=== PATIENT | male | born 1970 | race Caucasian/White ===

== ENCOUNTER 2024-11-09 06:03 | Outpatient (OUT) | payer BC, SELFPAY | END 2024-11-09 06:04 | disposition home or self-care (01) | LOC: RAD 06:03 | PROVIDERS: PCP Nurse Practitioner Family; Visit Provider Nurse Practitioner Family | DX: M54.32 Sciatica, left side (principal); M51.369 Other intervertebral disc degeneration, lumbar region without mention of lumbar back pain or lower extremity pain | CPT/HCPCS: 72100 ==

== ENCOUNTER 2025-04-21 11:29 | Outpatient (OUT) | payer OTHER, SELFPAY ==
--- OUTSIDE RECORDS SUMMARY | 2025-04-17 09:30 | XMS_ITS ---
Author Organization [facility] in [place] Address [address] [place] [address] Care Team Providers Care Box Cutter Name Role Phone Kerrie Aguillon Primary Care Provider Allergies Allergen (clinical drug ingredient) Drug/Non Drug Allergy documented on EMR Reaction Allergy Type Onset Date Status codeine Codeine nausea/vomiting Drug Allergy A ctive REASON FOR VISIT Presents to office alone for c/o low back pain. Pain has been much worse over the past 3 weeks, We ordered MRI back in October and he is getting that done on Monday. Medications Medication SIG (Take, Route, Frequency, Duration) Notes Start Date End Date Status Olmesartan Medoxomil-HCTZ 20-12.5 MG TAKE 1 TABLET BY MOUTH EVERY DAY FOR 90 DAYS daily; Duration: 30 days Active Zanaflex 4 MG 1 tablet BID prn Orally Once a day; Duration: 10 days Active predniSONE 20 MG 2 tablet Orally Once a day; Duration: 5 days 04/17/2025 Active Diclofenac Sodium 75 MG TAKE 1 TABLET BY MOUTH TWICE A DAY FOR 14 DAYS NEEDED; Duration: 30 days Active Simvastatin 20 MG 1 tablet in the evening Orally Once a day; Duration: 30 days Active Trulicity 3 MG/0.5ML INJECT 1 PEN UNDER THE SKIN ONCE WEEKLY; Duration: 28 Active Omeprazole 40 MG TAKE 1 CAPSULE BY MOUTH TWICE A DAY; Duration: 90 Active QUEtiapine Fumarate 100 MG TAKE 3 TABLET AT BEDTIME BY MOUTH ONCE A DAY; Duration: 90 Active Ibuprofen 800 MG TAKE 1 TABLET BY MOUTH EVERY 6 TO 8 HOURS NEEDED; Duration: 30 Active buPROPion HCl ER (XL) 150 MG TAKE 1 TABLET BY MOUTH EVERY DAY; Duration: 90 days Active DULoxetine HCl 60 MG TAKE 1 CAPSULE BY MOUTH EVERY DAY FOR 30 DAYS; Duration: 90 days Active glipiZIDE ER 2.5 MG 1 tablet with breakfast Orally Once a day; Duration: 30 days 06/30/2023 Active Gabapentin 300 MG 1 capsule Orally twice a day; Duration: 30 days call for refill 04/17/2025 Active Social History Tobacco Use: Social History Observation Description Date Details (start date - stop date) Current Smoker 07/17/1992 - NA Tobacco Use/Smoking Question Answer Notes Patient is a current smoker When did you start smoking? 07/17/1992 How often do you smoke cigarettes? every day How many cigarettes a day do you smoke? 06-05 AUDIT-C (Standard) Question Answer Notes Did you have a drink contain ing alcohol in the past year? Yes How often did you have a dri nk containing alcohol in the past year? Never (0 point) How many drinks did you have on a typical day when you were drinking in the past year? 1 or 2 drinks (0 point) How often did you have six o r more drinks on one occasion in the past year? Less than monthly (1 point) Points 1 Interpretation Negative Vital Signs Weight 256.2 lbs 04/17/2025 Height 73 in 04/17/2025 Blood pressure systolic 96 mm Hg 04/17/20 25 Blood pressure diastolic 60 mm Hg 025 BMI 33.8 kg/m2 04/17/2025 Encounters Encounter Location Date Provider Diagnosis [address] [address] 04/17/2025 Kerrie Pal Back pain M54.9 and Essential (primary) hypertension I10 Assessments Encounter Date Diagnosis (ICD Code) Assessment Notes Treatment Notes Treatment Clinical Notes Section Notes 04/17/2025 Back pain (ICD-10 - M54.9) toradol 60 kenlog 80 IM has upcoming MRI Monday discussed pain man referral check on FMLA paperwork CSA signed, OAR[place] reviewed 04/17/2025 Essential (primary) hypertension (ICD-10 - I10) BP running low decrease dose bp med continue to monitor Plan Of Treatment Medication Medication Name Sig Start Date Stop Date Notes Olmesartan Medoxomil-HCTZ 20-12.5 MG TAKE 1 TABLET BY MOUTH EVERY DAY FOR 90 DAYS daily; Duration: 30 days Zanaflex 4 MG 1 tablet BID prn Orally Once a day; Duration: 10 days predniSONE 20 MG 2 tablet Orally Once a day; Duration: 5 days 04/17/2025 Diclofenac Sodium 75 MG TAKE 1 TABLET BY MOUTH TWICE A DAY FOR 14 DAYS NEEDED; Duration: 30 days Gabapentin 300 MG 1 capsule Orally twi ce a day; Duration: 30 days 04/17/2025 call for refill Treatment Notes Assessment Notes Back pain toradol 60 kenlog 80 IM has upcoming MRI Monday discussed pain man referral check on FMLA paperwork CSA signed, OARRS reviewed Essential (primary) hypertension BP running low decrease dose bp med continue to monitor Next Appt Details Follow Up: prn, Reason: Progress Notes * Chidi VALENCIA RDOB:1970 (54 yo M)Acc No.[id number]:04/17/2025 Progress Note Patient: Chidi ARGUETA Provider: Tamie Aguillon ([facility]), SCHOOL BUS AIDE :1970 A ge:54 Y S ex:Male Date:04/17/2025 Address:[address] [place], [place] [id number] Check In:12:59 PM ESTCheck O ut:01:49 PM EST Subjective: * Chief Complaints: * 1 . Presents to office alone for c/o low back pain. Pain has been much worse over the past 3 weeks. 2. We ordered MRI back in October and he is getting that done on Monday.. * HPI: G eneral: getting MRI Monday low back pain righ tin middle legs weak yesterday, fell knocked tooth out no loss bowel, bladder, no saddle anesthesia ER twice in last 3 weeks chiro helps for 2 hours feels better laying on back with pressure on area moving around makes worse. * ROS: G eneral/Constitutional: Fever d enies. H eadache d enies. W eight loss?denies. O phthalmologic: Discharge d enies. E ye Pain d enies. I tching and redness d enies. E NT: Nasal discharge d enies. N pat congestion d enies.?Sore throat d enies. C ardiovascular: Chest tightness/ heavy pressure d enies. R apid heart rate d enies. S welling of extremities d enies. C hest pain d enies. ? R espiratory: Productive cough d enies. C hest pain d enies. C ough d enies. S hortness of breath d enies. W heezing d enies. ? G astrointestinal: Abdominal pain d enies. C onstipation d enies. D ecreased appetite d enies. D iarrhea d enies. N ausea d enies. V omiting?denies. G enitourinary: Urinary incontinence d enies. P ainful urination d enies. M usculoskeletal: Back pain c enter of low back, little radiation to buttocks bilaterally. N roger pain d enies. M uscle aches d enies. S kin: Rash d enies. S kin lesion(s) d enies. ? * Active Problem List R55 Syncope Modified On:04/10/2023 Status:confirmed F32.9 Depression Modified On:04/14/2023U Status:confirmed E66.3 Over weight Modified On:04/10/2023 Status:confirmed D64.9 Anemia Modified On:04/10/2023 Status:confirmed R53.83 Fatigue Modified On:04/10/2023 Status:confirmed K63.5 Colonic polyp Modified On:04/10/2023 Status:confirmed E78.1 Hypertriglyceridemia Modified On:04/10/2023U Status:confirmed K76.0 Fatty liver Modified On:04/10/2023U Status:confirmed M19.90 Unspecified osteoart hritis, unspecified site Modified On:04/21/2023 Status:confirmed E11.69 Type 2 diabetes rosaura itus with other specified complication Modified On:07/21/2023U Status:confirmed E66.9 Obesity, unspecified Modified On:04/14/2023U Status:confirmed I10 Essential (primary) hypertension Modified On:04/14/2023U Status:confirmed S83.242A Other tear of medial meniscus, current injury, left knee, initial encounter Modified On:05/29/2023U Status:confirmed M94.20 Chondromalacia, unsp ecified site Modified On:05/29/2023 Status:confirmed M71.22 Synovial cyst of pop liteal space [Carroll], left knee Modified On:05/29/2023 Status:confirmed K59.00 Constipation Modified On:01/25/2024 Status:confirmed G47.33 ANNALISA (obstructive sle ep apnea) Modified On:05/01/2024U Status:confirmed M10.9 Gout attack Modified On:05/01/2024U Status:confirmed M54.32 Sciatica, left Modified On:11/05/2024 Status:confirmed * Medical History: S yncope, Depression, Over weight, Anemia, Fatigue, Colonic polyp, Hypertriglyceridemia, Fatty infiltration of the liver, Anxiety, Essential Hypertension, Erectile dysfunction, Gout, GERD (gastroesophageal reflux disease), IBS (irritable bowel syndrome), Insomnia, Obstructive sleep apnea, Tobacco use. * Surgical History: C HOLECYSTECTOMY , Achilles Tendon Repair , left knee replacement . * Family History: F ather: . M other: , diagnosed with Diabetes. S ister(s): multiple sclerosis. D terranceer(s): alive. 2 sister(s) . 2 daughter(s) - healthy. . * Social History: T obacco Use: T obacco Use/Smoking P atient is a c urrent smoker W hen did you start smoking? 0 07/17/1992 H ow often do you smoke cigarettes? e very day H ow many cigarettes a day do you smoke? 1 1-20 D rug/Alcohol: A JESSICA-C (Standard) D id you have a drink containing alcohol in the past year? Y es H ow often did you have a drink containing alcohol in the past year? N ever (0 point) H ow many drinks did you have on a typical day when you were drinking in the past year? 1 or 2 drinks (0 point) H ow often did you have six or more drinks on one occasion in the past year? L ess than monthly (1 point) P oints 1 I nterpretation N egative * Medications: T aking buPROPion HCl ER (XL) 150 MG Tablet Extended Release 24 Hour TAKE 1 TABLET BY MOUTH EVERY DAY , Taking Diclofenac Sodium 75 MG Tablet Delayed Release TAKE 1 TABLET BY MOUTH TWICE A DAY FOR 14 DAYS NEEDED , Taking DULoxetine HCl 60 MG Capsule Delayed Release Particles TAKE 1 CAPSULE BY MOUTH EVERY DAY FOR 30 DAYS , Taking glipiZIDE ER 2.5 MG Tablet Extended Release 24 Hour 1 tablet with breakfast Orally Once a day , Taking Ibuprofen 800 MG Tablet TAKE 1 TABLET BY MOUTH EVERY 6 TO 8 HOURS NEEDED , Taking Olmesartan Medoxomil-HCTZ 40-12.5 MG Tablet TAKE 1 TABLET BY MOUTH EVERY DAY FOR 90 DAYS , Taking Omeprazole 40 MG Capsule Delayed Release TAKE 1 CAPSULE BY MOUTH TWICE A DAY , Taking QUEtiapine Fumarate 100 MG Tablet TAKE 3 TABLET AT BEDTIME BY MOUTH ONCE A DAY , Taking Simvastatin 20 MG Tablet 1 tablet in the evening Orally Once a day , Taking Trulicity(Dulaglutide) 3 MG/0.5ML Solution Auto-injector INJECT 1 PEN UNDER THE SKIN ONCE WEEKLY , Taking Zanaflex(tiZANidine HCl) 4 MG Tablet 1 tablet at bedtime as needed Orally Once a day , Discontinued predniSONE 20 MG Tablet 2 tablet Orally Once a day , Medication List reviewed and reconciled with the patient * Allergies: C odeine: nausea/vomiting - Allergy. Objective: * Vitals: W t:256.2lbs, Ht: 73 in, BP:96/60mm Hg, BMI:33.8Index, Ht-cm: 185.42 cm, Wt-k.21 kg. * Examination: G eneral Examinations: GENERAL APPEARANCE: a lert and oriented, i n no acute distress. EYES: c onjunctiva normal, sclera non-icteric. NOSE: n ormal external appearance. LYMPH NODES: n ormal, no cervical, axillary, or inguinal adenopathy. LUNGS: c lear to auscultation bilaterally. CARDIO: r egular rate and rhythm, S1, S2 normal, no edema.? BACK: l ow back non tender to palpation. MUSCULOSKELETAL: d ecreased ROM due to low back pain, sits and stands carefully, walks slowly. SKIN: w arm and dry. Assessment: * Assessment: 1. B ack pain - M54.9 (Primary) 2 . E ssential (primary) hypertension - I10? Plan: * Treatment: 2. E ssential (primary) hypertension Refill Olmesartan Medoxomil-HCTZ Tablet, 20-12.5 MG, TAKE 1 TABLET BY MOUTH EVERY DAY FOR 90 DAYS, daily, 30 days, 30, Refills 11; R efill Zanaflex Tablet, 4 MG, 1 tablet BID prn, Orally, Once a day, 10 days, 20 Tablet, Refills 0. Notes: BP running low decrease dose bp med continue to monitor * Preventive Medicine: Screenings/Counseling: T OBACCO ACTION PLAN Patient counselled on the dangers of tobacco use and urged to quit. . B ME ACTION PLAN Above Normal BMI Follow-up D ietary management education, guidance, and counseling See treatment section of progress note for complete details of management plan. * Follow Up: p rn * * Sign off status: Completed Visit Status: C HK (Check Out) true * Provider: Tamie Aguillon ([facility]), SCHOOL BUS AIDE Date: Generated for Quincy landers/Ericka/Aakashsmitting on: 11:33 AM EDT History and Physical Notes * HPI (History of Present Illness) Category Sub-Category Detail Notes Category Not es General getting MRI Monday low back pain righ tin middle legs weak yesterday, fell knocked tooth out no loss bowel, bladder, no saddle anesthesia ER twice in last 3 weeks chiro helps for 2 hours feels better laying on back with pressure on area moving around makes worse Examination Category Sub-Category Detail Notes Category Not es General Examinations GENERAL APPEARANCE: alert a nd oriented, in no acute distress EYES: conjunctiva normal, sclera non-icteric EARS: NOSE: normal external appe arance THROAT: CARDIO: regular rate and rhy thm, S1, S2 normal, no edema LUNGS: clear to auscultatio n bilaterally ABDOMEN: SKIN: warm and dry BACK: low back non tender to palpation MUSCULOSKELETAL: decreased ROM due to low back pain, sits and stands carefully, walks slowly LYMPH NODES: normal, no cervical, axillary, or inguinal adenopathy
--- OUTSIDE RECORDS SUMMARY | 2025-04-21 06:21 | XMS_ITS ---
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 Name Role Phone Kerrie Aguillon Primary Care Provider REASON FOR VISIT shots Encounters Encounter Location Date Provider Diagnosis [address] [place] [place] [address] 04/21/2025 Kerrie Aguillon Plan Of Treatment No Information Progress Notes * Chidi VALENCIA RDOB:1970 (54 yo M)Acc No.[id number]:04/21/2025 Patient: Chidi ARGUETA :1970 A ge:54 Y S ex:Male Address:[address] [place] [phone] Subjective: * Chief Complaints: * S hots * Medical History: * Surgical History: * Hospitalization/Major Diagno stic Procedure: * Medications: Objective: * Vitals: * Physical Examination: Assessment: Plan: * Treatment: * Procedure Codes: * true * Date: Generated for Printi ng/Faxing/eTransmitting on: 11:33 AM EDT
--- OUTSIDE RECORDS SUMMARY | 2025-04-21 11:34 | XMS_ITS | Patient Health Record ---
Author Organization [facility] [place] Address [address] [place] [address] Care Team Providers Care General Matcher Name Role Phone Pal, Kerrie Primary Care Provider Jose Maria Grayson [phone] Allergies Allergen (clinical drug ingredient) Drug/Non Drug Allergy documented on EMR Reaction Allergy Type Onset Date Status codeine Codeine nausea/vomiting Drug Allergy A ctive Results Component Value Reference Range Notes COMPREHENSIVE METABOLIC PANE L Reviewed date:05/01/2024 08:17:34 AM Interpretation: Performing Lab:[facility] [address], [place]. [address] PH:[phone] Notes/Report: SODIUM 137 134-146 mmol/L POTASSIUM 4.1 3.5-5.0 mmol/L CHLORIDE 101 98-109 mmol/L CARBON DIOXIDE 27 22-32 mmol/L ANION GAP 9 5-15 mmol/L BLOOD UREA NITROGEN 17 5-23 mg/dL CREATININE 1.01 0.60-1.30 mg/dL METHOD TRACE ABLE TO IDMS STANDARD GLUCOSE 146 65-99 mg/dL CALCIUM 9.3 8.5-10.5 mg/dL TOTAL PROTEIN 6.8 6.0-8.0 g/dL ALBUMIN 4.2 3.2-5.3 g/dL ALKALINE PHOSPHATASE 49 39-130 U/L AST 14 0-41 U/L ALT 11 0-40 U/L BILIRUBIN,TOTAL 0.4 0.3-1.2 mg/dL eGFR (CKD-EPI) NON-RACE DEPENDENT 88 >59 ml/min/1.73sq.m CKD-EPI 2020 equation that does PERFORMED AT [address] [address] not use a race coefficient. Reported eGFR is based on the FREE T3 Reviewed date:05/01/2024 08:17:34 AM Interpretation: Performing Lab:[facility]), [address] [place] [address]., [address] [place] [address]. [address] PH:[phone] Notes/Report: FREE T3 2.87 2.50-3.90 pg/mL PERFORMED AT [address] [place] [address] URIC ACID Reviewed date:05/01/2024 08:17:34 AM Interpretation: Performing Lab:[facility] [address] [place] [address]., [address] [address] PH:[phone] Notes/Report: URIC ACID 8.0 2.6-7.2 mg/dL PERFORMED AT [address] [place] [address] INSULIN Reviewed date:05/01/2024 08:17:34 AM Interpretation: Performing Lab:[facility]), [address] [place] [address]., [address] [place] [address]. [address] PH:[phone] Notes/Report: INSULIN 12.99 1.00-23.00 uIU/mL Ref. range is for FASTING NON-DIABETIC POPULATION. PERFORMED AT [address] [address] THYROID PROFILE Reviewed date:05/01/2024 08:17:34 AM Interpretation: Performing Lab:[facility]), [address] [place] [address]., [address] [place] [address]. [address] PH:[phone] Notes/Report: TSH 1.08 0.49-4.67 uIU/mL FREE T4 0.59 0.61-1.60 ng/dL PERFORMED AT [address] [place] [address] LIPID PANEL Reviewed date:05/01/2024 08:17:34 AM Interpretation: Performing Lab:[facility] ([address] [address] PH:[phone] Notes/Report: CHOLESTEROL 136 150-200 mg/dL TRIGLYCERIDE 117 27-150 mg/dL HDL CHOLESTEROL 32 >39 mg/dL HDL <40 mg/dL - High Risk HDL >60 mg/dL - Negative Risk HDL > or = 40mg/dL- Desirable VERY LOW LIPOPROTEIN 23 0-30 mg/dL LDL (CALC) 81 <130 mg/dL LDL <100 mg/dL - Desirable LDL >160 mg/dL - High Risk CHOLESTEROL:HDL 4.3 1.0-5.0 PERFORMED [address] [address] PSA. SCREENING Reviewed date:05/01/2024 08:17:34 AM Interpretation: Performing Lab:[facility] [address] [address] PH:[phone] Notes/Report: PSA SCREEN 1.21 0.00-4.00 ng/mL Values obtained by different assay methods PERFORMED AT [address] [address] Maurepas DXI chemiluminescent immunoassay. cannot be used interchangeably. The method used for this test is Latia CBC AND AUTO DIFF * Reviewed date:05/01/2024 08:17:34 AM Interpretation: Performing Lab:[facility] [address] [address] PH:[phone] Notes/Report: WBC COUNT 6.8 4.0-11.0 X10E9/L RBC COUNT 4.45 4.10-5.70 X10E12/L HEMOGLOBIN 13.7 13.0-17.0 g/dL HEMATOCRIT 38.5 39-49 % MCV 86 80-100 fL MCH 30.8 27-34 pg MCHC 35.6 32-36 g/dL RDW 13.6 11.5-15.0 % PLATELET COUNT 252 150-450 X10E9/L MPV 7.5 7-12 fL % NEUTROPHILS 50.4 % LYMPHOCYTES 37.7 % MONOCYTES 7.2 % EOSINOPHILS 3.5 % BASOPHILS 1.2 ABSOLUTE NEUTROPHIL 3.4 1.5-6.6 X10E9/L ABSOLUTE LYMPHOCYTE 2.6 1.0-3.5 X10E9/L ABSOLUTE MONOCYTE 0.5 0-0.9 X10E9/L ABSOLUTE EOSINOPHIL 0.2 0.0-0.4 X10E9/L ABSOLUTE BASOPHIL 0.1 0.0-0.2 X10E9/L PERFORM ED AT [address], [place] [address] HGB A1C (GLYCO-HGB) Reviewed date:05/01/2024 08:17:34 AM Interpretation: Performing Lab:[facility] [address] [place] [address], [address] [address] PH:[phone] Notes/Report: HEMOGLOBIN A1C 7.2 4.4-5.6 % affected. Diabetes : > 6.4 % ADA Guidelines the half-life of red blood cells and in vivo glycation rates are Normal : less than 5.7 % Prediabetes : 5.7 % to 6.4 % Result HgbA1c NOTE Use with caution in patients with abnormal hemoglobin variants as AVERAGE GLUCOSE [address] PERFORMED AT [address] [id number] Reason For Referral Reason left sciatica Diagnosis 1 Sciatica, left (M54. 32) Referral Organization [facility] Referring Provider First Name Kerrie Referring Provider Last Name Pal Referring Provider Speciality Family Med leena Referred Provider [facility], Physical Therap y Referred Provider Specialty Physical The rapist Referral Priority Routine Medications Medication SIG (Take, Route, Frequency, Duration) Notes Start Date End Date Status buPROPion HCl ER (XL) 150 MG TAKE 1 TABLET BY MOUTH EVERY DAY; Duration: 90 days Active Olmesartan Medoxomil-HCTZ 20-12.5 MG TAKE 1 TABLET BY MOUTH EVERY DAY FOR 90 DAYS daily; Duration: 30 days Active Simvastatin 20 MG [...] TO 8 HOURS NEEDED; Duration: 30 Active Zanaflex 4 MG 1 tablet BID prn Orally Once a day; Duration: 10 days Active DULoxetine HCl 60 MG TAKE 1 CAPSULE BY MOUTH EVERY DAY FOR 30 DAYS; Duration: 90 days Active predniSONE 20 MG 2 tablet Orally Once a day; Duration: 5 days 04/17/2025 Active glipiZIDE ER 2.5 MG 1 tablet with breakfast Orally Once a day; Duration: 30 days 06/30/2023 Active Diclofenac Sodium 75 MG TAKE 1 TABLET BY MOUTH TWICE A DAY FOR 14 DAYS NEEDED; Duration: 30 days Active Gabapentin 300 MG 1 capsule Orally [...] many cigarettes a day do you smoke? 11-20 Alcohol Screen (Audit-C) Question Answer Notes Did you have a drink contain ing alcohol in the past year? Yes How many drinks did you have on a typical day when you were drinking in the past year? 1 or 2 drinks (0 point) How often did you have a dri nk containing alcohol in the past year? Daily or almost daily (4 points) Points 4 Interpretation Positive AUDIT-C (Standard) Question Answer Notes Did you [...] monthly (1 point) Points 1 Interpretation Negative Problems Problem Type SNOMED Code ICD Code Onset Dates Problem Status W/U Status Risk Notes Problem Essential hypertension (68441830) Essential (primary) hypertension (I10) Active confirmed Problem Type 2 diabetes mellitus with other specified complication (E11.69) Active confirmed Problem Obesity (650476050) Obesity, uns pecified (E66.9) Active confirmed Problem Osteoarthritis (767638453) Unspecified osteoarthritis, unspecified site (M19.90) Active confirmed Problem Synovial popliteal cyst of left knee (disorder) (9265262522) Synovial cyst of popliteal space [Carroll], left knee (M71.22) Active confirmed Problem Chondromalacia (12657416) Chondromalacia, unspecified site (M94.20) Active confirmed Problem Acute tear of medial meniscus of left knee (disorder) (47029679547313714) Other tear of medial meniscus, current injury, left knee, initial encounter (S83.242A) Active confirmed Problem Fatigue (81225871) Fatigue (R53.83) Active conf irmed Problem Anemia (275487637) Anemia (D64.9) Active confir med Problem Depression (674400914) Depression (F32.9) Active confirmed Problem Obstructive sleep apnea syndrome (67048260) ANNALISA (obstructive sleep apnea) (G47.33) Active confirmed Problem Syncope (483627709) Syncope (R55) Active confir med Problem Hypertriglyceridemia (406701615) Hypertriglyceridemia (E78.1) Active confirmed Problem Constipation (89591958) Constipation (K59.00) Active confirmed Problem Fatty liver (897530254) Fatty liver (K76.0) Active confirmed Problem Colonic polyp (56305371) Colonic polyp (K63.5) Active confirmed Problem Overweight (256494826) Over weight (E66.3) Active confirmed Problem Sciatica (37176630) Sciatica, le ft (M54.32) Active confirmed Problem Gout attack (733390600) Gout attack (M10.9) Active confirmed Vital Signs Blood pressure diastolic 60 mm Hg 04/17/2025 Height 73 in 04/17/2025 Blood pressure systolic 96 mm Hg 04/17/2025 Weight 256.2 lbs 04/17/2025 BMI 33.8 kg/m2 04/17/2025 Encounters Encounter Location Date Provider Diagnosis [facility] [address] [place] [address] 11/05/[address] [facility] [address] [place] [address] 11/11/2024 Kerrie Aguillon Sciatica, left M54.3 2 [facility] [address] [facility] [place] [address] 04/21/2025 Kerrie Aguillon [facility] [address] [facility] [place] [address] 04/23/2024 Kerrie Aguillon Wellness examination Z00.00 [facility] [address] [place] [address] 06/24/[address] [facility] [address] [place] [address] 06/24/2024 Kerrie Aguillon Type 2 diabetes mellitus with other specified complication E11.69 [facility] [address] [place] [address] 07/05/[address] [facility] [address] [place] [address] 07/23/[address] [facility] [address] [place] [address] 05/01/2024 Kerrie Aguillon Gout attack M10.9 an d Type 2 diabetes mellitus with other specified complication E11.69 [facility] [address] [place] [address] 07/05/2024 Kerrie Aguillon Right ankle pain M25.571 and Wellness examination Z00.00 [facility] [address] [place] [address] 11/05/2024 Kerrie Aguillon Sciatica, left M54.[address] [facility] [address] [place] [address] 04/17/2025 Kerriegerardo Aguillon Back pain M54.9 and Essential (primary) hypertension I10 Assessments Encounter Date Diagnosis (ICD Code) Assessment Notes Treatment Notes Treatment Clinical Notes Section Notes 05/01/2024 Gout attack (ICD-10 - M10.9) fu if not improving 07/05/2024 Right ankle pain (ICD-10 - M25.571) refer to ortho, calling with name 07/05/2024 Wellness examination (ICD-10 - Z00.00) reviewed labs ROS done exam done needs ortho referral checking on last colonoscopy date r 11/05/2024 Sciatica, left (ICD-10 - M54.32) 04/17/2025 Back pain (ICD-10 - M54.9) toradol 60 kenlog 80 IM has upcoming MRI Monday discussed pain man referral check on FMLA paperwork CSA signed, OARRS reviewed 04/23/2024 Wellness examination (ICD-10 - Z00.00) 06/24/2024 Type 2 diabetes mellitus with other specified complication (ICD-10 - E11.69) 11/11/2024 Sciatica, left (ICD-10 - M54.32) 04/17/2025 Essential (primary) hypertension (ICD-10 - I10) BP running low decrease dose bp med continue to monitor 05/01/2024 Type 2 diabetes mellitus with other specified complication (ICD-10 - E11.69) well controlled with meds, continue all Plan Of Treatment Pending Test Test Name Order Date CMP (COMPLETE METABOLIC PANEL) 3 CMP (COMPLETE METABOLIC PANEL) 4 HEMOGLOBIN A1C (GLYCO) 04/14/2023 HEMOGLOBIN A1C (GLYCO) 04/23/2024 INSULIN, TOTAL 04/23/2024 INSULIN, TOTAL 04/14/2023 LIPID PANEL (CHOL/TRIG/HDL/LDL) 04/14/20 23 LIPID PANEL (CHOL/TRIG/HDL/LDL) 04/23/20 24 CBC WITH DIFF 04/23/2024 CBC WITH DIFF 04/14/2023 PSA, PROSTATE-SPECIFIC ANTIGEN 3 URIC ACID 04/14/2023 URIC ACID 04/23/2024 XR Abdomen AP (1 view) (KUB) * 4 PSA, TOTAL 04/23/2024 STOOL OCCULT BLOOD 04/14/2023 GLYCOHEMOGLOBIN A1C 07/21/2023 MRI LSPINE WO CON 11/11/2024 THYROID PANEL (T4/TSH/FREE T3) 4 THYROID PANEL (T4/TSH/FREE T3) 3 XR lumbar spine 2-3V 11/05/2024 Insurance Providers Payer Name Payer Address Payer Phone Subscriber Number Group Number Insured Name Patient Relationship to Insured Coverage Start Date Coverage End Date [employer] ACCESS PPO PLUS LOCAL PLAN [address] [place] [address] [id number] Chidi Valencia Self - patient is the insured Medications Administered Medication Instructions Date of Administration Dosage Notes Kenalog-40 04/21/2023 160 mg 80 mg and 1 cc lidocaine - X2 Medical (General) History Medical History History ICD Code syncope depression over weight anemia fatigue colonic polyp hypertriglyceridemia fatty infiltration of the liver Anxiety F41.9 Essential Hypertension I10 Erectile dysfunction N52.9 Gout M10.9 GERD (gastroesophageal reflux disease) K 21.9 IBS (irritable bowel syndrome) K58.9 Insomnia G47.00 Obstructive sleep apnea G47.33 Tobacco use Z72.0 Surgical History Surgery Date(Month/Year) left knee replacement CHOLECYSTECTOMY Achilles Tendon Repair
--- OUTSIDE RECORDS SUMMARY | 2025-04-21 11:34 | XMS_ITS | Clinical Summary ---
Author Organization [facility] Address [address], [address] [place] [address] Care Team Providers Care Freelance Translator Name Role Phone Kerrie Aguillon DYE REEL OPERATOR - LUMBER RACKER Primary Care Provide r Allergies Active Allergy Reactions Criticality Noted Date Comments Codeine Nausea And Vomiting Low 06/05/2023 Medications QUEtiapine (SEROQUEL) 100 MG tablet Take 1 tablet by mouth nightly Active DULoxetine (CYMBALTA) 60 MG extended release capsule Take 1 capsule by mouth nightly Active omeprazole (PRILOSEC) 40 MG delayed release capsule Take 1 capsule by mouth nightly Active NIFEdipine (ADALAT CC) 60 MG extended release tablet Take 1 tablet by mouth nightly Active dulaglutide (TRULICITY) 1.5 MG/0.5ML SC injection Inject 0.5 mLs into the skin once a week Sundays Active ibuprofen (ADVIL;MOTRIN) 800 MG tablet Take 1 tablet by mouth every 6 hours as needed for Pain Active simvastatin (ZOCOR) 20 MG tablet Take 1 tablet by mouth nightly Active olmesartan-hydr oCHLOROthiazide (BENICAR HCT) 40-12.5 MG per tablet Take 0.5 tablets by mouth nightly Active rivaroxaban (XARELTO) 10 MG TABS tablet Take 1 tablet by mouth daily (with breakfast) 12 tablet 06/20/2023 Active Active Problems Problem Noted Date Diagnosed Date Type 2 diabetes mellitus wit h hyperglycemia, without long-term current use of insulin 06/20/2023 HTN (hypertension) 06/20/2023 Status post total knee replacement using cement, left 06/19/2023 Family History Medical History Relation Name Comments Heart Disease Mother Relation Name Status Comments Father Mother Sister Social History Tobacco Use Types Packs/Day Years Used Date Smoking Tobacco: Every Day Cigarettes Smokeless Tobacco: Never Tobacco Cessation:Ready to Q uit: Not Asked; Counseling Given: Not Answered Alcohol Use Standard Drinks/Week Comments Not Currently 0 (1 standard drink = 0.6 oz pur e alcohol) occasionally [facility] Utilities Answer Date Recorded In the past 12 months has th e electric, gas, oil, or water company threatened to shut off services in your home? No 06/19/2023 Hunger Vital Sign Answer Date Recorded Within the past 12 months, y ou worried that your food would run out before you got the money to buy more. Never true 06/19/20 23 Within the past 12 months, t he food you bought just didn't last and you didn't have money to get more. Never true 06/19/2023 PRAPARE - Transportation Answer Date Re corded In the past 12 months, has l ack of transportation kept you from medical appointments or from getting medications? No 10/2022 In the past 12 months, has l ack of transportation kept you from meetings, work, or from getting things needed for daily living? No 06/19/2023 Housing Stability Vital Sign Answer Shayne e Recorded In the last 12 months, was t here a time when you were not able to pay the mortgage or rent on time? No 06/19/2023 In the last 12 months, how many places have you lived? 1 06/19/2023 In the last 12 months, was t here a time when you did not have a steady place to sleep or slept in a senior care (including now)? No 06/19/2023 Interpersonal Safety ([facility] HRSN) Answer Date Recorded How often does anyone, yueagatha janice family and friends, physically hurt you? 1 06/19/2023 How often does anyone, abundio camacho family and friends, scream or curse at you? Not on file 06/19/2023 How often does anyone, abundio camacho family and friends, insult or talk down to you? Not on file 06/19/2023 How often does anyone, abundio camacho family and friends, threaten you with harm? Not on file 06/19/2023 Food Insecurity Answer Date Recorded Within the past 12 months, y ou worried that your food would run out before you got the money to buy more. 1 06/19/2023 Within the past 12 months, t he food you bought just didn't last and you didn't have money to get more. 1 06/19/2023 Interpersonal Safety Domain Source: IP Abuse Scr eening Answer Date Recorded Read-Only, Retired: Physical Abuse Denies 06/19/2023 Read-Only, Retired: Verbal Abuse Denies 06/19/2023 Read-Only, Retired: Emotional abuse Denies 06/19/2023 Read-Only, Retired: Financial Abuse Denies 06/19/2023 Read-Only, Retired: Sexual abuse Denies 06/19/2023 Sex and Gender Information Value Date Recorded Sex Assigned at Not on file Legal Sex Male 11:27 AM EST Gender Identity Not on file Sexual Orientation Not on file Last Filed Vital Signs Vital Sign Reading Time Taken Comments Blood Pressure 125/61 06/20/2023 7:45 AM EST Pulse 83 06/20/2023 7:45 AM EST Temperature 36.5 C (97.7 F) 06/20/2023 7:45 AM EST Respiratory Rate 18 06/20/2023 2:38 PM EST Oxygen Saturation 95% 06/20/2023 7:45 AM EST Inhaled Oxygen Concentration - - Weight 117.9 kg (260 lb) 06/19/2023 10:53 AM EST Height 185.4 cm (6' 1 ) 06/19/2023 10:53 AM EST Body Mass Index 34.3 06/19/2023 10:53 AM EST Plan of Treatment Health Maintenance Due Date Last Done Comments A1C test (Diabetic or Prediabetic) 1979 Diabetic foot exam 1979 Lipids 1979 Depression Screen 1981 HIV screen 1984 Diabetic Alb to Cr ratio (uA CR) test 1987 Diabetic retinal exam 1987 Hepatitis C screen 1987 Hepatitis B vaccine (1 of 3 - 19+ 3-dose series) 1988 Pneumococcal 50+ years Vacci ne (1 of 2 - PCV) 1988 Colonoscopy 2014 Colorectal Cancer Screen 2014 FIT/FOBT: Average risk 2014 Fecal-DNA (Cologuard): [place] ge risk 2014 Sigmoidoscopy/CT colonography 2014 Shingles vaccine (1 of 2) 2019 GFR test (Diabetes, CKD 3-4, OR last GFR 15-59) 06/06/2024 06/06/2023 Flu vaccine (#1) 02/14/2025 COVID-19 Vaccine (1 - 2023-2 5 season) 2025 DTaP/Tdap/Td vaccine (2 - Td or Tdap) 02/02/2031 02/02/2021 Hepatitis A vaccine Aged Out No longe r eligible based on patient's age to complete this topic Hib vaccine Aged Out No longer eligi ble based on patient's age to complete this topic Meningococcal (ACWY) vaccine Aged Out No longer eligible based on patient's age to complete this topic Meningococcal B vaccine Aged Out No l onger eligible based on patient's age to complete this topic Polio vaccine Aged Out No longer elig ible based on patient's age to complete this topic Medical Devices Implanted Type Area Foster Care Social Worker Device Identifier Shelf Expiration Date Model / Serial / Lot Dup Use [id number] Impl Knee Psn Tib Stm 5 Deg Sz G L - [id number] Implanted:Qty : 1 on 06/19/2023 by Ender Lu MD at [facility] Knee Left: Knee [employer]PMM 10/18/2032 [id number] / / [id number] Impl Knee Psn Fem Cr Cmt Ccr Std Sz9 L - [id number] Implanted:Qty : 1 on 06/19/2023 by Ender Lu MD at [facility] Knee Left: Knee [employer]-PMM 03/13/2033 [id number] / / [id number] Cement Bne 40gm Hi Visc Radpq For Rev Surg - [id number] Implanted:Qty : 1 on 06/19/2023 by Ender Lu MD at [facility] Left: Knee [employer]-WD 12/14/2025 [id number] / / [id number] Cement Bne 40gm Hi Visc Radpq For Rev Surg - [id number] Implanted:Qty : 1 on 06/19/2023 by Ender Lu MD at [facility] Left: Knee [employer]- 06/15/2025 [id number] / / [id number] Component Pat [id number] Thk8.5mm Std Knee Vivacit-E [place] - [id number] Implanted:Qty : 1 on 06/19/2023 by Ender Lu MD at [facility] Left: Knee [employer]- 02/15/2028 [id number] / / [id number] Psn Mc Ve Asf L 10mm 8-11 Gh - [id number] Implanted:Qty : 1 on 06/19/2023 by Ender Lu MD at [facility] Left: Knee [employer]- 08/08/2027 [id number] / / [id number] Explanted Type Area Foster Care Social Worker Device Identifier Shelf Expiration Date Model / Serial / Lot Screw Bne L48mm Constrn Cndyl Knee Hex Hd Stem For Leg Nxgn - [id number] Explanted:Qty : 2 on 06/19/2023 by Ender Lu MD at [facility] Left: Knee [employer]- 08/22/2032 [id number] / / [id number] Procedures Procedure Name Priority Date/Time Associated Diagnosis Comments BASIC METABOLIC PANEL Routine 06/06/2023 9:58 AM EST from Last 3 Months or Most Recently Relevant to Health Maintenance Results * (ABNORMAL) Basic Metabolic Panel (06/06/2023 9:58 AM EST) Sodium 130(L) 135 - 144 mmol/L 06/06/2023 9:58 AM EST [facility] Potassium 3.7 3.7 - 5.3 mmol/L 06/06/2023 9:58 AM EST [facility] Chloride 93(L) 98 - 107 mmol/L 06/06/2023 9:58 AM EST [facility] CO2 24 20 - 31 mmol/L 06/06/2023 9:58 AM EST [facility] Anion Gap 13 9 - 17 mmol/L 06/06/2023 9:58 AM [facility] Glucose 214(H) 70 - 99 mg/dL 06/06/2023 9:58 AM [facility] BUN 16 6 - 20 mg/dL 06/06/2023 9:58 AM [facility] Creatinine 1.1 0.7 - 1.2 mg/dL 06/06/2023 9:58 AM [facility] Est, Glom Filt Rate >60 >60 mL/min/1.7 3m2 06/06/2023 9:58 AM [facility] Comment: These results are not intended for use in patients <18 years of age. eGFR results are calculated without a race factor using the 2020 CKD-EPI equation. Careful clinical correlation is recommended, particularly when comparing to results calculated using previous equations. The CKD-EPI equation is less accurate in patients with extremes of muscle mass, extra-renal metabolism of creatine, excessive creatine ingestion, or following therapy that affects renal tubular secretion. BUN/Creatinine Ratio 15 9 - 20 06/06/2023 9:58 AM [facility] Calcium 9.4 8.6 - 10.4 mg/dL 06/06/2023 9:58 AM [facility] Blood BLOOD SPECIMEN / Unknown 06/06/2023 9:58 AM EST 06/06/2023 9:59 AM EST Ender Lu MD CHEMISTRY ORDERABLES Final Re sult [facility] [address] [phone] from Last 3 Months or Most Recently Relevant to Health Maintenance Insurance [place] BCBS Advance Directives * Full Code (Latest Code Status on File) Date Activated Date Inactivated Comments 06/19/2023 4:18 PM 06/20/2023 5:02 PM Healthcare Agents on File Name Relationship Healthcare Agent Relationshi p Communication Aidan Valencia Spouse Primary Decision Maker Care Teams Freelance Translator Relationship Specialty Start Date End Date Kerrie Aguillon, DYE REEL OPERATOR - LUMBER RACKER [address] [place] [id number] PCP - General 06/06/23
--- OUTSIDE RECORDS SUMMARY | 2025-04-21 11:34 | XMS_ITS | Patient Health Record ---
Author Organization [facility] Address [address] [place] [address] Care Team Providers Care Machine Installer Name Role Phone Kerrie Aguillon Primary Care Provider Edvin Bundy Unavailable [phone] Nakul Grayson Unavailable Unavailable Allergies Allergen (clinical drug ingredient) Drug/Non Drug Allergy documented on EMR Reaction Allergy Type Onset Date Status codeine codeine sick Drug Allergy Active Reason For Referral No Information Medications Medication SIG (Take, Route, Frequency, Duration) Notes Start Date End Date Status Ibuprofen Active Cymbalta Active Seroquel Active Social History Tobacco Use: Social History Observation Description Date Details (start date - stop date) Current Smoker NA - NA Smoking History Question Answer Notes Smoking Status Current Smoker Problems Problem Type SNOMED Code ICD Code Onset Dates Problem Status W/U Status Risk Notes Problem 479222407 Aftercare following joint replacement surgery (Z47.1) Active confirmed Problem 4812440239 Pain in right knee (M25.561) Active confirmed Problem 112684196315951 Primary osteoarthritis of left knee (M17.12) Active confirmed Problem 144022375 Bilateral primar y osteoarthritis of knee (M17.0) Active confirmed Problem [id number] Pain in left kne e (M25.562) Active confirmed Problem 719370017718 Presence of left artificial knee joint (Z96.652) Active confirmed Problem [id number] Arthritis of le ft knee (M17.12) Active confirmed Problem 169440212 Preoperative testing (Z01.818) Active confirmed Plan Of Treatment Pending Test Test Name Order Date MRI : Knee W/O Contrast Left - 62302 MRI : Knee W/O Contrast Right - 46143 PE Knee, Left 4v -87498 05/09/2023 PE Knee right, 4v -90297 05/09/2023 [facility] TOTAL - PREOP- CBC WITH DIFF, BMP, TYPE AND SCREEN, MRSA BY PCR BILATERAL NARES, EKG, [facility], PT / OT EVALUATION , 05/26/2023 Insurance Providers Payer Name Payer Address Payer Phone Subscriber Number Group Number Insured Name Patient Relationship to Insured Coverage Start Date Coverage End Date [place] [address] [place] [phone] [id number] MARTITA MYLES Self - patient is the insured Medical (General) History Medical History History ICD Code Diabetes: Yes High Blood Pressure: Yes Anxiety: Yes Drug Allergies: Yes 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
--- OUTSIDE RECORDS SUMMARY | 2025-04-21 11:34 | XMS_ITS | Clinical Summary ---
Author Organization [employer] [facility] Address [id number] [address] [place] [address] Care Team Providers Care Ribbon Blockmaker Name Role Phone Kerrie Aguillon APRN-COMBINER OPERATOR Primary Care Provider Allergies Active Allergy Reactions Criticality Noted Date Comments Codeine GI Disturbance 10/10/2017 Medications DULoxetine (CYMBALTA) 60 mg capsule Take 60 mg by mouth daily. Active olmesartan-hydr oCHLOROthiazide (BENICAR HCT) 40-12.5 mg per tablet Take 1 tablet by mouth daily. Active NIFEdipine XL (PROCARDIA XL) 60 mg 24 hr tablet Take 60 mg by mouth daily. Active QUEtiapine (SEROquel) 100 mg tablet Take 300 mg by mouth nightly. Active lidocaine (LIDODERM) 5 % Place 1 patch on the skin daily. Remove & Discard patch within 12 hours or as directed by MD 30 patch 5 Active cyclobenzaprine (FLEXERIL) 10 mg tablet Take 1 tablet (10 mg total) by mouth 2 (two) times a day as needed for muscle spasms. 10 tablet 5 Active cyclobenzaprine (FLEXERIL) 10 mg tablet Take 1 tablet (10 mg total) by mouth 2 (two) times a day as needed for muscle spasms. 10 tablet 5 04/06/20 25 Discontinue d(Duplicate Listing) predniSONE (DELTASONE) 10 mg tablet Take 4 tablets (40 mg total) by mouth in the morning for 5 days. 20 tablet 5 04/11/20 25 HYDROcodone-monica taminophen (NORCO) 5-325 mg per tabletIndicatio ns:Acute on chronic back pain Take 1 tablet by mouth every 6 (six) hours as needed for pain for up to 3 days. Max Daily Amount: 4 tablets 12 tablet 04/09/20 25 Encounters Date Type Department Care Team Description 04/06/2025 2:21 PM EDT - 04/06/2025 3:13 PM EDT Emergency [facility] - Emergency [address] [place] [address] Acute on chronic back pain (Primary Dx) Discharge Disposition: Home 04/06/2025 Travel 03/20/2025 Refill [facility] [address] [place] [address] Mary Segura, PHARMACY TECH-COMBINER OPERATOR 02/10/2025 12:40 PM EDT - 02/10/2025 1:04 PM EDT Emergency [facility] - Emergency [address] [place] [address] Francisco Castro, Earache (Primary Dx) Discharge Disposition: Home 02/10/2025 Travel from Last 3 Months Social History Tobacco Use Types Packs/Day Years Used Date Smoking Tobacco: Every Day Cigarettes 1 20 Smokeless Tobacco: Never Alcohol Use Standard Drinks/Week Comments Yes 0 (1 standard drink = 0.6 oz pur e alcohol) occasional Childcare Answer Date Recorded Childcare Unknown 12/26/2018 Employment Answer Date Recorded Employment Unknown 12/26/2018 Hunger Screening Answer Date Recorded Within the past 12 months we worried whether our food would run out before we got money to buy more. Never True 02/10/2025 Within the past 12 months th e food we bought just didn't last and we didn't have money to get more. Never True 02/10/2025 Purpose - Life Answer Date Recorded Purpose and direction in life Unknown Sex and Gender Information Value Date Recorded Sex Assigned at Not on file Legal Sex Male 11:22 AM EDT Gender Identity Not on file Sexual Orientation Not on file Last Filed Vital Signs Vital Sign Reading Time Taken Comments Blood Pressure 121/71 04/06/2025 2:24 PM EDT Pulse 69 04/06/2025 3:13 PM EDT Temperature 36.6 C (97.9 F) 04/06/2025 2:24 PM EDT Respiratory Rate 18 04/06/2025 3:13 PM EDT Oxygen Saturation 99% 04/06/2025 3:13 PM EDT Inhaled Oxygen Concentration - - Weight 117.9 kg (260 lb) 04/06/2025 2:24 PM EDT Height 185.4 cm (6' 1 ) 04/06/2025 2:24 PM EDT Body Mass Index 34.3 04/06/2025 2:24 PM EDT Plan of Treatment Health Maintenance Due Date Last Done Comments Tobacco Counseling 1969 Depression Screening 1981 Adult BMI Follow Up Plan 1987 Zoster (Shingles) Vaccine (1 of 2) 2019 Influenza Vaccine 03/17/2025 Tobacco Screening 10/23/2025 10/23/2024 Adult BMI Screening 04/06/2026 04/06/2025 DTaP,Tdap and Td Vaccines (2 - Td or Tdap) 02/02/2031 02/02/2021 Medical Devices Not on file Insurance ANTH Care Teams Ribbon Blockmaker Relationship Specialty Start Date End Date Kerrie Aguillon APRN-COMBINER OPERATOR [address] [facility] [place] [address] PCP - General Family Medicine 03/16/19
--- OUTSIDE RECORDS SUMMARY | 2025-04-21 11:34 | XMS_ITS | Clinical Summary ---
Author Organization [facility] Address [address] [place] [address] Care Team Providers Care Linseed Oil Boiler Name Role Phone No, Physician Primary Care Provider Unavailabl e Allergies Active Allergy Reactions Criticality Noted Date Comments Codeine 09/21/2016 Medications DULoxetine (CYMBALTA) 60 MG capsule Take 60 mg by mouth daily. Active olmesartan-hydro chlorothiazide (BENICAR HCT) 40-12.5 mg per tablet Take 1 tablet by mouth daily. Active NIFEdipine (ADALAT CC) 60 MG 24 hr tablet Take 60 mg by mouth daily. Active QUEtiapine (SEROQUEL) 50 MG tablet Take 50 mg by mouth nightly. Active Social History Tobacco Use Types Packs/Day Years Used Date Smoking Tobacco: Every Day Cigarettes 1 20 Smokeless Tobacco: Never Alcohol Use Standard Drinks/Week Comments Yes 0 (1 standard drink = 0.6 oz pur e alcohol) once a year Sex and Gender Information Value Date Recorded Sex Assigned at Not on file Legal Sex Male 10:26 AM EDT Gender Identity Not on file Sexual Orientation Not on file Last Filed Vital Signs Vital Sign Reading Time Taken Comments Blood Pressure 108/72 09/21/2016 4:40 AM EST Pulse 80 09/21/2016 4:40 AM EST Temperature 36.4 C (97.6 F) 09/21/2016 12:51 AM EST Respiratory Rate 18 09/21/2016 4:40 AM EST Oxygen Saturation 97% 09/21/2016 4:40 AM EST Inhaled Oxygen Concentration - - Weight 127 kg (280 lb) 09/21/2016 12:51 AM EST Height 185.4 cm (6' 1 ) 09/21/2016 12:51 AM EST Body Mass Index 36.94 09/21/2016 12:51 AM EST Plan of Treatment Health Maintenance Due Date Last Done Comments CT Colonography 1969 Colonoscopy 1969 Colorectal Cancer Screening/Monitoring 1969 Fecal DNA 1969 Fecal occult blood test (FOBT,FIT) 1969 PSA Level 1969 Tetanus: Every 10yrs 1969 Wellness Visit 1972 Depression Screening/Follow-Up (PHQ-2/9) 1981 HIV Screening 1984 Hepatitis C Screening 1987 Pneumococcal Vaccine: Age 50+ (1 of 1 - PCV) 0 Zoster Vaccines (1 of 2) 2019 COVID-19 Vaccine ( - season) 2025 Influenza Vaccine (#1) 2025 Insurance Care Teams Linseed Oil Boiler Relationship Specialty Start Date End Date No, Physician [facility] PCP - General 09/21/16
--- OUTSIDE RECORDS SUMMARY | 2025-04-21 11:34 | XMS_ITS | Clinical Summary ---
Author Organization [facility] Address [address] [place] [address] Care Team Providers Care Pulmonologist Intensivist Name Role Phone Unavailable Primary Care Provider Unavailabl e Social History Tobacco Use Types Packs/Day Years Used Date Smoking Tobacco: Never Assessed Sex and Gender Information Value Date Recorded Sex Assigned at Not on file Legal Sex Male 7:04 PM EDT Gender Identity Not on file Sexual Orientation Not on file Last Filed Vital Signs Vital Sign Reading Time Taken Comments Blood Pressure 150/99 02/07/2018 12:00 PM EDT Pulse - - Temperature - - Respiratory Rate - - Oxygen Saturation - - Inhaled Oxygen Concentration - - Weight 127 kg (281 lb) 02/07/2018 12:00 PM EDT Height 185.4 cm (6' 1 ) 02/07/2018 12:00 PM EDT Body Mass Index 37.07 02/07/2018 12:00 PM EDT Plan of Treatment Not on file
--- NOTE | 2025-04-21 11:36 | MR_ITS ---
The [address] [address] Patient Name: MARTITA MYLES MRN: [id number] date: 1970 Sex: M Assigned Patient Location: MRI Current Patient Location: MRI Accession/Order Number: [id number] Exam Date: 04/21/2025 11:45 Report Date: 04/21/2025 16:29 At the request of: FLORENTIN BUCKLEY Procedure: MR lumbar spine wo con MRI lumbar spine performed without contrast INDICATION: Left-sided sciatica COMPARISON: None FINDINGS: Lumbar vertebral heights and alignment are maintained. Mild multilevel intervertebral space narrowing mild L1-L4 and moderate at L4-5. Minimal endplate marrow changes L2-L4. Bone marrow signal is otherwise grossly unremarkable for patient's age. Multilevel Schmorl's node deformities notably L3-4 and T12-L2. Conus medullaris terminates normally at inferior plate of L1. Paraspinal soft tissues are unremarkable. T12-L1: Only evaluated on the sagittal images. Minimal endplate spurring extending both foramina zones. Facet arthropathy. No definite focal protrusion. Canal neural foramina grossly patent. L1-L2: Disc desiccation. No focal protrusion. Facet arthropathy. Canal neural foramina patent. L2-3: Broad-based disc bulge with endplate osteophytosis and spurring extending both foramina zones and facet arthropathy. Mild bilateral neural foraminal narrowing, right greater than left. Mild central canal stenosis. L3-4: Broad-based disc bulge with endplate osteophytosis and bilateral facet arthropathy. There is a left subarticular zone extrusion effacing the left subarticular zone, correlate with left L4 radiculopathy. Otherwise [id number] right-sided moderate left-sided neural foraminal narrowing. There is moderate to severe central canal stenosis. Mild crowding right subarticular zone. L4-5: Broad-based disc bulge with endplate osteophytosis and facet arthropathy. There is uqbw-en-agzwhrqz right moderate left neural from narrowing. Mild central canal stenosis. L5-S1:: Circumferential disc bulge with moderate facet arthropathy. Endplate osteophytosis and spurring extending both foramina regions causing otgf-gk-jaqbljnv right moderate left neural foraminal narrowing. Canal is patent. There is mild crowding right subcuticular zone due to endplate ossific spurring MR/MR lumbar spine wo con IMPRESSION: Left subarticular zone extrusion at L3-4, correlate with possible left L4 radiculopathy. Otherwise [id number]-yz-ecqnjnhg degenerative changes elsewhere. Impression dictated by: Mg Greene M.D. 04/21/2025 4:29 PM Dictation Location: [place] [address] Electronically authenticated by: [id number] Date: 04/21/2025 16:29
--- OUTSIDE RECORDS SUMMARY | 2025-04-21 11:39 | XMS_ITS | CCD ---
Author Organization [facility] Care Team Providers Care Resident Care Aid Name Role Phone KERRIE BUCKLEY Admitting Unavailable MARCIO, KERRIE Attending Unavailable MARCIO, KERRIE Primary Care Unavailable MARCIO, KERRIE Attending Unavailable MARCIO, KERRIE Consulting Unavailable MARCIO, KERRIE Primary Care Unavailable MARCIO, KERRIE Admitting Unavailable MARCIO, KERRIE Admitting Unavailable MARCIO, KERRIE Primary Care Unavailable MARCIO, KERRIE Attending Unavailable MARCIO, KERRIE Consulting Unavailable MARCIO, KERRIE Admitting Unavailable MARCIO, KERRIE Attending Unavailable MARCIO, KERRIE Consulting Unavailable MARCIO, KERRIE Primary Care Unavailable NATHAN, DR CARSON Consulting Unavailable NATHAN, DR CARSON Admitting Unavailable NATHAN, DR CARSON Attending Unavailable MARCIO, KERRIE Primary Care Unavailable MARCIO, KERRIE Admitting Unavailable MARCIO, KERRIE Attending Unavailable MARCIO, KERRIE Consulting Unavailable MARCIO, KERRIE Primary Care Unavailable NATHAN, DR CARSON Attending Unavailable NATAHN, DR CARSON Consulting Unavailable NATHAN, DR CARSON Admitting Unavailable MARCIO, KERRIE Primary Care Unavailable LINDA, LEV E Referring Unavailable MARCIO, KERRIE S Primary Care Unavailable LINDA, LEV E Attending Unavailable MARCIO, KERRIE S Primary Care Unavailable MARCIO, KERRIE S Referring Unavailable LINDA, LEV E Admitting Unavailable LINDA, LEV E Attending Unavailable YAQUELIN VELÁZQUEZ Consulting Unavailable MARCIO, KERRIE S Primary Care Unavailable LINDA, LEV E Admitting Unavailable Neal VILLANUEVA Attending Unavailable Marcio ROBERT, Kerrie S Primary Care Provider MARCIO, KERRIE S Referring Unavailable MARCIO, KERRIE S Primary Care Unavailable MARCIO, KERRIE S Primary Care Unavailable MARCIO, KERRIE S Primary Care Unavailable HETAL BEEBE Attending Unavailable MARCIO, KERRIE S Primary Care Unavailable Allergies Allergy Classification Reported Allergen(s) Allergy Type Date of Onset Reaction(s) Facility (2 sources) Codeine; Translations: [CODEINE] Drug Allergy 10-10-2017 GI Disturbance [facility] Medications Current Medications Medication Drug Class(es) Dates Sig (Normalized) Sig (Original) cyclobenzaprine hydrochloride 10 mg oral tablet (1 source) Muscle Relaxant Start: 5 take 1 tablet by mouth twice daily as needed for muscle spasms cyclobenzaprine (FLEXERIL) 10 mg tablet Take 1 tablet (10 mg total) by mouth 2 (two) times a day as needed for muscle spasms. 10 tablet 10/23/2024 Active DULoxetine 60 mg delayed release oral capsule (1 source) Serotonin and Norepinephrine Reuptake Inhibitor take 1 capsule by mouth once daily DULoxetine (CYMBALTA) 60 mg capsule Take 60 mg by mouth daily. Active hydroCHLOROthiazide 12.5 mg / olmesartan medoxomil 40 mg oral tablet (1 source) Thiazide Diuretic, Angiotensin 2 Receptor Dionte take 1 tablet by mouth once daily olmesartan-hydroCH LOROthiazide (BENICAR HCT) 40-12.5 mg per tablet Take 1 tablet by mouth daily. Active lidocaine 0.05 mg/mg medicated patch (1 source) Antiarrhythmic, Amide Local Anesthetic Start: 5 apply 1 dose transdermal route once daily, then apply 1 dose transdermal route every twelve hours lidocaine (LIDODERM) 5 % Place 1 patch on the skin daily. Remove & Discard patch within 12 hours or as directed by MD 30 patch 10/23/2024 Active NIFEdipine 60 mg osmotic 24 hr extended release oral tablet (1 source) Dihydropyridine Calcium Channel Dionte take 1 tablet by mouth once daily NIFEdipine XL (PROCARDIA XL) 60 mg 24 hr tablet Take 60 mg by mouth daily. Active QUEtiapine 100 mg oral tablet (1 source) Atypical Antipsychotic take 3 tablets by mouth once daily QUEtiapine (SEROquel) 100 mg tablet Take 300 mg by mouth nightly. Active Problems Active Problems Problem Classification Problem Date Documented Da te Episodic/Chronic Congestive heart failure; nonhypertensive (1 source) Heart failure, unspecified; Translations: [HEART FAILURE UNSPECIFIED] Onset: 04-02-2022 Chronic Diabetes mellitus without complication (4 sources) Type 2 diabetes mellitus without complications; Translations: [TYPE 2 DM WITHOUT COMPLICATIONS] Onset: 03-22-2022 Chronic Diabetes mellitus without complication (1 source) Other abnormal glucose; Translations: [OTHER ABNORMAL GLUCOSE] Onset: 03-25-2022 Episodic Hypertension with complications and secondary hypertension (4 sources) Hypertensive heart disease with heart failure; Translations: [HTN HEART DISEASE W/HEART FAIL] Onset: 03-28-2022 Chronic Other connective tissue disease (1 source) Presence of left artificial knee joint; Translations: [Presence of left artificial knee joint] Onset: 06-19-2023 Chronic Other ear and sense organ disorders (1 source) Otalgia, unspecified ear; Translations: [Otalgia, unspecified ear] Onset: 02-10-2025 Episodic Other nervous system disorders (1 source) Other chronic pain; Translations: [Other chronic pain] Onset: 04-06-2025 Chronic Spondylosis; intervertebral disc disorders; other back problems (4 sources) Dorsalgia, unspecified; Translations: [Sciatica, left side] Onset: 10-23-2024 Episodic Syncope (1 source) Syncope and collapse; Translations: [SYNCOPE AND COLLAPSE] Onset: 03-25-2022 Episodic Unclassified (1 source) Earache Onset: 02-10-2025 Past or Other Problems Problem Classification Problem Date Documented Da te Episodic/Chronic Deficiency and other anemia (1 source) Anemia, unspecified; Translations: [ANEMIA UNSPECIFIED] Onset: 08-04-2021 Episodic Malaise and fatigue (4 sources) Other fatigue; Translations: [OTHER FATIGUE] Onset: 12-17-2021 Episodic Results Test Name Value Interpretation Reference Range Facil ity CBC AND AUTO DIFFon 04-29-20 24 ABSOLUTE BASOPHIL 0.1 X10E9/L Normal 0.0-0.2 [facility] Comment on above: Performed By: #### C BCA, HA1C, CMP, 82964-3, 3084-1, 2857-1, THYR, 3051-0 #### [facility] ([id number]) [address] [place] [address] ABSOLUTE NEUTROPHIL 3.4 X10E9/L Normal 1.5-6.6 [facility] Comment on above: Performed By: #### C BCA, HA1C, CMP, 61272-6, 3084-1, 2857-1, THYR, 3051-0 #### [facility] ([id number]) [address], [address] [place] [address] Basophils/100 WBC (Bld) 1.2 % Normal [facility] Comment on above: Performed By: #### C BCA, HA1C, CMP, 19027-8, 3084-1, 2857-1, THYR, 3051-0 #### [facility] ([id number]) [address], [address] [place] [address] Eosinophils (Bld) [#/Vol] 0.2 10*3/uL Normal 0.0-0.4 [facility] Comment on above: Performed By: #### C BCA, HA1C, CMP, 71685-1, 3084-1, 2857-1, THYR, 3051-0 #### [facility] ([id number]) [address], [address] [place] [address] Eosinophils/100 WBC (Bld) 3.5 % Normal [facility] Comment on above: Performed By: #### C BCA, HA1C, CMP, 12237-1, 3084-1, 2857-1, THYR, 3051-0 #### [facility] ([id number]) [address], [address] [place] [address] Erythrocyte distribution width (RBC) [Ratio] 13.6 % Normal 11.5-15.0 [facility] Comment on above: Performed By: #### C BCA, HA1C, CMP, 19964-8, 3084-1, 2857-1, THYR, 3051-0 #### [facility] ([id number]) [address] [place] [address] Hematocrit (Bld) [Volume fraction] 38.5 % Low 39-49 [facility] Comment on above: Performed By: #### C BCA, HA1C, CMP, 78982-1, 3084-1, 2857-1, THYR, 3051-0 #### [facility] ([id number]) [address], [address] [place] [address] Hemoglobin (Bld) [Mass/Vol] 13.7 g/dL Normal 13.0-17.0 [facility] Comment on above: Performed By: #### C BCA, HA1C, CMP, 84517-5, 3084-1, 2857-1, THYR, 3051-0 #### [facility] ([id number]) [address] [address] [address] [address] [place] [address] Lymphocytes (Bld) [#/Vol] 2.6 10*3/uL Normal 1.0-3.5 [facility] Comment on above: Performed By: #### C BCA, HA1C, CMP, 47408-6, 3084-1, 2857-1, THYR, 3051-0 #### [facility] ([id number]) [address], [facility] [address] [place] [address] Lymphocytes/100 WBC (Bld) 37.7 % Normal [facility] Comment on above: Performed By: #### C BCA, HA1C, CMP, 07993-1, 3084-1, 2857-1, THYR, 3051-0 #### [facility] ([id number]) [address], [address] [place] [address] MCH (RBC) [Entitic mass] 30.8 pg Normal 27-34 [facility] Comment on above: Performed By: #### C BCA, HA1C, CMP, 12010-3, 3084-1, 2857-1, THYR, 3051-0 #### [facility] ([id number]) [address], [address] [place] [address] MCHC (RBC) [Mass/Vol] 35.6 g/dL Normal 32-36 [facility] Comment on above: Performed By: #### C BCA, HA1C, CMP, 45171-3, 3084-1, 2857-1, THYR, 3051-0 #### [facility] ([id number]) [address], [address] [place] [address] MCV (RBC) [Entitic vol] 86 fL Normal 80-100 [facility] Comment on above: Performed By: #### C BCA, HA1C, CMP, 57623-4, 3084-1, 2857-1, THYR, 3051-0 #### [facility] ([id number]) [address], [facility] [address] [place] [address] Monocytes (Bld) [#/Vol] 0.5 10*3/uL Normal 0-0.9 [facility] Comment on above: Performed By: #### C BCA, HA1C, CMP, 91449-8, 3084-1, 2857-1, THYR, 3051-0 #### [facility] ([id number]) [address], [address] [place] [address] Monocytes/100 WBC (Bld) 7.2 % Normal [facility] Comment on above: Performed By: #### C BCA, HA1C, CMP, 72671-2, 3084-1, 2857-1, THYR, 3051-0 #### [facility] ([id number]) [address], [facility] [address] [place] [address] Neutrophils/100 WBC (Bld) 50.4 % Normal [facility] Comment on above: Performed By: #### C BCA, HA1C, CMP, 08142-3, 3084-1, 2857-1, THYR, 3051-0 #### [facility] ([id number]) [address], [address] [place] [address] Platelet mean volume (Bld) [Entitic vol] 7.5 fL Normal 7-12 [facility] Comment on above: Performed By: #### C BCA, HA1C, CMP, 23572-8, 3084-1, 2857-1, THYR, 3051-0 #### [facility] ([id number]) [address], [address] [place] [address] Platelets (Bld) [#/Vol] 252 10*3/uL Normal 150-450 [facility] Comment on above: Performed By: #### C BCA, HA1C, CMP, 08205-0, 3084-1, 2857-1, THYR, 3051-0 #### [facility] ([id number]) [address], [address] [place] [address] RBC COUNT 4.45 X10E12/L Normal 4.10-5.70 [facility] Comment on above: Performed By: #### C BCA, HA1C, CMP, 32102-4, 3084-1, 2857-1, THYR, 3051-0 #### [facility] ([id number]) [address], [address] [place] [address] WBC (Bld) [#/Vol] 6.8 10*3/uL Normal 4.0-11.0 [facility] Comment on above: Performed By: #### C BCA, HA1C, CMP, 00023-5, 3084-1, 2857-1, THYR, 3051-0 #### [facility] ([id number]) [address] [place] [address] COMPREHENSIVE METABOLIC PANE Amor 04-29-2024 Albumin [Mass/Vol] 4.2 g/dL Normal 3.2-5.3 [facility] Comment on above: Performed By: #### C BCA, HA1C, CMP, 69301-1, 3084-1, 2857-1, THYR, 3051-0 #### [facility] ([id number]) [address], [address] [place] [address] ALP [Catalytic activity/Vol] 49 U/L Normal 39-130 [facility] Comment on above: Performed By: #### C BCA, HA1C, CMP, 16575-6, 3084-1, 2857-1, THYR, 3051-0 #### [facility] ([id number]) [address], [address] [place] [address] ALT [Catalytic activity/Vol] 11 U/L Normal 0-40 [facility] Comment on above: Performed By: #### C BCA, HA1C, CMP, 47439-3, 3084-1, 2857-1, THYR, 3051-0 #### [facility] ([id number]) [address], [address] [place] [address] Anion gap [Moles/Vol] 9 mmol/L Normal 5-15 [facility] Comment on above: Performed By: #### C BCA, HA1C, CMP, 09422-7, 3084-1, 2857-1, THYR, 3051-0 #### [facility] ([id number]) [address], [address] [place] [address] AST [Catalytic activity/Vol] 14 U/L Normal 0-41 [facility] Comment on above: Performed By: #### C BCA, HA1C, CMP, 82987-3, 3084-1, 2857-1, THYR, 3051-0 #### [facility] ([id number]) [address], [address] [place] [address] Bilirubin [Mass/Vol] 0.4 mg/dL Normal 0.3-1.2 [facility] Comment on above: Performed By: #### C BCA, HA1C, CMP, 49600-3, 3084-1, 2857-1, THYR, 3051-0 #### [facility] ([id number]) [address], [address] [place] [address] Calcium [Mass/Vol] 9.3 mg/dL Normal 8.5-10.5 [facility] Comment on above: Performed By: #### C BCA, HA1C, CMP, 34080-1, 3084-1, 2857-1, THYR, 3051-0 #### [facility] ([id number]) [address], [address] [place] [address] Chloride [Moles/Vol] 101 mmol/L Normal 98-109 [facility] Comment on above: Performed By: #### C BCA, HA1C, CMP, 36395-2, 3084-1, 2857-1, THYR, 3051-0 #### [facility] ([id number]) [address], [address] [place] [address] CO2 [Moles/Vol] 27 mmol/L Normal 22-32 [facility] Comment on above: Performed By: #### C BCA, HA1C, CMP, 48907-3, 3084-1, 2857-1, THYR, 3051-0 #### [facility] ([id number]) [address], [address] [place] [address] Creatinine [Mass/Vol] 1.01 mg/dL Normal 0.60-1.30 [facility] Comment on above: Result Comment: METH OD TRACEABLE TO IDMS STANDARD Performed By: #### C BCA, HA1C, CMP, 72912-8, 3084-1, 2857-1, THYR, 3051-0 #### [facility] ([id number]) [address], [address] [place] [address] GFR/1.73 sq M.predicted among non-blacks MDRD (S/P/Bld) [Vol rate/Area] 88 mL/min/{1.73_m2} Normal >59 [facility] Comment on above: Result Comment: Reported eGFR is based on the CKD-EPI 2020 equation that does not use a race coefficient. Performed By: #### C BCA, HA1C, CMP, 71630-9, 3084-1, 2857-1, THYR, 3051-0 #### [facility] ([id number]) [address], [address] [place] [address] Glucose [Mass/Vol] 146 mg/dL High 65-99 [facility] Comment on above: Performed By: #### C BCA, HA1C, CMP, 80092-6, 3084-1, 2857-1, THYR, 3051-0 #### [facility] ([id number]) [address], [address] [place] [address] Potassium [Moles/Vol] 4.1 mmol/L Normal 3.5-5.0 [facility] Comment on above: Performed By: #### C BCA, HA1C, CMP, 83352-1, 3084-1, 2857-1, THYR, 3051-0 #### [facility] ([id number]) [address], [address] [place] [address] Protein [Mass/Vol] 6.8 g/dL Normal 6.0-8.0 [facility] Comment on above: Performed By: #### C BCA, HA1C, CMP, 15391-3, 3084-1, 2857-1, THYR, 3051-0 #### [facility] ([id number]) [address], [address] [place] [address] Sodium [Moles/Vol] 137 mmol/L Normal 134-146 [facility] Comment on above: Performed By: #### C BCA, HA1C, CMP, 64766-2, 3084-1, 2857-1, THYR, 3051-0 #### [facility] ([id number]) [address] [facility] [address] [address] [place] [address] Urea nitrogen [Mass/Vol] 17 mg/dL Normal 5-23 [facility] Comment on above: Performed By: #### C BCA, HA1C, CMP, 06890-6, 3084-1, 2857-1, THYR, 3051-0 #### [facility] ([id number]) [address] [place] [address] FREE T3on 04-29-2024 Free T3 [Mass/Vol] 2.87 pg/mL Normal 2.50-3.90 [facility] Comment on above: Performed By: #### C BCA, HA1C, CMP, 16833-2, 3084-1, 2857-1, THYR, 3051-0 #### [facility] ([id number]) [address] [place] [address] HGB A1C (GLYCO-HGB)on 2023 Glucose [Mass/Vol] 160 mg/dL Normal [facility] Comment on above: Performed By: #### C BCA, HA1C, CMP, 89039-7, 3084-1, 2857-1, THYR, 3051-0 #### [facility] ([id number]) [address] [place] [address] HbA1c (Bld) [Mass fraction] 7.2 % High 4.4-5.6 [facility] Comment on above: Result Comment: NOTE ADA Guidelines Result HgbA1c Normal : less than 5.7 % Prediabetes : 5.7 % to 6.4 % Diabetes : > 6.4 % Use with caution in patients with abnormal hemoglobin variants as the half-life of red blood cells and in vivo glycation rates are affected. Performed By: #### C BCA, HA1C, CMP, 16680-3, 3084-1, 2857-1, THYR, 3051-0 #### [facility] ([id number]) [address] [place] [address] Insulin Qnon 04-29-2024 INSULIN 12.99 uIU/mL Normal 1.00-23.00 [facility] Comment on above: Result Comment: Ref. range is for FASTING NON-DIABETIC POPULATION. Performed By: #### 2 0448-7 #### [facility] ([id number]) [address], [address] [place] [address] Lipid 1996 panelon 4 Cholesterol [Mass/Vol] 136 mg/dL Low 150-200 [facility] Comment on above: Performed By: #### C BCA, HA1C, CMP, 97953-9, 3084-1, 2857-1, THYR, 3051-0 #### [facility] ([id number]) [address], [address] [place] [address] Cholesterol in HDL [Mass/Vol] 32 mg/dL Low >39 [facility] Comment on above: Result Comment: HDL <40 mg/dL - High Risk HDL > or = 40mg/dL- Desirable HDL >60 mg/dL - Negative Risk Performed By: #### C BCA, HA1C, CMP, 50399-6, 3084-1, 2857-1, THYR, 3051-0 #### [facility] ([id number]) [address], [address] [place] [address] Cholesterol in LDL [Mass/Vol] 81 mg/dL Normal <130 [facility] Comment on above: Result Comment: LDL <100 mg/dL - Desirable LDL >160 mg/dL - High Risk Performed By: #### C BCA, HA1C, CMP, 91381-5, 3084-1, 2857-1, THYR, 3051-0 #### [facility] ([id number]) [address], [address] [place] [address] Cholesterol in VLDL [Mass/Vol] 23 mg/dL Normal 0-30 [facility] Comment on above: Performed By: #### C BCA, HA1C, CMP, 18706-2, 3084-1, 2857-1, THYR, 3051-0 #### [facility] ([id number]) [address], [address] [place] [address] CHOLESTEROL:HDL 4.3 Normal 1.0-5.0 [facility] Comment on above: Performed By: #### C BCA, HA1C, CMP, 88354-5, 3084-1, 2857-1, THYR, 3051-0 #### [facility] ([id number]) [address] [facility] [address] [place] [address] Triglyceride [Mass/Vol] 117 mg/dL Normal 27-150 [facility] Comment on above: Performed By: #### C BCA, HA1C, CMP, 27734-3, 3084-1, 2857-1, THYR, 3051-0 #### [facility] ([id number]) [address] [facility] [address] [place] [address] Prostate specific Ag [Mass/V ol]on 04-29-2024 PSA SCREEN 1.21 ng/mL Normal 0.00-4.00 [facility] Comment on above: Result Comment: The method used for this test is Latia Nidhi DXI chemiluminescent immunoassay. Values obtained by different assay methods cannot be used interchangeably. Performed By: #### C BCA, HA1C, CMP, 48266-7, 3084-1, 2857-1, THYR, 3051-0 #### [facility] ([id number]) [address], [address] [place] [address] THYROID PROFILEon 04-29-2024 Free T4 [Mass/Vol] 0.59 ng/dL Low 0.61-1.60 [facility] Comment on above: Performed By: #### C BCA, HA1C, CMP, 95451-1, 3084-1, 2857-1, THYR, 3051-0 #### [facility] ([id number]) [address] [facility], [address] [place] [address] TSH 1.08 uIU/mL Normal 0.49-4.67 [facility] Comment on above: Performed By: #### C BCA, HA1C, CMP, 09031-7, 3084-1, 2857-1, THYR, 3051-0 #### [facility] ([id number]) [address], [address] [place] [address] URIC ACIDon 04-29-2024 Urate [Mass/Vol] 8.0 mg/dL High 2.6-7.2 [facility] Comment on above: Performed By: #### C BCA, HA1C, CMP, 44915-2, 3084-1, 2857-1, THYR, 3051-0 #### [facility] ([id number]) [address] [facility], [address] [place] [address] Consenton 09-26-2023 Consent [id number] #1.00TIFF Normal [facility] Registrationon 09-26-2023 Registration [id number] #1.00TIFF Normal [facility] Registration [id number] #1.00TIFF Normal [facility] Hgb/Hcton 06-20-2023 Hematocrit (Bld) [Volume fraction] 32.6 % Low 40.7-50.3 [facility] Comment on above: Performed By: #### H H #### [facility] [address] [place] [address] [place] [address] District Superintendent: Abdiel Nova MD Hemoglobin (Bld) [Mass/Vol] 11.5 g/dL Low 13.0-17.0 [facility] Comment on above: Performed By: #### H H #### [facility] [address] [place] [address] [place] [address] District Superintendent: Abdiel Nova MD OPERATIVE REPORTon 3 OPERATIVE REPORT [address] [address] OPERATIVE REPORT PATIENT NAME: MARTITA MYLES : 1970 MED REC NO: [id number] ROOM: [facility] ACCOUNT NO: [id number] ADMIT DATE: 06/19/2023 PROVIDER: Lev Lu DATE OF PROCEDURE: 06/19/2023 PREOPERATIVE DIAGNOSIS: Degenerative arthritis, left knee. POSTOPERATIVE DIAGNOSIS: Degenerative arthritis, left knee. PROCEDURE PERFORMED: Left total knee replacement using a Ashlee Persona knee size 9 cemented femoral component, size G stemmed tibial plateau, an 10 mm MC poly, and a 32 mm vitamin E patellar dome. SURGEON: Lev Lu MD. ANESTHESIA: Spinal. DESCRIPTION OF PROCEDURE: The patient was brought into the operating room and placed in the supine position on the operating table. Spinal anesthetic was administered. The patient received Ancef. Left lower extremity was prepped with ChloraPrep and draped in a sterile fashion. A 10 cm medial parapatellar quad-sparing incision was made. This was taken down through the skin and subcutaneous tissue. Arthrotomy was made along the medial border of the patellar tendon through the medial retinaculum. Medial quad snip was made at the superior pole of the patella. Fat pad was excised. The patient had marked degenerative changes mainly involving the medial compartment. Central drill hole was placed down in the femoral canal and distal femoral cut was set at 5 degrees of valgus. Femoral tower was marked for 3 degrees of external rotation and a size 9 four-in-one cutting block was then used. Surface of the tibia was then osteotomized with the tibial jig. Remnants of the menisci were removed. Posterior capsule was injected with 20 mL of the total joint compound. Undersurface of the patella was then osteotomized. We elected to go with a 32 mm patellar dome. [place] holes were placed. The knee was then cleansed with Simpulse with gentamicin in the irrigation solution. The trial components were removed. The knee was again cleansed with Simpulse and dried. Methylmethacrylate was prepared. The tibial component was then cemented in place. This was followed by cementing the femoral component in place, and finally, the patellar dome was cemented in place. All excess cement was removed. The 10 mm MC poly was inserted. Tourniquet was released. Good hemostasis was noted. Vancomycin powder was sprinkled in the wound. The deep fascial layer was then closed with #1 Vicryl [id number] sutures over two Hemovac drains. Remainder of the gm of vancomycin was sprinkled in the subcutaneous layer. This was followed by 2-0 Vicryl and 3-0 Monocryl subcuticular stitch. The wound was dressed with Steri-Strips, fluffs, ABD, Kerlix roll, and Ismael wrap from toe to groin. Anesthetic was discontinued. The patient was transferred to Recovery in a stable condition. ESTIMATED BLOOD LOSS: 100 mL. LEV LU [id number] Doc#: [id number] CC: Normal [facility] MRSA, DNA, Nasalon 3 MRSA, DNA, Nasal Negative Normal NEG [facility] Comment on above: Result Comment: [facility]: MRSA DNA not detected by nucleic acid amplification. Results should be used as an adjunct to nosocomial control efforts to identify patients needing enhanced precautions. The test is not intended to identify patients with staphylococcal infections. Results should not be used to guide or monitor treatment for MRSA infections. Performed By: #### M RSANO #### [address] [place] [address] District Superintendent: Eddie Valdivia MD [facility] [address] [place] [address] [place] [address] District Superintendent: Abdiel Nova MD Basic Metabolic Profon 06-06 Anion gap [Moles/Vol] 13 mmol/L Normal 04-02 [facility] Comment on above: Performed By: #### B MP, CDP #### [facility] [address] [place] [address] District Superintendent: Abdiel Nova MD BUN/CRE Ratio 15 Normal 9-20 [facility] Comment on above: Performed By: #### B SAYRA, CDP #### [facility] [address] [place], [place] [id number] District Superintendent: Abdiel Nova MD Calcium [Mass/Vol] 9.4 mg/dL Normal 8.6-10.4 [facility] Comment on above: Performed By: #### B SAYRA, CDP #### [facility] [address] [place], [place] [id number] District Superintendent: Abdiel Nova MD Chloride [Moles/Vol] 93 mmol/L Low 98-107 [facility] Comment on above: Performed By: #### B SAYRA, CDP #### [facility] [address] [place], [place] [id number] District Superintendent: Abdiel Nova MD CO2 [Moles/Vol] 24 mmol/L Normal 20-31 [facility] Comment on above: Performed By: #### B SAYRA, CDP #### [facility] [address] [place], [place] [id number] District Superintendent: Abdiel Nova MD Creatinine [Mass/Vol] 1.1 mg/dL Normal 0.7-1.2 [facility] Comment on above: Performed By: #### B SAYRA, CDP #### [facility] [address] [place], [place] 2700583 District Superintendent: Abdiel Nova MD GFR/1.73 sq M.predicted among non-blacks MDRD (S/P/Bld) [Vol rate/Area] mL/min/{1.73_m2} Normal >60 [facility] Comment on above: Result Comment: These results are not intended for [...] following therapy that affects renal tubular secretion. Performed By: #### B SAYRA, CDP #### [facility] [address] [place], [place] 1194883 District Superintendent: Abdiel Nova MD Glucose [Mass/Vol] 214 mg/dL High 70-99 [facility] Comment on above: Performed By: #### B MP, CDP #### [facility] [address] [place], [place] [id number] District Superintendent: Abdiel Nova MD Potassium [Moles/Vol] 3.7 mmol/L Normal 3.7-5.3 [facility] Comment on above: Performed By: #### B SAYRA, CDP #### [facility] [address] [place], [place] 8458483 District Superintendent: Abdiel Nova MD Sodium [Moles/Vol] 130 mmol/L Low 135-144 [facility] Comment on above: Performed By: #### B SAYRA, CDP #### [facility] [address] [place], [place] [id number] District Superintendent: Abdiel Nova MD Urea nitrogen [Mass/Vol] 16 mg/dL Normal 6-20 [facility] Comment on above: Performed By: #### B SAYRA, CDP #### [facility] [address] [place], [place] 7686183 District Superintendent: Abdiel Nova MD CBC with Diffon 06-06-2023 Abs. Basophil 0.06 k/uL Normal 0.00-0.20 [facility] Comment on above: Performed By: #### B SAYRA, CDP #### [facility] [address] [place], [place] 1977883 District Superintendent: Abdiel Nova MD Abs. Eosinophil <0.03 Normal 0.00-0.44 [facility] Comment on above: Performed By: #### B SAYRA, CDP #### [facility] [address] [place], [place] 0723883 District Superintendent: Abdiel Nova MD Abs.Imm.Granulocyte 0.04 k/uL Normal 0.00-0.30 [facility] Comment on above: Performed By: #### B SAYRA, CDP #### [address] [place], [place] 5249783 District Superintendent: Abdiel Nova MD Abs.Neutrophil (Seg) 4.52 k/uL Normal 1.50-8.10 [facility] Comment on above: Performed By: #### B SAYRA, CDP #### [address] [place], [place] 6806383 District Superintendent: Abdiel Nova MD Basophils/100 WBC (Bld) 1 % Normal 0-2 [facility] Comment on above: Performed By: #### B SAYRA, CDP #### [address] [place], [facility] District Superintendent: Abdiel Nova MD Eosinophils/100 WBC (Bld) 0 % Low 1-4 [facility] Comment on above: Performed By: #### B SAYRA, CDP #### [address] [place], [place] 3999183 District Superintendent: Abdiel Nova MD Erythrocyte distribution width (RBC) [Ratio] 12.0 % Normal 11.8-14.4 [facility] Comment on above: Performed By: #### B SAYRA, CDP #### [address] [place], [facility] District Superintendent: Abdiel Nova MD Hematocrit (Bld) [Volume fraction] 39.6 % Low 40.7-50.3 [facility] Comment on above: Performed By: #### B SAYRA, CDP #### [address] [place], [place] [id number] District Superintendent: Abdiel Nova MD Hemoglobin (Bld) [Mass/Vol] 14.1 g/dL Normal 13.0-17.0 [facility] Comment on above: Performed By: #### B SAYRA, CDP #### [facility] [address] [place], [place] 1874483 District Superintendent: Abdiel Nova MD Immature granulocytes/100 WBC (Bld) 1 % High 0 [facility] Comment on above: Performed By: #### B MP, CDP #### [facility] [address] [place] [address] Dr. [place], [place] 4174883 District Superintendent: Abdiel Nova MD Lymphocytes (Bld) [#/Vol] 1.57 10*3/uL Normal 1.10-3.70 [facility] Comment on above: Performed By: #### B SAYRA, CDP #### [address] [place] [address] District Superintendent: Abdiel Nova MD Lymphocytes/100 WBC (Bld) 21 % Low 24-43 [facility] Comment on above: Performed By: #### B SAYRA, CDP #### [address] [place], [place] 1607683 District Superintendent: Abdiel Nova MD MCH (RBC) [Entitic mass] 30.3 pg Normal 25.2-33.5 [facility] Comment on above: Performed By: #### B SAYRA, CDP #### [address] [place], [facility] District Superintendent: Abdiel Nova MD MCHC (RBC) [Mass/Vol] 35.6 g/dL High 28.4-34.8 [facility] Comment on above: Performed By: #### B SAYRA, CDP #### [address] [place], [place] [id number] District Superintendent: Abdiel Nova MD MCV (RBC) [Entitic vol] 85.0 fL Normal 82.6-102.9 [facility] Comment on above: Performed By: #### B SAYRA, CDP #### [facility] [address] [place], [place] 8159583 District Superintendent: Abdiel Nova MD Monocytes (Bld) [#/Vol] 1.18 10*3/uL Normal 0.10-1.20 [facility] Comment on above: Performed By: #### B MP, CDP #### [facility] [address] [place], [place] 1571783 District Superintendent: Abdiel Nova MD Monocytes/100 WBC (Bld) 16 % High 3-12 [facility] Comment on above: Performed By: #### B MP, CDP #### [facility] [address] [place], [facility] District Superintendent: Abdiel Nova MD Neutrophil (Seg) 61 % Normal 36-65 [facility] Comment on above: Performed By: #### B MP, CDP #### [facility] [address] [place], [facility] District Superintendent: Abdiel Nova MD NRBC Automated 0.0 per 100 WBC Normal 0.0 [facility] Comment on above: Performed By: #### B MP, CDP #### [address] [place], [place] 2704283 District Superintendent: Abdiel Nova MD Platelet mean volume (Bld) [Entitic vol] 8.9 fL Normal 8.1-13.5 [facility] Comment on above: Performed By: #### B MP, CDP #### [facility] [address] [place], [place] [id number] District Superintendent: Abdiel Nova MD Platelets (Bld) [#/Vol] 217 10*3/uL Normal 138-453 [facility] Comment on above: Performed By: #### B MP, CDP #### [facility] [address] [place], [place] 9773883 District Superintendent: Abdiel Nova MD RBC (Bld) [#/Vol] 4.66 10*6/uL Normal 4.21-5.77 [facility] Comment on above: Performed By: #### B MP, CDP #### [address] [place] [address] District Superintendent: Abdiel Nova MD WBC (Bld) [#/Vol] 7.4 10*3/uL Normal 3.5-11.3 [facility] Comment on above: Performed By: #### B MP, CDP #### [address] [place] [address] District Superintendent: Abdiel Nova MD MRSA, DNA, Nasalon 3 Specimen Description .NASAL SWAB Normal [facility] Comment on above: Performed By: #### M RSANO #### [facility] [address] [place] [id number] District Superintendent: Eddie Valdivia MD [address] [place] [address] District Superintendent: Abdiel Nova MD Type + Screenon 06-06-2023 Type + Screen Sample Expiration 06/22/2023,2359 Arm Band Number [id number] ABO/Rh(D) A POSITIVE Antibody Screen NEGATIVE Normal [facility] Comment on above: Performed By: #### T YS #### [address] [place] [address] District Superintendent: Abdiel Nova MD BNPon 03-28-2022 Natriuretic peptide B (Bld) [Mass/Vol] 14.0 pg/mL Normal <=900.0 [facility] Comment on above: Performed By: #### I SHANTAL #### [facility] [address] [place] [address] [address] Veronica Acevedo ECHOCARDIO M/2D COMPLETEon 0 03-22-2022 ECHOCARDIO M/2D COMPLETE Patient: MARTITA MYLES Exam Date: 03/22/2022 : 1970 Gender:M Ordering : DR ALLI EVANS . Admission #: [id number] Family : KERRIE BUCKLEY [facility] Order #: [id number] CLICK HERE TO VIEW EXAM ECHOCARDIOGRAM REPORT PROCEDURE: CARDIO PULMONARY ECHOCARDIO M/2D COMP INDICATIONS: Syncope COMPARISON: None. DESCRIPTION: COMPLETE ECHOCARDIOGRAM Real-time transthoracic echocardiography with 2D, M-mode, spectral and color flow Doppler performed. QUALITY: Technical quality was good. LEFT VENTRICLE: Normal chamber size. Borderline left ventricular hypertrophy. Global left ventricular systolic function is normal. LV EF: Estimated left ventricular ejection fraction is 65-70% DIASTOLIC: Normal diastolic function. ATRIAL SEPTUM: LEFT ATRIUM: Normal chamber size. RIGHT ATRIUM: Mild dilatation. RIGHT VENTRICLE: Mild chamber dilatation. Right ventricular systolic function appears reduced. TRICUSPID VALVE: Normal mobility and thickness. No stenosis with mild regurgitation. No evidence of pulmonary hypertension. RVSP 27 is mmHg MITRAL VALVE: Normal mobility and thickness. No mitral valve prolapse. No evidence of mitral valve stenosis. There is no mitral annular calcification. Trivial mitral regurgitation. AORTIC VALVE: Normal trileaflet appearance. No visible sclerosis. Normal leaflet mobility. No evidence of aortic valve stenosis. No aortic regurgitation. AORTIC ROOT: Normal diameter and appearance. PULMONIC VALVE: Normal thickness and mobility. Normal with No regurgitation. PERICARDIUM: No evidence of pericardial effusion. IVC: Not well visualized. PLEURA: CONCLUSION: 1. The left ventricle is normal in size and exhibits normal systolic function. LVEF is 65 to 70%. 2. Right ventricle is mildly dilated and appears to have mildly reduced systolic function. 3. Mildly enlarged right atrium. 4. Mild tricuspid regurgitation. 5. Normal right-sided pressures. 6. Further imaging with transesophageal echocardiogram and/or magnetic resonance imaging is recommended to further characterize the right ventricle. Adult Echocardiography Procedure Report Left Ventricle Left Atrium Mitral Valve Right Ventricle RV Internal Diastolic Dimension: 3.64 cm Aorta Aortic Valve Peak Velocity (Antegrade Flow): 1.52 m/s AoV Area (Peak Allen): 2.33 cm2, 2.33 cm2 AoV Area (VTI): 2.46 cm2, 2.46 cm2 Tricuspid Valve Peak Velocity (Regurgitant Flow): 2.11 m/s, 2.42 m/s Peak Velocity: 0.51 m/s Pulmonic Valve Mean Gradient: 2.92 mm[Hg] Mean Velocity: 0.79 m/s Peak Velocity: 1.14 m/s Peak Gradient: 5.19 mm[Hg] Right Atrium Dictated by: Fernie Dumont M.D. on 03/22/2022 at 17:55 Approved by: Fernie Dumont M.D. on 03/22/2022 at 18:03 Normal [facility] GLYCOHEMOGLOBIN A1Con 2021 ADA RECOMMENDATION SEE BELOW Normal [facility] Comment on above: Result Comment: ADA RECOMMENDED LIMIT 4.0 - 6.0 ADA THERAPEUTIC TARGET < 7.0 ACTION SUGGESTED > 7.0 Performed By: #### A 1C #### [facility] [address] [address] [address] Veronica Acevedo Glucose [Mass/Vol] 206 mg/dL Normal [facility] Comment on above: Performed By: #### A 1C #### [facility] [address] [address] [address] Veronica Acevedo HbA1c (Bld) [Mass fraction] 8.8 % Critically high 4.5-6.2 [facility] Comment on above: Performed By: #### A 1C #### [facility] [address] [place] [address] Dr. Veronica Acevedo TESTOSTERONE, TOTALon 2021 Testosterone [Mass/Vol] 342 ng/dL Normal 264-916 [facility] Comment on above: Result Comment: Adul t male reference interval is based on a population of healthy nonobese males (BMI <30) between 19 and 39 years old. Олег, et.al. JCEM 2017,102;2460-3704. PMID: [id number]. Performed By: #### T ESTTOT #### [facility] [address] [address] [address] Veronica Acevedo CBC AUTO DIFFon 07-31-2021 BASO # 0.1 103/ul Normal 0.0-0.1 [facility] Comment on above: Performed By: #### I SHANTAL #### [facility] [address] [address] [address] Veronica Acevedo Basophils/100 WBC (Bld) 1.2 % Normal 0.2-2.0 [facility] Comment on above: Performed By: #### I SHANTAL #### [facility] [address] [place] [address] Dr. Veronica Acevedo EO # 0.3 103/ul Normal 0.0-0.7 [facility] Comment on above: Performed By: #### I SHANTAL #### [facility] [address] [place] [address] Dr. Veronica Acevedo Eosinophils/100 WBC (Bld) 3.2 % Normal 0.9-7.0 [facility] Comment on above: Performed By: #### I SHANTAL #### [facility] [address] [place] [address] Dr. Veronica Acevedo Erythrocyte distribution width (RBC) [Ratio] 12.1 % Normal 11.0-15.0 [facility] Comment on above: Performed By: #### I SHANTAL #### [facility] [address] [place] [address] Dr. Veronica Acevedo Hematocrit (Bld) [Volume fraction] 45.8 % Normal 42.0-54.0 [facility] Comment on above: Performed By: #### I SHANTAL #### [facility] [address] [place] [address] Dr. Veronica Acevedo Hemoglobin (Bld) [Mass/Vol] 16.1 g/dL Normal 14.0-18.0 [facility] Comment on above: Performed By: #### I SHANTAL #### [facility] [address] [place] [address] Dr. Veronica Acevedo IG # 0.02 10e3/ul Normal 0.00-0.03 [facility] Comment on above: Performed By: #### I SHANTAL #### [facility] [address] [place] [address] Dr. Veronica Acevedo IG % 0.2 % Normal 0.0-0.5 [facility] Comment on above: Performed By: #### I SHANTAL #### [facility] [address] [place] [address] Dr. Veronica Acevedo LYMPH # 3.4 103/ul Normal 1.2-3.8 [facility] Comment on above: Performed By: #### I SHANTAL #### [facility] [address] [place] [address] Dr. Veronica Acevedo Lymphocytes/100 WBC (Bld) 37.6 % Normal 20.5-60.0 [facility] Comment on above: Performed By: #### I SHANTAL #### [facility] [address] [place] [address] Dr. Veronica Acevedo MANUAL DIFF REQ NO Normal [facility] Comment on above: Performed By: #### I SHANTAL #### [facility] [address] [place] [address] Dr. Veronica Acevedo MCH (RBC) [Entitic mass] 30.6 pg Normal 25.9-34.0 [facility] Comment on above: Performed By: #### I SHANTAL #### [facility] [address] [place] [address] Dr. Veronica Acevedo MCHC (RBC) [Mass/Vol] 35.2 g/dL Normal 29.9-35.2 [facility] Comment on above: Performed By: #### I SHANTAL #### [facility] [address] [place] [address] Dr. Veronica Acevedo MCV (RBC) [Entitic vol] 86.9 fL Normal 80.0-94.0 [facility] Comment on above: Performed By: #### I SHANTAL #### [facility] [address] [place] [address] Dr. Veronica Acevedo MONO # 0.7 103/ul Normal 0.3-0.8 [facility] Comment on above: Performed By: #### I SHANTAL #### [facility] [address] [place] [address] Dr. Veronica Acevedo Monocytes/100 WBC (Bld) 7.4 % Normal 1.7-12.0 [facility] Comment on above: Performed By: #### I SHANTAL #### [facility] [address] [place] [address] Dr. Veronica Acevedo NEUT # 4.6 103/ul Normal 1.4-6.5 [facility] Comment on above: Performed By: #### I SHANTAL #### [facility] [address] [address] [address] Veronica Acevedo Neutrophils/100 WBC (Bld) 50.4 % Normal 43.0-75.0 [facility] Comment on above: Performed By: #### I SHANTAL #### [facility] [address] [address] [address] Veronica Acevedo Platelet mean volume (Bld) [Entitic vol] 9.3 fL Critically low 9.5-13.5 [facility] Comment on above: Performed By: #### I SHANTAL #### [facility] [address] [address] [address] Veronica Acevedo PLT 233 103/ul Normal 150-450 [facility] Comment on above: Performed By: #### I SHANTAL #### [facility] [address] [place] [address] Dr. Veronica Acevedo RBC 5.27 106/ul Normal 4.70-6.10 [facility] Comment on above: Performed By: #### I SHANTAL #### [facility] [address] [address] [address] Veronica Acevedo WBC 9.1 103/ul Normal 4.0-11.0 [facility] Comment on above: Performed By: #### I SHANTAL #### [facility] [address] [place] [address] Dr. Veronica Acevedo GLYCOHEMOGLOBIN A1Con 2021 ADA RECOMMENDATION ADA THERAPEUTIC TARGET 6.0 - 7.0 ACTION SUGGESTED > 7.0 Normal [facility] Comment on above: Performed By: #### I SHANTAL #### [facility] [address] [place] [address] Dr. Veronica Acevedo Glucose [Mass/Vol] 197 mg/dL Normal [facility] Comment on above: Performed By: #### I SHANTAL #### [facility] [address] [address] [address] Veronica Acevedo HbA1c (Bld) [Mass fraction] 8.5 % Critically high <=6.0 [facility] Comment on above: Performed By: #### I SHANTAL #### [facility] [address] [place] [address] Dr. Veronica Acevedo IRONon 07-31-2021 Iron [Mass/Vol] 80.0 ug/dL Normal 49.0-181.0 [facility] Comment on above: Performed By: #### I SHANTAL #### [facility] [address] [place] [address] Dr. Veronica Acevedo INSULINon 04-19-2021 Insulin 14.0 uIU/mL Normal 2.6-24.9 [facility] Comment on above: Performed By: #### I SHANTAL #### [facility] [address] [place] [address] Dr. Veronica Acevedo CBC AUTO DIFFon 04-17-2021 BASO # 0.1 103/ul Normal 0.0-0.1 [facility] Comment on above: Performed By: #### C BC #### [facility] [address] [place] [address] Dr. Veronica Acevedo Basophils/100 WBC (Bld) 1.1 % Normal 0.2-2.0 [facility] Comment on above: Performed By: #### C BC #### [facility] [address] [place] [address] Dr. Veronica Acevedo EO # 0.2 103/ul Normal 0.0-0.7 [facility] Comment on above: Performed By: #### C BC #### [facility] [address] [place] [address] Dr. Veronica Acevedo Eosinophils/100 WBC (Bld) 2.4 % Normal 0.9-7.0 [facility] Comment on above: Performed By: #### C BC #### [facility] [address] [place] [address] Dr. Veronica Acevedo Erythrocyte distribution width (RBC) [Ratio] 12.1 % Normal 11.0-15.0 [facility] Comment on above: Performed By: #### C BC #### [facility] [address] [place] [address] Dr. Veronica Acevedo Hematocrit (Bld) [Volume fraction] 35.7 % Critically low 42.0-54.0 [facility] Comment on above: Performed By: #### C BC #### [facility] [address] [place] [address] Dr. Veronica Acevedo Hemoglobin (Bld) [Mass/Vol] 12.6 g/dL Critically low 14.0-18.0 [facility] Comment on above: Performed By: #### C BC #### [facility] [address] [place] [address] Dr. Veronica Acevedo IG # 0.02 10e3/ul Normal 0.00-0.03 [facility] Comment on above: Performed By: #### C BC #### [facility] [address] [place] [address] Dr. Veronica Acevedo IG % 0.3 % Normal 0.0-0.5 [facility] Comment on above: Performed By: #### C BC #### [facility] [address] [place] [address] Dr. Veronica Acevedo LYMPH # 2.8 103/ul Normal 1.2-3.8 [facility] Comment on above: Performed By: #### C BC #### [facility] [address] [place] [address] Dr. Veronica Acevedo Lymphocytes/100 WBC (Bld) 45.9 % Normal 20.5-60.0 [facility] Comment on above: Performed By: #### C BC #### [facility] [address] [place] [address] Dr. Veronica Acevedo MANUAL DIFF REQ NO Normal [facility] Comment on above: Performed By: #### C BC #### [facility] [address] [place] [address] Dr. Veronica Acevedo MCH (RBC) [Entitic mass] 30.2 pg Normal 25.9-34.0 [facility] Comment on above: Performed By: #### C BC #### [facility] Laboratory [address] [place] [address] Dr. Veronica Acevedo MCHC (RBC) [Mass/Vol] 35.3 g/dL Critically high 29.9-35.2 [facility] Comment on above: Performed By: #### C BC #### [facility] [address] [address] [address] Veronica Acevedo MCV (RBC) [Entitic vol] 85.6 fL Normal 80.0-94.0 [facility] Comment on above: Performed By: #### C BC #### [facility] [address] [address] [address] Veronica Acevedo MONO # 0.6 103/ul Normal 0.3-0.8 [facility] Comment on above: Performed By: #### C BC #### [facility] [address] [address] [address] Veronica Acevedo Monocytes/100 WBC (Bld) 9.1 % Normal 1.7-12.0 [facility] Comment on above: Performed By: #### C BC #### [facility] [address] [place] [address] Dr. Veronica Acevedo NEUT # 2.5 103/ul Normal 1.4-6.5 [facility] Comment on above: Performed By: #### C BC #### [facility] [address] [address] [address] Veronica Acevedo Neutrophils/100 WBC (Bld) 41.2 % Critically low 43.0-75.0 [facility] Comment on above: Performed By: #### C BC #### [facility] [address] [place] [address] Dr. Veronica Acevedo Platelet mean volume (Bld) [Entitic vol] 10.0 fL Normal 9.5-13.5 [facility] Comment on above: Performed By: #### C BC #### [facility] [address] [place] [address] Dr. Veronica Acevedo PLT 204 103/ul Normal 150-450 [facility] Comment on above: Performed By: #### C BC #### [facility] [address] [place] [address] Dr. Veronica Acevedo RBC 4.17 106/ul Critically low 4.70-6.10 [facility] Comment on above: Performed By: #### C BC #### [facility] [address] [address] [address] Veronica Acevedo WBC 6.1 103/ul Normal 4.0-11.0 [facility] Comment on above: Performed By: #### C BC #### [facility] [address] [place] [address] Dr. Veronica Acevedo GLYCOHEMOGLOBIN A1Con 2020 ADA RECOMMENDATION ADA THERAPEUTIC TARGET 6.0 - 7.0 ACTION SUGGESTED > 7.0 Normal [facility] Comment on above: Performed By: #### A 1C #### [facility] [address] [place] [address] Dr. Veronica Acevedo Glucose [Mass/Vol] 237 mg/dL Normal [facility] Comment on above: Performed By: #### A 1C #### [facility] [address] [place] [address] Dr. Veronica Acevedo HbA1c (Bld) [Mass fraction] 9.9 % Critically high <=6.0 [facility] Comment on above: Performed By: #### A 1C #### [facility] [address] [place] [address] Dr. Veronica Acevedo LIPID PROFILEon 04-17-2021 CHOL-HDL RATIO NORM SEE BELOW Normal [facility] Comment on above: Result Comment: 3.3 - 4.4 LOW RISK 4.4 - 7.1 AVERAGE RISK 7.1 - 11.0 MODERATE RISK >11.0 HIGH RISK Performed By: #### L IPID, URIC, CMP #### [facility] [address] [place] [address] Dr. Veronica Acevedo Cholesterol [Mass/Vol] 161 mg/dL Normal <=200 [facility] Comment on above: Performed By: #### L IPID, URIC, CMP #### [facility] [address] [place] [address] Dr. Veronica Acevedo Cholesterol in HDL [Mass/Vol] 22 mg/dL Normal [facility] Comment on above: Performed By: #### L IPID, URIC, CMP #### [facility] [address] [place] [address] Dr. Veronica Acevedo Cholesterol in LDL [Mass/Vol] 96.0 mg/dL Normal [facility] Comment on above: Performed By: #### L IPID, URIC, CMP #### [facility] [address] [address] [address] Veronica Acevedo Cholesterol.total/Ch olesterol in HDL [Mass ratio] 7.3 {ratio} Normal [facility] Comment on above: Performed By: #### L IPID, URIC, CMP #### [facility] [address] [address] [address] Veronica Acevedo HDL NORMAL > or = 60 mg/dl - LOW CARDIOVASCULAR RISK <40 mg/dl - HIGH CARDIOVASCULAR RISK Normal [facility] Comment on above: Performed By: #### L IPID, URIC, CMP #### [facility] [address] [address] [address] Veronica Acevedo LDL CALC NORMAL SEE BELOW Normal [facility] Comment on above: Result Comment: <100 mg/dl OPTIMAL 100 - 129 mg/dl NEAR OR ABOVE OPTIMAL 130 - 159 mg/dl BORDERLINE HIGH 160 - 189 mg/dl HIGH >190 mg/dl VERY HIGH Performed By: #### L IPID, URIC, CMP #### [facility] [address] [address] [address] Veronica Acevedo Triglyceride [Mass/Vol] 215 mg/dL Critically high <=150 [facility] Comment on above: Performed By: #### L IPID, URIC, CMP #### [facility] [address] [address] [address] Veronica Acevedo VLDL CALC 43.0 mg/dL Normal [facility] Comment on above: Performed By: #### L IPID, URIC, CMP #### [facility] [address] [address] [address] Veronica Acevedo PROF 14(COMP METB)on 021 Albumin [Mass/Vol] 3.6 g/dL Normal 3.5-5.0 [facility] Comment on above: Performed By: #### L IPID, URIC, CMP #### [facility] [address] [address] [address] Veronica Acevedo Albumin/Globulin [Mass ratio] 1.1 {ratio} Normal [facility] Comment on above: Performed By: #### L IPID, URIC, CMP #### [facility] [address] [place] [address] Dr. Veronica Acevedo ALP [Catalytic activity/Vol] 51 U/L Normal 38-126 [facility] Comment on above: Performed By: #### L IPID, URIC, CMP #### [facility] [address] [place] [address] Dr. Veronica Acevedo ALT [Catalytic activity/Vol] 48 U/L Normal 21-72 [facility] Comment on above: Performed By: #### L IPID, URIC, CMP #### [facility] [address] [place] [address] Dr. Veronica Acevedo Anion gap [Moles/Vol] 9.5 mmol/L Normal [facility] Comment on above: Performed By: #### L IPID, URIC, CMP #### [facility] [address] [place] [address] Dr. Veronica Acevedo AST [Catalytic activity/Vol] 39 U/L Normal 17-59 [facility] Comment on above: Performed By: #### L IPID, URIC, CMP #### [facility] [address] [place] [address] Dr. Veronica Acevedo Bilirubin [Mass/Vol] 0.6 mg/dL Normal 0.2-1.3 [facility] Comment on above: Performed By: #### L IPID, URIC, CMP #### [facility] [address] [place] [address] Dr. Veronica Acevedo Calcium [Mass/Vol] 8.7 mg/dL Normal 8.4-10.2 [facility] Comment on above: Performed By: #### L IPID, URIC, CMP #### [facility] [address] [place] [address] Dr. Veronica Acevedo Chloride [Moles/Vol] 101 mmol/L Normal 98-107 [facility] Comment on above: Performed By: #### L IPID, URIC, CMP #### [facility] [address] [place] [address] Dr. Veronica Acevedo CO2 [Moles/Vol] 29.1 mmol/L Normal 22.0-30.0 [facility] Comment on above: Performed By: #### L IPID, URIC, CMP #### [facility] [address] [address] [address] Veronica Acevedo Creatinine [Mass/Vol] 1.24 mg/dL Normal 0.66-1.25 [facility] Comment on above: Performed By: #### L IPID, URIC, CMP #### [facility] [address] [address] [address] Veronica Acevedo EGFR-AF GUINEAN >60 Normal >=60 [facility] Comment on above: Performed By: #### L IPID, URIC, CMP #### [facility] [address] [address] [address] Veronica Acevedo EGFR-NON AF GUINEAN >60 Normal >=60 [facility] Comment on above: Performed By: #### L IPID, URIC, CMP #### [facility] [address] [address] [address] Veronica Acevedo Globulin (S) [Mass/Vol] 3.2 g/dL Normal [facility] Comment on above: Performed By: #### L IPID, URIC, CMP #### [facility] [address] [address] [address] Veronica Acevedo Glucose [Mass/Vol] 224 mg/dL Critically high 74-106 [facility] Comment on above: Performed By: #### L IPID, URIC, CMP #### [facility] [address] [address] [address] Veronica Acevedo Potassium [Moles/Vol] 3.6 mmol/L Normal 3.4-5.0 [facility] Comment on above: Performed By: #### L IPID, URIC, CMP #### [facility] [address] [address] [address] Veronica Acevedo Protein [Mass/Vol] 6.8 g/dL Normal 6.1-8.2 [facility] Comment on above: Performed By: #### L IPID, URIC, CMP #### [facility] [address] [place], [place] [address] Dr. Veronica Acevedo Sodium [Moles/Vol] 136 mmol/L Critically low 137-145 Th [facility] Comment on above: Performed By: #### L IPID, URIC, CMP #### [facility] [address] [address] [address] Veronica Acevedo Urea nitrogen [Mass/Vol] 17.0 mg/dL Normal 9.0-20.0 [facility] Comment on above: Performed By: #### L IPID, URIC, CMP #### [facility] [address] [address] [address] Veronica Acevedo Urea nitrogen/Creatinine [Mass ratio] 13.7 mg/mg Normal [facility] Comment on above: Performed By: #### L IPID, URIC, CMP #### [facility] [address] [address] [address] Veronica Acevedo URIC ACID SERUMon 04-17-2021 Urate [Mass/Vol] 7.0 mg/dL Normal 3.5-8.5 [facility] Comment on above: Performed By: #### L IPID, URIC, CMP #### [facility] [address] [address] [address] Veronica Acevedo Glucose Poct Glucometerson 0 11-13-2020 Commemt1 Glu2: Cleaned Meter Normal [facility] Comment on above: Result Comment: PERF ORMED BY: [facility] [address] [place] [address] PATHOLOGIST LOBSTERMAN EDMUND ECHEVARRIA M.D. Performed By: #### G LULS #### Point of Care testing , Glucose [Mass/Vol] 155 mg/dL Normal [facility] Comment on above: Result Comment: [facility] Glucose Reference Range is dependent on time and content of last meal. Glucose of more than 200 mg/dL in a nonstressed, ambulatory subject supports the diagnosis of Diabetes Mellitus. Performed By: #### G LULS #### Point of Care testing , Amor 11-13-2020 L Specimen: Received: 11/13/20 Status: MILLER Webb Num: [id number] Spec Type: Surgical Subm Dr: Hudson Sharif MD Tissues: A Colon - Polyp (SIGMOID POLYP) Procedures: ARTI Stain/2, Gross/Micro L4 Patient Age/Sex Location Account Attending Physician Martita Myles/Andra [id number] Hudson Sharif MD SPEC NUM: [id number] RECD: 11/13/20 STATUS: MILLER WEBB NUM: [id number] REJI: 11/13/20 [facility] DR: Hudson Sharif MD ENTERED: 11/13/20-[address] [facility] [address]: SPEC TYPE: Surgical DEPT: S ORDERED: HE Stain/2, Gross/Micro L4 ORDERED: HE Stain/2, Gross/Micro L4 Pathological Diagnosis Sigmoid colon polyp, polypectomy: - Hyperplastic polyp. Clinical Information Screen Gross Description Received in formalin labeled with the patient's name, number and sigmoid polyp is a 0.4 cm pompa-pink tissue fragment admixed with brown vegetable material. Entirely submitted in one cassette labeled A1. (SM/YJ) Microscopic Description Two glass slides with H E stained material have been examined. The microscopic findings support the above pathologic diagnosis. CPT Codes 12043 Specimen: [id number] Received: 11/13/20 Status: MILLER Webb Num: [id number] Spec Type: Surgical Subm Dr: Hudson Sharif MD Tissues: A Colon - Polyp (SIGMOID POLYP) Procedures: HE Stain/2, Gross/Micro L4 Patient: Martita Myles [id number] (Continued) Signed (signature on file) Carmen Pack MD 11/16/20 1400 [facility] liveron 11-12-2020 [facility] [place] [address] Ultrasound Report Signed Patient: Martita Myles MR#: [id number] : 1970 Acct:[id number] Age/Sex: 50 / M ADM Date: 11/11/20 Loc: Room: Type: [facility] Attending Dr: Hudson Sharif MD Ordering Provider: Hudson Sharif MD Date of Service: 11/11/20 US/US liver: SAGASTUME (nonalcoholic steatohepatitis) Copies to: Hudson Sharif MD LIMITED ABDOMINAL ULTRASOUND CLINICAL HISTORY: Abdominal pain. History of cholecystectomy and SAGASTUME COMPARISON: None The gallbladder is surgically absent. No intrahepatic biliary dilatation is evident. The common duct is borderline prominent measuring 5 - 6 mm. This might relate to previous surgery. The liver is echogenic suggesting fatty infiltration. No focal intrahepatic masses were imaged. There is appropriate hepatopetal flow within the main portal vein. The visualized portions of the pancreas show no significant sonographic abnormality. Cursory evaluation of the right kidney reveals no hydronephrosis or fluid within Altman's pouch. US/US liver IMPRESSION: FATTY LIVER. BORDERLINE COMMON DUCT PROMINENCE THAT MAY RELATE TO PREVIOUS CHOLECYSTECTOMY. Impression dictated by: Keira Portillo M.D.11/12/2020 9:28 AM Dictation Location: [place] [address] Tech: Payton Xiong Transcribed By: ABDIAS 11/12/20 0928 Dictated By: Keira Portillo MD 11/12/2026 Signed By: 11/12/2028 [facility] COVID-19 Antigenon 1 COVID-19 Antigen Healthcare Worker?: N Estuardo Reference Estuardo Reference Negative SARS-CoV+SARS-CoV-2 (COVID-19) Ag [Presence] in Respiratory specimen by Rapid immunoassay Negative for SARS Antigen by MENDY COVID19 Blank Space Estuardo Disclaimer Negative results, from patients with symptom Estuardo Disclaimer onset beyond five days, should be treated as Estuardo Disclaimer presumptive and confirmation with a molecular Estuardo Disclaimer assay, if necessary, for patient management, Estuardo Disclaimer may be performed. Negative results do not rule Estuardo Disclaimer out COVID-19 and should not be used as the sole Estuardo Disclaimer basis for treatment or patient management Estuardo Disclaimer decisions, including infection control decisions. Estuardo Disclaimer Negative results should be considered in the Estuardo Disclaimer context of a patient's recent exposures, history Estuardo Disclaimer and the presence of clinical signs and symptoms Estuardo Disclaimer consistent with COVID-19. COVID19 Blank Space Estuardo Disclaimer The Estuardo SARS Antigen MENDY does not differentiate Estuardo Disclaimer between SARS-CoV and SARS-CoV-2. COVID19 Blank Space Estuardo Disclaimer This test was developed and its performance Estuardo Disclaimer characteristic determined by [employer] [facility] and Estuardo Disclaimer validated at [facility]. This Estuardo Disclaimer test has not been FDA cleared or approved. This Estuardo Disclaimer test has been authorized by FDA under an Emergency Use Estuardo Disclaimer Authorization (EUA). This test has been validated Estuardo Disclaimer in accordance with the FDA's Guidance Document (Policy Estuardo Disclaimer for Diagnostics Testing in Laboratories Certified to Estuardo Disclaimer Perform High Complexity Testing under CLIA prior to Estuardo Disclaimer Emergency Use Authorization for Coronavirus Estuardo Disclaimer iseas during the Public Health Emergency) Estuardo Disclaimer issued on October 17, 2019. This test is only authorized Estuardo Disclaimer for the duration of time the declaration that Estuardo Disclaimer circumstances exist justifying the authorization of Estuardo Disclaimer the emergency use of in vitro diagnostic tests for Estuardo Disclaimer detection of SARS-CoV-2 virus and/or diagnosis of Estuardo Disclaimer COVID-19 infection under section 564(b)(1) of the Estuardo Disclaimer Act, 21 U.S.C. 360bbb-3(b)(1), unless the Estuardo Disclaimer authorization is terminated or revoked sooner. PERFORMED BY: [place] [address] PATHOLOGIST LOBSTERMAN EDMUND ECHEVARRIA M.D. Normal [facility] Comment on above: Performed By: #### S OFAILEEN COVID-19 ESTUARDO #### [facility] [address] [place] [address] [facility] Estuardo Ag Negativeon 11-12-19 21 Estuardo Ag Negative Negative Normal Negative [facility] Comment on above: Result Comment: This is a duplicate Estuardo SARS Antigen (MENDY) result to be used for statistical tracking purpose only. PERFORMED BY: [place] [address] PATHOLOGIST LOBSTERMAN EDMUND ECHEVARRIA M.D. Performed By: #### S OFADAMEG, COVID-19 ESTUARDO #### [facility] [address] [place], [place] [id number] [facility] Hep C Ab w Verificationon HCV AB <0.1 Normal 0.0-0.9 [facility] Comment on above: Order Comment: Reaso n for Exam Fatty liver Performed By: #### H BSAB, HBSAG, HBCAB, HEP C #### [facility] , HCV Ab Comment Normal . [facility] Comment on above: Order Comment: Reaso n for Exam Fatty liver Result Comment: Non reactive HCV antibody screen is consistent with no HCV infection, unless recent infection is suspected or other evidence exists to indicate HCV infection. Performed By: #### H BSAB, HBSAG, HBCAB, HEP C #### [facility] , Hepatitis B Core Antibodyon 09-25-2020 Hepatitis B Core Antibody Negative Normal Negative [facility] Comment on above: Order Comment: Reaso n for Exam Fatty liver Result Comment: Perf ormed at: - [facility] [address] [id number] District Superintendent: Familia Monsalve PhD, Phone: [phone] PERFORMED BY: [place] [address] PATHOLOGIST LOBSTERMAN EDMUND ECHEVARRIA M.D. Performed By: #### H BSAB, HBSAG, HBCAB, HEP C #### [facility] , Hepatitis B Surface Antibody on 09-25-2020 Hepatitis B Surface Antibody Reactive Normal . [facility] Comment on above: Order Comment: Reaso n for Exam Fatty liver Result Comment: Non Reactive: Inconsistent with immunity, less than 10 mIU/mL Reactive: Consistent with immunity, greater than 9.9 mIU/mL Performed By: #### H BSAB, HBSAG, HBCAB, HEP C #### [facility] , Hepatitis B Surface Antigeno n 09-25-2020 HBsAg Screen Negative Normal Negative [facility] Comment on above: Order Comment: Reaso n for Exam Fatty liver Performed By: #### H BSAB, HBSAG, HBCAB, HEP C #### [facility] , CBC W/DIFFon 03-15-2019 ABS BASOPHILS 0.1 10*3/uL Normal 0.0-0.2 [facility] Comment on above: Performed By: #### 5 0103 #### [facility] [address] [place] [address], [facility] ABS IMM GRANS 0.0 10*3/uL Normal 0.0-0.2 [facility] Comment on above: Performed By: #### 5 0103 #### [facility] [address] [place] [address], [facility] ABS NEUTROPHILS 3.3 10*3/uL Normal 1.6-7.6 [facility] Comment on above: Performed By: #### 5 0103 #### [facility] [address] [place] [address], [facility] Basophils/100 WBC (Bld) 1.2 % High 0.0-1.0 The [facility] Comment on above: Performed By: #### 5 0103 #### [facility] [address] [facility] [place] [address], [facility] Eosinophils (Bld) [#/Vol] 0.2 10*3/uL Normal 0.0-0.5 The [facility] Comment on above: Performed By: #### 5 0103 #### [facility] [address] [facility] [place] [address], [facility] Eosinophils/100 WBC (Bld) 3.7 % Normal 0.0-6.0 The [facility] Comment on above: Performed By: #### 5 0103 #### [facility] [address] [facility] Erythrocyte distribution width (RBC) [Ratio] 12.3 % Normal 11.5-15.0 The [facility] Comment on above: Performed By: #### 5 0103 #### [facility] [address] [facility] [place] [address], [facility] Hematocrit (Bld) [Volume fraction] 40.8 % Normal 39.0-50.0 The [facility] Comment on above: Performed By: #### 5 0103 #### [facility] [address] [facility] [place] [address], [facility] Hemoglobin (Bld) [Mass/Vol] 13.7 g/dL Normal 13.0-17.0 The [facility] Comment on above: Performed By: #### 5 3 #### [facility] [address] [place] [address], [facility] IMMATURE GRANS 0.3 % Normal 0.0-1.0 [facility] Comment on above: Performed By: #### 102 #### [facility] [address] Lymphocytes (Bld) [#/Vol] 2.4 10*3/uL Normal 1.2-4.0 The [facility] Comment on above: Performed By: #### 102 #### [facility] [address] Lymphocytes/100 WBC (Bld) 36.3 % Normal 20.0-45.0 The [facility] Comment on above: Performed By: #### 102 #### [facility] [address] MCH (RBC) [Entitic mass] 29.9 pg Normal 27.0-33.0 The [facility] Comment on above: Performed By: #### 3 #### [facility] [address] MCHC (RBC) [Mass/Vol] 33.6 g/dL Normal 32.0-35.0 The [facility] Comment on above: Performed By: #### 3 #### [facility] [address] [place] [address], [facility] MCV (RBC) [Entitic vol] 89.1 fL Normal 82.0-98.0 The [facility] Comment on above: Performed By: #### 3 #### [facility] [address] [place] [address], [facility] Monocytes (Bld) [#/Vol] 0.5 10*3/uL Normal 0.1-1.0 The [facility] Comment on above: Performed By: #### 102 #### [facility] [address] [place] [id number], [facility] MONOS 7.8 % Normal 5.0-12.0 The [facility] Comment on above: Performed By: #### 102 #### [facility] [address] [facility] [place] [address], [facility] Neutrophils/100 WBC (Bld) 50.7 % Normal 40.0-72.0 The [facility] Comment on above: Performed By: #### 102 #### [facility] [address] [facility] [place] [address], [facility] Nucleated RBC/100 WBC (Bld) [Ratio] 0 % Normal 0-0 The [facility] Comment on above: Performed By: #### 102 #### [facility] [address] [facility] [place] [address], [facility] PLAT CNT 222 10*3/uL Normal 150-400 The [facility] Comment on above: Performed By: #### 102 #### [facility] [address] [facility] [place] [address], [facility] RBC (Bld) [#/Vol] 4.58 10*6/uL Normal 4.20-5.70 [facility] Comment on above: Performed By: #### 102 #### [facility] [address] [facility] [place] [address], [facility] WBC (Bld) [#/Vol] 6.51 10*3/uL Normal 4.00-10.60 [facility] Comment on above: Performed By: #### 3 #### [facility] [address] [place] [address], [place] HEPATITIS B SURFACE ANTIGEN QUALon 03-15-2019 HEP B SURF AG QUAL NONREACTIVE Normal NONREACTIVE [facility] Comment on above: Performed By: #### 3 1400, [id number] #### [facility] [address] [place] [address], [place] HEPATITIS C ANTIBODYon 03-15 ANTI-HCV NONREACTIVE Normal NONREACTIVE [facility] Comment on above: Performed By: #### 3 1400, [id number] #### [facility] [address] [place] [address], [place] LIVER BATTERYon 03-15-2019 Albumin [Mass/Vol] 4.2 g/dL Normal 3.5-5.7 [facility] Comment on above: Performed By: #### 9 [id number] #### [facility] [address] [place] [address], [facility] ALKALINE PHOSPH 57 IU/L Normal 34-104 [facility] Comment on above: Performed By: #### 9 [id number] #### [facility] [address] [address], [place] ALT [Catalytic activity/Vol] 18 U/L Normal 7-52 [facility] Comment on above: Performed By: #### 9 [id number] #### [facility] [address] [place] [address], [place] AST [Catalytic activity/Vol] 18 U/L Normal 13-39 [facility] Comment on above: Performed By: #### 9 [id number] #### [facility] [address] [place] [address], [place] Bilirubin [Mass/Vol] 0.5 mg/dL Normal 0.3-1.0 [facility] Comment on above: Performed By: #### 9 [id number] #### [facility] [address] [place] [address], [place] Bilirubin.direct [Mass/Vol] 0.2 mg/dL Normal 0.0-0.2 [facility] Comment on above: Performed By: #### 9 [id number] #### [facility] [address] Protein [Mass/Vol] 7.3 g/dL Normal 6.0-8.3 The [facility] Comment on above: Performed By: #### 9 [id number] #### [facility] [address] CBC W/DIFFon 02-08-2019 ABS BASOPHILS 0.1 10*3/uL Normal 0.0-0.2 [facility] Comment on above: Performed By: #### 5 0103 #### [facility] [address] ABS IMM GRANS 0.0 10*3/uL Normal 0.0-0.2 [facility] Comment on above: Performed By: #### 5 0103 #### [facility] [address] ABS NEUTROPHILS 3.5 10*3/uL Normal 1.6-7.6 [facility] Comment on above: Performed By: #### 5 0103 #### [facility] [address] [facility]. [address] Basophils/100 WBC (Bld) 1.4 % High 0.0-1.0 The [facility] Comment on above: Performed By: #### 5 0103 #### [facility] [address] [place] [address], [facility] Eosinophils (Bld) [#/Vol] 0.4 10*3/uL Normal 0.0-0.5 [facility] Comment on above: Performed By: #### 5 0103 #### [facility] [address] [place] [address], [facility] Eosinophils/100 WBC (Bld) 5.8 % Normal 0.0-6.0 [facility] Comment on above: Performed By: #### 5 0103 #### [facility] [address] [facility]. [address] Erythrocyte distribution width (RBC) [Ratio] 12.6 % Normal 11.5-15.0 [facility] Comment on above: Performed By: #### 5 0103 #### [facility] [address] [facility] [place] [address], [facility] Hematocrit (Bld) [Volume fraction] 41.0 % Normal 39.0-50.0 [facility] Comment on above: Performed By: #### 3 #### [facility] [address] Hemoglobin (Bld) [Mass/Vol] 14.0 g/dL Normal 13.0-17.0 [facility] Comment on above: Performed By: #### 3 #### [facility] [address] [place] [address], [facility] IMMATURE GRANS 0.6 % Normal 0.0-1.0 [facility] Comment on above: Performed By: #### 5 0103 #### [facility] [address] [facility] [place] [address], [facility] Lymphocytes (Bld) [#/Vol] 2.4 10*3/uL Normal 1.2-4.0 [facility] Comment on above: Performed By: #### 5 0103 #### [facility] [address] [place] [address], [facility] Lymphocytes/100 WBC (Bld) 33.1 % Normal 20.0-45.0 [facility] Comment on above: Performed By: #### 5 3 #### [facility] [address] [facility]. [place] MCH (RBC) [Entitic mass] 29.5 pg Normal 27.0-33.0 [facility] Comment on above: Performed By: #### 5 0103 #### [facility] [address] [facility]. [address] MCHC (RBC) [Mass/Vol] 34.1 g/dL Normal 32.0-35.0 [facility] Comment on above: Performed By: #### 5 0103 #### [facility] [address] [facility]. [address] MCV (RBC) [Entitic vol] 86.3 fL Normal 82.0-98.0 [facility] Comment on above: Performed By: #### 5 0103 #### [facility] [address] [facility]. [address] Monocytes (Bld) [#/Vol] 0.7 10*3/uL Normal 0.1-1.0 [facility] Comment on above: Performed By: #### 5 0103 #### [facility] [address] [facility]. [address] MONOS 9.2 % Normal 5.0-12.0 [facility] Comment on above: Performed By: #### 5 0103 #### [facility] [address] [facility]. [address] Neutrophils/100 WBC (Bld) 49.9 % Normal 40.0-72.0 [facility] Comment on above: Performed By: #### 5 0103 #### [facility] [address] [facility]. [address] Nucleated RBC/100 WBC (Bld) [Ratio] 0 % Normal 0-0 [facility] Comment on above: Performed By: #### 5 0103 #### [facility] [address] [place] [address], [facility] PLAT CNT 233 10*3/uL Normal 150-400 [facility] Comment on above: Performed By: #### 5 0103 #### [facility] [address] [place] [id number], [facility] RBC (Bld) [#/Vol] 4.75 10*6/uL Normal 4.20-5.70 [facility] Comment on above: Performed By: #### 5 0103 #### [facility] [address] [place] [address], [facility] WBC (Bld) [#/Vol] 7.09 10*3/uL Normal 4.00-10.60 [facility] Comment on above: Performed By: #### 5 0103 #### [facility] [address] [place] [id number], [facility] LIVER BATTERYon 02-08-2019 Albumin [Mass/Vol] 4.2 g/dL Normal 3.5-5.7 [facility] Comment on above: Performed By: #### 9 [id number] #### [facility] [address] [place] [address], [facility] ALKALINE PHOSPH 57 IU/L Normal 34-104 [facility] Comment on above: Performed By: #### 9 9909 #### [facility] [address] [place] [address], [facility] ALT [Catalytic activity/Vol] 16 U/L Normal 7-52 [facility] Comment on above: Performed By: #### 9 [id number] #### [facility] [address] [place] [id number], [facility] AST [Catalytic activity/Vol] 16 U/L Normal 13-39 [facility] Comment on above: Performed By: #### 9 9909 #### [facility] [address] [place] [id number], [facility] Bilirubin [Mass/Vol] 0.4 mg/dL Normal 0.3-1.0 [facility] Comment on above: Performed By: #### 9 9909 #### [facility] [address] [facility] [place] [address], [facility] Bilirubin.direct [Mass/Vol] 0.1 mg/dL Normal 0.0-0.2 [facility] Comment on above: Performed By: #### 9 9909 #### [facility] [address] [place] [address], [facility] Protein [Mass/Vol] 7.4 g/dL Normal 6.0-8.3 [facility] Comment on above: Performed By: #### 9 [id number] #### [facility] [address] [place] [address], [facility] CBC W/DIFFon 01-11-2019 ABS BASOPHILS 0.1 10*3/uL Normal 0.0-0.2 [facility] Comment on above: Performed By: #### 5 0103 #### [facility] [address] [facility]. [address] ABS IMM GRANS 0.1 10*3/uL Normal 0.0-0.2 [facility] Comment on above: Performed By: #### 5 0103 #### [facility] [address] [facility] [place] [address], [facility] ABS NEUTROPHILS 3.8 10*3/uL Normal 1.6-7.6 [facility] Comment on above: Performed By: #### 5 0103 #### [facility] [address] [facility] [place] [address], [facility] Basophils/100 WBC (Bld) 1.6 % High 0.0-1.0 [facility] Comment on above: Performed By: #### 5 0103 #### [facility] [address] [place] [address], [facility] Eosinophils (Bld) [#/Vol] 0.7 10*3/uL High 0.0-0.5 [facility] Comment on above: Performed By: #### 5 0103 #### [facility] [address] [place] [address], [facility] Eosinophils/100 WBC (Bld) 8.8 % High 0.0-6.0 [facility] Comment on above: Performed By: #### 5 0103 #### [facility] [address] [place] [address], [facility] Erythrocyte distribution width (RBC) [Ratio] 12.4 % Normal 11.5-15.0 [facility] Comment on above: Performed By: #### 5 0103 #### [facility] [address] [facility] [place] [address], [facility] Hematocrit (Bld) [Volume fraction] 39.2 % Normal 39.0-50.0 [facility] Comment on above: Performed By: #### 5 0103 #### [facility] [address] [facility] [place] [address], [facility] Hemoglobin (Bld) [Mass/Vol] 13.8 g/dL Normal 13.0-17.0 [facility] Comment on above: Performed By: #### 5 0103 #### [facility] [address] [place] [address], [facility] IMMATURE GRANS 0.6 % Normal 0.0-1.0 [facility] Comment on above: Performed By: #### 5 0103 #### [facility] [address] [place] [address], [facility] Lymphocytes (Bld) [#/Vol] 2.4 10*3/uL Normal 1.2-4.0 [facility] Comment on above: Performed By: #### 5 3 #### [facility] [address] [place] [id number], [facility] Lymphocytes/100 WBC (Bld) 31.4 % Normal 20.0-45.0 [facility] Comment on above: Performed By: #### 5 0103 #### [facility] [address] [facility] [place] [address], [facility] MCH (RBC) [Entitic mass] 29.7 pg Normal 27.0-33.0 [facility] Comment on above: Performed By: #### 5 3 #### [facility] [address] [facility] [place] [address], [facility] MCHC (RBC) [Mass/Vol] 35.2 g/dL High 32.0-35.0 [facility] Comment on above: Performed By: #### 5 3 #### [facility] [address] MCV (RBC) [Entitic vol] 84.3 fL Normal 82.0-98.0 [facility] Comment on above: Performed By: #### 5 3 #### [facility] [address] [place] [address], [facility] Monocytes (Bld) [#/Vol] 0.7 10*3/uL Normal 0.1-1.0 [facility] Comment on above: Performed By: #### 5 3 #### [facility] [address] MONOS 9.0 % Normal 5.0-12.0 [facility] Comment on above: Performed By: #### 5 3 #### [facility] [address] Neutrophils/100 WBC (Bld) 48.6 % Normal 40.0-72.0 [facility] Comment on above: Performed By: #### 5 3 #### [facility] [address] [place] [address], [facility] Nucleated RBC/100 WBC (Bld) [Ratio] 0 % Normal 0-0 [facility] Comment on above: Performed By: #### 5 3 #### [facility] [address] [place] [address], [facility] PLAT CNT 215 10*3/uL Normal 150-400 [facility] Comment on above: Performed By: #### 5 3 #### [facility] [address] [place] [address], [facility] RBC (Bld) [#/Vol] 4.65 10*6/uL Normal 4.20-5.70 [facility] Comment on above: Performed By: #### 5 3 #### [facility] [address] [place] [id number], [facility] WBC (Bld) [#/Vol] 7.74 10*3/uL Normal 4.00-10.60 [facility] Comment on above: Performed By: #### 5 3 #### [facility] [address] [place] [address], [facility] LIVER BATTERYon 01-11-2019 Albumin [Mass/Vol] 4.2 g/dL Normal 3.5-5.7 [facility] Comment on above: Performed By: #### 9 [id number] #### [facility] [address] [place] [id number], [facility] ALKALINE PHOSPH 57 IU/L Normal 34-104 [facility] Comment on above: Performed By: #### 9 [id number] #### [facility] [address] [place] [address], [facility] ALT [Catalytic activity/Vol] 16 U/L Normal 7-52 [facility] Comment on above: Performed By: #### 9 [id number] #### [facility] [address] [place] [id number], [facility] AST [Catalytic activity/Vol] 17 U/L Normal 13-39 [facility] Comment on above: Performed By: #### 9 [id number] #### [facility] [address] [place] [address], [facility] Bilirubin [Mass/Vol] 0.5 mg/dL Normal 0.3-1.0 [facility] Comment on above: Performed By: #### 9 [id number] #### [facility] [address] [place] [address], [place] Bilirubin.direct [Mass/Vol] 0.1 mg/dL Normal 0.0-0.2 [facility] Comment on above: Performed By: #### 9 [id number] #### [facility] [address] [place] [address], [place] Protein [Mass/Vol] 6.9 g/dL Normal 6.0-8.3 [facility] Comment on above: Performed By: #### 9 [id number] #### [facility] [address] [place] [address], [facility] Encounters Encounter Date Encounter Type Care Provider Facility Start: 04-06-2025 End: 04-06-2025 Emergency department patient visit [facility] Start: 03-20-2025 End: 03-20-2025 Jarret Segura SIDE BOSS-CONDUIT BENDER [facility] Start: 02-10-2025 End: 02-10-2025 Emergency department patient visit [facility] Start: 10-23-2024 End: 10-23-2024 Emergency department patient visit [facility] Start: 04-29-2024 End: 04-29-2024 ambulatory [facility] Start: 04-29-2024 Encounter for genera l adult medical examination without abnormal findings [facility] Start: 09-26-2023 End: 09-27-2023 ambulatory [facility] Facility:[facility] Start: 06-19-2023 End: 06-20-2023 ambulatory FREDERIC Nikole LU [facility] Start: 06-16-2023 End: 06-17-2023 ambulatory LEV [facility] Start: 06-16-2023 End: 06-17-2023 Encounter for other preprocedural examination LEVHUY LU [facility] Start: 06-06-2023 End: 06-11-2023 ambulatory LEV LU [facility] Start: 03-28-2022 End: 03-29-[address] ALLI EVANS Facility:[facility] Start: 03-22-2022 End: 03-23-2022 ambulatory KERRIE BUCKLEY Facility:[facility] Start: 12-17-2021 End: 12-18-2021 ambulatory KRERIE BUCKLEY Facility:[facility] Start: 07-31-2021 End: 08-01-2021 ambulatory KERRIE BUCKLEY Facility:[facility] Start: 04-23-2021 Encounter for genera l adult medical examination without abnormal findings KERRIE BUCKLEY [facility] Start: 04-23-2021 ambulatory KERRIE BUCKLEY Facility: [facility] Start: 04-17-2021 End: 04-18-2021 ambulatory KERRIE BUCKLEY Facility:[facility] Start: 04-17-2021 End: 04-18-2021 Encounter for general adult medical examination without abnormal findings KERRIE BUCKLEY Facility:[facility] Procedures Date Procedure Procedure Detail Performing Clinician Start: 04-17-2021 PSA screening KERRIE URIBE Comment on above: Performed By: #### [facility] #### [facility] [address] [place] [address] Dr. Veronica Acevedo Plan of Treatment Date Care Activity Detail Author Start: 02-02-2031 DTaP,Tdap and Td Vaccines (2 - Td or Tdap) DTaP,Tdap and Td Vaccines (2 - Td or Tdap) [facility] Start: 02-10-2026 Adult BMI Screening Adult BMI Screening [facility] Start: 10-23-2025 Tobacco Screening Tobacco Screening [facility] Start: 03-17-2025 Influenza vaccination Influenza Vaccine [facility] Start: 2019 Administration of varicella zoster vaccine Zoster (Shingles) Vaccine (1 of 2) [facility] Start: 1987 Adult BMI Follow Up Plan Adult BMI Follow Up Plan [employer] [facility] Start: 1981 [facility] Start: 1969 Tobacco Counseling Tobacco Counseling [facility] [email or web address] [facility] Payers Date Payer Category Payer [employer] - PPO ANTHEM [id number] 2024 Unknown [id number] 2022 Unknown [id number] 1969 Unknown [id number] 2.16.840.1.631196.3.579. 2.593 1969 Unknown [id number] 2.16.840.1.887659.3.579. 2.593 1969 Unknown [id number] 2.16.840.1.795672.3.579. 2.593 1969 Unknown [id number] 2.16.840.1.010637.3.579. 2.593 1969 Unknown [id number] 2.16.840.1.172302.3.579. 2.593 1969 Unknown [id number] 2.16.840.1.223831.3.579. 2.593 1969 Unknown [id number] 2.16.840.1.054350.3.579. 2.593 1969 Unknown [id number] 2.16.840.1.960477.3.579. 2.173 1969 Unknown [id number] 2.16.840.1.313657.3.579. 2.173 1969 Unknown [id number] 2.16.840.1.944333.3.579. 2.173 1969 Unknown [id number] 2.16.840.1.963340.3.579. 2.1286 1969 Unknown [id number] 2.16.840.1.402397.3.579. 2.1286 1969 Unknown [id number] 2.16.840.1.180872.3.579. 2.1286 1969 Unknown [id number] 2.16.840.1.518580.3.579. 2.1286 1959 Self-pay 1959 Unknown [id number] Social History Date Type Detail Facility Start: 11-24-2020 [facility] Work Phone: History of tobacco use Cigarette Smoker P [facility] Start: 08-27-2020 End: 11-24-2020 Cigarettes smoked current (pack per day) - Reported 1 [facility] Start: 11-24-2020 Tobacco use and exposure Smokeless tobacco non-user [facility] Start: 10-23-2024 Alcoholic beverage intake Current drinker of alcohol (finding) [facility] Start: 08-27-2020 End: 10-23-2024 Tobacco use panel [facility] Childcare Unknown [facility] Start: 02-13-2018 Alcohol Comment occasional [facility] Start: 1970 Sex assigned at Not on file P [facility] Start: 02-19-2015 Sex Male (finding) [facility] Instructions Note Date & Type Note Facility Instructions Not on filedocumented in this en counter [facility] Summary Purpose Family History No Family History Records FoundNo Family History Records FoundNo Family History Records FoundNo Family History Records FoundNo Family History Records FoundNo Family History Records Found Advance Directives No Advanced Directives Records FoundNo Advanced Directives Records FoundNo Advanced Directives Records FoundNo Advanced Directives Records FoundNo Advanced Directives Records FoundNo Advanced Directives Records Found Additional Source Comments (unrecognized sect ion and content) No Status Records FoundNo Status Records FoundNo Status Records FoundNo Status Records FoundNo Status Records FoundNo Status Records Found INFORMATION SOURCE (unrecogn ized section and content) DATE CREATED AUTHOR 03/22/2019 [facility] DATE CREATED AUTHOR AUTHOR'S ORGANIZ ATION 07/05/2021 [facility] DATE CREATED AUTHOR AUTHOR'S ORGANIZ ATION 04/16/2022 [facility] DATE CREATED AUTHOR AUTHOR'S ORGANIZ ATION 06/23/2023 [facility] DATE CREATED AUTHOR AUTHOR'S ORGANIZ ATION 09/27/2023 [facility] DATE CREATED AUTHOR AUTHOR'S ORGANIZ ATION 04/06/2025 [facility] Reason for Visit (unrecogniz ed section and content) Reason Comments Med Refill Care Teams (unrecognized sec tion and content) Resident Care Aid Relationship Specialty Start Date End Date Kerrie Buckley, SADIA-CONDUIT BENDER [address] [facility] [place] [address] PCP - General Family Medicine 03/16/19 FOR RECORDS PERTAINING TO PATIENTS WHO ARE OR HAVE BEEN ENROLLED IN A CHEMICAL DEPENDENCY/SUBSTANCEABUSE PROGRAM, SOME INFORMATION MAY BE OMITTED. This clinical summary was aggregated from multiple sources. Caution should be exercised in using it in the provision of clinical care. This summary normalizes information from multiple sources, and as a consequence, information in this document may materially change the coding, format and clinical context of patient data. In addition, data may be omitted in some cases. CLINICAL DECISIONS SHOULD BE BASED ON THE PRIMARY CLINICAL RECORDS. [employer] [facility]. provides no warranty or guarantee of the accuracy or completeness of information in this document.
== END 2025-04-21 11:30 | disposition home or self-care (01) ==
PROVIDERS: PCP Nurse Practitioner Family; Visit Provider Nurse Practitioner Family
DX: M54.32 Sciatica, left side (principal); M51.369 Other intervertebral disc degeneration, lumbar region without mention of lumbar back pain or lower extremity pain
CPT/HCPCS: 72148

== ENCOUNTER 2025-05-09 10:35 | Outpatient (OUT) | payer BC, SELFPAY ==
--- OUTSIDE RECORDS SUMMARY | 2025-04-21 07:30 | XMS_ITS ---
Author Organization [facility] in [place] Address [address] [place] [address] Care Team Providers Care Transition Advisor Name Role Phone Kerrie Aguillon Primary Care Provider Jose Maria Grayson [phone] REASON FOR VISIT injections Encounters Encounter Location Date Provider Diagnosis [address] [address] 04/21/2025 Jose Maria Grayson Plan Of Treatment No Information Progress Notes * Chidi VALENCIA RDOB:1970 (54 yo M)Acc No.[id number]:04/21/2025 UNLOCKED PROGRESS NOTE Progress Note Patient: Chidi ARGUETA :?Nakul Grayson (TTC), MDDOB:1970???Age: 54 Y???Sex:MaleDate:04/21/2025Phone:[phone]:[address] [place] [phone]:Kerrie Maldonado In:11:12 AM EST Subjective: * Chief Complaints: * 1 . Injections. * Medical History: Objective: * Vitals: Assessment: Plan: * Treatment: * * Electronic signature of Jose Maria Grayson MD, [id number] on 05/09/2025 at 10:39 AM EDT Sign off status: PendingVisit Status:?CANC (Cancelled) * Provider: Thierry McfarlaneTTCMD Batsheva Date: 1 Generated for Printing/Faxing/eTransmitting on:?05/09/2025 10:39 AM EDT
--- OUTSIDE RECORDS SUMMARY | 2025-05-05 04:59 | XMS_ITS ---
Author Organization The [facility] in [place] Address [address] [place] [address] Care Team Providers Care Computer Programming Manager Name Role Phone Kerrie Aguillon Primary Care Provider REASON FOR VISIT refill meds Medications Medication SIG (Take, Route, Frequency, Duration) Notes Start Date End Date Status Diclofenac Sodium 75 MG TAKE 1 TABLET BY MOUTH TWICE A DAY FOR 14 DAYS NEEDED; Duration: 30 days ActiveOlmesartan Medoxomil-HCTZ 20-12.5 MGTAKE 1 TABLET BY MOUTH EVERY DAY FOR 90 DAYS daily; Duration: 30 daysActive Encounters Encounter Location Date Provider Diagnosis [address] [address] 05/05/2025 Kerrie Aguillon Essential (primary) hypertension I10 [...] * Chidi MYLES RDOB:1970 (54 yo M)Acc No.[id number]:05/05/2025 Patient:?Chidi MYLES :1970???Age:54 Y???Sex:MalePhone:[phone] Address:[address] [place] [address] * Refills Refill Olmesartan Medoxomil-HCTZ Tablet, 20-12.5 [...] Codes: * true * Date:?Generated for Printing/Faxing/eTransmitting on:?05/09/2025 10:38 AM EDT
--- OUTSIDE RECORDS SUMMARY | 2025-05-08 11:24 | XMS_ITS ---
Author Organization The [facility] in [place] Address [address] [place] [address] Care Team Providers Care Matchbook Assembler Name Role Phone PalKerrie faye Primary Care Provider Medications Medication SIG (Take, Route, Frequency, Duration) Notes Start Date End Date Status QUEtiapine Fumarate 100 MG 1 tablet Orally daily ; Duration: 90 days ActiveSimvastatin 20 MG1 tablet in the evening Orally Once a day; Duration: 90 daysActiveTrulicity 3 MG/0.5MLINJECT 1 PEN UNDER THE SKIN ONCE WEEKLY; Duration: 28 daysActiveOmeprazole 40 MG1 capsule 1/2 to 1 hour before morning meal Once a day; Duration: 90 daysActive Encounters Encounter Location Date Provider Diagnosis [address] [address] 05/08/2025 Kerrie Aguillon Depression F32.9 ; Hypertriglyceridemia E78.1 and Type 2 diabetes mellitus with other specified complication E11.69 Assessments Encounter Date Diagnosis (ICD Code) Assessment Notes Treatment Notes Treatment Clinical Notes Section Notes 05/08/2025 Depression (ICD-10 - F32.9) 05/08/2025Hypertriglyceridemia (ICD-10 - E78.1)05/08/2025Type 2 diabetes mellitus with other specified complication (ICD-10 - E11.69) Plan Of Treatment Medication Medication Name Sig Start Date Stop Date Notes QUEtiapine Fumarate 100 MG 1 tablet Orally daily ; Duration: 90 days Simvastatin 20 MG1 tablet in the evening Orally Once a day; Duration: 90 days Trulicity 3 MG/0.5MLINJECT 1 PEN UNDER THE SKIN ONCE WEEKLY; Duration: 28 days Omeprazole 40 MG1 capsule 1/2 to 1 hour before morning meal Once a day; Duration: 90 days Progress Notes * Chidi MYLES RDOB:1970 (54 yo M)Acc No.[id number]:05/08/2025 Patient:?Chidi MYLES :1970???Age:54 Y???Sex:MalePhone:[phone] Address:[address] [place] [address] * Refills Refill Omeprazole Capsule Delayed Release, 40 MG, 90, 1 capsule 1/2 to 1 hour before morning meal, Once a day, 90 days, Refills=3 Refill QUEtiapine Fumarate Tablet, 100 MG, Orally, 90 Tablet, 1 tablet, daily, 90 days, Refills=3 Refill Simvastatin Tablet, 20 MG, Orally, 90 Tablet, 1 tablet in the evening, Once a day, 90 days, Refills=3 Refill Trulicity Solution Auto-injector, 3 MG/0.5ML, 4, INJECT 1 PEN UNDER THE SKIN ONCE WEEKLY, 28days, Refills=5 Subjective: * Chief Complaints: * * Medical History: * Surgical History: * Hospitalization/Major Diagno stic Procedure: * Medications: Objective: * Vitals: * Physical Examination: ??? Assessment: * Assessment: 1.?Depression - F32.9???2.?Hypertriglyceridemia - E78.1???3.?Type 2 diabetes mellitus with other specified complication - E11.69??? Plan: * Treatment: Refill QUEtiapine Fumarate Tablet, 100 MG, 1 tablet, Orally, daily, 90 days, 90 Tablet, Refills 3. ?2.?Hypertriglyceridemia? Refill Simvastatin Tablet, 20 MG, 1 tablet in the evening, Orally, Once a day, 90 days, 90 Tablet, Refills 3.??3.?Type 2 diabetes mellitus with other specified complication? Refill Trulicity Solution Auto-injector, 3 MG/0.5ML, INJECT 1 PEN UNDER THE SKIN ONCE WEEKLY, 28 days, 4, Refills 5.??4.?Others? Refill Omeprazole Capsule Delayed Release, 40 MG, 1 capsule 1/2 to 1 hour before morning meal, Oncea day, 90 days, 90, Refills 3.?? * Procedure Codes: * true * Date:?Generated for Printing/Faxing/eTransmitting on:?05/09/2025 10:40 AM EDT
--- OUTSIDE RECORDS SUMMARY | 2025-05-08 11:30 | XMS_ITS ---
Author Organization The [facility] [place] Address [address] [place] [address] Care Team Providers Care Reproduction Technician Name Role Phone Kerrie Aguillon Primary Care Provider Allergies Allergen (clinical drug ingredient) Drug/Non Drug Allergy documented on EMR Reaction Allergy Type Onset Date Status Information temporarily unavailable Codeine nausea/vomi ting Drug Allergy Active REASON FOR VISIT yeast [...] twice a day; Duration: 30 dayscall for guakmd3904/17/2025Not-Taking Omeprazole 40 MGTAKE 1 CAPSULE BY MOUTH [...] Orally Once a day; Duration: 30 days06/30/2023Not-TakingNystatin 826314 UNIT/ML4 mL Mouth/Throat Four times a day; [...] How many cigarettes a day do you smoke?[id number] (Standard) Question Answer Notes Did you have [...] 05/08/2025 Encounters Encounter Location Date Provider Diagnosis [facility] [address] [place] [address] 05/08/2025 Kerrie Aguillon Type 2 diabetes mellitus [...] below 65 consecutively. Reviewed with patient the fci effects of Diabetes Mellitus on the body [...] Sig Start Date Stop Date Notes Nystatin 985415 UNIT/ML 4 mL Mouth/Throa t Four times a day; Duration: 14 day(s) 05/08/2025 Treatment Notes Assessment Notes Type 2 diabetes mellitus wit h other specified complication Patient educated on Diabetic diet... Reviewed Hypoglycemia / Hyperglycemia action plan: Instructed to call office if blood sugar above 350 or below 65 consecutively. Reviewed with patient the fci effects of Diabetes Mellitus on the body [...] Next Appt Details Follow Up: prn,3 Months, [place] son: Progress Notes * Chidi VALENCIA RDOB:1970 (54 yo M)Acc No.[id number]:05/08/2025 UNLOCKED PROGRESS NOTE Progress Note Patient: Chidi ARGUETA :?Kerrie Tico Pal ([facility]), CNPDOB:1970 ???Age:54 Y???Sex:MaleDate:05/08/2025Phone:[phone]:[address] [place], [place] [id number] In:03:03 PM ESTCheck Out:03:24 PM EST Subjective: * Chief Complaints: * 1 . Yeast infection in mouth, tongue sore and white started about 2 weeks ago. * HPI: ???General:? 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 * Medical History: S yncope, Depression, Over [...] M other: , diagnosed with Diabetes. S isnadira(s): multiple sclerosis. D mayra(s): alive. 2 sister(s) . 2 daughter(s) - [...] below 65 consecutively. 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 ??2.?Thrush? Start Nystatin Suspension, 957655 UNIT/ML, 4 mL, Mouth/Throat, Four times a [...] Follow Up: p rn,3 Months * * Electronic signature of Kerrie Aguillon NP, PUNCH FINISHER.RIGGER SUPERVISOR.[id number] on 05/09/2025 at 10:39 AM EDTSign off status: PendingVisit Status:?CHK (Check Out) * Provider: Tamie Aguillon ([facility]), RIGGER SUPERVISOR Date: 1 Generated for Printing/FaGroupTalentg/eTransmitting on:?05/09/2025 10:39 AM EDT History and Physical Notes * HPI (History of Present Illness) CategorySub-CategoryDetailNotesCategory NotesGeneral sore mouth, tongue 2 weeks white coating couldnt eat pizza other night due to pain back ok but hasnt been on Soxiable, 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
--- OUTSIDE RECORDS SUMMARY | 2025-05-09 10:39 | XMS_ITS | CCD ---
Author Organization [facility] CliniSynv Care Team Providers Care Hypo Dipper Name Role Phone KERRIE BUCKLEY Admitting Unavailable [...] Care Unavailable NATHAN, DR CARSON Attending Unavailable NATHAN, DR CARSON Consulting Unavailable NATHAN, DR CARSON Admitting Unavailable MARCIO, KERRIE Primary Care Unavailable LINDA, ENDER E Referring Unavailable MARCIO, KERRIE S Primary Care Unavailable LINDA, ENDER E Attending Unavailable MARCIO, KERRIE S Primary Care Unavailable MARCIO, KERRIE S Referring Unavailable LINDA, ENDER E Admitting Unavailable LINDA, ENDER E Attending Unavailable YAQUELIN VELÁZQUEZ Consulting Unavailable MARCIO, KERRIE S Primary Care Unavailable LINDA, ENDER E Admitting Unavailable Neal VILLANUEVA Attending Unavailable Marcio ROBERT, Kerrie S Primary Care Provider MARCIO, KERRIE S Referring Unavailable MARCIO, KERRIE S Primary Care Unavailable MARCIO, KERRIE S Primary Care Unavailable MARCIO, KERRIE S Primary Care Unavailable HETAL BEEBE Attending Unavailable MARCIO, KERRIE S Primary Care Unavailable Allergies Allergy ClassificationReported Allergen(s)Allergy TypeDate of OnsetReaction(s) Facility (2 sources)Codeine; Translations: [CODEINE]Drug Pdjjbru75-41-5012OLUnity[facility] Medications Current Medications MedicationDrug Class(es)DatesSig (Normalized)Sig (Original)cyclobenzaprine hydrochloride 10 mg oral tablet (1 source)Muscle RelaxantStart: 38-87-7665jiwk 1 tablet by mouth twice daily as needed for muscle spasmscyclobenzaprine (FLEXERIL) 10 mg tablet Take 1 tablet (10 mg total) by mouth 2 (two) times a day asneeded for muscle spasms. 10 tablet 10/23/2024 ActiveDULoxetine 60 mg delayed release oral capsule (1 source)Serotonin and Norepinephrine Reuptake Inhibitortake 1 capsule by mouth once dailyDULoxetine (CYMBALTA) 60 mg capsule Take 60 mg by mouth daily. Active hydroCHLOROthiazide 12.5 mg / olmesartan medoxomil 40 mg oral tablet (1 source)Thiazide Diuretic, Angiotensin 2 Receptor Blockertake 1 tablet by mouth once dailyolmesartan-hydroCHLOROthiazide (BENICAR HCT) 40-12.5 mg per tablet Take 1 tablet by mouth daily. Activelidocaine 0.05 mg/mg medicated patch (1 source)Antiarrhythmic, Amide Local AnestheticStart: 62-42-9969prikk 1 dose transdermal route once daily, then apply 1 dose transdermal route every twelve hourslidocaine (LIDODERM) 5 % Place 1 patch on the skin daily. Remove & Discard patch within 12 hours or as directed by 30 patch 10/23/2024 ActiveNIFEdipine 60 mg osmotic 24 hr extended release oral tablet (1 source)Dihydropyridine Calcium Channel Blockertake 1 tablet by mouth once dailyNIFEdipine XL (PROCARDIA XL) 60 mg 24 hr tablet Take 60 mg by mouth daily. ActiveQUEtiapine 100 mg oral tablet (1 source)Atypical Antipsychotictake 3 tablets by mouth once dailyQUEtiapine (SEROquel) 100 mg tablet Take 300 mg by mouth nightly. Active Problems Active Problems Problem ClassificationProblemDateDocumented DateEpisodic/ChronicCongestive heart failure; nonhypertensive (1 source)Heart failure, unspecified; Translations: [HEART FAILURE UNSPECIFIED] Onset: 81-25-1365NsmtcyuJdzkpyin mellitus without complication (4 sources)Type 2 diabetes mellitus without complications; Translations: [TYPE 2 DM WITHOUT COMPLICATIONS]Onset: 77-72-1040ZrbaywgCggonnwo mellitus without complication (1 source)Other abnormal glucose; Translations: [OTHER ABNORMAL GLUCOSE]Onset: 18-35-8057SkftbdduXhfjwlyoztbn with complications and secondary hypertension (4 sources)Hypertensive heart disease with heart failure; Translations: [HTN HEART DISEASE W/HEART FAIL]Onset: 03-53-4888HifwimcMmgci connective tissue disease (1 source)Presence of left artificial knee joint; Translations: [Presence of left artificial knee joint]Onset: 01-73-4953GdydqhqVtnoa ear and sense organ disorders (1 source)Otalgia, unspecified ear; Translations: [Otalgia, unspecified ear] Onset: 30-82-1801CnqayisvNzawr nervous system disorders (1 source)Other chronic pain; Translations: [Other chronic pain]Onset: 44-74-8982JwmxulvYonjcrdgwcu; intervertebral disc disorders; other back problems (4 sources)Dorsalgia, unspecified; Translations: [Sciatica, left side]Onset: 94-12-5059WbciquwbMxmblhm (1 source)Syncope and collapse; Translations: [SYNCOPE AND COLLAPSE]Onset: 05-34-7925RiydpmjzJlnmgmvilxpg (1 source)EaracheOnset: 02-10-2025 Past or Other Problems Problem ClassificationProblemDateDocumented DateEpisodic/ChronicDeficiency and other anemia (1 source)Anemia, unspecified; Translations: [ANEMIA UNSPECIFIED]Onset: 51-80-0330UkchkwliEjrvqdy and fatigue (4 sources)Other fatigue; Translations: [OTHER FATIGUE]Onset: 21-86-0061Gyazncol Results Test NameValueInterpretationReference RangeFacilityCBC AND AUTO DIFFon 81-22-9258PMQXEKON BASOPHIL0.1 X10E9/LNormal0.0-0.2PSycamore Medical Center Comment on above:Performed By: #### CBCA, HA1C, CMP, 18918-1, 3084-1, 2857-1, THYR, 3051-0 #### [facility] ([id number]) [address], [address] [place], [place] [address]CWOSRUVY NEUTROPHIL3.4 X10E9/LNormal1.5-6.6ProUt [facility] University HospitalComment on above:Performed By: #### CBCA, HA1C, CMP, 20380-6, 3084-1, 2857-1, THYR, 3051-0 #### [facility] ([id number]) [address], [address] [place], [place] [address]Mzcqcogdt/100 WBC (Bld)1.2 %NormalProUt [facility] Comment on above:Performed By: #### CBCA, HA1C, CMP, 37342-3, 3084-1, 2857-1, THYR, 3051-0 #### [facility] ([id number]) [address] [address] [place], [place] [address]Fvotmmtzfka (Bld) [#/Vol]0.2 10*3/uLNormal0.0-0.4Holzer HospitalComment on above:Performed By: #### CBCA, HA1C, CMP, 01286-7, 3084-1, 2857-1, THYR, 3051-0 #### [facility] ([id number]) [address] [address] [place], [place] [address]Qhymdmycnbw/100 WBC (Bld)3.5 %NormalHolzer Hospital Comment on above:Performed By: #### CBCA, HA1C, CMP, 18724-1, 3084-1, 2857-1, THYR, 3051-0 #### [facility] ([id number]) [address], [address] [place], [place] [address]Ykxnubvksst distribution width (RBC) [Ratio]13.6 %Normal 11.5-15.0Pro[facility] HospitalComment on above:Performed By: #### CBCA, HA1C, CMP, 63884-8, 3084-1, 2857-1, THYR, 3051-0 #### [facility] ([id number]) [address], [address] [place], [place] [address]Xumgnwqbms (Bld) [Volume fraction]38.5 %Meb84-29FezOowlveHolzer HospitalComment on above:Performed By: #### CBCA, HA1C, CMP, 45570-3, 3084-1, 2857-1, THYR, 3051-0 #### [facility] ([id number]) [address], [address] [place], [place] [address]Csurczimwv (Bld) [Mass/Vol]13.7 g/rEIhhthe14.0-17.0Holzer HospitalComment on above:Performed By: #### CBCA, HA1C, CMP, 01527-8, 3084-1, 2857-1, THYR, 3051-0 #### [facility] ([id number]) [address] [address] [place], [place] [address]Ompkfpciqkx (Bld) [#/Vol]2.6 10*3/uLNormal1.0-3.5PSycamore Medical CenterComment on above:Performed By: #### CBCA, HA1C, CMP, 12128-5, 3084-1, 2857-1, THYR, 3051-0 #### [facility] ([id number]) [address], [address] [place], [place] [address]Xjkpboxqunq/100 WBC (Bld)37.7 %NormalProUt [facility] Comment on above:Performed By: #### CBCA, HA1C, CMP, 86859-5, 3084-1, 2857-1, THYR, 3051-0 #### [facility] ([id number]) [address], [address] [place], [place] [address]WLQ (RBC) [Entitic mass]30.8 juUdeaht56-58UhxIhlykkHolzer HospitalComment on above:Performed By: #### CBCA, HA1C, CMP, 01199-8, 3084-1, 2857-1, THYR, 3051-0 #### [facility] ([id number]) [address], [address] [place], [place] [address]ZBBU (RBC) [Mass/Vol]35.6 g/hBZaaggz17-27FlxDcudqdUt [facility] University HospitalComment on above:Performed By: #### CBCA, HA1C, CMP, 27551-7, 3084-1, 2857-1, THYR, 3051-0 #### [facility] ([id number]) [address], [address] [place], [place] [address]UZT (RBC) [Entitic vol]86 oJWnssqn09-666AfyAeprrgHolzer HospitalComment on above:Performed By: #### CBCA, HA1C, CMP, 05724-1, 3084-1, 2857-1, THYR, 3051-0 #### [facility] ([id number]) [address], [address] [place], [place] [address]Ilfzheuau (Bld) [#/Vol]0.5 10*3/uLNormal0-0.9Holzer HospitalComment on above:Performed By: #### CBCA, HA1C, CMP, 39294-9, 3084-1, 2857-1, THYR, 3051-0 #### [facility] ([id number]) [address], [address] [place], [place] [address]Qivgxfubw/100 WBC (Bld)7.2 %NormalProUt [facility] Comment on above:Performed By: #### CBCA, HA1C, CMP, 58512-2, 3084-1, 2857-1, THYR, 3051-0 #### [facility] ([id number]) [address], [address] [place], [place] [address]Unphkcijcpt/100 WBC (Bld)50.4 %NormalHolzer Hospital Comment on above:Performed By: #### CBCA, HA1C, CMP, 42182-2, 3084-1, 2857-1, THYR, 3051-0 #### [facility] ([id number]) [address], [address] [place], [place] [address]Dfdctqvy mean volume (Bld) [Entitic vol]7.5 fLNormal7-12 ProMMemorial Medical CenterComment on above:Performed By: #### CBCA, HA1C, CMP, 32433-6, 3084-1, 2857-1, THYR, 3051-0 #### [facility] ([id number]) [address], [address] [place], [place] [address]Kxomqlvqp (Bld) [#/Vol]252 10*3/qMUokrme255-022PwmDqwvkw [facility]remont HospitalComment on above:Performed By: #### CBCA, HA1C, CMP, 01901-1, 3084-1, 2857-1, THYR, 3051-0 #### [facility] ([id number]) [address], [address] [place], [place] [address]ZXZ COUNT4.45 X10E12/LNormal4.10-5.70[facility] Comment on above:Performed By: #### CBCA, HA1C, CMP, 89687-3, 3084-1, 2857-1, THYR, 3051-0 #### [facility] ([id number]) [address], [address] [place], [place] [address]LAA (Bld) [#/Vol]6.8 10*3/uLNormal4.0-11.0Holzer HospitalComment on above:Performed By: #### CBCA, HA1C, CMP, 04124-1, 3084-1, 2857-1, THYR, 3051-0 #### [facility] ([id number]) [address], [address] [place] [address]UPVKXMOBIJLDP METABOLIC PANELon 16-12-0644Jvvtdzq [Mass/Vol]4.2 g/dLNormal3.2-5.3PSycamore Medical CenterComment on above:Performed By: #### CBCA, HA1C, CMP, 16247-6, 3084-1, 2857-1, THYR, 3051-0 #### [facility] ([id number]) [address], [address] [place] [address]QAI [Catalytic activity/Vol]49 U/YHionoq02-738YxkJsgkxkHolzer HospitalComment on above:Performed By: #### CBCA, HA1C, CMP, 12104-4, 3084-1, 2857-1, THYR, 3051-0 #### [facility] ([id number]) [address], [address] [place] [address]TUC [Catalytic activity/Vol]11 U/LNormal0-40Holzer HospitalComment on above:Performed By: #### CBCA, HA1C, CMP, 97528-0, 3084-1, 2857-1, THYR, 3051-0 #### [facility] ([id number]) [address], [address] [place] [address]Ngnba gap [Moles/Vol]9 mmol/LNormal5-15Holzer HospitalComment on above:Performed By: #### CBCA, HA1C, CMP, 11622-7, 3084-1, 2857-1, THYR, 3051-0 #### [facility] ([id number]) [address], [address] [place] [address]VGW [Catalytic activity/Vol]14 U/LNormal0-41Pro[facility] HospitalComment on above:Performed By: #### CBCA, HA1C, CMP, 06760-6, 3084-1, 2857-1, THYR, 3051-0 #### [facility] ([id number]) [address], [address] [place] [address]Oghjazlua [Mass/Vol]0.4 mg/dLNormal0.3-1.2PSycamore Medical CenterComment on above:Performed By: #### CBCA, HA1C, CMP, 83740-2, 3084-1, 2857-1, THYR, 3051-0 #### [facility] ([id number]) [address], [address] [place] [address]Wuhssnl [Mass/Vol]9.3 mg/dLNormal8.5-10.5PSycamore Medical CenterComment on above:Performed By: #### CBCA, HA1C, CMP, 65280-0, 3084-1, 2857-1, THYR, 3051-0 #### [facility] ([id number]) [address], [address] [place] [address]Iuilajox [Moles/Vol]101 mmol/AFioove44-644JfbRkpyahUt Southwestern [facility] University HospitalComment on above:Performed By: #### CBCA, HA1C, CMP, 02142-3, 3084-1, 2857-1, THYR, 3051-0 #### [facility] ([id number]) [address], [address] [place] [address]JO3 [Moles/Vol]27 mmol/TEgnmkm68-29DhlTsboqySycamore Medical Center Comment on above:Performed By: #### CBCA, HA1C, CMP, 74605-0, 3084-1, 2857-1, THYR, 3051-0 #### [facility] ([id number]) [address], [address] [place] [address]Muocdvnrfm [Mass/Vol]1.01 mg/dLNormal0.60-1.30ProUt [facility] HospitalComment on above:Result Comment: METHOD TRACEABLE TO IDMS STANDARD Performed By: #### CBCA, HA1C, CMP, 51784-6, 3084-1, 2857-1, THYR, 3051-0 #### [facility] ([id number]) [address] [address] [place], [place] [address]SEB/1.73 sq M.predicted among non-blacks MDRD (S/P/Bld) [Vol rate/Area]88 mL/min/{1.73_m2}Normal>59ProUt [facility] University HospitalComment on above:Result Comment: Reported eGFR is based on the CKD-EPI 2020 equation that does not use a race coefficient.Performed By: #### CBCRosa, HA1C, CMP, 09671-9, 3084-1, 2857-1, THYR, 3051-0 #### [facility] ([id number]) [address] [address]Nkmcpdb [Mass/Vol]146 mg/cXVxlo19-35SivWkmprhHolzer Hospital Comment on above:Performed By: #### CBCRosa, HA1C, CMP, 15125-9, 3084-1, 2857-1, THYR, 3051-0 #### [facility] ([id number]) [address] [address]Nbugxbdhw [Moles/Vol]4.1 mmol/LNormal3.5-5.0Pro[facility] HospitalComment on above:Performed By: #### CBCA, HA1C, CMP, 27269-1, 3084-1, 2857-1, THYR, 3051-0 #### [facility] ([id number]) [address] [address] [place], [place] [address]Xoqchqq [Mass/Vol]6.8 g/dLNormal6.0-8.0Pro[facility] HospitalComment on above:Performed By: #### CBCA, HA1C, CMP, 98866-0, 3084-1, 2857-1, THYR, 3051-0 #### [facility] ([id number]) [address] [address] [place], [place] [address]Eoevnq [Moles/Vol]137 mmol/ASihlkw345-760WvqDlgccvHolzer HospitalComment on above:Performed By: #### CBCA, HA1C, CMP, 54107-7, 3084-1, 2857-1, THYR, 3051-0 #### [facility] ([id number]) [address], [address] [place], [place] [address]Ndkf nitrogen [Mass/Vol]17 mg/dLNormal5-23Pro[facility] HospitalComment on above:Performed By: #### CBCA, HA1C, CMP, 57400-1, 3084-1, 2857-1, THYR, 3051-0 #### [facility] ([id number]) [address], [facility] [address] [place], [place] [address]OOUC T3on 26-10-6335Odjv T3 [Mass/Vol]2.87 pg/mLNormal2.50-3.90 Holzer HospitalComment on above:Performed By: #### CBCA, HA1C, CMP, 67470-3, 3084-1, 2857-1, THYR, 3051-0 #### [facility] ([id number]) [address], [facility] [address] [place] [address]QQP A1C (GLYCO-HGB)on 35-21-6509Omyjhvh [Mass/Vol]160 mg/dL NormalProUt Southwestern [facility]. University HospitalComment on above:Performed By: #### CBCA, HA1C, CMP, 57835-1, 3084-1, 2857-1, THYR, 3051-0 #### [facility] ([id number]) [address], [facility] [address] [place], [place] [address]KtT7g (Bld) [Mass fraction]7.2 %High4.4-5.6Holzer HospitalComment on above:Result Comment: NOTE ADA Guidelines Result HgbA1c Normal : less than 5.7 % Prediabetes : 5.7 % to 6.4 % Diabetes : > 6.4 % Use with caution in patients with abnormal hemoglobin variants as the half-life of red blood cells and in vivo glycation rates are affected.Performed By: #### CBCA, HA1C, CMP, 41473-0, 3084-1, 2857-1, THYR, 3051-0 #### [facility] ([id number]) [address], [facility] [address] [place], [place] [address]Pzswtrh Qnon 74-86-3000UXPWJSQ06.99 uIU/mLNormal1.00-23.00 Holzer HospitalComment on above:Result Comment: Ref. range is for FASTING NON-DIABETIC POPULATION.Performed By: #### 94448-4 #### [facility] ([id number]) [address], [facility] [address] [place], [place] [address]Jbqhw 1996 panelon 15-29-8238Qijaivjqjuq [Mass/Vol]136 mg/dLLow 150-200Pro[facility] HospitalComment on above:Performed By: #### CBCA, HA1C, CMP, 77344-8, 3084-1, 2857-1, THYR, 3051-0 #### [facility] ([id number]) [address] [address]Ykugghsbnkj in HDL [Mass/Vol]32 mg/dLLow>39Pro[facility] HospitalComment on above:Result Comment: HDL <40 mg/dL - High Risk HDL > or = 40mg/dL- Desirable HDL >60 mg/dL - Negative Risk Performed By: #### CBCA, HA1C, CMP, 77882-5, 3084-1, 2857-1, THYR, 3051-0 #### [facility] ([id number]) [address], [address] [place] [address]Xicwgcnoeax in LDL [Mass/Vol]81 mg/dLNormal<130Pro[facility] HospitalComment on above:Result Comment: LDL <100 mg/dL - Desirable LDL >160 mg/dL - High Risk Performed By: #### CBCA, HA1C, CMP, 54218-3, 3084-1, 2857-1, THYR, 3051-0 #### [facility] ([id number]) [address], [address] [place] [address]Snyoyanabco in VLDL [Mass/Vol]23 mg/dLNormal0-30Pro[facility] HospitalComment on above:Performed By: #### CBCA, HA1C, CMP, 16841-6, 3084-1, 2857-1, THYR, 3051-0 #### [facility] ([id number]) [address], [address] [place] [address]ILDTJPESVMP:HDL4.6Tmztsl3.0-5.0Pro[facility] HospitalComment on above:Performed By: #### CBCA, HA1C, CMP, 14876-7, 3084-1, 2857-1, THYR, 3051-0 #### [facility] ([id number]) [address], [address] [place] [address]Xymzpbthsxgj [Mass/Vol]117 mg/kCCjdmpc02-534TrjUfjkok [facility] HospitalComment on above:Performed By: #### CBCA, HA1C, CMP, 51356-2, 3084-1, 2857-1, THYR, 3051-0 #### [facility] ([id number]) [address], [address] [place] [address]Xjxcskpk specific Ag [Mass/Vol]on 58-42-1219PGV SCREEN1.21 ng/mL Normal0.00-4.00Pro[facility] HospitalComment on above:Result Comment: The method used for this test is Latia Guttenberg DXI chemiluminescent immunoassay. Values obtained by different assay methods cannot be used interchangeably.Performed By: #### CBCA, HA1C, CMP, 48991-0, 3084-1, 2857-1, THYR, 3051-0 #### [facility] ([id number]) [address] [place] [address], [address] [place], [place] [address]FAHLPZY PROFILEon 87-53-6882Haix T4 [Mass/Vol]0.59 ng/dLLow 0.61-1.60Holzer HospitalComment on above:Performed By: #### CBCA, HA1C, CMP, 96071-4, 3084-1, 2857-1, THYR, 3051-0 #### [facility] ([id number]) [address] [place] [address] [address] [place], [place] [address]WSE2.08 uIU/mLNormal0.49-4.67Pro[facility] HospitalComment on above:Performed By: #### CBCA, HA1C, CMP, 00559-6, 3084-1, 2857-1, THYR, 3051-0 #### [facility] ([id number]) [address] [place] [address] [address] [place], [place] [address]IGOS ACIDon 68-44-9800Wqlcy [Mass/Vol]8.0 mg/dLHigh2.6-7.2 [facility] HospitalComment on above:Performed By: #### CBCA, HA1C, CMP, 82877-1, 3084-1, 2857-1, THYR, 3051-0 #### [facility] ([id number]) [address] [place] [address] [address] [place], [place] [address]Nijbzwfge 65-90-5083Yuhqinm [id number]#1.00TIFFNoCorey HospitalRegistrationon 12-81-0631Rfdhwnmimjng [id number]#1.00TIFBrown Memorial [id number]#1.00TIFBrown Memorial HospitalHgb/Hcton 83-12-9645Dokddoauwr (Bld) [Volume fraction]32.6 % Low40.7-50.3Mer[facility]tanooga HospitalComment on above:Performed By: #### HH #### [address] [place] [address] Tool Lapper Hand: Abdiel Nova MDHemoglobin (Bld) [Mass/Vol]11.5 g/dLLow13.0-17.[address] Charles HospitalComment on above:Performed By: #### HH #### [address] [place] [address] Tool Lapper Hand: Abdiel Nova MDOPERATIVE REPORTon 74-67-1460DJKZYDGVQ REPORT[address] [address] OPERATIVE REPORT PATIENT NAME: CHIDI MYLES : 1970 MED REC NO: [id number] ROOM: [facility] ACCOUNT NO: [id number] ADMIT DATE: 06/19/2023 PROVIDER: Ender Lu DATE OF PROCEDURE: 06/19/2023 PREOPERATIVE DIAGNOSIS: Degenerative arthritis, left knee. POSTOPERATIVE DIAGNOSIS: Degenerative arthritis, left knee. PROCEDURE PERFORMED: Left total knee replacement using a Ashlee Persona knee size 9 cemented femoral component, size G stemmed tibial plateau, an 10 mm MC poly, and a 32 mm vitamin E patellar dome. SURGEON: Ender Lu MD. ANESTHESIA: Spinal. DESCRIPTION OF PROCEDURE: [...] go with a 32 mm patellar dome. [place] holes were placed. The knee was then [...] layer was then closed with #1 Vicryl lzyhkw-hg-wqjkt sutures over two Hemovac drains. Remainder of the gm of vancomycin was sprinkled in the subcutaneous layer. This was followed by 2-0 Vicryl and 3-0 Monocryl subcuticular stitch. The wound was dressed with Steri-Strips, fluffs, ABD, Kerlix roll, and Ismael wrap from toe to groin. Anesthetic was discontinued. The patient was transferred to Recovery in a stable condition. ESTIMATED BLOOD LOSS: 100 mL. ENDER LU PH/[id number] Doc#: [id number] CC:NormalMercy Health St. Charles HospitalMRSA, DNA, Nasalon [id number], DNA, Nasal NegativeNormalNEGMercy Health St. Charles HospitalComment on above:Result Comment: NEGATIVE: MRSA DNA not detected by nucleic acid amplification. Results should be used as an adjunct to nosocomial control efforts to identify patients needing enhanced precautions. The test is not intended to identify patients with staphylococcal infections. Results should not be used to guide or monitor treatment for MRSA infections. Performed By: #### MRSANO #### [address] [place], [place] [id number] Tool Lapper Hand: Eddie Valdivia MD [address] [place] [address] Tool Lapper Hand: Abel Mckeon Metabolic Profon [id number] gap [Moles/Vol]13 mmol/LNormal9-17Mer[facility] Health St. Charles HospitalComment on above:Performed By: #### BMP, CDP #### [address] [place] [id number] Tool Lapper Hand: Abdiel Nova MDBUN/CRE [id number] [facility] Comment on above:Performed By: #### BMP, CDP #### [address] [place] [address] Tool Lapper Hand: Abdiel Nova MDCalcium [Mass/Vol]9.4 mg/dLNormal8.6-10.4[facility] Charles HospitalComment on above:Performed By: #### BMP, CDP #### [address] [place], [place] [id number] Tool Lapper Hand: Abdiel Nova, MDChloride [Moles/Vol]93 mmol/ZDqt83-611NdkxfMercy Health St. Charles HospitalComment on above:Performed By: #### BMP, CDP #### [address] [place], [place] [id number] Tool Lapper Hand: Abdiel Nova MDCO2 [Moles/Vol]24 mmol/DWyzhrn92-85CzrwuMercy Health St. Charles HospitalComment on above:Performed By: #### BMP, CDP #### [address] [place] [address] Tool Lapper Hand: SEBASTIÁN Mckeonreatinine [Mass/Vol]1.1 mg/dLNormal0.7-1.2[facility] HospitalComment on above:Performed By: #### BMP, CDP #### [address] [place] [address] Tool Lapper Hand: Abdiel Nova MDGFR/1.73 sq M.predicted among non-blacks MDRD (S/P/Bld) [Vol rate/Area]mL/min/{1.73_m2}Normal>60MerNatchaug HospitalComment on above:Result Comment: These results are not intended for [...] or following therapy that affects renal tubular secretion.Performed By: #### BMP, CDP #### [address] [place] [address] Tool Lapper Hand: Abdiel Nova MDGlucose [Mass/Vol]214 mg/tPHgqi91-60Lozhz [facility] HospitalComment on above:Performed By: #### BMP, CDP #### [address] [place] [address] Tool Lapper Hand: LEE Mckeonotassium [Moles/Vol]3.7 mmol/LNormal3.7-5.3[facility] HospitalComment on above:Performed By: #### BMP, CDP #### [address] [place] [address] Tool Lapper Hand: Abdiel Nova MDSodium [Moles/Vol]130 mmol/EUik299-370Rgnjy [facility]iffin HospitalComment on above:Performed By: #### BMP, CDP #### [address] [place] [address] [employer] Lapper Hand: Abdiel Nova MDUrea nitrogen [Mass/Vol]16 mg/dLNormal6-20[facility] HospitalComment on above:Performed By: #### BMP, CDP #### [address] [place] [address] [employer] Lapper Hand: SEBASTIÁN Mckeon with Diffon [id number]. Basophil0.06 k/uL Normal0.00-0.20MerKindred Hospital Dayton HospitalComment on above:Performed By: #### ELYSE, CDP #### [address] [place], [place] [address] [employer] Lapper Hand: Sánchez Mckeon. Eosinophil<0.06Husqqp7.00-0.44MerKindred Hospital Dayton HospitalComment on above:Performed By: #### ELYSE, CDP #### [address] [place] [address] [employer] Lapper Hand: Sánchez Mckeon.Imm.Granulocyte0.04 k/uLNormal0.00-0.30MerKindred Hospital Dayton HospitalComment on above:Performed By: #### BMP, CDP #### [address] [place] [address] [employer] Lapper Hand: Sánchez Mckeon.Neutrophil (Seg)4.52 k/uLNormal1.50-8.10[facility] HospitalComment on above:Performed By: #### BMP, CDP #### [address] [place] [address] [employer] Lapper Hand: Abdiel Nova MDBasophils/100 WBC (Bld)1 %Normal0-2MercPark[facility] Hospital HospitalComment on above:Performed By: #### BMP, CDP #### [address] [place], [place] [id number] [employer] L[employer] Hand: Abdiel Nova MDEosinophils/100 WBC (Bld)0 %Low1-4MerKind[facility] HospitalComment on above:Performed By: #### BMP, CDP #### [address] [place] [address] Tool Lapper Hand: Abdiel Nova MDErythrocyte distribution width (RBC) [Ratio]12.0 % Yjpniu93.8-14.4MerKindred Hospital Dayton HospitalComment on above:Performed By: #### BMP, CDP #### [address] [place] [address] [employer] Lapper Hand: Abdiel Nova MDHematocrit (Bld) [Volume fraction]39.6 %Low 40.7-50.3[facility] HospitalComment on above:Performed By: #### ELYSE, CDP #### [address] [place], [place] [address] [employer] Lapper Hand: Abdiel Nova MDHemoglobin (Bld) [Mass/Vol]14.1 g/dLNormal 13.0-17.0[facility] HospitalComment on above:Performed By: #### ELYSE, CDP #### [address] [place], [place] [address] [employer] Lapper Hand: Abdiel Nova MDImmature granulocytes/100 WBC (Bld)1 %Kqtu1IudciJoint Township District Memorial Hospital HospitalComment on above:Performed By: #### BMP, CDP #### [address] [place], [facility] [employer] Lapper Hand: Neda Mckeonmphocytes (Bld) [#/Vol]1.57 10*3/uLNormal 1.10-3.70MerKind[facility] HospitalComment on above:Performed By: #### ELYSE, CDP #### [address] [place], [facility] [employer] Lapper Hand: Abdiel Sturtz, MDLymphocytes/100 WBC (Bld)21 %Zgj06-94TzbifMercy Health St. Charles HospitalComment on above:Performed By: #### BMP, CDP #### [address] [place] [address] Tool Lapper Hand: YESSI MckeonCH (RBC) [Entitic mass]30.3 vzOoevfn22.2-33.5 [facility] HospitalComment on above:Performed By: #### BMP, CDP #### [address] [place] [address] Tool Lapper Hand: YESSI MckeonCHC (RBC) [Mass/Vol]35.6 g/wESphl03.4-34.8[facility] HospitalComment on above:Performed By: #### BMP, CDP #### [address] [place] [address] Tool Lapper Hand: YESSI MckeonCV (RBC) [Entitic vol]85.0 aTFzrecb88.6-102.9 [facility] HospitalComment on above:Performed By: #### ELYSE, CDP #### [address] [place] [address] Tool Lapper Hand: YESSI Mckeononocytes (Bld) [#/Vol]1.18 10*3/uLNormal0.10-1.[address] [facility] HospitalComment on above:Performed By: #### BMP, CDP #### [address] [place] [address] Tool Lapper Hand: YESSI Mckeononocytes/100 WBC (Bld)16 %High3-12[facility] Charles HospitalComment on above:Performed By: #### BMP, CDP #### [address] [place] [address] Tool Lapper Hand: Abdiel Nova MDNeutrophil (Seg)61 %Jtctdt18-76GkqjoMercy Health St. Charles HospitalComment on above:Performed By: #### BMP, CDP #### [facility] [address] [place] [address] [place] [address] Tool Lapper Hand: MICHAEL Mckeon Automated0.0 per [address] Charles HospitalComment on above:Performed By: #### BMP, CDP #### [address] [place] [address] Tool Lapper Hand: Herve Mckeon mean volume (Bld) [Entitic vol]8.9 fL Normal8.1-13.5[facility] Charles HospitalComment on above:Performed By: #### BMP, CDP #### [address] [place] [address] Tool Lapper Hand: Neida Mckeon (Bld) [#/Vol]217 10*3/bLSwipub377-[address] [facility] HospitalComment on above:Performed By: #### BMP, CDP #### [address] [place] [address] Tool Lapper Hand: SARA Mckeon (Bld) [#/Vol]4.66 10*6/uLNormal4.21-5.77[facility] Orthopedic Centerment on above:Performed By: #### BMP, CDP #### [address] [place] [address] Tool Lapper Hand: ISAIAH Mckoen (Bld) [#/Vol]7.4 10*3/uLNormal3.5-11.3MUniversity Hospitals Samaritan Medical CenterCommarlette regional hospital on above:Performed By: #### BMP, CDP #### [address] [place] [address] Tool Lapper Hand: JOSE ANTONIO Mckeon, DNA, Nasalon [id number] Description .NASAL SWABNormalMercy Health St. Charles HospitalComment on above:Performed By: #### MRSANO #### [facility] [address] [place] [address] Tool Lapper Hand: Eddie Valdivia MD [facility] [address] [place] [address] Tool Lapper Hand: Abdiel Nova MDType + Screenon [id number] + ScreenSample Expiration 06/22/2023,2359 Arm Band Number [id number] ABO/Rh(D) A POSITIVE Antibody Screen NEGATIVENoOhioHealth Grady Memorial HospitalComment on above:Performed By: #### TYS #### [facility] [address] [place] [address] Tool Lapper Hand: Abdiel Nova MDBNPon [id number] peptide B (Bld) [Mass/Vol]14.0 pg/mLNormal<=900.0The [facility] HospitalComment on above:Performed By: #### IRON #### [facility] [address] [place], [place] [address] Dr. Veronica Delacruz M/2D COMPLETEon [id number] M/2D COMPLETE Patient: CHIDI MYLES Exam Date: 03/22/2022 : 1970 Gender:M Ordering : DR ALLI EVANS . Admission #: [id number] Family : [facility]RIE [facility] Order #: [id number] CLICK HERE TO VIEW EXAM ECHOCARDIOGRAM REPORT [...] by: Fernie Dumont M.D. on 03/22/2022 at 18:03[facility] Memorial HospitalGLYCOHEMOGLOBIN A1Con [id number] RECOMMENDATIONSEE BELOWFort Hamilton Hospital on above:Result Comment: ADA RECOMMENDED LIMIT 4.0 - 6.0 ADA THERAPEUTIC TARGET < 7.0 ACTION SUGGESTED > 7.0Performed By: #### A1C #### [facility] [address] [place] [address] Dr. Veronica AcevedoGlucose [Mass/Vol]206 mg/dLNormalThe New Era HospitalComment on above:Performed By: #### A1C #### [facility] [address] [place] [address] Dr. Veronica AcevedoHbA1c (Bld) [Mass fraction]8.8 %Critically high4.5-6.2The [facility] HospitalComment on above:Performed By: #### A1C #### [facility] [address] [place] [address] Dr. Veronica AcevedoTESTOSTERONE, TOTALon [id number] [Mass/Vol]342 ng/dL Hylkfp460-242Bwc [facility] HospitalComment on above:Result Comment: Adult male reference interval is based on a population of healthy nonobese males (BMI <30) between 19 and 39 years old. neo Denney.al. JCEM 2017,102;6392-5369. PMID: [id number].Performed By: #### TESTTOT #### [facility] [address] [place] [address] Dr. Veronica TrevinoC AUTO DIFFon [id number] #0.1 103/ulNormal0.0-0.1[facility] HospitalComment on above:Performed By: #### IRON #### [facility] [address] [place] [address] Dr. Veronica AcevedoBasophils/100 WBC (Bld)1.2 %Normal0.2-2.0[facility] Comment on above:Performed By: #### IRON #### [facility] [address] [place] [address] Dr. Veronica Avelar #0.3 103/ulNormal0.0-0.7The [facility] HospitalComment on above: Performed By: #### IRON #### [facility] [address] [place] [address] Dr. Veronica Germainosinophils/100 WBC (Bld)3.2 %Normal0.9-7.0[facility] Comment on above:Performed By: #### IRON #### [facility] [address] [place] [address] Dr. Veronica Germainrythrocyte distribution width (RBC) [Ratio]12.1 %Mqnsfe19.0-15.0 The [facility] HospitalComment on above:Performed By: #### IRON #### [facility] [address] [place] [address] Dr. Veronica AcevedoHematocrit (Bld) [Volume fraction]45.8 %Dgdgbj10.0-54.0The [facility] HospitalComment on above:Performed By: #### IRON #### [facility] [address] [place] [address] Dr. Veronica AcevedoHemoglobin (Bld) [Mass/Vol]16.1 g/zIVlgfar88.0-18.0The [facility] HospitalComment on above:Performed By: #### IRON #### [facility] [address] [place] [address] Dr. Veronica Prescott #0.02 10e3/ulNormal0.00-0.03The [facility] HospitalComment on above:Performed By: #### IRON #### [facility] [address] [place] [address] Dr. Veronica Prescott %0.2 %Normal0.0-0.5The [facility] HospitalComment on above: Performed By: #### IRON #### [facility] [address] [place] [address] Dr. Veronica Grewal #3.4 103/ulNormal1.2-3.8The [facility] HospitalComment on above:Performed By: #### IRON #### [facility] [address] [place] [address] Dr. Veronica Florezhocytes/100 WBC (Bld)37.6 %Jtzrzu29.5-60.0The [facility] HospitalComment on above:Performed By: #### IRON #### [facility] [address] [place] [address] Dr. Veronica AmadoUAL DIFF REQNONormalThe [facility] HospitalComment on above: Performed By: #### IRON #### [facility] [address] [place] [address] Dr. Veronica Rodriguez (RBC) [Entitic mass]30.6 dfWtgtps99.9-34.0The [facility] HospitalComment on above:Performed By: #### IRON #### [facility] [address] [place] [address] Dr. Veronica Ibarra (RBC) [Mass/Vol]35.2 g/xNXutbet09.9-35.2The [facility] HospitalComment on above:Performed By: #### IRON #### [facility] [address] [place] [address] Dr. Veronica Ibarra (RBC) [Entitic vol]86.9 gBTawnhk68.0-94.0The [facility] HospitalComment on above:Performed By: #### IRON #### [facility] [address] [place] [address] Dr. Veronica Chapin #0.7 103/ulNormal0.3-0.8The [facility] HospitalComment on above:Performed By: #### IRON #### [facility] [address] [place] [address] Dr. Veronica Rocheocytes/100 WBC (Bld)7.4 %Normal1.7-12.0[facility] Comment on above:Performed By: #### IRON #### [facility] [address] [place] [address] Dr. Veronica Rush #4.6 103/ulNormal1.4-6.5The [facility] HospitalComment on above:Performed By: #### IRON #### [facility] [address] [place] [address] Dr. Veronica Garzautrophils/100 WBC (Bld)50.4 %Ygqzte83.0-75.0The [facility] HospitalComment on above:Performed By: #### IRON #### [facility] [address] [place] [address] Dr. Veronica Shabazz mean volume (Bld) [Entitic vol]9.3 fLCritically low 9.5-13.5The [facility] HospitalComment on above:Performed By: #### IRON #### [facility] [address] [place] [address] [address] Veronica AcevedoPLT233 103/bvWgxcuw331-698Qln [facility] HospitalComment on above: Performed By: #### IRON #### [facility] [address] [place] [address] [address] Veronica AcevedoRBC5.27 106/ulNormal4.70-6.10The [facility] HospitalComment on above:Performed By: #### IRON #### [facility] [address] [place] [address] [address] Veronica AcevedoWBC9.1 103/ulNormal4.0-11.0The [facility] HospitalComment on above: Performed By: #### IRON #### [facility] [address] [place] [address] Dr. Veronica AcevedoGLYCOHEMOGLOBIN A1Con 06-99-2212FVU RECOMMENDATIONADA THERAPEUTIC TARGET 6.0 - 7.0 ACTION SUGGESTED > 7.0NoOhio State Harding HospitalComment on above:Performed By: #### IRON #### [facility] [address] [place] [address] [address] Veronica AcevedoGlucose [Mass/Vol]197 mg/dLNoOhio State Harding HospitalCommarlette regional hospital on above:Performed By: #### IRON #### [facility] [address] [place] [address] Dr. Veronica AcevedoHbA1c (Bld) [Mass fraction]8.5 %Critically high<=6.0The [facility] HospitalComment on above:Performed By: #### IRON #### [facility] [address] [place] [address] Dr. Veronica De Leon 46-35-7826Nzdt [Mass/Vol]80.0 ug/qKHdwpml32.0-181.0The [facility] HospitalCommarlette regional hospital on above:Performed By: #### IRON #### [facility] [address] [place] [address] Dr. Veronica AcevedoINSULINon 35-78-1945Ytdfihc36.0 uIU/mLNormal2.6-24.9The [facility] HospitalComment on above:Performed By: #### IRON #### [facility] [address] [place] [address] Dr. Veronica Mcbride AUTO DIFFon [id number] #0.1 103/ulNormal0.0-0.1The [facility] HospitalComment on above:Performed By: #### CBC #### [facility] [address] [place] [address] Dr. Veronica AcevedoBasophils/100 WBC (Bld)1.1 %Normal0.2-2.0[facility] Comment on above:Performed By: #### CBC #### [facility] [address] [place] [address] Dr. Veronica Avelar #0.2 103/ulNormal0.0-0.7The [facility] HospitalComment on above: Performed By: #### CBC #### [facility] [address] [place] [address] Dr. Veronica Germainosinophils/100 WBC (Bld)2.4 %Normal0.9-7.0[facility] Comment on above:Performed By: #### CBC #### [facility] [address] [place] [address] Dr. Veronica Germainrythrocyte distribution width (RBC) [Ratio]12.1 %Rydeir40.0-15.0 [facility] HospitalComment on above:Performed By: #### CBC #### [facility] [address] [place] [address] Dr. Veronica AcevedoHematocrit (Bld) [Volume fraction]35.7 %Critically low42.0-54.0 [facility] HospitalComment on above:Performed By: #### CBC #### [facility] [address] [place] [address] Dr. Veronica AcevedoHemoglobin (Bld) [Mass/Vol]12.6 g/dLCritically low14.0-18.0The [facility] HospitalComment on above:Performed By: #### CBC #### [facility] [address] [place] [address] Dr. Veronica Prescott #0.02 10e3/ulNormal0.00-0.03The [facility] HospitalComment on above:Performed By: #### CBC #### [facility] [address] [place] [address] Dr. Veronica Prescott %0.3 %Normal0.0-0.5The [facility] HospitalComment on above: Performed By: #### CBC #### [facility] [address] [place] [address] Dr. Veronica Grewal #2.8 103/ulNormal1.2-3.8The [facility] HospitalComment on above:Performed By: #### CBC #### [facility] [address] [place] [address] Dr. Veronica Florezhocytes/100 WBC (Bld)45.9 %Mgrxzb20.5-60.0The [facility] HospitalComment on above:Performed By: #### CBC #### [facility] [address] [place] [address] Dr. Veronica AmadoUAL DIFF REQNONormalThe [facility] HospitalComment on above: Performed By: #### CBC #### [facility] [address] [place] [address] Dr. Veronica Ibarra (RBC) [Entitic mass]30.2 alVbnhsb98.9-34.0The [facility] HospitalComment on above:Performed By: #### CBC #### [facility] [address] [place] [address] Dr. Veronica Ibarra (RBC) [Mass/Vol]35.3 g/dLCritically high29.9-35.2The [facility] HospitalComment on above:Performed By: #### CBC #### [facility] [address] [place] [address] Dr. Veronica Ibarra (RBC) [Entitic vol]85.6 lADnddjo55.0-94.0The [facility] HospitalComment on above:Performed By: #### CBC #### [facility] [address] [place] [address] Dr. Veronica Chapin #0.6 103/ulNormal0.3-0.8The [facility] HospitalComment on above:Performed By: #### CBC #### [facility] [address] [place] [address] Dr. Veronica Rocheocytes/100 WBC (Bld)9.1 %Normal1.7-12.0[facility] Comment on above:Performed By: #### CBC #### [facility] [address] [place] [address] Dr. Veronica Rush #2.5 103/ulNormal1.4-6.5The [facility] HospitalComment on above:Performed By: #### CBC #### [facility] [address] [place] [address] Dr. Veronica Garzautrophils/100 WBC (Bld)41.2 %Critically low43.0-75.0The [facility] HospitalComment on above:Performed By: #### CBC #### [facility] [address] [place] [address] Dr. Veronica Bestlet mean volume (Bld) [Entitic vol]10.0 fLNormal9.5-13.5The [facility] HospitalComment on above:Performed By: #### CBC #### [facility] [address] [place] [address] Dr. Veronica AcevedoPLT204 103/cxUtkddo641-732Cqy [facility] HospitalComment on above: Performed By: #### CBC #### [facility] [address] [place] [address] Dr. Veronica AcevedoRBC4.17 106/ulCritically low4.70-6.10The [facility] HospitalComment on above:Performed By: #### CBC #### [facility] [address] [place] [address] Dr. Veronica AcevedoWBC6.1 103/ulNormal4.0-11.0The [facility] HospitalComment on above: Performed By: #### CBC #### [facility] [address] [place] [address] Dr. Veronica McdanielsCOHEMOGLOBIN A1Con 99-96-2347IFB RECOMMENDATIONADA THERAPEUTIC TARGET 6.0 - 7.0 ACTION SUGGESTED > 7.0[facility] HospitalComment on above:Performed By: #### A1C #### [facility] [address] [place] [address] [address] Veronica AcevedoGlucose [Mass/Vol]237 mg/dLOhioHealth Hardin Memorial HospitalComment on above:Performed By: #### A1C #### [facility] [address] [place] [address] [address] Veronica AcevedoHbA1c (Bld) [Mass fraction]9.9 %Critically high<=6.0The [facility] HospitalComment on above:Performed By: #### A1C #### [facility] [address] [place] [address] Dr. Veronica AcevedoLIPID PROFILEon [id number]-HDL RATIO NORMSEE Kettering Health HamiltonComment on above:Result Comment: 3.3 - 4.4 LOW RISK 4.4 - 7.1 AVERAGE RISK 7.1 - 11.0 MODERATE RISK >11.0 HIGH RISKPerformed By: #### LIPID, URIC, CMP #### [facility] [address] [place] [address] Dr. Veronica Leggettesterol [Mass/Vol]161 mg/dLWashington County Memorial Hospitalal<=200[facility] Comment on above:Performed By: #### LIPID, URIC, CMP #### [facility] [address] [place] [address] [address] Veronica AcevedoCholesterol in HDL [Mass/Vol]22 mg/dLOhioHealth Hardin Memorial Hospital Comment on above:Performed By: #### LIPID, URIC, CMP #### [facility] [address] [place] [address] [address] Veronica Leggettesterol in LDL [Mass/Vol]96.0 mg/dLOhioHealth Hardin Memorial HospitalComment on above:Performed By: #### LIPID, URIC, CMP #### [facility] [address] [place] [address] Dr. Yilan ChangCholesterol.total/Cholesterol in HDL [Mass ratio]7.3 {ratio} NormalThe [facility] HospitalComment on above:Performed By: #### LIPID, URIC, CMP #### [facility] [address] [place] [address] Dr. Veronica Witt NORMAL> or = 60 mg/dl - LOW CARDIOVASCULAR RISK <40 mg/dl - HIGH CARDIOVASCULAR RISKOhioHealth Hardin Memorial HospitalCommarlette regional hospital on above:Performed By: #### LIPID, URIC, CMP #### [facility] [address] [place] [address] Dr. Veronica AcevedoLDL CALC NORMALSEE BELOWOhioHealth Hardin Memorial HospitalComment on above:Result Comment: <100 mg/dl OPTIMAL 100 - 129 mg/dl NEAR OR ABOVE OPTIMAL 130 - 159 mg/dl BORDERLINE HIGH 160 - 189 mg/dl HIGH >190 mg/dl VERY HIGH Performed By: #### LIPID, URIC, CMP #### [facility] [address] [place] [address] Dr. Veronica AcevedoTriglyceride [Mass/Vol]215 mg/dLCritically high<=150[facility] HospitalCommarlette regional hospital on above:Performed By: #### LIPID, URIC, CMP #### [facility] [address] [place] [address] Dr. Veronica CollierLDL CALC43.0 mg/dLNoOhio State Harding HospitalCommarlette regional hospital on above: Performed By: #### LIPID, URIC, CMP #### [facility] [address] [place] [address] Dr. Veronica Acevedo 14(COMP METB)on 89-38-0099Dqinvaw [Mass/Vol]3.6 g/dLNormal 3.5-5.0[facility] HospitalComment on above:Performed By: #### LIPID, URIC, CMP #### [facility] [address] [place] [address] Dr. Veronica AcevedoAlbumin/Globulin [Mass ratio]1.1 {ratio}NormalThe [facility] HospitalComment on above:Performed By: #### LIPID, URIC, CMP #### [facility] [address] [place] [address] Dr. Veronica Arguelles [Catalytic activity/Vol]51 U/TLekwbl16-510Qfn [facility] HospitalComment on above:Performed By: #### LIPID, URIC, CMP #### [facility] [address] [place] [address] [address] Veronica VuongT [Catalytic activity/Vol]48 U/VBxsbhw52-04Rjp [facility] HospitalComment on above:Performed By: #### LIPID, URIC, CMP #### [facility] [address] [place] [address] [address] Veronica Saldanaon gap [Moles/Vol]9.5 mmol/LNormalThe [facility] HospitalComment on above:Performed By: #### LIPID, URIC, CMP #### [facility] [address] [place] [address] Dr. Veronica Miller [Catalytic activity/Vol]39 U/UMmnkxb24-24Tjw [facility] HospitalComment on above:Performed By: #### LIPID, URIC, CMP #### [facility] [address] [place] [address] Dr. Veronica AcevedoBilirubin [Mass/Vol]0.6 mg/dLNormal0.2-1.3The [facility] Comment on above:Performed By: #### LIPID, URIC, CMP #### [facility] [address] [place] [address] Dr. Veronica AcevedoCalcium [Mass/Vol]8.7 mg/dLNormal8.4-10.2[facility] Comment on above:Performed By: #### LIPID, URIC, CMP #### [facility] [address] [place] [address] Dr. Veronica AcevedoChloride [Moles/Vol]101 mmol/EHopdms13-018Dsu [facility] Comment on above:Performed By: #### LIPID, URIC, CMP #### [facility] [address] [place] [address] Dr. Veronica AcevedoCO2 [Moles/Vol]29.1 mmol/WIlftkb65.0-30.0[facility] Comment on above:Performed By: #### LIPID, URIC, CMP #### [facility] [address] [place] [address] [address] Veronica AcevedoCreatinine [Mass/Vol]1.24 mg/dLNormal0.66-1.25The [facility] Hospitalment on above:Performed By: #### LIPID, URIC, CMP #### [facility] [address] [place] [address] [address] Martin ChangEGFR-AF FRENCH>60Normal>=60The [facility] Hospitalment on above:Performed By: #### LIPID, URIC, CMP #### [facility] [address] [place] [address] [address] Veronica GermainGFR-NON AF FRENCH>60Normal>=60The [facility] Hospitalment on above:Performed By: #### LIPID, URIC, CMP #### [facility] [address] [place] [address] Dr. Veronica AcevedoGlobulin (S) [Mass/Vol]3.2 g/dLNormalThe [facility] HospitalComment on above:Performed By: #### LIPID, URIC, CMP #### [facility] [address] [place] [address] [address] Veronica AcevedoGlucose [Mass/Vol]224 mg/dLCritically ogfo34-860Tvk [facility] on above:Performed By: #### LIPID, URIC, CMP #### [facility] [address] [place] [address] [address] Veronica AcevedoPotassium [Moles/Vol]3.6 mmol/LNormal3.4-5.0The [facility] Comment on above:Performed By: #### LIPID, URIC, CMP #### [facility] [address] [place] [address] [address] Veronica AcevedoProtein [Mass/Vol]6.8 g/dLNormal6.1-8.2The [facility] Comment on above:Performed By: #### LIPID, URIC, CMP #### [facility] Laboratory [address] [address] [address] Veronica AcevedoSodium [Moles/Vol]136 mmol/LCritically [id number] New Era HospitalComment on above:Performed By: #### LIPID, URIC, CMP #### [facility] [address] [address] [address] Veronica AcevedoUrea nitrogen [Mass/Vol]17.0 mg/dLNormal9.0-20.0[facility] HospitalCom[facility] on above:Performed By: #### LIPID, URIC, CMP #### [facility] [address] [address] [address] Veronica AcevedoUrea nitrogen/Creatinine [Mass ratio]13.7 mg/mgNormalThe Cherrington HospitalComment on above:Performed By: #### LIPID, URIC, CMP #### [facility] [address] [place] [address] Dr. Veronica AcevedoURIC ACID SERUMon 18-68-7366Gskms [Mass/Vol]7.0 mg/dLNormal 3.5-8.5The [facility]rington HospitalComment on above:Performed By: #### LIPID, URIC, CMP #### [facility] [address] [place] [address] Dr. Veronica AcevedoGlucose Poct Glucometerson 59-51-7763Pljfyxf2Psu9: Cleaned Meter [facility] Hospital - YoungstownComment on above:Result Comment: PERFORMED BY: [facility] [address] [address] PATHOLOGIST ACCOUNT SPECIALIST EDMUND ECHEVARRIA M.D.Performed By: #### GLULS #### Point of Care testing ,Glucose [Mass/Vol]155 mg/dLNoCleveland Clinic Mentor HospitalComment on above:Result Comment: Random Glucose Reference Range is dependent on time and content of last meal. Glucose of more than 200 mg/dL in a nonstressed, ambulatory subject supports the diagnosis of Diabetes Mellitus.Performed By: #### GLULS #### Point of Care testing ,Amor 11-13-2020 Specimen: [id number] Received: 11/13/20 Status: MILLER Peresboogie Num: [id number] Spec Type: Surgical Subm Dr: Hudson Sharif MD Tissues: A Colon - Polyp (SIGMOID POLYP) Procedures: HE Stain/2, Gross/Micro L4 Patient Age/Sex Location Account Attending Physician Chidi Myles/Andra [id number] Hudson Sharif MD SPEC NUM: [id number] RECD: 11/13/20 STATUS: MILLER PERESBoogie NUM: [id number] REJI: 11/13/20 [facility] DR: Hudson Sharif MD ENTERED: 11/13/[address]: SPEC TYPE: Surgical DEPT: S ORDERED: [...] support the above pathologic diagnosis. CPT Codes 58349 Specimen: [id number] Received: 11/13/20 Status: MILLER Tracey Num: [id number] Spec Type: Surgical Subm Dr: Hudson Sharif MD Tissues: A Colon - Polyp (SIGMOID POLYP) Procedures: HE Stain/2, Gross/Micro L4 Patient: Chidi Myles [id number] (Continued) Signed (signature on file) Carmen Pack MD 11/16/20 [address] [facility] liver 63-31-2418[facility] [place] [address] Ultrasound Report Signed Patient: Chidi Myles MR#: [id number] : 1970 Acct:[id number] Age/Sex: 50 / M ADM Date: 11/11/20 Loc: Room: Type: [facility] Attending Dr: Hudson Sharif MD Ordering Provider: [...] Keira Portillo M.D.11/12/2020 9:28 AM Dictation Location: [address] [address] Tech: Payton Xiong Transcribed By: [facility] 11/12/2028 Dictated By: Keira Portillo MD 11/12/20 0926 Signed By: 11/12/20 0928NoCleveland Clinic Mentor HospitalCOVID-19 Antigenon 05-86-9601NEDBC-19 AntigenHealthcare Worker?: N Estuardo Reference Estuardo Reference Negative [...] its performance Estuardo Disclaimer characteristic determined by [employer] and Estuardo Disclaimer validated at [facility]. This Estuardo Disclaimer test has not been [...] Emergency Use Authorization for Coronavirus Estuardo Disclaimer is during the Public Health Emergency) Estuardo Disclaimer [...] is terminated or revoked sooner. PERFORMED BY: [place] [address] PATHOLOGIST ACCOUNT SPECIALIST EDMUND ECHEVARRIA M.D.[facility] Hospital - YoungstownComment on above: Performed By: #### LYDIA, COVID-19 ESTUARDO #### [facility] [address] [place] [address] USASofia Ag Negativeon 29-43-0323Foggk Ag NegativeNegative NormalNegativeParkview HealthComment on above:Result Comment: This is a duplicate Estuardo SARS Antigen (MENDY) result to be used for statistical tracking purpose only. PERFORMED BY: [place] [address] PATHOLOGIST ACCOUNT SPECIALIST EDMUND ECHEVARRIA M.D.Performed By: #### CHELIIANEG, COVID-19 ESTUARDO #### [facility] [address] [place] [address] USAHep C Ab w Verificationon 97-10-8756BKF AB<0.1Normal 0.0-0.9Parkview HealthComment on above:Order Comment: Reason for Exam Fatty liverPerformed By: #### HBSAB, HBSAG, HBCAB, HEP C #### [facility] ,HCV Ab CommentNormal.Parkview HealthComment on above:Order Comment: Reason for Exam Fatty liverResult Comment: Non reactive HCV antibody screen is consistent with no HCV infection, unless recent infection is suspected or other evidence exists to indicate HCV infection.Performed By: #### HBSAB, HBSAG, HBCAB, HEP C #### [facility] ,Hepatitis B Core Antibodyon 53-93-9099Gxfwjzvcr B Core AntibodyNegativeNormal NegativeParkview HealthComment on above:Order Comment: Reason for Exam Fatty liverResult Comment: Performed at: - [facility] [id number] Tool Lapper Hand: Familia Monsalve PhD, Phone: [phone] PERFORMED BY: [facility] [address] [place] [address] PATHOLOGIST ACCOUNT SPECIALIST EDMUND ECHEVARRIA M.D.Performed By: #### HBSAB, HBSAG, HBCAB, HEP C #### [facility] ,Hepatitis B Surface Antibodyon 03-46-5701Amjhtppqv B Surface AntibodyReactive Normal.Parkview HealthComment on above:Order Comment: Reason for Exam Fatty liverResult Comment: Non Reactive: Inconsistent with immunity, less than 10 mIU/mL Reactive: Consistent with immunity, greater than 9.9 mIU/mLPerformed By: #### HBSAB, HBSAG, HBCAB, HEP C #### [facility] ,Hepatitis B Surface Antigenon 64-39-5102IIqOi ScreenNegativeNormalNegative Parkview HealthComment on above:Order Comment: Reason for Exam Fatty liverPerformed By: #### HBSAB, HBSAG, HBCAB, HEP C #### [facility] ,CBC W/DIFFon 75-31-6043XIR BASOPHILS0.1 10*3/uLNormal0.0-0.2The [facility] [address] HospitalComment on above:Performed By: #### [id number] #### [facility] [address] [facility] [place] [address], USAABS IMM GRANS0.0 10*3/uLNormal0.0-0.2The [address] HospitalComment on above:Performed By: #### 59449 #### [facility] [address] [facility] [place] [address], [facility] CENTERABS NEUTROPHILS3.3 10*3/uLNormal1.6-7.6The [address] HospitalComment on above:Performed By: #### 91247 #### [facility] [address] [facility] [place] [address], [facility] MEDICAL CENTERBasophils/100 WBC (Bld)1.2 %High0.0-1.0The [address] HospitalComment on above:Performed By: #### 46485 #### [facility] [address] [facility] [place] [address], [facility] MEDICAL CENTEREosinophils (Bld) [#/Vol]0.2 10*3/uLNormal0.0-0.5The [address] HospitalComment on above:Performed By: #### 91795 #### [facility] [address] [facility] [place] [address], [facility] MEDICAL CENTEREosinophils/100 WBC (Bld)3.7 %Normal0.0-6.0The [address] HospitalComment on above:Performed By: #### 80685 #### [facility] [address] [place] [address], USAErythrocyte distribution width (RBC) [Ratio]12.3 %Normal 11.5-15.0The [address] HospitalComment on above:Performed By: #### 92310 #### [facility] [address] [place] [address], USAHematocrit (Bld) [Volume fraction]40.8 %Gbuumj44.0-50.0The [address] HospitalComment on above:Performed By: #### 85691 #### [facility] [address] [place] [address], USAHemoglobin (Bld) [Mass/Vol]13.7 g/qKUkjxfz22.0-17.0The [address] HospitalComment on above:Performed By: #### 31100 #### [facility] [address] [place] [address], USAIMMATURE GRANS0.3 %Normal0.0-1.0The [address] HospitalComment on above:Performed By: #### 48899 #### [facility] [address] [place] [address], USALymphocytes (Bld) [#/Vol]2.4 10*3/uLNormal1.2-4.0The [address] HospitalComment on above:Performed By: #### 30242 #### [facility] [address] [facility] [place] [address], USALymphocytes/100 WBC (Bld)36.3 %Jbliup61.0-45.0[address] HospitalComment on above:Performed By: #### 72142 #### [facility] [address] [place] [address], [facility] MEDICAL CENTERMCH (RBC) [Entitic mass]29.9 dgUhnlmy50.0-33.0The [address] HospitalComment on above:Performed By: #### 27696 #### [facility] [address] [facility] [place] [address], USAMCHC (RBC) [Mass/Vol]33.6 g/qSQsegbr74.0-35.0The [address] HospitalComment on above:Performed By: #### 17542 #### [facility] [address] [place] [address], USAMCV (RBC) [Entitic vol]89.1 pUYnfitb49.0-98.0[address] HospitalComment on above:Performed By: #### 53778 #### [facility] [address] [place] [address], USAMonocytes (Bld) [#/Vol]0.5 10*3/uLNormal0.1-1.0The [address] HospitalComment on above:Performed By: #### 79326 #### [facility] [address] [place] [address], USAMONOS7.8 %Normal5.0-12.0The [address] HospitalComment on above:Performed By: #### 40970 #### [facility] [address] [facility] [place] [address], USANeutrophils/100 WBC (Bld)50.7 %Hklgrm48.0-72.0The [address] HospitalComment on above:Performed By: #### 86037 #### [facility] [address] [facility] [address], USANucleated RBC/100 WBC (Bld) [Ratio]0 %Normal0-0The [facility] [address] HospitalComment on above:Performed By: #### 09081 #### [facility] [address] [place] [address], USAPLAT ASM346 10*3/aSMcjnmy306-221Ycv [facility] [address] HospitalComment on above:Performed By: #### 80796 #### [facility] [address] [facility] [address], USARBC (Bld) [#/Vol]4.58 10*6/uLNormal4.20-5.70The [facility] [address] HospitalComment on above:Performed By: #### 21396 #### [facility] [address] [facility] [address], USAWBC (Bld) [#/Vol]6.51 10*3/uLNormal4.00-10.60The [facility] [address] HospitalComment on above:Performed By: #### 83231 #### [facility] [address] [place] [address], USAHEPATITIS B SURFACE ANTIGEN QUALon 16-66-0745YED B SURF AG QUALNONREACTIVENormalNONREACTIVEThe [facility] Street HospitalComment on above:Performed By: #### 56361, 62092 #### [facility] [address] [place] [address], USAHEPATITIS C ANTIBODYon 93-56-6025GKCF-HCVNONREACTIVENormal NONREACTIVEThe Wilson Street HospitalComment on above:Performed By: #### 02430, 57504 #### [facility] [address] [place] [address], USALIVER BATTERYon 20-93-2669Efgfaov [Mass/Vol]4.2 g/dLNormal 3.5-5.7The [facility] [address] HospitalComment on above:Performed By: #### 46410 #### [facility] [address] [place] [address], USAALKALINE BEOZMZ74 IU/RMuxnlp56-191Uxq [facility] [address] HospitalComment on above:Performed By: #### 59389 #### [facility] [address] [place] [address], USAALT [Catalytic activity/Vol]18 U/LNormal7-52The [facility] [address] HospitalComment on above:Performed By: #### 06157 #### [facility] [address] [place] [address], USAAST [Catalytic activity/Vol]18 U/PRlcnyb98-74Hox [address] HospitalComment on above:Performed By: #### 09801 #### [facility] [address] [place] [address], USABilirubin [Mass/Vol]0.5 mg/dLNormal0.3-1.0The [facility] [address] HospitalComment on above:Performed By: #### 81414 #### [facility] [address] [facility] [place] [address], USABilirubin.direct [Mass/Vol]0.2 mg/dLNormal0.0-0.2The [address] HospitalComment on above:Performed By: #### 44944 #### [facility] [address] [facility] [place] [address], USAProtein [Mass/Vol]7.3 g/dLNormal6.0-8.3The [address] HospitalComment on above:Performed By: #### 64339 #### [facility] [address] [facility] [place] [address], [facility] MEDICAL CENTERCBC W/DIFFon 92-35-9892OCT BASOPHILS0.1 10*3/uLNormal 0.0-0.2The [facility] [address] HospitalComment on above:Performed By: #### 83538 #### [facility] [address] [facility] [place] [address], USAABS IMM GRANS0.0 10*3/uLNormal0.0-0.2The [address] HospitalComment on above:Performed By: #### 32682 #### [facility] [address] [facility] [place] [address], [facility] MEDICAL CENTERABS NEUTROPHILS3.5 10*3/uLNormal1.6-7.6The [address] HospitalComment on above:Performed By: #### 13977 #### [facility] [address] [facility] [place] [address], [facility] MEDICAL CENTERBasophils/100 WBC (Bld)1.4 %High0.0-1.0The [address] HospitalComment on above:Performed By: #### 14961 #### [facility] [address] [facility] [place] [address], [facility] MEDICAL CENTEREosinophils (Bld) [#/Vol]0.4 10*3/uLNormal0.0-0.5The [address] HospitalComment on above:Performed By: #### 26658 #### [facility] [address] [place] [address], USAEosinophils/100 WBC (Bld)5.8 %Normal0.0-6.0The [facility] [address] HospitalComment on above:Performed By: #### 64977 #### [facility] [address] [place] [address], USAErythrocyte distribution width (RBC) [Ratio]12.6 %Normal 11.5-15.0The [address] HospitalComment on above:Performed By: #### 81682 #### [facility] [address] [place] [address], USAHematocrit (Bld) [Volume fraction]41.0 %Uelcmw49.0-50.0The [address] HospitalComment on above:Performed By: #### 12325 #### [facility] [address] [place] [address], USAHemoglobin (Bld) [Mass/Vol]14.0 g/pIBwiqnl71.0-17.0[address] HospitalComment on above:Performed By: #### 97058 #### [facility] [address] [place] [address], USAIMMATURE GRANS0.6 %Normal0.0-1.0The [facility] [address] HospitalComment on above:Performed By: #### 54820 #### [facility] [address] [place] [address], USALymphocytes (Bld) [#/Vol]2.4 10*3/uLNormal1.2-4.0The [address] HospitalComment on above:Performed By: #### 76740 #### [facility] [address] [place] [address], USALymphocytes/100 WBC (Bld)33.1 %Artpuw45.0-45.0The [address] HospitalComment on above:Performed By: #### 07479 #### [facility] [address] [place] [address], [facility] (RBC) [Entitic mass]29.5 aqAsbjiw41.0-33.0[address] HospitalComment on above:Performed By: #### 42912 #### [facility] [address] [place] [address], [facility] (RBC) [Mass/Vol]34.1 g/jWJwcbml67.0-35.0The [facility] [address] HospitalComment on above:Performed By: #### 13976 #### [facility] [address] [place] [address], [facility] MEDICAL CENTERMCV (RBC) [Entitic vol]86.3 dNSxezzl44.0-98.0[address] [facility] [address] HospitalComment on above:Performed By: #### 90419 #### [facility] [address] [place] [address], USAMonocytes (Bld) [#/Vol]0.7 10*3/uLNormal0.1-1.0The [facility] [address] HospitalComment on above:Performed By: #### 46574 #### [facility] [address] [place] [address], USAMONOS9.2 %Normal5.0-12.0The [facility] [address] HospitalComment on above:Performed By: #### 11527 #### [facility] [address] [place] [address], USANeutrophils/100 WBC (Bld)49.9 %Aakzzv84.0-72.0[address] [facility] [address] HospitalComment on above:Performed By: #### 11552 #### [facility] [address] [place] [address], USANucleated RBC/100 WBC (Bld) [Ratio]0 %Normal0-0The [facility] [address] HospitalComment on above:Performed By: #### 30706 #### [facility] [address] [place] [address], USAPLAT SMA162 10*3/pWFnxnlh577-096Euo [facility] [address] HospitalComment on above:Performed By: #### 49356 #### [facility] [address] [place] [address], USARBC (Bld) [#/Vol]4.75 10*6/uLNormal4.20-5.70The [facility] [address] HospitalComment on above:Performed By: #### 27323 #### [facility] [address] [place] [address], USAWBC (Bld) [#/Vol]7.09 10*3/uLNormal4.00-10.60The [facility] [address] HospitalComment on above:Performed By: #### 75995 #### [facility] [address] [place] [address], USALIVER BATTERYon 54-45-4217Kwloxjs [Mass/Vol]4.2 g/dLNormal 3.5-5.7The [facility] [address] HospitalComment on above:Performed By: #### 81412 #### [facility] [address] [place] [address], USAALKALINE XOPECS85 IU/CPaxzxo03-391Ilg [facility] [address] HospitalComment on above:Performed By: #### 03062 #### [facility] [address] [place] [address], USAALT [Catalytic activity/Vol]16 U/LNormal7-52The [facility] [address] HospitalComment on above:Performed By: #### 36438 #### [facility] [address] [place] [address], USAAST [Catalytic activity/Vol]16 U/BKmwvot59-74Bxw [facility] [address] HospitalComment on above:Performed By: #### 50129 #### [facility] [address] [place] [address], USABilirubin [Mass/Vol]0.4 mg/dLNormal0.3-1.0The [facility] [address] HospitalComment on above:Performed By: #### 29520 #### [facility] [address] [place] [address], USABilirubin.direct [Mass/Vol]0.1 mg/dLNormal0.0-0.2The [facility] [address] HospitalComment on above:Performed By: #### 98818 #### [facility] [address] [place] [address], USAProtein [Mass/Vol]7.4 g/dLNormal6.0-8.3The [facility] [address] HospitalComment on above:Performed By: #### 39268 #### [facility] [address] [place] [address], [facility] CENTERCBC W/DIFFon 65-75-5013XOR BASOPHILS0.1 10*3/uLNormal 0.0-0.2The [facility] [address] HospitalComment on above:Performed By: #### 95229 #### [facility] [address] [place] [address], USAABS IMM GRANS0.1 10*3/uLNormal0.0-0.2The [facility] [address] HospitalComment on above:Performed By: #### 73223 #### [facility] [address] [place] [address], USAABS NEUTROPHILS3.8 10*3/uLNormal1.6-7.6The [facility] [address] HospitalComment on above:Performed By: #### 32777 #### [facility] [address] [place] [address], USABasophils/100 WBC (Bld)1.6 %High0.0-1.0The [facility] [address] HospitalComment on above:Performed By: #### 98290 #### [facility] [address] [place] [address], USAEosinophils (Bld) [#/Vol]0.7 10*3/uLHigh0.0-0.5The [facility] [address] HospitalComment on above:Performed By: #### 37872 #### [facility] [address] [place] [address], USAEosinophils/100 WBC (Bld)8.8 %High0.0-6.0The [facility] [address] HospitalComment on above:Performed By: #### 55946 #### [facility] [address] [place] [address], USAErythrocyte distribution width (RBC) [Ratio]12.4 %Normal 11.5-15.0The [facility] [address] HospitalComment on above:Performed By: #### 34414 #### [facility] [address] [place] [address], USAHematocrit (Bld) [Volume fraction]39.2 %Yvbdlh35.0-50.0The [facility] [address] HospitalComment on above:Performed By: #### 48365 #### [facility] [address] [place] [address], USAHemoglobin (Bld) [Mass/Vol]13.8 g/iUEdggez10.0-17.0The [facility] [address] HospitalComment on above:Performed By: #### 35006 #### [facility] [address] [facility] [place] [address], USAIMMATURE GRANS0.6 %Normal0.0-1.0The [facility] [address] HospitalComment on above:Performed By: #### 15171 #### [facility] [address] [place] [address], USALymphocytes (Bld) [#/Vol]2.4 10*3/uLNormal1.2-4.0The [facility] [address] HospitalComment on above:Performed By: #### 36462 #### [facility] [address] [place] [address], [facility] MEDICAL CENTERLymphocytes/100 WBC (Bld)31.4 %Tgxcuo24.0-45.0The [facility] [address] HospitalComment on above:Performed By: #### 52616 #### [facility] [address] [place] [address], [facility] MEDICAL CENTERMCH (RBC) [Entitic mass]29.7 wlLlmzwb25.0-33.0The [facility] [address] HospitalComment on above:Performed By: #### 99707 #### [facility] [address] [place] [address], [facility] MEDICAL CENTERMCHC (RBC) [Mass/Vol]35.2 g/yEDtdw52.0-35.0The [facility] [address] HospitalComment on above:Performed By: #### 66006 #### [facility] [address] [place] [address], [facility]ICAL CENTERMCV (RBC) [Entitic vol]84.3 aAQcaaqk67.0-98.0The [facility] [address] HospitalComment on above:Performed By: #### 26697 #### [facility] [address] [place] [address], USAMonocytes (Bld) [#/Vol]0.7 10*3/uLNormal0.1-1.0The [facility] [address] HospitalComment on above:Performed By: #### 61743 #### [facility] [address] [place] [address], USAMONOS9.0 %Normal5.0-12.0The [facility] [address] HospitalComment on above:Performed By: #### 57130 #### [facility] [address] [place] [address], USANeutrophils/100 WBC (Bld)48.6 %Dnumgn83.0-72.0The [facility] [address] HospitalComment on above:Performed By: #### 07425 #### [facility] [address] [place] [address], USANucleated RBC/100 WBC (Bld) [Ratio]0 %Normal0-0The [facility] [address] HospitalComment on above:Performed By: #### 02144 #### [facility] [address] [place] [address], USAPLAT JMU392 10*3/lUSopuhh677-751Xsz [facility] [address] HospitalComment on above:Performed By: #### 55442 #### [facility] [address] [place] [address], USARBC (Bld) [#/Vol]4.65 10*6/uLNormal4.20-5.70The [facility] [address] HospitalComment on above:Performed By: #### 59831 #### [facility] [address] [facility] [place] [address], USAWBC (Bld) [#/Vol]7.74 10*3/uLNormal4.00-10.60The [facility] [address] HospitalComment on above:Performed By: #### 18240 #### [facility] [address] [place] [address], USALIVER BATTERYon 21-88-9421Uraejbh [Mass/Vol]4.2 g/dLNormal 3.5-5.7The [facility] [address] HospitalComment on above:Performed By: #### 61473 #### [facility] [address] [facility] [place] [address], [facility] MEDICAL CENTERALKALINE KOAECQ83 IU/BCqwrcj03-769Boi [facility] [address] HospitalComment on above:Performed By: #### 86810 #### [facility] [address] [facility] [place] [place] [address], USAALT [Catalytic activity/Vol]16 U/LNormal7-52The [facility] [address] HospitalComment on above:Performed By: #### 54774 #### [facility] [address] [place] [address], USAAST [Catalytic activity/Vol]17 U/ZLqjxfj05-56Ghb [facility] [address] HospitalComment on above:Performed By: #### 23156 #### [facility] [address] [place] [address], USABilirubin [Mass/Vol]0.5 mg/dLNormal0.3-1.0The [facility] [address] HospitalComment on above:Performed By: #### 92636 #### [facility] [address] [place] [address], USABilirubin.direct [Mass/Vol]0.1 mg/dLNormal0.0-0.2The [facility] [address] HospitalComment on above:Performed By: #### 43104 #### [facility] [address] [place] [address], USAProtein [Mass/Vol]6.9 g/dLNormal6.0-8.3The [facility] [address] HospitalComment on above:Performed By: #### 70960 #### [facility] [address] [facility] [place] [address], [place] Encounters Encounter DateEncounter TypeCare ProviderFacilityStart: 04-06-2025 End: 65-54-3260Oichpcykl department patient visitPASYDENHAM HOSPITALRosa Doshi [facility] Hospitaltart: 03-20-2025 End: 45-07-4172CbxdmoFzyjppGabriele JONES Work Phone: [facility] Physicians Pulmonary/Sleep MedicineStart: 02-10-2025 End: 69-04-7509Ebberamaj department patient visitPASYDENHAM HOSPITALRosa Doshi [facility] Hospitaltart: 10-23-2024 End: 83-15-7865Ymbclgmsb department patient visitPAMARY ALICE Doshi [facility] HospitalStart: 04-29-2024 End: 89-84-6085kkekbnwfciNLIGKB S [facility] HospitalStart: 83-80-7378Vsfufnpao for general adult medical examination without abnormal findingsPAMELA VIANCACherry [facility] HospitalStart: 09-26-2023 End: 14-50-4503btfgumlgxoHxqarpr HARWOODFacility:[facility]up[facility] Health and WellnessStart: 06-19-2023 End: 54-91-4961ehsnfufxgoLCIKFF [facility] HospitalStart: 06-16-2023 End: 01-23-7674vgvpejmnsqPOZUPH [facility] HospitalStart: 06-16-2023 End: 34-01-0162Dnfvrwxdg for other preprocedural examinationPHILIP E [facility]rol [facility] HospitalStart: 06-06-2023 End: 02-53-7228xyxrrwbkndAXWTTR [facility] HospitalStart: 03-28-2022 End: 57-00-8952nyyfwxlzioDG ALLI KUMARYFacility:Q1Zkbpj: 03-22-2022 End: 45-75-0317vrhbopkwsmXFAEIR CRAMERFacility:R6Jxuju: 12-17-2021 End: 72-88-3140uwvycypajkNSWQGB CRAMERFacility:L2Loknj: 07-31-2021 End: 24-77-9762gklslgaaapBGUAQV CRAMERFacility:P1Bshbd: 13-13-9397Lmqbykbka for general adult medical examination without abnormal findingsPAMELA Mar[facility] HospitalStart: 30-98-8018mpphvdrkoxHAJLND CRAMERFacility:Q2Hckep: 04-17-2021 End: 33-20-0268xqzwslhrvkQRQGQY CRAMERFacility:K7Trzkj: 04-17-2021 End: 98-26-5909Ojjbmlyki for general adult medical examination without abnormal findingsPAMELA CRAMERFacility:H1 Procedures DateProcedureProcedure DetailPerforming ClinicianStart: 08-35-6017QYU screening KERRIE Roland on above:Performed By: #### PSASC #### [facility] [address] [place] [address] Dr. Veronica Acevedo Plan of Treatment DateCare ActivityDetailAuthorStart: 47-78-0591AJrS,Tdap and Td Vaccines (2 - Td or Tdap)DTaP,Tdap and Td Vaccines (2 - Td or Tdap)[facility] SystemStart: 81-00-9411Uwegk BMI ScreeningAdult BMI ScreeningSt. Francis Hospital Health SystemStart: 19-98-6407Bocmbfa ScreeningTobacco ScreeningProSelect [facility] SystemStart: 76-26-5582Wyzjzuapm vaccinationInfluenza VaccineProSelect [facility] SystemStart: 50-00-8124Tlndremisufctb of varicella zoster vaccineZoster (Shingles) Vaccine (1 of 2)[facility] SystemStart: 24-81-8481Iwjtg BMI Follow Up PlanAdult BMI Follow Up PlanProSelect [facility] SystemStart: 93-99-3619Piyjaswvgd Screening Depression ScreeningBrecksville VA / [facility] Hospital SystemStart: 70-96-7592Fhyoqdf Counseling Tobacco CounselingBrecksville VA / [facility] Payers DatePayer CategoryPayerPolicy [id number]. [facility] Member Subscriber Plan / Payer (Effective 2024-Present) Name: Chidi Myles Relation to Subscriber: Self Name: Shameka Chidi Nogueira Payer ID: [id number] (NAIC) Type: Not on file Address: [facility] [address] [place] [id number] [id number]-3606NzjfgxgV3Q597N2980707-06-3614Eyssmpk [id number] 2.16.840.1.300544.3.57[id number] 2.16.840.1.497793.3.57[id number] 2.16.840.1.914944.3.57[id number] 2.16.840.1.159717.3.57[id number] 2.16.840.1.400429.3.57[id number] 2.16840.1.542867.3.579.[id number] 2.840.1.634237.3.57[id number] 2.0.1.090906.3.57[id number] 2.840.1.472468.3.57[id number] 2.840.1.988607.3.579.[id number] 2.840.1.690254.3.57[id number] 2.0.1.899928.3.57[id number] 2.840.1.354546.3.579.2.575551-16-3853Nmhbwxu1929 2.0.1.014454.3.579.2.637086-08-2177Zwuk-[id number] Social History DateTypeDetailFacilityStart: 73-47-5337Emtvyiu smoking status [facility] tobacco dailyBrecksville [facility] Work Phone: History of tobacco useCigarette SmokerSt. Francis Hospital Healthline Networkstart: 08-27-2020 End: 28-29-9331Ojjpsdprmz smoked current (pack per day) - Onxkmyjr9YdyJgcaxb Healthline Networkstart: 66-50-1731Ckggdwy use and exposureSmokeless tobacco non-user [facility] Networkstart: 87-32-5526Lzygalykq beverage intakeCurrent drinker of alcohol (finding)[facility] Networkstart: 08-27-2020 End: 47-07-5755Bfuzrvn use panelSt. Francis Hospital [facility] HospitalChildcareUnknownPSaint Francis Specialty Hospital Healthline Networkstart: 02-93-9088Mzdpqnh CommentoccasionalBrecksville VA [facility] Start: 76-02-1588Nld assigned at birthNot on fileSt. Francis Hospital Healthline Networkstart: 04-03-7800EjiEjqx (finding)[facility] DaytonSpacious App Instructions Note Date & TypeNoteFacilityInstructionsNot on filedocumented in this encounter [facility] Summary Purpose Family History No Family History [...] section and content) DATE CREATED AUTHOR 03/22/[address] [facility] DATE CREATED AUTHOR AUTHOR'S ORGANIZ ATION 07/05/2021 [facility] DATE CREATED AUTHOR AUTHOR'S ORGANIZ ATION 04/16/2022 [facility] DATE CREATED AUTHOR AUTHOR'S ORGANIZ ATION 06/23/[address] [facility] DATE CREATED AUTHOR AUTHOR'S ORGANIZ ATION 09/27/2023 [facility] DATE CREATED AUTHOR AUTHOR'S ORGANIZ ATION 04/06/2025 [facility] Reason for Visit (unrecogniz ed section and content) ReasonCommentsMed Refill Care Teams (unrecognized sec tion and content) Team MemberRelationshipSpecialtyStart DateEnd Date Sara Buckleygerardo Doshi, PT SITTER-MEDICINE TEACHER [address] [place] [address] PCP - GeneralFamnly Medicine03/16/19 FOR RECORDS PERTAINING TO PATIENTS WHO ARE [...] BE BASED ON THE PRIMARY CLINICAL RECORDS. [facility] [employer] [facility]. provides no warranty or guarantee of the accuracy or completeness of information in this document.
--- OUTSIDE RECORDS SUMMARY | 2025-05-09 10:39 | XMS_ITS | Clinical Summary ---
Author Organization [facility] Address [address] [place] [address] Care Team Providers Care Lav Crewman Name Role Phone No, Physician Primary Care Provider Unavailabl e Allergies Active AllergyReactionsCriticalityNoted UxreOqxfcnobUduzqqa01/08/2017 Medications MedicationSigDispense QuantityRefillsLast FilledStart DateEnd DateStatus DULoxetine (CYMBALTA) 60 MG capsule Take 60 mg by mouth daily.Active olmesartan-hydrochlorothiazide (BENICAR HCT) 40-12.5 mg per tablet Take 1 tablet by mouth daily.Active NIFEdipine (ADALAT CC) 60 MG 24 hr tablet Take 60 mg by mouth daily.Active QUEtiapine (SEROQUEL) 50 MG tablet Take 50 mg by mouth nightly.Active Social History Tobacco UseTypesPacks/DayYears UsedDateSmoking Tobacco: Every XvdUytsjgqrxx249 Smokeless Tobacco: NeverAlcohol UseStandard Drinks/WeekCommentsYes0 (1 standard drink = 0.6 oz pure alcohol)once a yearSex and Gender InformationValueDate RecordedSex Assigned at BirthNot on fileLegal McrAmfk2304/07/2015 10:26 AM EDT Gender IdentityNot on fileSexual OrientationNot on file Last Filed Vital Signs Vital SignReadingTime TakenCommentsBlood Xwzduqpn554/72009/21/2016 4:40 AM EST Ufacs0141 4:40 AM ZZZBhpgcinurva42.4 ??C (97.6 ??F)09/21/2016 12:51 AM ESTRespiratory Znqh601609/21/2016 4:40 AM ESTOxygen Taybgkiiyf61%09/21/2016 4:40 AM ESTInhaled Oxygen Concentration--Bckhow399 kg (280 lb)09/21/2016 12:51 AM EST Yexbqo685.4 cm (6' 1 )09/21/2016 12:51 AM ESTBody Mass Index36.9409/21/2016 12:51 AM EST Plan of Treatment Health MaintenanceDue DateLast DoneCommentsCT Bbzpkyxfdbfm61/02/1970Colonoscopy 1969Colorectal Cancer Screening/Iydqvltejf93/02/1970Fecal DNA1969 Fecal occult blood test (FOBT,FIT)1969PSA Level1969Tetanus: Every 10yrs (RETIRED)1969Wellness Visit1972Depression Screening/Follow-Up (PHQ-2/9)1981HIV Tpmjtfqhu78/02/1985Hepatitis C Mczrhirlf87/02/1988 Pneumococcal Vaccine: 50+ Years (1 of 1 - PCV)2019Zoster Vaccines (1 of 2) 2019COVID-19 Vaccine (1 - 2023- season)2025Influenza Vaccine (#1) 2025 Insurance * Guarantor: Jessica Valencia TypeRelation to PatientDate of BirthPhone Billing AddressPersonal/ZpnewxBavq95/[birth year][address] [address] Care Teams Team MemberRelationshipSpecialtyStart DateEnd Date No, Physician [facility] PCP - General09/21/16
--- OUTSIDE RECORDS SUMMARY | 2025-05-09 10:39 | XMS_ITS | Clinical Summary ---
Author Organization [facility] Address [address], [address] [place] [address] Care Team Providers Care Flow Specialist Name Role Phone Kerrie Aguillon APRN - FIXED INCOME MANAGER Primary Care Provide r Allergies Active AllergyReactionsCriticalityNoted DateCommentsCodeineNausea And Vomiting Low06/05/2023 Medications MedicationSigDispense QuantityRefillsLast FilledStart DateEnd DateStatus QUEtiapine (SEROQUEL) 100 MG tablet Take 1 tablet by mouth nightlyActive DULoxetine (CYMBALTA) 60 MG extended release capsule Take 1 capsule by mouth nightlyActive omeprazole (PRILOSEC) 40 MG delayed release capsule Take 1 capsule by mouth nightlyActive NIFEdipine (ADALAT CC) 60 MG extended release tablet Take 1 tablet by mouth nightlyActive dulaglutide (TRULICITY) 1.5 MG/0.5ML SC injection Inject 0.5 mLs into the skin once a week SundaysActive ibuprofen (ADVIL;MOTRIN) 800 MG tablet Take 1 tablet by mouth every 6 hours as needed for PainActive simvastatin (ZOCOR) 20 MG tablet Take 1 tablet by mouth nightlyActive olmesartan-hydroCHLOROthiazide (BENICAR HCT) 40-12.5 MG per tablet Take 0.5 tablets by mouth nightlyActive rivaroxaban (XARELTO) 10 MG TABS tablet Take 1 tablet by mouth daily (with breakfast) 12 tablet 06/20/2023ctive Active Problems ProblemNoted DateDiagnosed DateType 2 diabetes mellitus with hyperglycemia, without long-term current use of ebiywbq8906/20/2023HTN (hypertension)06/20/2023 Status post total knee replacement using cement, left12/10/2022 Family History Medical HistoryRelationNameCommentsHeart DiseaseMotherRelationNameStatusComments FatherDeceasedMotherDeceasedSisterDeceased Social History Tobacco UseTypesPacks/DayYears UsedDateSmoking Tobacco: Every DayCigarettes Smokeless Tobacco: Never Tobacco Cessation:Ready to Q uit: Not Asked; Counseling Given: Not Answered Alcohol UseStandard Drinks/WeekCommentsNot Currently0 (1 standard drink = 0.6 oz pure alcohol)occasionallyC UtilitiesAnswerDate RecordedIn the past 12 months has the [employer], gas, oil, or water GROU.PS threatened to shut off services in your home?No06/19/2023Hunger Vital SignAnswerDate RecordedWithin the past 12 months, you worried that your food would run out before you got the money to buy more.Never true06/19/2023Within the past 12 months, the food you bought just didn't last and you didn't have money to get more.Never true06/19/2023RAPARE - TransportationAnswerDate RecordedIn the past 12 months, has lack of transportation kept you from medical appointments or from getting medications?No 06/19/2023In the past 12 months, has lack of transportation kept you from meetings, work, or from getting things needed for daily living?No06/19/2023 Housing Stability Vital SignAnswerDate RecordedIn the last 12 months, was there a time when you were not able to pay the mortgage or rent on time?No06/19/2023In the last 12 months, how many places have you lived?In the last 12 months, was there a time when you did not have a steady place to sleep or slept in ashelter (including now)?No06/19/2023Interpersonal Safety ([facility] HRSN)Answer Date RecordedHow often does anyone, including family and friends, physically hurt you?How often does anyone, including family and friends, scream or curse at you?Not on file06/19/2023How often does anyone, including family and friends, insult or talk down to you?Not on file06/19/2023How often does anyone, including family and friends, threaten you with harm?Not on file06/19/2023Food InsecurityAnswerDate RecordedWithin the past 12 months, you worried that your food would run out before you got the money to buymore.Within the past 12 months, the food you bought just didn't last and you didn't have money to get more.Interpersonal Safety Domain Source: IP Abuse Screening AnswerDate RecordedRead-Only, Retired: Physical ExettZwtcvi22/04/2023Read-Only, Retired: Verbal CxygmPpstbh38/04/2023Read-Only, Retired: Emotional abuseDenies 06/19/2023Read-Only, Retired: Financial DcjmjSaynza70/04/2023Read-Only, Retired: Sexual yifvsKredsj39/04/2023Sex and Gender InformationValueDate RecordedSex Assigned at BirthNot on fileLegal XaoNvhl78/15/2023 11:27 AM ESTGender Identity Not on fileSexual OrientationNot on file Last Filed Vital Signs Vital SignReadingTime TakenCommentsBlood Ymtzketd953/6106/20/2023 7:45 AM EST Tixpw532806/20/2023 7:45 AM DDPChtvoqbkokt48.5 ??C (97.7 ??F)06/20/2023 7:45 AM ESTRespiratory Umia031808/21/2022 2:38 PM ESTOxygen Etoeropxkh32%06/20/2023 7:45 AM ESTInhaled Oxygen Concentration--Lbrkyf694.9 kg (260 lb)06/19/2023 10:53 AM RJUUhvjvb436.4 cm (6' 1 )06/19/2023 10:53 AM ESTBody Mass Index34.312 10:53 AM EST Plan of Treatment DateTypeDepartmentCare Team (Latest Contact Info)Bcwzwhzhzvu77/03/2025 11:50 AM ESTOffice Visit [facility] [address] [place], [place] [id number] Abdiel Hughes MD [address] [id number] [facility] SALESPERSON WOMEN'S DRESSES- Lumbar pain, MRI lumbar 04/2025 at [place] (pt has disc)[facility] DateLast FnlmXaxiguhoW4M test (Diabetic or Prediabetic)1979 Diabetic foot exam07/18/19798261Ruivek53/02/1980Depression Hdhekp2007/18/1981HIV svlryw3007/18/1984Diabetic Alb to Cr ratio (uACR) test1987Diabetic retinal exam1987Hepatitis C iawjsm8607/18/1987Hepatitis B vaccine (1 of 3 - 19+ 3- dose series)1988Pneumococcal 50+ years Vaccine (1 of 2 - PCV)1988 Ctfkvikvjug69/02/2015Colorectal Cancer Puhgma9707/18/2014FIT/FOBT: Average risk 2014Fecal-DNA (Cologuard): Average risk2014Sigmoidoscopy/CT wpenfcemhqwx89/02/2015Shingles vaccine (1 of 2)2019GFR test (Diabetes, CKD 3-4, OR last GFR 15-59)Flu vaccine (#1)02/14/2025OVID-19 Vaccine (1 - season)2025DTaP/Tdap/Td vaccine (2 - Td or Tdap) Hepatitis A vaccineAged OutNo longer eligible based on patient's age to complete this topicHib vaccineAged OutNo longer eligible based on patient's age to complete this topicMeningococcal (ACWY) vaccineAged OutNo longer eligible based on patient's age to complete this topicMeningococcal B vaccineAged OutNo longer eligible based on patient's age to complete this topic Polio vaccineAged OutNo longer eligible based on patient's age to complete this topic Medical Devices ImplantedTypeAreaManufacturerDevice IdentifierShelf Expiration DateModel / Serial / LotDup Use [id number] Impl Knee Psn Tib Stm 5 Deg Sz G L - [id number] Implanted:Qty: 1 on 06[facility]19/[facility] PATEL-PM10/18/[id number] / / [id number] Knee Psn Fem Cr Cmt Ccr Std Sz9 L - [id number] Implanted:Qty: 1 on 06/19/20[facility] KneeZIMMER INC-PMM03/13/[id number] / / [id number] Bne 40gm Hi Visc Radpq For Rev Surg - [id number] Implanted:Qty: 1 on 06/19/20[facility] [employer]nee[employer]-[id number] / / [id number] Bne 40gm Hi Visc Radpq For Rev Surg - [id number] Implanted:Qty: 1 on 06/19/20[facility] [employer]nee[employer]-[id number] / / [id number] Pat Shr65vs Thk8.5mm Std Knee Vivacit-E [place] - [id number] Implanted:Qty: 1 on 06/19/2023 by Ender Lu MD at [facility]: [employer]nee[employer]-[id number] / / [id number] Mc Ve Asf L 10mm 8-11 Gh - [id number] Implanted:Qty: 1 on 06/19/2023 by Ender Lu MD at [facility]: [employer]-[id number] / / [id number]poeUmimxz IdentifierShelf Expiration DateModel / Serial / LotScrew Bne L48mm Constrn Cndyl Knee Hex Hd Stem For Leg Nxgn - [id number] Explanted:Qty: 2 on 06/19/2023 by Ender Lu MD at [facility]: [employer]-[id number] / / [id number] Procedures Procedure NamePriorityDate/TimeAssociated DiagnosisCommentsBASIC METABOLIC PANEL Whgesgm6206/06/2023 9:58 AM EST from Last 3 Months or Most Recently Relevant to Health Maintenance Results * (ABNORMAL) Basic Metabolic Panel (06/06/2023 9:58 AM EST)ComponentValueRef RangeTest MethodAnalysis TimePerformed AtPathologist FyevlrddpJxhidh104(L)135 - 144 mmol/L108/06/2022 9:58 AM [facility] LABPotassium3.7 3.7 - 5.3 mmol/L108/06/2022 9:58 AM [facility] LABChloride 93(L)98 - 107 mmol/L108/06/2022 9:58 AM [facility] LABCO2 2420 - 31 mmol/L108/06/2022 9:58 AM [facility] LABAnion Wcj545 - 17 mmol/L108/06/2022 9:58 AM [facility] Potehqm888(H)70 - 99 mg/dL06/06/2023 9:58 AM [facility] DYIOWH179 - 20 mg/dL06/06/2023 9:58 AM [facility] Creatinine1.10.7 - 1.2 mg/dL06/06/2023 9:58 AM [facility] LABEst, Glom Filt Rate>60>60 mL/min/1.69t55606/06/2023 9:58 AM [facility] LABComment: ? These results are not intended for use in patients <18 years of age. ? eGFR results are calculated without a race factor using the 2020 CKD-EPI equation. Careful clinical correlation is recommended, particularly when comparing to results calculated using previous equations. The CKD-EPI equation is less accurate in patients with extremes of muscle mass, extra-renal metabolism of creatine, excessive creatine ingestion, or following therapy that affects renal tubular secretion. BUN/Creatinine Jjnny434 - 9:58 AM [facility] LABCalcium9.48.6 - 10.4 mg/dL06/06/2023 9:58 AM [facility] LABSpecimen (Source)Anatomical Location / LateralityCollection Method / Volume Collection TimeReceived TimeBloodBLOOD SPECIMEN / Lnwyhel6306/06/2023 9:58 AM EST 06/06/2023 9:59 AM EST Narrative Authorizing ProviderResult TypeResult StatusPhilip E Aly MDCHEMISTRY ORDERABLESFinal ResultPerforming OrganizationAddressCity/State/ZIP CodePhone Number [facility] [address] [place], [place] [address] [phone] from Last 3 Months or Most Recently Relevant to Health Maintenance Insurance Advance Directives * Full Code (Latest Code Status on File) Date ActivatedDate QxvvlwawlrzWsizxhvx83/4/2023 4:18 PM06/20/2023 5:02 PM NameRelationshipHealthcare Agent RelationshipCommunicationBobby St. [facility] [place] Primary Decision Maker* Care Teams Team MemberRelationshipSpecialtyStart DateEnd Date Kerrie Aguillon, RECORDS ASSISTANT - FIXED INCOME MANAGER [facility] [facility] [place] [address] PCP - Slppkyi27/21/23
--- OUTSIDE RECORDS SUMMARY | 2025-05-09 10:39 | XMS_ITS | Patient Health Record ---
Author Organization [facility] in [place] Address [address] [place] [address] Care Team Providers Care Account Analyst Name Role Phone Kerrie Aguillon Primary Care Provider [phone] Jose Maria Grayson [phone] Allergies Allergen (clinical drug ingredient) Drug/Non Drug Allergy documented on EMR Reaction Allergy Type Onset Date Status Information temporarily unavailable Codeine nausea/vomi ting Drug Allergy Active Results Component Value Reference Range Notes MR lumbar spine wo con Reviewed date:04/22/2025 08:39:32 AM Interpretation: Performing Lab: Notes/Report: Source Facility: [place] [address] Magnetic Resonance Report Signed Patient: CHIDI VALENCIA MR#: [id number] : 1970 Acct:[id number] Age/Sex: 54 / M ADM Date: 04/21/25 Loc: MRI Attending Dr: KERRIE AGUILLON Ordering Physician: KERRIE AGUILLON Date of Service: 04/21/25 Procedure(s): MR lumbar spine wo con Accession Number(s): [id number] cc: KERRIE AGUILLON [place] [address] Patient Name: CHIDI VALENCIA MRN: [id number] date: 1970 Sex: M Assigned Patient Location: MRI Current Patient Location: MRI Accession/Order Number: [id number] Exam Date: 04/21/2025 11:45 Report Date: 04/21/2025 16:29 At the request of: KERRIE AGUILLON Procedure: MR lumbar spine wo con MRI lumbar spine performed without contrast INDICATION: Left-sided sciatica COMPARISON: None FINDINGS: Lumbar vertebral heights and alignment are maintained. Mild multilevel intervertebral space narrowing mild L1-L4 and moderate at L4-5. Minimal endplate marrow changes L2-L4. Bone marrow signal is otherwise grossly unremarkable for patient's age. Multilevel Schmorl's node deformities notably L3-4 and T12-L2. Conus medullaris terminates normally at inferior plate of L1. Paraspinal soft tissues are unremarkable. T12-L1: Only evaluated on the sagittal images. Minimal endplate spurring extending both foramina zones. Facet arthropathy. No definite focal protrusion. Canal neural foramina grossly patent. L1-L2: Disc desiccation. No focal protrusion. Facet arthropathy. Canal neural foramina patent. L2-3: Broad-based disc bulge with endplate osteophytosis and spurring extending both foramina zones and facet arthropathy. Mild bilateral neural foraminal narrowing, right greater than left. Mild central canal stenosis. L3-4: Broad-based disc bulge with endplate osteophytosis and bilateral facet arthropathy. There is a left subarticular zone extrusion effacing the left subarticular zone, correlate with left L4 radiculopathy. Otherwise ennf-iv-qsxowkgk right-sided moderate left-sided neural foraminal narrowing. There is moderate to severe central canal stenosis. Mild crowding right subarticular zone. L4-5: Broad-based disc bulge with endplate osteophytosis and facet arthropathy. There is jssu-yh-xptidfpx right moderate left neural from narrowing. Mild central canal stenosis. L5-S1:: Circumferential disc bulge with moderate facet arthropathy. Endplate osteophytosis and spurring extending both foramina regions causing psuu-pp-olihyjnx right moderate left neural foraminal narrowing. Canal is patent. There is mild crowding right subcuticular zone due to endplate ossific spurring MR/MR lumbar spine wo con IMPRESSION: Left subarticular zone extrusion at L3-4, correlate with possible left L4 radiculopathy. Otherwise ghvq-uk-qndzhquk degenerative changes elsewhere. Impression dictated by: Mg Greene M.D. 04/21/2025 4:29 PM Dictation Location: [place] [address] Electronically authenticated by: [id number] Y Date: 04/21/2025 16:29 Dictated By: Mg Greene M.D. Signed By: 04/21/25 1631 DD/ 1629 TD/TT: Impregnation Operator: Reason For Referral Reason left sciatica Diagnosis 1 Sciatica, left (M54. 32) Referral Organization [facility] Referring Provider First Name Kerrie Referring Provider Last Name Pal Referring Provider Speciality Family Med icine Referred Provider [facility], Physical Therap y Referred Provider Specialty Physical The rapist Referral Priority Routine Medications Medication SIG (Take, Route, Frequency, Duration) Notes Start Date End Date Status Omeprazole 40 MG TAKE 1 CAPSULE BY MOUTH TWICE A DAY; Duration: 90 ActiveQUEtiapine Fumarate 100 MG1 tablet Orally daily; Duration: 90 daysActive Simvastatin 20 MG1 tablet in the evening Orally Once a day; Duration: 30 days ActiveTrulicity 3 MG/0.5MLINJECT 1 PEN UNDER THE SKIN ONCE WEEKLY; Duration: 28 ActiveZanaflex 4 MG1 tablet BID prn Orally Once a day; Duration: 10 daysActive buPROPion HCl ER (XL) 150 MGTAKE 1 TABLET BY MOUTH EVERY DAY; Duration: 90 days Not-TakingDiclofenac Sodium 75 MGTAKE 1 TABLET BY MOUTH TWICE A DAY FOR 14 DAYS NEEDED; Duration: 30 daysNot-TakingDULoxetine HCl 60 MGTAKE 1 CAPSULE BY MOUTH EVERY DAY FOR 30 DAYS; Duration: 90 daysNot-TakingglipiZIDE ER 2.5 MG1 tablet with breakfast Orally Once a day; Duration: 30 days06/30/2023Not-Taking Gabapentin 300 MG1 capsule Orally twice a day; Duration: 30 dayscall for refill 04/17/2025Not-TakingNystatin 956241 UNIT/ML4 mL Mouth/Throat Four times a day; Duration: 14 day(s)05/08/2025tiveIbuprofen 800 MGTAKE 1 TABLET BY MOUTH EVERY 6 TO 8 HOURS NEEDED; Duration: 30ActiveOlmesartan Medoxomil-HCTZ 20-12.5 MG TAKE 1 TABLET BY MOUTH EVERY DAY FOR 90 DAYS daily; Duration: 30 daysActive Social History Tobacco Use: Social History Observation Description Date Details (start date - stop date) Current Smoker 07/17/1992 - NA Tobacco Use/Smoking Question Answer Notes Patient is a current smoker When did you start smoking?07/17/1992How often do you smoke cigarettes?every day How many cigarettes a day do you smoke?93-72NTYDR-T (Standard) Question Answer Notes Did you have [...] past year?Less than monthly (1 point)Points1 InterpretationNegative Problems Problem Type SNOMED Code ICD Code Onset Dates Problem Status W/U Status Risk Notes Problem Information temporarily unavaila ble Essential (primary) hypertension (I10) ActiveconfirmedProblemInformation temporarily unavailableType 2 diabetes mellitus with other specified complication (E11.69)ActiveconfirmedProblem Information temporarily unavailableObesity, unspecified (E66.9)Activeconfirmed ProblemInformation temporarily unavailableUnspecified osteoarthritis, unspecified site (M19.90)ActiveconfirmedProblemInformation temporarily unavailableSynovial cyst of popliteal space [Carroll], left knee (M71.22)Active confirmedProblemInformation temporarily unavailableChondromalacia, unspecified site (M94.20)ActiveconfirmedProblemInformation temporarily unavailableOther tear of medial meniscus, current injury, left knee, initial encounter (S83.242A) ActiveconfirmedProblemInformation temporarily unavailableFatigue (R53.83)Active confirmedProblemInformation temporarily unavailableAnemia (D64.9)Activeconfirmed ProblemInformation temporarily unavailableDepression (F32.9)Activeconfirmed ProblemInformation temporarily unavailableOSA (obstructive sleep apnea) (G47.33) ActiveconfirmedProblemInformation temporarily unavailableSyncope (R55)Active confirmedProblemInformation temporarily unavailableHypertriglyceridemia (E78.1) ActiveconfirmedProblemInformation temporarily unavailableConstipation (K59.00) ActiveconfirmedProblemInformation temporarily unavailableFatty liver (K76.0) ActiveconfirmedProblemInformation temporarily unavailableColonic polyp (K63.5) ActiveconfirmedProblemInformation temporarily unavailableOver weight (E66.3) ActiveconfirmedProblemInformation temporarily unavailableSciatica, left (M54.32) ActiveconfirmedProblemInformation temporarily unavailableGout attack (M10.9) Activeconfirmed Vital Signs Blood pressure diastolic 60 mm Hg 05/08/2025 Qmlldw02 in05/08/2025lood pressure icaprvms951 mm Hg05/08/20255467Ufxife515 lbs 05/08/2025BMI32.98 kg/m205/08/2025 Encounters Encounter Location Date Provider Diagnosis [facility] [address] [place] [address] 07/05/2024 Kerriegerardo Aguillon Right ankle pain M25.571 and Wellness examination Z00.00 [facility] [address] [place] [address] 11/05/2024 Kerrie Aguillon Sciatica, left M54.3 2 [facility] [address] [place] [address] 04/17/2025 Kerriegerardo Aguillon Back pain M54.9 and Essential (primary) hypertension I10 [facility] [address] [place] [address] 05/08/2025 Kerriegerardo Aguillon Type 2 diabetes mellitus with other specified complication E11.69 ; Thrush B37.0 and Wellness examination Z00.00 [facility] [address] [place] [address] 06/24/2024 Kerrie Aguillon [facility] [place] [address] 4Pameldarrell AguillonType 2 diabetes mellitus with other specified complication E11.69[facility] [place] [address]/4Pamela [facility] [place] [facility] [place] [address]/01/2025[facility] [place] [address]Pamela [facility] [place] [address] 11/11/2024Pamela CramerSciatica, left M54.32[facility] [place] [address]/12/2024[facility] [place] [facility] [place] [address]/01/2025Pamela Pal [facility] [place] [address] 05/05/2025P[facility]ela [facility] [place] [address]/Pamela CramerEssential (primary) hypertension M31Yej[facility] [place] [place] [address] 05/07/2025[facility] [place] [address]/Pamela CramerDepression F32.9 ; Hypertriglyceridemia E78.1 and Type 2 diabetes mellitus with other specified complication E11.69 Assessments Encounter Date Diagnosis (ICD Code) Assessment Notes Treatment Notes Treatment Clinical Notes Section Notes 07/05/2024 Right ankle pain (ICD-10 - M25.5 71) refer to ortho, calling with name07/05/2024Wellness examination (ICD-10 - Z00.00) reviewed labs ROS done exam done needs ortho referral checking on last colonoscopy date r011/05/2024Sciatica, left (ICD-10 - M54.32)5Back pain (ICD-10 - M54.9) toradol 60 kenlog 80 IM has upcoming MRI Monday discussed pain man referral check on FMLA paperwork CSA signed, OARRS reviewed 05/08/2025Type 2 diabetes mellitus with other specified complication (ICD-10 - E11.69)Patient educated on Diabetic diet... Reviewed Hypoglycemia / Hyperglycemia action plan: Instructed to call office if blood sugar above 350 or below 65 consecutively. Reviewed with patient the terminal carman effects of Diabetes Mellitus on the body [...] please call for dosing instructions.05/08/2025Thrush (ICD-10 - B37.0) 06/24/2024Type 2 diabetes mellitus with other specified complication (ICD-10 - E11.69)11/11/2024Sciatica, left (ICD-10 - M54.32)05/05/2025Essential (primary) hypertension (ICD-10 - I10)05/08/2025Depression (ICD-10 - F32.9)05/08/2025 Hypertriglyceridemia (ICD-10 - E78.1)05/08/2025Wellness examination (ICD-10 - Z00.00)04/17/2025Essential (primary) hypertension (ICD-10 - I10) BP running low decrease dose bp med continue to monitor 05/08/2025Type 2 diabetes mellitus with other specified complication (ICD-10 - E11.69) Plan Of Treatment Pending Test Test Name Order Date CMP (COMPLETE METABOLIC PANEL) 3 CMP (COMPLETE METABOLIC PANEL) 4 HEMOGLOBIN A1C (GLYCO) 04/23/2024 HEMOGLOBIN A1C (GLYCO) 04/14/2023 HEMOGLOBIN A1C (GLYCO) 05/08/2025 INSULIN, TOTAL 05/08/2025 INSULIN, TOTAL 04/14/2023 INSULIN, TOTAL 04/23/2024 LIPID PANEL (CHOL/TRIG/HDL/LDL) 04/23/20 24 LIPID PANEL (CHOL/TRIG/HDL/LDL) 05/08/20 25 LIPID PANEL (CHOL/TRIG/HDL/LDL) 04/14/20 23 CBC WITH DIFF 04/14/2023 CBC WITH DIFF 04/23/2024 PSA, PROSTATE-SPECIFIC ANTIGEN 3 URIC ACID 04/14/2023 URIC ACID 05/08/2025 URIC ACID 04/23/2024 XR Abdomen AP (1 view) (KUB) * 4 PSA, TOTAL 04/23/2024 STOOL OCCULT BLOOD 04/14/2023 GLYCOHEMOGLOBIN A1C 07/21/2023 MRI LSPINE WO CON 11/11/2024 THYROID PANEL (T4/TSH/FREE T3) 4 THYROID PANEL (T4/TSH/FREE T3) 3 THYROID PANEL (T4/TSH/FREE T3) 5 XR lumbar spine 2-3V 11/05/2024 PSA, SCREENING 05/08/2025 CMP (COMP MET NICK) w/eGFR CKD-EPI 2024 CBC WITH DIFF 05/08/2025 Insurance Providers Payer Name Payer Address Payer Phone Subscriber Number Group Number Insured Name Patient Relationship to Insured Coverage Start Date Coverage End Date [employer] ACCESS PPO PLUS LOCAL PLAN [address] [place] [address] [id number] Layla Valenciaelf - patient is the insured Medications Administered Medication Instructions Date of Administration Dosage Notes Kenalog-40 60 mg80 mg and 1 cc lidocaine - X2 Medical (General) History Medical History History ICD Code syncope depressionover weightanemiafatiguecolonic polyphypertriglyceridemiafatty infiltration of the vpbfsMxktfzmW86.9Essential PygsibiteyuvO83Gdpuszvv frgovsbycuhF35.7TijiI63.9GERD (gastroesophageal reflux disease)K21.9IBS (irritable bowel syndrome)K58.1DtztfecqK92.00Obstructive sleep xugqpV70.33 Tobacco useZ72.0Surgical History Surgery Date(Month/Year) left knee replacement CHOLECYSTECTOMYAchilles Tendon Repair
--- OUTSIDE RECORDS SUMMARY | 2025-05-09 10:40 | XMS_ITS | Patient Health Record ---
Author Organization [facility] Address [address] [place] [address] Care Team Providers Care Orthopedic Dentist Name Role Phone Kerrie Aguillon Primary Care Provider UnavailEdvin Mata Unavailable [phone] Nakul Grayson Unavailable Unavailable Allergies Allergen (clinical drug ingredient) Drug/Non Drug Allergy documented on EMR Reaction Allergy Type Onset Date Status Information temporarily unavailable codeine sick Drug Allergy Active Reason For Referral No Information Medications Medication SIG (Take, Route, Frequency, Duration) Notes Start Date End Date Status Ibuprofen ActiveCymbaltaActiveSeroquelActive Social History Tobacco Use: Social History Observation Description Date Details (start date - stop date) Current Smoker NA - NA Smoking History Question Answer Notes Smoking Status Current Smoker Problems Problem Type SNOMED Code ICD Code Onset Dates Problem Status W/U Status Risk Notes Problem [id number] Aftercare following joint re placement surgery (Z47.1) VkprczdrhxxhaxtDklhfhv7152122191Ayev in right knee (M25.561)Activeconfirmed Euajhnd248901488758101Ueunrzu osteoarthritis of left knee (M17.12)Active cndurwoklTkeovit442758652Vvtkygrzj primary osteoarthritis of knee (M17.0)Active difznziedOkldpbt588231182455787Npig in left knee (M25.562)ActiveconfirmedProblem 024377036228Tshcgonj of left artificial knee joint (Z96.652)Activeconfirmed Wmgodte6031308560464936Yclzjynnt of left knee (M17.12)ActiveconfirmedProblem 431460459Ehnpelnzsvvz testing (Z01.818)Activeconfirmed Plan Of Treatment Pending Test Test Name Order Date MRI : Knee W/O Contrast Left - MRI : Knee W/O Contrast Right - PE Knee, Left 4v -84805 05/09/2023 [facility] Knee right, 4v -01630 05/09/2023 [facility] TOTAL - PREOP- CBC WITH DIFF, BMP, TYPE AND SCREEN, MRSA BY PCR BILATERAL NARES, EKG, TOTAL JOINT [facility], PT / OT EVALUATION , 05/26/2023 Insurance Providers Payer Name Payer Address Payer Phone Subscriber Number Group Number Insured Name Patient Relationship to Insured Coverage Start Date Coverage End Date Daryl [address] [place] [address] [id number] MARTITA MYLES Self - patient is the insured Medical (General) History Medical History History ICD Code Diabetes: Yes High Blood Pressure: YesAnxiety: YesDrug Allergies: YesAre you a healthcare worker? YesSurgical History Surgery Date(Month/Year) Ankle CholecystectomyLeft total knee lyidczwlspob99/2023
--- OUTSIDE RECORDS SUMMARY | 2025-05-09 10:40 | XMS_ITS | Clinical Summary ---
Author Organization [facility] Address [id number] [place] [address] Care Team Providers Care Certified Physical Therapist Assistant Name Role Phone Kerrie Aguillon APRN-CONTACT CENTER DIRECTOR Primary Care Provider Allergies Active AllergyReactionsCriticalityNoted DateCommentsCodeineGI Disturbance 10/10/2017 Medications MedicationSigDispense QuantityRefillsLast FilledStart DateEnd DateStatus DULoxetine (CYMBALTA) 60 mg capsule Take 60 mg by mouth daily.Active olmesartan-hydroCHLOROthiazide (BENICAR HCT) 40-12.5 mg per tablet Take 1 tablet by mouth daily.Active NIFEdipine XL (PROCARDIA XL) 60 mg 24 hr tablet Take 60 mg by mouth daily.Active QUEtiapine (SEROquel) 100 mg tablet Take 300 mg by mouth nightly.Active lidocaine (LIDODERM) 5 % Place 1 patch on the skin daily. Remove & Discard patch within 12 hours or as directed by MD 30 patch 5Active cyclobenzaprine (FLEXERIL) 10 mg tablet Take 1 tablet (10 mg total) by mouth 2 (two) times a day as needed for muscle spasms. 10 tablet 5Active predniSONE (DELTASONE) 10 mg tablet Take 4 tablets (40 mg total) by mouth in the morning for 5 days. 20 tablet /Expired HYDROcodone-acetaminophen (NORCO) 5-325 mg per tablet Indications:Acute on chronic back painTake 1 tablet by mouth every 6 (six) hours as needed for pain for up to 3 days. Max Daily Amount: 4tablets 12 tablet /Expired Encounters DateTypeDepartmentCare YppgFnhgmcsvwcu12/21/2025 2:21 PM EDT - 04/06/2025 3:13 PM EDTEmerSt[facility] [address] [facility] [place] [address] Acute on chronic back pain (Primary Dx) Discharge Disposition: Home04/06/20253148Zkcupn89/04/2025Refill [facility] Pulmonary/Sleep Medicine [address] [place] [address] Mary Segura, BODY CORPORATE MANAGER-CONTACT CENTER DIRECTOR 02/10/2025 12:40 PM EDT - 02/10/2025 1:04 [address] EDTEmerSt[facility] [address] [place] [address] Francisco Castro, Earache (Primary Dx) Discharge Disposition: Home02/10/2025Travelfrom Last 3 Months Social History Tobacco UseTypesPacks/DayYears UsedDateSmoking Tobacco: Every UtjHbjbcvnbxv815 Smokeless Tobacco: NeverAlcohol UseStandard Drinks/WeekCommentsYes0 (1 standard drink = 0.6 oz pure alcohol)occasionalChildcareAnswerDate RecordedChildcare Zdwxcqc3112/26/2018EmploymentAnswerDate ZbizseudYvulbcrrguObyeonm13/12/2019Hunger ScreeningAnswerDate RecordedWithin the past 12 months we worried whether our food would run out before we got money to buy more.Never True02/10/2025Within the past 12 months the food we bought just didn't last and we didn't have money to get more.Never True02/10/2025Purpose - LifeAnswerDate RecordedPurpose and direction in ylysChnhjgz50/11/2021ex and Gender InformationValueDate Recorded Sex Assigned at BirthNot on fileLegal BjpSowk0302/19/2015 11:22 AM EDTGender IdentityNot on fileSexual OrientationNot on file Last Filed Vital Signs Vital SignReadingTime TakenCommentsBlood Oqhgxlit564/71004/06/2025 2:24 PM EDT Dcqoz973204/06/2025 3:13 PM GTODccyksygnxw98.6 ??C (97.9 ??F)04/06/2025 2:24 PM EDTRespiratory Birv1693 3:13 PM EDTOxygen Azmurwdpuu71%04/06/2025 3:13 PM EDTInhaled Oxygen Concentration--Aytzwe755.9 kg (260 lb)04/06/2025 2:24 PM YDJGseohl254.4 cm (6' 1 )04/06/2025 2:24 PM EDTBody Mass Index34.309 2:24 PM EDT Plan of Treatment Health MaintenanceDue DateLast DoneCommentsTobacco Nbmphosnkg53/02/1970 Depression Endsiyftg71/02/1982Adult BMI Follow Up Plan1987Zoster (Shingles) Vaccine (1 of 2)2019Influenza Dmyhmjk4803/17/2025Tobacco Ywbmflxeg24/dult BMI Alfllwzzp04/DTaP,Tdap and Td Vaccines (2 - Td or Tdap)/ Medical Devices Not on file Insurance Care Teams Team MemberRelationshipSpecialtyStart DateEnd Date Kerrie Aguillon, BODY CORPORATE MANAGER-CONTACT CENTER DIRECTOR [address] [address] [facility]
--- OUTSIDE RECORDS SUMMARY | 2025-05-09 10:40 | XMS_ITS | Clinical Summary ---
Author Organization [facility] Address [address] [place] [address] Care Team Providers Care Battery Plate Assembler Name Role Phone Unavailable Primary Care Provider Unavailabl e Social History Tobacco UseTypesPacks/DayYears UsedDateSmoking Tobacco: Never AssessedSex and Gender InformationValueDate RecordedSex Assigned at BirthNot on fileLegal Sex Male09/28/2022 7:04 PM EDTGender IdentityNot on fileSexual OrientationNot on file Last Filed Vital Signs Vital SignReadingTime TakenCommentsBlood Iqjniobu571/9902/07/2018 12:00 PM EDT Pulse--Temperature--Respiratory Rate--Oxygen Saturation--Inhaled Oxygen Concentration--Xtretd663 kg (281 lb)02/07/2018 12:00 PM CZVRatmkn284.4 cm (6' 1 )02/07/2018 12:00 PM EDTBody Mass Index37. 12:00 PM EDT Plan of Treatment Not on file
[2025-05-09 11:03] LABS: Hematocrit 35.1 % (42.0-54.0); Hemoglobin 12.5 g/dL (14.0-18.0); Immature Granulocytes Abs Auto 0.08 10^3/uL (0.00-0.03); Immature Granulocytes Pct Auto 0.6 % (0.0-0.5); Lymphocytes Absolute Auto 1.1 10^3/uL (1.2-3.8); Mean Corpuscular HGB Conc 35.6 g/dL (29.9-35.2); Mean Corpuscular Hemoglobin 30.3 pg (25.9-34.0); Mean Corpuscular Volume 85.0 fL (80.0-94.0); Platelet Count 271 10^3/uL (150-450); Red Blood Count 4.13 10^6/uL (4.70-6.10); White Blood Count 14.1 10^3/uL (4.0-11.0)
[2025-05-09 12:13] LABS: Alanine Aminotransferase 26 U/L (16-63); Albumin Globulin Ratio 1.2; Albumin Level 3.7 g/dL (3.4-5.0); Alkaline Phosphatase 69 U/L (46-116); Anion Gap 16.8; Aspartate Amino Transferase 16 U/L (15-37); Blood Urea Nitrogen 39.0 mg/dL (7.0-18.0); Calcium 8.6 mg/dL (8.5-10.1); Carbon Dioxide 24.0 mmol/L (21.0-32.0); Chloride 94 mmol/L (98-107); Cholesterol 137 mg/dL (<=200); Estimated GFR (African America 52 (>=60 mL/min/1.73m^2); Estimated GFR (Non-African Ame 43 (>=60 mL/min/1.73m^2); Free T3 1.50 pg/mL (2.18-3.98); Globulin 3.2 g/dL; HDL Cholesterol 34 mg/dL (40-60); Potassium 4.8 mmol/L (3.5-5.1); Sodium 130 mmol/L (136-145); Thyroid Stimulating Hormone 0.309 uIU/mL (0.358-3.740); Total Protein 6.9 g/dL (6.4-8.2); Triglycerides 158 mg/dL (<=150); Uric Acid 7.3 mg/dL (3.5-7.2); VLDL CHOLESTEROL 31.6 mg/dL
[2025-05-09 13:11] LABS: Glucose 590 mg/dL (74-106)
== END 2025-05-09 10:36 | disposition home or self-care (01) ==
LOC: LAB 10:36
PROVIDERS: PCP Nurse Practitioner Family; Visit Provider Nurse Practitioner Family
DX: Z00.00 Encounter for general adult medical examination without abnormal findings (principal); Z12.5 Encounter for screening for malignant neoplasm of prostate
CPT/HCPCS: 36415; 80053; 80061; 83036; 83525; 84436; 84443; 84481; 84550; 85025; G0103

== ENCOUNTER 2025-05-15 07:23 | Outpatient (OUT) | payer BC, SELFPAY ==
--- OUTSIDE RECORDS SUMMARY | 2025-04-21 07:30 | XMS_ITS ---
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 Name Role Phone Kerrie Aguillon Primary Care Provider Jose Maria Grayson [phone] REASON FOR VISIT injections Encounters Encounter Location Date Provider Diagnosis [address] [address] 04/21/2025 Jose Maria Grayson Plan Of Treatment No Information Progress Notes * Chidi VALENCIA RDOB:1970 (54 yo M)Acc No.[id number]:04/21/2025 UNLOCKED PROGRESS NOTE Progress Note Patient: Chidi ARGUETA :?Nakul Grayson (TTC), MDDOB:1970???Age: 54 Y???Sex:MaleDate:04/21/2025Phone:[phone]:[address] [place] [address]Pcp:Kerrie Maldonado In:11:12 AM EST Subjective: * Chief Complaints: * 1 . Injections. * Medical History: Objective: * Vitals: Assessment: Plan: * Treatment: * * Electronic signature of Jose Maria Grayson MD, [id number] on 05/15/2025 at 07:29 AM EDT Sign off status: PendingVisit Status:?CANC (Cancelled) * Provider: Thierry McfarlaneTTCMD Batsheva Date: 1 Generated for Printing/Faxing/eTransmitting on:?05/15/2025 07:29 AM EDT
--- OUTSIDE RECORDS SUMMARY | 2025-05-05 04:59 | XMS_ITS ---
Author Organization The [facility] in [place] Address [address] [place] [address] Care Team Providers Care Candle Molder Machine Name Role Phone Kerrie Aguillon Primary Care Provider [phone] REASON FOR VISIT refill meds Medications Medication SIG (Take, Route, Frequency, Duration) Notes Start Date End Date Status Diclofenac Sodium 75 MG TAKE 1 TABLET BY MOUTH TWICE A DAY FOR 14 DAYS NEEDED; Duration: 30 days ActiveOlmesartan Medoxomil-HCTZ 20-12.5 MGTAKE 1 TABLET BY MOUTH EVERY DAY FOR 90 DAYS daily; Duration: 30 daysActive Encounters Encounter Location Date Provider Diagnosis [address] [address] 05/05/2025 Kerrie Aguillon Essential (primary) hypertension I10 Assessments Encounter Date Diagnosis (ICD Code) Assessment Notes Treatment Notes Treatment Clinical Notes Section Notes 05/05/2025 Essential (primary) hypertension (ICD-10 - I10) Plan Of Treatment Medication Medication Name Sig Start Date Stop Date Notes Diclofenac Sodium 75 MG TAKE 1 TABLET BY MOUTH TWICE A DAY FOR 14 DAYS NEEDED; Duration: 30 days Olmesartan Medoxomil-HCTZ 20-12.5 MGTAKE 1 TABLET BY MOUTH EVERY DAY FOR 90 DAYS daily; Duration: 30 days Progress Notes * Chidi MYLES RDOB:1970 (54 yo M)Acc No.[id number]:05/05/2025 Patient:?Chidi MYLES :1970???Age:54 Y???Sex:MalePhone:[phone] Address:[address] [place] [address] * Refills Refill Olmesartan Medoxomil-HCTZ Tablet, 20-12.5 MG, 30, TAKE 1 TABLET BY MOUTH EVERY DAY FOR 90 DAYS, daily, 30 days, Refills=11 Refill Diclofenac Sodium Tablet Delayed Release, 75 MG, 60 Tablet, TAKE 1 TABLET BY MOUTH TWICE A DAY FOR 14 DAYS NEEDED, 30 days, Refills=1 Subjective: * Chief Complaints: * R efill meds * Medical History: * Surgical History: * Hospitalization/Major Diagno stic Procedure: * Medications: Objective: * Vitals: * Physical Examination: ??? Assessment: * Assessment: 1.?Essential (primary) hypertension - I10??? Plan: * Treatment: Refill Olmesartan Medoxomil-HCTZ Tablet, 20-12.5 MG, TAKE 1 TABLET BY MOUTH EVERY DAY FOR 90 DAYS, daily, 30 days, 30, Refills 11;?Refill Diclofenac Sodium Tablet Delayed Release, 75 MG, TAKE 1 TABLET BY MOUTH TWICE A DAY FOR 14 DAYS NEEDED, 30 days, 60 Tablet, Refills 1.?? * Procedure Codes: * true * Date:?Generated for Printing/Faxing/eTransmitting on:?05/15/2025 07:28 AM EDT
--- OUTSIDE RECORDS SUMMARY | 2025-05-08 11:24 | XMS_ITS ---
Author Organization The [facility] in [place] Address [address] [place] [address] Care Team Providers Care Home Health Clinical Supervisor Name Role Phone PalKerrie faye Primary Care [...] daysActive Encounters Encounter Location Date Provider Diagnosis [address] [address] 05/08/2025 Kerrie Aguillon Depression F32.9 ; Hypertriglyceridemia [...] * Chidi MYLES RDOB:1970 (54 yo M)Acc No.[id number]:05/08/2025 Patient:?Chidi MYLES :1970???Age:54 Y???Sex:MalePhone:[phone] Address:[address] [place] [address] * Refills Refill Omeprazole Capsule Delayed Release, [...] * true * Date:?Generated for Printing/Faxing/eTransmitting on:?05/15/2025 07:30 AM EDT
--- OUTSIDE RECORDS SUMMARY | 2025-05-08 11:30 | XMS_ITS ---
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 Role Phone Kerrie Aguillon Primary Care Provider Allergies Allergen (clinical drug ingredient) Drug/Non Drug Allergy documented on EMR Reaction Allergy Type Onset Date Status codeine Codeine nausea/vomiting Drug Allergy Active REASON FOR VISIT yeast infection in mouth, tongue sore and white started about 2 weeks ago Medications Medication SIG (Take, Route, Frequency, Duration) Notes Start Date End Date Status Zanaflex 4 MG 1 tablet BID prn Orally Once a d ay; Duration: 10 days ActivebuPROPion HCl ER (XL) 150 MGTAKE 1 TABLET BY MOUTH EVERY DAY; Duration: 90 daysNot-TakingDiclofenac Sodium 75 MGTAKE 1 TABLET BY MOUTH TWICE A DAY FOR 14 DAYS NEEDED; Duration: 30 daysNot-TakingDULoxetine HCl 60 MGTAKE 1 CAPSULE BY MOUTH EVERY DAY FOR 30 DAYS; Duration: 90 daysNot-TakingGabapentin 300 MG1 capsule Orally twice a day; Duration: 30 dayscall for jlvrgx2204/17/2025Not-Taking Omeprazole 40 MGTAKE 1 CAPSULE BY MOUTH TWICE A DAY; Duration: 90Active QUEtiapine Fumarate 100 MG1 tablet Orally daily; Duration: 90 daysActive Simvastatin 20 MG1 tablet in the evening Orally Once a day; Duration: 30 days ActiveTrulicity 3 MG/0.5MLINJECT 1 PEN UNDER THE SKIN ONCE WEEKLY; Duration: 28 ActiveOlmesartan Medoxomil-HCTZ 20-12.5 MGTAKE 1 TABLET BY MOUTH EVERY DAY FOR 90 DAYS daily; Duration: 30 daysActiveglipiZIDE ER 2.5 MG1 tablet with breakfast Orally Once a day; Duration: 30 days06/30/2023Not-TakingNystatin 078020 UNIT/ML4 mL Mouth/Throat Four times a day; Duration: 14 day(s)5ActiveIbuprofen 800 MGTAKE 1 TABLET BY MOUTH EVERY 6 TO 8 HOURS NEEDED; Duration: 30Active Social History Tobacco Use: Social History Observation Description Date Details (start date - stop date) Current Smoker 07/17/1992 - NA Tobacco Use/Smoking Question Answer Notes Patient is a current smoker When did you start smoking?07/17/1992How often do you smoke cigarettes?every day How many cigarettes a day do you smoke?41-32PSBCH-I (Standard) Question Answer Notes Did you have a drink containing alcohol in the p ast year? Yes How often did you have a drink containing alcohol in the past year?Never (0 point)How many drinks did you have on a typical day when you were drinking in the past year?1 or 2 drinks (0 point)How often did you have six or more drinks on one occasion in the past year?Less than monthly (1 point)Points1 InterpretationNegative Vital Signs Weight 250 lbs 05/08/2025 Height 73 in 05/08/2025 Blood pressure systolic 112 mm Hg 05/08/20 25 Blood pressure diastolic 60 mm Hg 025 BMI 32.98 kg/m2 05/08/2025 Encounters Encounter Location Date Provider Diagnosis [facility] [address] [place] [address] 05/08/2025 Kerrie Aguillon Type 2 diabetes mellitus with other specified complication E11.69 ; Thrush B37.0 and Wellness examination Z00.00 Assessments Encounter Date Diagnosis (ICD Code) Assessment Notes Treatment Notes Treatment Clinical Notes Section Notes 05/08/2025 Type 2 diabetes rosaura itus with other specified complication (ICD-10 - E11.69) Patient educated on Diabetic diet... Reviewed Hypoglycemia / Hyperglycemia action plan: Instructed to call office if blood sugar above 350 or below 65 consecutively. Reviewed with patient the shelter effects of Diabetes Mellitus on the body and organs. Instructed patient to check feet daily, wearsocks daily, wear proper fitting shoes, lotion feet at night with no lotion between toes, powder between toes. Follow-up with podiatry Q6M and PRN. No toenail clipping except by Podiatry. Please bring glucase meter and record to each appointment, Please feel free to call if you have questions or concerns about management or condition. Please call 1 week before medications are depleted for refills. If you are instructed to be fasting for procedure or testing, please call for dosing instructions.05/08/2025Thrush (ICD-10 - B37.0)05/08/2025Wellness examination (ICD-10 - Z00.00) Plan Of Treatment Medication Medication Name Sig Start Date Stop Date Notes Nystatin 663183 UNIT/ML 4 mL Mouth/Throa t Four times a day; Duration: 14 day(s) 05/08/2025 Treatment Notes Assessment Notes Type 2 diabetes mellitus wit h other specified complication Patient educated on Diabetic diet... Reviewed Hypoglycemia / Hyperglycemia action plan: Instructed to call office if blood sugar above 350 or below 65 consecutively. Reviewed with patient the long term care pharmacist effects of Diabetes Mellitus on the body and organs. Instructed patient to check feet daily, wear socks daily, wear proper fitting shoes, lotion feet at night with no lotion between toes, powder between toes. Follow-up with podiatry Q6M and PRN. No toenail clipping except by Podiatry. Please bring glucase meter and record to each appointment, Please feel free to call if you have questions or concerns about management or condition. Please call 1 week before medications are depleted for refills. If you are instructed to be fasting for procedure or testing, please call for dosing instructions. Pending Test Test Name Order Date HEMOGLOBIN A1C (GLYCO) 05/08/2025 INSULIN, TOTAL 05/08/2025 LIPID PANEL (CHOL/TRIG/HDL/LDL) 05/08/20 25 URIC ACID 05/08/2025 THYROID PANEL (T4/TSH/FREE T3) PSA, SCREENING 05/08/2025 CMP (COMP MET NICK) w/eGFR CKD-EPI 2024 CBC WITH DIFF 05/08/2025 Next Appt Details Follow Up: prn,3 Months, Mickie son: Progress Notes * Chidi VALENCIA RDOB:1970 (54 yo M)Acc No.[id number]:05/08/2025 Progress Note Patient: Chidi ARGUETA :?Kerrie Aguillon ([facility]), CNPDOB:1970 ???Age:54 Y???Sex:MaleDate:05/08/2025Phone:[phone]:[address] [place] [address], [place], [id number] In:03:03 PM ESTCheck Out:03:24 PM EST Subjective: * Chief Complaints: * 1 . Yeast infection in mouth, tongue sore and white started about 2 weeks ago. * HPI: ???General:? 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 feels better with reduced BP med dose. * ROS: ???General/Constitutional:?Fever?denies.?Headache?denies.?Weight loss denies.?Ophthalmologic:?Discharge?denies.?Eye Pain?denies.?Itching and redness?denies.?ENT:?Patient admits?sore tongue, throat, white coating for 2 weeks.?Nasal congestion?denies.?Nasal discharge?denies.?Sore throat?denies.?Cardiovascular:?Chest tightness/ heavy pressure?denies.?Rapid heart rate?denies.?Swelling of extremities?denies.?Chest pain?denies.?Respiratory:?Productive cough?denies.?Chest pain?denies.?Cough?denies.?Shortness of breath?denies.?Wheezing?denies.?Gastrointestinal:?Abdominal pain?denies.?Constipation?denies.?Decreased appetite?denies.?Diarrhea?denies.?Nausea?denies.?Vomiting denies.?Genitourinary:?Urinary incontinence?denies.?Painful urination?denies.?Musculoskeletal:?Back pain?admits.?Neck pain?denies.?Muscle aches?denies.?Skin:?Rash?denies.?Skin lesion(s)?denies.? * Active Problem List R55 Syncope Modified On:04/10/2023 Status:nbldgxjsvT45.9Depression Modified On:04/14/2023 Status:lhakchetpD02.3Over weight Modified On:04/10/2023 Status:prpwhqfxkN40.9Anemia Modified On:04/10/2023 Status:kzjfzxxqjS26.83Fatigue Modified On:04/10/2023 Status:bkxmorjlxG79.5Colonic polyp Modified On:04/10/2023 Status:kkcjqqpofE39.1Hypertriglyceridemia Modified On:04/10/2023 Status:eqigpfsjiL30.0Fatty liver Modified On:04/10/2023 Status:gkozwelhqT17.90Unspecified osteoarthritis, unspecified site Modified On:04/21/2023 Status:gzytnbjbtY82.69Type 2 diabetes mellitus with other specified complication Modified On:07/21/2023 Status:bfwkbpfpbI15.9Obesity, unspecified Modified On:04/14/2023 Status:nuniqiksdH61Nmpvorlzu (primary) hypertension Modified On:04/14/2023 Status:zpjyiqwlbG05.242AOther tear of medial meniscus, current injury, left knee, initial encounter Modified On:05/29/2023 Status:noctuvvnhN19.20Chondromalacia, unspecified site Modified On:05/29/2023 Status:fkhijexwwK20.22Synovial cyst of popliteal space [Carroll], left knee Modified On:05/29/2023 Status:mnheajoaoW44.00Constipation Modified On:01/25/2024/U Status:acrxtklmzX67.33OSA (obstructive sleep apnea) Modified On:05/01/2024/U Status:aombxsfnfH00.9Gout attack Modified On:05/01/2024U Status:tjbjigbmnN62.32Sciatica, left Modified On:11/05/2024U Status:confirmed * Medical History: S yncope, Depression, [...] daughter(s) - healthy. . * Social History: ???Tobacco Use:?Tobacco Use/Smoking?Patient is a?current smoker ?When did you start smoking??07/17/1992 ?How often do you smoke cigarettes??every day ?How many cigarettes a day do you smoke??11-20 ???Drug/Alcohol:?AUDIT-C (Standard)?Did you have a drink containing alcohol in the past year??Yes ?How often did you have a drink containing alcohol in the past year?? Never (0 point) ?How many drinks did you have on a typical daywhen you were drinking in the past year??1 or 2 drinks (0 point) ?How often did you have six or more drinks on one occasion in the past year??Less than monthly (1 point) ?Points?1 ?Interpretation?Negative * Medications: T aking Ibuprofen 800 MG Tablet TAKE 1 TABLET BY MOUTH EVERY 6 TO 8 HOURS NEEDED , Taking Olmesartan Medoxomil-HCTZ 20-12.5 MG Tablet TAKE 1 TABLET BY MOUTH EVERY DAY FOR 90 DAYS daily , Taking Omeprazole 40 MG Capsule Delayed Release TAKE 1 CAPSULE BY MOUTH TWICE A DAY , Taking QUEtiapine Fumarate 100 MG Tablet 1 tablet Orally daily , Taking Simvastatin 20 MG Tablet 1 tablet in the evening Orally Once a day , Taking Trulicity(Dulaglutide) 3 MG/0.5ML Solution Auto-injector INJECT 1 PEN UNDER THE SKIN ONCE WEEKLY , Taking Zanaflex(tiZANidine HCl) 4 MG Tablet 1 tablet BID prn Orally Once a day , Not-Taking/PRN buPROPion HCl ER (XL) 150 MG Tablet Extended Release 24 Hour TAKE 1 TABLET BY MOUTH EVERY DAY , Not-Taking/PRN Diclofenac Sodium 75 MG Tablet Delayed Release TAKE 1 TABLET BY MOUTH TWICE A DAY FOR 14 DAYS NEEDED , Not-Taking/PRN DULoxetine HCl 60 MG Capsule Delayed Release Particles TAKE 1 CAPSULE BY MOUTH EVERY DAY FOR 30 DAYS , Not-Taking/PRN Gabapentin 300 MG Capsule 1 capsule Orally twice a day , Notes to Pharmacist: call for refill, Not-Taking/PRN glipiZIDE ER 2.5 MG Tablet Extended Release 24 Hour 1 tablet with breakfast Orally Once a day , Medication List reviewed and reconciled with the patient * Allergies: C odeine: nausea/vomiting - Allergy. Objective: * Vitals: W t:250lbs, Ht: 73 in, BP:112/60mm Hg, BMI:32.98Index, Ht-cm: 185.42 cm, Wt-k.4 kg. * Examination: ???General Examinations: ?GENERAL APPEARANCE:?alert and oriented,?in no acute distress.?EYES:? conjunctiva normal, sclera non-icteric.?ENT:?poor dentition ?white coating to throat.?NOSE:?normal external appearance.?LUNGS:?clear to auscultation bilaterally.?CARDIO:?regular rate and rhythm, S1, S2 normal.?ABDOMEN:?soft, nontender.?MUSCULOSKELETAL:?Gait and station normal.?SKIN:?warm and dry.? Assessment: * Assessment: 1.?Type 2 diabetes mellitus with other specified complication - E11.69 (Primary)?? 2.?Thrush - B37.0???3.?Wellness examination - Z00.00??? Plan: * Treatment: Notes: Patient educated on Diabetic diet... Reviewed Hypoglycemia / Hyperglycemia action plan: Instructed to call office if blood sugar above 350 or below 65 consecutively. Reviewed with patient the shelter effects of Diabetes Mellitus on the body and organs. Instructed patient to check feet daily, wear socks daily, wear proper fitting shoes, lotion feet at night with no lotion between toes, powder between toes. Follow-up with podiatry Q6M and PRN. No toenail clipping except by Podiatry. Please bring glucase meter and record to each appointment, Please feel free to call if you have questions or concerns about management or condition. Please call 1 week before medications are depleted for refills. If you are instructed to be fasting for procedure or testing, please call for dosing instructions. ??2.?Thrush? Start Nystatin Suspension, 454603 UNIT/ML, 4 mL, Mouth/Throat, Four times a day, 14 day(s), 224. ?3.?Wellness examination?LAB: HEMOGLOBIN A1C (GLYCO) ?LAB: INSULIN, TOTAL ?LAB: LIPID PANEL (CHOL/TRIG/HDL/LDL) ?LAB: URIC ACID ?LAB: THYROID PANEL (T4/TSH/FREE T3) ?LAB: PSA, SCREENING ?LAB: CMP (COMP MET NICK) w/eGFR CKD-EPI ?LAB: CBC WITH DIFF * Preventive Medicine: ??Screenings/Counseling:?BMI ACTION PLAN?Above Normal BMI Follow-up?Dietary management education, guidance, and counseling ?TOBACCO ACTION PLAN?Patient counselled on the dangers of tobacco use and urged to quit.?. 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
--- OUTSIDE RECORDS SUMMARY | 2025-05-09 09:11 | XMS_ITS ---
Author Organization [facility] [place] Address [address] [place] [address] Care Team Providers Care Big 6 Dealer Name Role Phone Kerrie Aguillon Primary Care Provider [phone] REASON FOR VISIT critical lab Medications Medication SIG (Take, Route, Frequency, Duration) Notes Start Date End Date Status Omeprazole 40 MG TAKE 1 CAPSULE BY MOUTH TWICE A DAY; Duration: 90 UnknownOlmesartan Medoxomil-HCTZ 20-12.5 MGTAKE 1 TABLET BY MOUTH EVERY DAY FOR 90 DAYS daily; Duration: 30 daysUnknownQUEtiapine Fumarate 100 MG1 tablet Orally daily; Duration: 90 daysUnknownNystatin 875545 UNIT/ML4 mL Mouth/Throat Four times a day; Duration: 14 day(s)05/08/2025UnknownGlucose Metertest blood sugar once daily DX: E11.9; Duration: 90 days5ActiveglipiZIDE ER 2.5 MG1 tablet with breakfast Orally Once a day; Duration: 30 days06/30/2023ctive Glucose Test Stripstest blood sugar once daily DX: E11.9; Duration: 90 days 5ActiveDULoxetine HCl 60 MGTAKE 1 CAPSULE BY MOUTH EVERY DAY FOR 30 DAYS; Duration: 90 daysUnknownIbuprofen 800 MGTAKE 1 TABLET BY MOUTH EVERY 6 TO 8 HOURS NEEDED; Duration: 30UnknownGabapentin 300 MG1 capsule Orally twice a day; Duration: 30 dayscall for snqbkt2004/17/2025UnknownGlucose LancetsTest blood sugar once daily DX: E11.9; Duration: 90 days5ActiveZanaflex 4 MG1 tablet BID prn Orally Once a day; Duration: 10 daysUnknownTrulicity 3 MG/0.5ML INJECT 1 PEN UNDER THE SKIN ONCE WEEKLY; Duration: 28UnknownDiclofenac Sodium 75 MGTAKE 1 TABLET BY MOUTH TWICE A DAY FOR 14 DAYS NEEDED; Duration: 30 days UnknownbuPROPion HCl ER (XL) 150 MGTAKE 1 TABLET BY MOUTH EVERY DAY; Duration: 90 daysUnknownSimvastatin 20 MG1 tablet in the evening Orally Once a day; Duration: 30 daysUnknown Encounters Encounter Location Date Provider Diagnosis [facility] [address] [place] [address] 05/09/2025 Kerrie Aguillon Plan Of Treatment Medication Medication Name Sig Start Date Stop Date Notes Glucose Meter test blood sugar once daily DX: E11.9; Duration: 90 days 05/09/2025 glipiZIDE ER 2.5 MG1 tablet with breakfast Orally Once a day; Duration: 30 days 06/30/2023lucose Test Stripstest blood sugar once daily DX: E11.9; Duration: 90 days05/09/2025Glucose LancetsTest blood sugar once daily DX: E11.9; Duration: 90 days05/09/2025 Progress Notes * CHEVYMOLLY Chidi RDOB:1970 (54 yo M)Acc No.[id number]:05/09/2025 Patient:?Chidi MYLES Mini :1970???Age:54 Y???Sex:MalePhone:[phone] Address:[address] [place] [address] * Refills Refill glipiZIDE ER Tablet Extended Release 24 Hour, 2.5 MG, Orally, 30, 1 tablet with breakfast, Once a day, 30 days, Refills=11 Start Glucose Meter, 1, test blood sugar once daily DX: E11.9, 90 days, Refills=0 Start Glucose Test Strips, 100, test blood sugar once daily DX: E11.9, 90 days, Refills=5 Start Glucose Lancets, 100, Test blood sugar once daily DX: E11.9, 90 days, Refills=5 Subjective: * Chief Complaints: * C ritical lab * Medical History: * Surgical History: * Hospitalization/Major Diagno stic Procedure: * Medications: T akingglipiZIDE ER 2.5 MG Tablet Extended Release 24 Hour 1 tablet with breakfast Orally Once a day Taking glipiZIDE ER 2.5 MG Tablet Extended Release 24 Hour 1 tablet with breakfast Orally Once a day UnknownbuPROPion HCl ER (XL) 150 MG Tablet Extended Release 24 Hour TAKE 1 TABLET BY MOUTH EVERY DAY Diclofenac Sodium 75 MG Tablet Delayed Release TAKE 1 TABLET BY MOUTH TWICE A DAY FOR 14 DAYS NEEDED DULoxetine HCl 60 MG Capsule Delayed Release Particles TAKE 1 CAPSULE BY MOUTH EVERY DAY FOR 30 DAYS Gabapentin 300 MG Capsule 1 capsule Orally twice a day , Notes to Pharmacist: call for refillIbuprofen 800 MG Tablet TAKE 1 TABLET BY MOUTH EVERY 6 TO 8 HOURS NEEDED Nystatin 200154 UNIT/ML Suspension 4 mL Mouth/Throat Four times a day Olmesartan Medoxomil-HCTZ 20-12.5 MG Tablet TAKE 1 TABLET BY MOUTH EVERY DAY FOR 90 DAYS daily Omeprazole 40 MG Capsule Delayed Release TAKE 1 CAPSULE BY MOUTH TWICE A DAY QUEtiapine Fumarate 100 MG Tablet 1 tablet Orally daily Simvastatin 20 MG Tablet 1 tablet in the evening Orally Once a day Trulicity(Dulaglutide) 3 MG/0.5ML Solution Auto-injector INJECT 1 PEN UNDER THE SKIN ONCE WEEKLY Zanaflex(tiZANidine HCl) 4 MG Tablet 1 tablet BID prn Orally Once a day Unknown buPROPion HCl ER (XL) 150 MG Tablet Extended Release 24 Hour TAKE 1 TABLET BY MOUTH EVERY DAY Unknown Diclofenac Sodium 75 MG Tablet Delayed Release TAKE 1 TABLET BY MOUTH TWICE A DAY FOR 14 DAYS NEEDED Unknown DULoxetine HCl 60 MG Capsule Delayed Release Particles TAKE 1 CAPSULE BY MOUTH EVERY DAY FOR 30 DAYS Unknown Gabapentin 300 MG Capsule 1 capsule Orally twice a day , Notes to Pharmacist: call for refillUnknown Ibuprofen 800 MG Tablet TAKE 1 TABLET BY MOUTH EVERY 6 TO 8 HOURS NEEDED Unknown Nystatin 377617 UNIT/ML Suspension 4 mL Mouth/Throat Four times a day Unknown Olmesartan Medoxomil-HCTZ 20-12.5 MG Tablet TAKE 1 TABLET BY MOUTH EVERY DAY FOR 90 DAYS daily Unknown Omeprazole 40 MG Capsule Delayed Release TAKE 1 CAPSULE BY MOUTH TWICE A DAY Unknown QUEtiapine Fumarate 100 MG Tablet 1 tablet Orally daily Unknown Simvastatin 20 MG Tablet 1 tablet in the evening Orally Once a day Unknown Trulicity(Dulaglutide) 3 MG/0.5ML Solution Auto-injector INJECT 1 PEN UNDER THE SKIN ONCE WEEKLY Unknown Zanaflex(tiZANidine HCl) 4 MG Tablet 1 tablet BID prn Orally Once a day Objective: * Vitals: * Physical Examination: ??? Assessment: Plan: * Treatment: Refill glipiZIDE ER Tablet Extended Release 24 Hour, 2.5 MG, 1 tablet with breakfast, Orally, Once a day, 30 days, 30, Refills 11;?Start Glucose Meter, test blood sugar once daily DX: E11.9, 90 days, 1, Refills 0;?Start Glucose Test Strips, test blood sugar once daily DX: E11.9, 90 days, 100, Refills 5;?Start Glucose Lancets, Test blood sugar once daily DX: E11.9, 90 days, 100, Refills 5.?? * Procedure Codes: * true * Date:?Generated for Printing/Faxing/eTransmitting on:?05/15/2025 07:29 AM EDT
--- OUTSIDE RECORDS SUMMARY | 2025-05-12 04:47 | XMS_ITS ---
Author Organization [facility] [place] Address [address] [place] [address] Care Team Providers Care Records Management Engineer Name Role Phone PalKerrie faye Primary Care Provider REASON FOR VISIT bs update Medications Medication SIG (Take, Route, Frequency, Duration) Notes Start Date End Date Status glipiZIDE ER 2.5 MG 1 tablet with breakf ast Orally twice a day; Duration: 30 days 06/30/2023ctive Encounters Encounter Location Date Provider Diagnosis [facility] [address] [place] [address] 05/12/2025 Kerrie Aguillon Type 2 diabetes mellitus with other specified complication E11.69 and Essential (primary) hypertension I10 Assessments Encounter Date Diagnosis (ICD Code) Assessment Notes Treatment Notes Treatment Clinical Notes Section Notes 05/12/2025 Type 2 diabetes rosaura itus with other specified complication (ICD-10 - E11.69) 05/12/2025Essential (primary) hypertension (ICD-10 - I10) Plan Of Treatment Medication Medication Name Sig Start Date Stop Date Notes glipiZIDE ER 2.5 MG 1 tablet with breakf ast Orally twice a day; Duration: 30 days 06/30/2023 Pending Test Test Name Order Date COMPREHENSIVE METABOLIC PROFILE WITH GFR 05/12/2025 CBC W/AUTO DIFF 05/12/2025 THYROID PANEL (T4/TSH/FREE T3) Progress Notes * Chidi MYLES RDOB:1970 (54 yo M)Acc No.[id number]:05/12/2025 Patient:?Chidi MYLES :1970???Age:54 Y???Sex:MalePhone:[phone] Address:[address] [place] [address] * Refills Refill glipiZIDE ER Tablet Extended Release 24 Hour, 2.5 MG, Orally, 60 Tablet, 1 tablet with breakfast, twice a day, 30 days, Refills=11 Subjective: * Chief Complaints: * B s update * Medical History: * Surgical History: * Hospitalization/Major Diagno stic Procedure: * Medications: Objective: * Vitals: * Physical Examination: ??? Assessment: * Assessment: 1.?Type 2 diabetes mellitus with other specified complication - E11.69 (Primary)?? 2.?Essential (primary) hypertension - I10??? Plan: * Treatment: ?LAB: COMPREHENSIVE METABOLIC PROFILE WITH GFR ?LAB: CBC W/AUTO DIFF ?LAB: THYROID PANEL (T4/TSH/FREE T3)* complete in 2-4 weeks 2.?Essential (primary) hypertension?LAB: COMPREHENSIVE METABOLIC PROFILE WITH GFR ?LAB: CBC W/AUTO DIFF ?LAB: THYROID PANEL (T4/TSH/FREE T3)* complete in 2-4 weeks 3.?Others? Refill glipiZIDE ER Tablet Extended Release 24 Hour, 2.5 MG, 1 tablet with breakfast, Orally, twicea day, 30 days, 60 Tablet, Refills 11.?? * Procedure Codes: * true * Date:?Generated for Printing/Faxing/eTransmitting on:?05/15/2025 07:29 AM EDT
--- OUTSIDE RECORDS SUMMARY | 2025-05-15 07:27 | XMS_ITS | CCD ---
Author Organization [facility] CliniSymn Care Team Providers Care Service Station Operator Name Role Phone KERRIE BUCKLEY Admitting Unavailable [...] of OnsetReaction(s) Facility (2 sources)Codeine; Translations: [CODEINE]Drug Ddloogd91-92-6662MIVan [facility] Medications Current Medications MedicationDrug Class(es)DatesSig (Normalized)Sig (Original)cyclobenzaprine hydrochloride 10 mg oral tablet (1 source)Muscle RelaxantStart: 92-24-1956tmtq 1 tablet by mouth twice daily as [...] medicated patch (1 source)Antiarrhythmic, Amide Local AnestheticStart: 50-16-7488bcclu 1 dose transdermal route once daily, then [...] failure, unspecified; Translations: [HEART FAILURE UNSPECIFIED] Onset: 64-18-0905HfyoyguIfqmiomy mellitus without complication (4 sources)Type 2 diabetes mellitus without complications; Translations: [TYPE 2 DM WITHOUT COMPLICATIONS]Onset: 83-46-2194BzwljmsFqifxpwh mellitus without complication (1 source)Other abnormal glucose; Translations: [OTHER ABNORMAL GLUCOSE]Onset: 10-06-0916XkovvgavQrhrtorvftef with complications and secondary hypertension (4 sources)Hypertensive heart disease with heart failure; Translations: [HTN HEART DISEASE W/HEART FAIL]Onset: 79-31-0790WxrujmdDohpt connective tissue disease (1 source)Presence of left artificial knee joint; Translations: [Presence of left artificial knee joint]Onset: 20-76-6064SbtupokFokfx ear and sense organ disorders (1 source)Otalgia, unspecified ear; Translations: [Otalgia, unspecified ear] Onset: 70-74-8613QicazqyeLwvxe nervous system disorders (1 source)Other chronic pain; Translations: [Other chronic pain]Onset: 77-29-8969PgppgjiLjfaildcrzq; intervertebral disc disorders; other back problems (4 sources)Dorsalgia, unspecified; Translations: [Sciatica, left side]Onset: 97-36-3002RhaqjdghFvcjtrp (1 source)Syncope and collapse; Translations: [SYNCOPE AND COLLAPSE]Onset: 57-61-1922RxbscaptIatdohypfjjs (1 source)EaracheOnset: 02-10-2025 Past or Other Problems Problem ClassificationProblemDateDocumented DateEpisodic/ChronicDeficiency and other anemia (1 source)Anemia, unspecified; Translations: [ANEMIA UNSPECIFIED]Onset: 29-33-4526NutxeuaeLjwkvyh and fatigue (4 sources)Other fatigue; Translations: [OTHER FATIGUE]Onset: 97-97-2606Tpxonuxf Results Test NameValueInterpretationReference RangeFacilityCBC AND AUTO DIFFon 55-08-4000JCVAADOZ BASOPHIL0.1 X10E9/LNormal0.0-0.2PMercy Health [facility] Comment on above:Performed By: #### CBCA, HA1C, CMP, 79039-4, 3084-1, 2857-1, THYR, 3051-0 #### [facility] ([id number]) [address], [address] [place], [place] [address]EQOSVTRX NEUTROPHIL3.4 X10E9/LNormal1.5-6.6ProBaylor Scott & White Medical Center – CentennialComment on above:Performed By: #### CBCA, HA1C, CMP, 03893-2, 3084-1, 2857-1, THYR, 3051-0 #### [facility] ([id number]) [address], [address] [place], [place] [address]Rtgrvtgwe/100 WBC (Bld)1.2 %NormalProBaylor Scott & White Medical Center – Centennial Comment on above:Performed By: #### CBCA, HA1C, CMP, 31000-5, 3084-1, 2857-1, THYR, 3051-0 #### [facility] ([id number]) [address] [address] [place], [place] [address]Eunjlszfncq (Bld) [#/Vol]0.2 10*3/uLNormal0.0-0.4Brecksville VA / Crille HospitalComment on above:Performed By: #### CBCA, HA1C, CMP, 23120-9, 3084-1, 2857-1, THYR, 3051-0 #### [facility] ([id number]) [address] [address] [place], [place] [address]Frxsmslrfxk/100 WBC (Bld)3.5 %NormalBrecksville VA / Crille Hospital Comment on above:Performed By: #### CBCA, HA1C, CMP, 11872-5, 3084-1, 2857-1, THYR, 3051-0 #### [facility] ([id number]) [address], [address] [place], [place] [address]Zujitoykkil distribution width (RBC) [Ratio]13.6 %Normal 11.5-15.0ProBaylor Scott & White Medical Center – CentennialComment on above:Performed By: #### CBCA, HA1C, CMP, 32874-6, 3084-1, 2857-1, THYR, 3051-0 #### [facility] ([id number]) [address], [address] [place], [place] [address]Dyfzcworou (Bld) [Volume fraction]38.5 %Cnu09-95UwjCbkaakBrecksville VA / Crille HospitalComment on above:Performed By: #### CBCA, HA1C, CMP, 20429-4, 3084-1, 2857-1, THYR, 3051-0 #### [facility] ([id number]) [address], [address] [place], [place] [address]Cisaljjims (Bld) [Mass/Vol]13.7 g/wSAiqoxy27.0-17.0Brecksville VA / Crille HospitalComment on above:Performed By: #### CBCA, HA1C, CMP, 54695-9, 3084-1, 2857-1, THYR, 3051-0 #### [facility] ([id number]) [address] [address] [place], [place] [address]Gnhrehiwucq (Bld) [#/Vol]2.6 10*3/uLNormal1.0-3.5PMercy Health Springfield Regional Medical CenterComment on above:Performed By: #### CBCA, HA1C, CMP, 56528-7, 3084-1, 2857-1, THYR, 3051-0 #### [facility] ([id number]) [address], [address] [place], [place] [address]Vfxbpstsbpx/100 WBC (Bld)37.7 %NormalProBaylor Scott & White [facility] Comment on above:Performed By: #### CBCA, HA1C, CMP, 87565-0, 3084-1, 2857-1, THYR, 3051-0 #### [facility] ([id number]) [address], [address] [place], [place] [address]MIL (RBC) [Entitic mass]30.8 aiVvlmgu09-76JdeCeychxBrecksville VA / Crille HospitalComment on above:Performed By: #### CBCA, HA1C, CMP, 23244-5, 3084-1, 2857-1, THYR, 3051-0 #### [facility] ([id number]) [address], [address] [place], [place] [address]GUCX (RBC) [Mass/Vol]35.6 g/bVJczslg45-32WhbVoihhyBaylor Scott & White Medical Center – CentennialComment on above:Performed By: #### CBCA, HA1C, CMP, 06645-0, 3084-1, 2857-1, THYR, 3051-0 #### [facility] ([id number]) [address], [address] [place], [place] [address]CGE (RBC) [Entitic vol]86 qIGraimj01-162LabXgylnzBrecksville VA / Crille HospitalComment on above:Performed By: #### CBCA, HA1C, CMP, 04781-7, 3084-1, 2857-1, THYR, 3051-0 #### [facility] ([id number]) [address], [address] [place], [place] [address]Bxhxinegg (Bld) [#/Vol]0.5 10*3/uLNormal0-0.9Brecksville VA / Crille HospitalComment on above:Performed By: #### CBCA, HA1C, CMP, 91958-5, 3084-1, 2857-1, THYR, 3051-0 #### [facility] ([id number]) [address], [address] [place], [place] [address]Zxuemycip/100 WBC (Bld)7.2 %NormalProBaylor Scott & White [facility] Center – [facility] Comment on above:Performed By: #### CBCA, HA1C, CMP, 01375-6, 3084-1, 2857-1, THYR, 3051-0 #### [facility] ([id number]) [address], [address] [place], [place] [address]Wrsdbnxgcdr/100 WBC (Bld)50.4 %NormalBrecksville VA / Crille Hospital Comment on above:Performed By: #### CBCA, HA1C, CMP, 95245-6, 3084-1, 2857-1, THYR, 3051-0 #### [facility] ([id number]) [address], [address] [place], [place] [address]Ezwiboks mean volume (Bld) [Entitic vol]7.5 fLNormal7-12 ProMAlhambra Hospital Medical CenterComment on above:Performed By: #### CBCA, HA1C, CMP, 27513-2, 3084-1, 2857-1, THYR, 3051-0 #### [facility] ([id number]) [address], [address] [place], [place] [address]Hxvldiuem (Bld) [#/Vol]252 10*3/zKIgxzyc750-383CzxGmwkkh Fremont HospitalComment on above:Performed By: #### CBCA, HA1C, CMP, 38040-9, 3084-1, 2857-1, THYR, 3051-0 #### [facility] ([id number]) [address], [address] [place], [place] [address]TLC COUNT4.45 X10E12/LNormal4.10-5.70[facility] Comment on above:Performed By: #### CBCA, HA1C, CMP, 20634-6, 3084-1, 2857-1, THYR, 3051-0 #### [facility] ([id number]) [address], [address] [place], [place] [address]KNE (Bld) [#/Vol]6.8 10*3/uLNormal4.0-11.0Brecksville VA / Crille HospitalComment on above:Performed By: #### CBCA, HA1C, CMP, 81741-3, 3084-1, 2857-1, THYR, 3051-0 #### [facility] ([id number]) [address] [place] [address]NDZKGZZVFOLUG METABOLIC PANELon 52-70-6244Josldeo [Mass/Vol]4.2 g/dLNormal3.2-5.3PMercy Health Springfield Regional Medical CenterComment on above:Performed By: #### CBCA, HA1C, CMP, 73216-1, 3084-1, 2857-1, THYR, 3051-0 #### [facility] ([id number]) [address], [address] [place] [address]QNJ [Catalytic activity/Vol]49 U/KTvdhpu96-001FhbKvposqBrecksville VA / Crille HospitalComment on above:Performed By: #### CBCA, HA1C, CMP, 66818-8, 3084-1, 2857-1, THYR, 3051-0 #### [facility] ([id number]) [address], [address] [place] [address]DJS [Catalytic activity/Vol]11 U/LNormal0-40B[facility]ksville [facility] Crille HospitalComment on above:Performed By: #### CBCA, HA1C, CMP, 85692-0, 3084-1, 2857-1, THYR, 3051-0 #### [facility] ([id number]) [address], [address] [place] [address]Nicnj gap [Moles/Vol]9 mmol/LNormal5-15B[facility] Cr[facility] HospitalComment on above:Performed By: #### CBCA, HA1C, CMP, 66121-4, 3084-1, 2857-1, THYR, 3051-0 #### [facility] ([id number]) [address], [address] [place] [address]NNC [Catalytic activity/Vol]14 U/LNormal0-41ProBaylor Scott & White Medical Center – CentennialComment on above:Performed By: #### CBCA, HA1C, CMP, 58708-8, 3084-1, 2857-1, THYR, 3051-0 #### [facility] ([id number]) [address], [address] [place] [address]Qxodmjfpj [Mass/Vol]0.4 mg/dLNormal0.3-1.2PMercy Health Springfield Regional Medical CenterComment on above:Performed By: #### CBCA, HA1C, CMP, 25674-1, 3084-1, 2857-1, THYR, 3051-0 #### [facility] ([id number]) [address], [address] [place] [address]Jzlboii [Mass/Vol]9.3 mg/dLNormal8.5-10.5PMercy Health Springfield Regional Medical CenterComment on above:Performed By: #### CBCA, HA1C, CMP, 94310-3, 3084-1, 2857-1, THYR, 3051-0 #### [facility] ([id number]) [address], [address] [place] [address]Rfobcpij [Moles/Vol]101 mmol/CCxslil56-196NwpDxzhugBaylor Scott & White Medical Center – CentennialComment on above:Performed By: #### CBCA, HA1C, CMP, 64811-0, 3084-1, 2857-1, THYR, 3051-0 #### [facility] ([id number]) [address], [address] [place] [address]XO5 [Moles/Vol]27 mmol/NYgkozi39-38YkeDdozvfMercy Health [facility] Medical Center Comment on above:Performed By: #### CBCA, HA1C, CMP, 91870-1, 3084-1, 2857-1, THYR, 3051-0 #### [facility] ([id number]) [address] [place] [address]Mbiexlmvcq [Mass/Vol]1.01 mg/dLNormal0.60-1.30ProBaylor Scott & White Medical Center – CentennialComment on above:Result Comment: METHOD TRACEABLE TO IDMS STANDARD Performed By: #### CBCA, HA1C, CMP, 71270-2, 3084-1, 2857-1, THYR, 3051-0 #### [facility] ([id number]) [address] [address] [place], [place] [address]TPU/1.73 sq M.predicted among non-blacks MDRD (S/P/Bld) [Vol rate/Area]88 mL/min/{1.73_m2}Normal>59ProBaylor Scott & White Medical Center – CentennialComment on above:Result Comment: Reported eGFR is based on the CKD-EPI 2020 equation that does not use a race coefficient.Performed By: #### CBCRosa, HA1C, CMP, 75068-5, 3084-1, 2857-1, THYR, 3051-0 #### [facility] ([id number]) [address] [address]Umwcwjy [Mass/Vol]146 mg/hIGjnw10-64FogNyjeugBrecksville VA / Crille Hospital Comment on above:Performed By: #### CBCRosa, HA1C, CMP, 08708-8, 3084-1, 2857-1, THYR, 3051-0 #### [facility] ([id number]) [address] [address]Wruchvvcs [Moles/Vol]4.1 mmol/LNormal3.5-5.0ProBaylor Scott & White Medical Center – CentennialComment on above:Performed By: #### CBCA, HA1C, CMP, 45533-2, 3084-1, 2857-1, THYR, 3051-0 #### [facility] ([id number]) [address] [address] [place], [place] [address]Sjiosfj [Mass/Vol]6.8 g/dLNormal6.0-8.0ProBaylor Scott & White Medical Center – CentennialComment on above:Performed By: #### CBCA, HA1C, CMP, 64656-0, 3084-1, 2857-1, THYR, 3051-0 #### [facility] ([id number]) [address] [address] [place], [place] [address]Smxkew [Moles/Vol]137 mmol/EIblman425-189KhtLgcpvlBrecksville VA / Crille HospitalComment on above:Performed By: #### CBCA, HA1C, CMP, 71227-2, 3084-1, 2857-1, THYR, 3051-0 #### [facility] ([id number]) [address] [place], [place] [address]Vukq nitrogen [Mass/Vol]17 mg/dLNormal5-23ProBaylor Scott & White Medical Center – CentennialComment on above:Performed By: #### CBCA, HA1C, CMP, 02626-7, 3084-1, 2857-1, THYR, 3051-0 #### [facility] ([id number]) [address], [facility] [address] [place], [place] [address]ZZDO T3on 25-81-9326Nknb T3 [Mass/Vol]2.87 pg/mLNormal2.50-3.90 [facility] Crille HospitalComment on above:Performed By: #### CBCA, HA1C, CMP, 01542-0, 3084-1, 2857-1, THYR, 3051-0 #### [facility] ([id number]) [address], [facility] [address] [place] [address]WAY A1C (GLYCO-HGB)on 03-71-4974Zeukqne [Mass/Vol]160 mg/dL NormalProBaylor Scott & White Medical Center – CentennialComment on above:Performed By: #### CBCA, HA1C, CMP, 54941-7, 3084-1, 2857-1, THYR, 3051-0 #### [facility] ([id number]) [address], [facility] [address] [place], [place] [address]KnC9x (Bld) [Mass fraction]7.2 %High4.4-5.6Brecksville VA / Crille HospitalComment on above:Result Comment: NOTE ADA Guidelines Result HgbA1c Normal : less than 5.7 % Prediabetes : 5.7 % to 6.4 % Diabetes : > 6.4 % Use with caution in patients with abnormal hemoglobin variants as the half-life of red blood cells and in vivo glycation rates are affected.Performed By: #### CBCA, HA1C, CMP, 96613-0, 3084-1, 2857-1, THYR, 3051-0 #### [facility] ([id number]) [address], [facility] [address] [place], [place] [address]Jtwzotq Qnon 68-22-3505YEJCOQD86.99 uIU/mLNormal1.00-23.00 [facility] Crille HospitalComment on above:Result Comment: Ref. range is for FASTING NON-DIABETIC POPULATION.Performed By: #### 24067-1 #### [facility] ([id number]) [address], [facility] [address] [place], [place] [address]Jcgux 1996 panelon 31-50-9464Akycpxbcmzk [Mass/Vol]136 mg/dLLow 150-200ProBaylor Scott & White Medical Center – CentennialComment on above:Performed By: #### CBCA, HA1C, CMP, 81546-3, 3084-1, 2857-1, THYR, 3051-0 #### [facility] ([id number]) [address] [address]Dzuppqojxhb in HDL [Mass/Vol]32 mg/dLLow>39ProBaylor Scott & White Medical Center – CentennialComment on above:Result Comment: HDL <40 mg/dL - High Risk HDL > or = 40mg/dL- Desirable HDL >60 mg/dL - Negative Risk Performed By: #### CBCA, HA1C, CMP, 53700-6, 3084-1, 2857-1, THYR, 3051-0 #### [facility] ([id number]) [address], [address] [place] [address]Wbqsvqpquwq in LDL [Mass/Vol]81 mg/dLNormal<130ProBaylor Scott & White Medical Center – CentennialComment on above:Result Comment: LDL <100 mg/dL - Desirable LDL >160 mg/dL - High Risk Performed By: #### CBCA, HA1C, CMP, 17702-1, 3084-1, 2857-1, THYR, 3051-0 #### [facility] ([id number]) [address], [address] [place] [address]Qxvtvwoyzdp in VLDL [Mass/Vol]23 mg/dLNormal0-30ProBaylor Scott & White Medical Center – CentennialComment on above:Performed By: #### CBCA, HA1C, CMP, 33146-4, 3084-1, 2857-1, THYR, 3051-0 #### [facility] ([id number]) [address], [address] [place] [address]AVWLGDBWBWO:HDL4.6Xeabbt6.0-5.0ProBaylor Scott & White Medical Center – CentennialComment on above:Performed By: #### CBCA, HA1C, CMP, 40616-9, 3084-1, 2857-1, THYR, 3051-0 #### [facility] ([id number]) [address], [address] [place] [address]Eqjgabciyfgj [Mass/Vol]117 mg/eGNvrarb17-611ZkdYpdoki [facility]remont HospitalComment on above:Performed By: #### CBCA, HA1C, CMP, 61709-0, 3084-1, 2857-1, THYR, 3051-0 #### [facility] ([id number]) [address], [address] [place] [address]Miyvvzot specific Ag [Mass/Vol]on 44-77-7618KRV SCREEN1.21 ng/mL Normal0.00-4.00ProBaylor Scott & White Medical Center – CentennialComment on above:Result Comment: The method used for this test is Latia [place] DXI chemiluminescent immunoassay. Values obtained by different assay methods cannot be used interchangeably.Performed By: #### CBCA, HA1C, CMP, 49171-6, 3084-1, 2857-1, THYR, 3051-0 #### [facility] ([id number]) [address] [place] [address], [address] [place], [place] [address]CDHATVV PROFILEon 69-23-7745Ubnp T4 [Mass/Vol]0.59 ng/dLLow 0.61-1.60[facility] Crille HospitalComment on above:Performed By: #### CBCA, HA1C, CMP, 14977-0, 3084-1, 2857-1, THYR, 3051-0 #### [facility] ([id number]) [address] [place] [address] [address] [place], [place] [address]ZSV5.08 uIU/mLNormal0.49-4.67ProBaylor Scott & White Medical Center – CentennialComment on above:Performed By: #### CBCA, HA1C, CMP, 24120-3, 3084-1, 2857-1, THYR, 3051-0 #### [facility] ([id number]) [address] [place] [address] [address] [place], [place] [address]YPJO ACIDon 45-07-7536Yszxx [Mass/Vol]8.0 mg/dLHigh2.6-7.2 [facility] Crille HospitalComment on above:Performed By: #### CBCA, HA1C, CMP, 63321-9, 3084-1, 2857-1, THYR, 3051-0 #### [facility] ([id number]) [address] [place] [address] [address] [place], [place] [address]Llsywjdkt 43-72-5344Mwnggzn [id number]#1.00TIFFNoMcCullough-Hyde Memorial HospitalRegistrationon 05-70-3057Pszejtuemdcs [id number]#1.00TIFMemorial Health [id number]#1.00TIFMemorial Health SystemHgb/Hcton 31-11-2840Flbdfhojor (Bld) [Volume fraction]32.6 % Low40.7-50.3Mercy Ayer HospitalComment on above:Performed By: #### HH #### [address] [place] [address] Regulatory Affairs Strategy Specialist: Abdiel Nova MDHemoglobin (Bld) [Mass/Vol]11.5 g/dLLow13.0-17.0 [facility] Hospital LimaComment on above:Performed By: #### HH #### [address] [place] [address] Regulatory Affairs Strategy Specialist: Abdiel Nova MDOPERATIVE REPORTon 39-94-1506MHBISRRGW REPORT[address] [address] OPERATIVE REPORT PATIENT NAME: CHIDI MYLES : 1970 MED REC NO: [id number] ROOM: [facility] ACCOUNT NO: [id number] ADMIT DATE: 06/19/2023 PROVIDER: Ender Lu DATE [...] go with a 32 mm patellar dome. [place] holes were placed. The knee was then [...] layer was then closed with #1 Vicryl phoetp-aq-ajefh sutures over two Hemovac drains. Remainder of [...] LOSS: 100 mL. ENDER LU PH/V_CGYIY_I Doc#: [id number] CC:NormalScci Hospital LimaMRSA, DNA, Nasalon 59-09-8640DMQR, DNA, Nasal NegativeNormalNEGScci Hospital LimaComment on above:Result Comment: NEGATIVE: MRSA DNA not detected by nucleic acid amplification. Results should be used as an adjunct to nosocomial control efforts to identify patients needing enhanced precautions. The test is not intended to identify patients with staphylococcal infections. Results should not be used to guide or monitor treatment for MRSA infections. Performed By: #### MRSANO #### [address] [place], [place] [address] Regulatory Affairs Strategy Specialist: Eddie Valdivia MD [address] [place] [address] Regulatory Affairs Strategy Specialist: Abel Mckeon Metabolic Profon 29-21-4907Adgze gap [Moles/Vol]13 mmol/LNormal9-17S[facility] Hospital LimaComment on above:Performed By: #### BMP, CDP #### [address] [place] [address] Regulatory Affairs Strategy Specialist: Abdiel Nova MDBUN/CRE Hyyjc77Bfjvxf8-77Ign[facility] Comment on above:Performed By: #### BMP, CDP #### [address] [place] [address] Regulatory Affairs Strategy Specialist: Abdiel Nova MDCalcium [Mass/Vol]9.4 mg/dLNormal8.6-10.4Scci Hospital LimaComment on above:Performed By: #### BMP, CDP #### [address] [place], [place] [address] Regulatory Affairs Strategy Specialist: Abdiel Nova, MDChloride [Moles/Vol]93 mmol/SGvd35-093HnxrgScci Hospital LimaComment on above:Performed By: #### BMP, CDP #### [address] [place], [place] [address] Regulatory Affairs Strategy Specialist: Abdiel Nova MDCO2 [Moles/Vol]24 mmol/KThkktc73-57JbxxmScci Hospital LimaComment on above:Performed By: #### BMP, CDP #### [address] [place] [address] Regulatory Affairs Strategy Specialist: SEBASTIÁN Mckeonreatinine [Mass/Vol]1.1 mg/dLNormal0.7-1.2Mercy Ayer HospitalComment on above:Performed By: #### BMP, CDP #### [address] [place] [address] Regulatory Affairs Strategy Specialist: Abdiel Nova MDGFR/1.73 sq M.predicted among non-blacks MDRD (S/P/Bld) [Vol rate/Area]mL/min/{1.73_m2}Normal>60MerYale New Haven Children's HospitalComment on above:Result Comment: These results are [...] tubular secretion.Performed By: #### BMP, CDP #### [address] [place] [address] Regulatory Affairs Strategy Specialist: Abdiel Nova MDGlucose [Mass/Vol]214 mg/vKThjs96-09D[facility]yer HospitalComment on above:Performed By: #### BMP, CDP #### [address] [place] [address] Regulatory Affairs Strategy Specialist: LEE Mckeonotassium [Moles/Vol]3.7 mmol/LNormal3.7-5.3[facility] HospitalComment on above:Performed By: #### BMP, CDP #### [address] [place] [address] Regulatory Affairs Strategy Specialist: Abdiel Nova MDSodium [Moles/Vol]130 mmol/VNge727-516[facility] HospitalComment on above:Performed By: #### BMP, CDP #### [address] [place] [address] Regulatory Affairs Strategy Specialist: Abdiel Nova MDUrea nitrogen [Mass/Vol]16 mg/dLNormal6-20[facility] HospitalComment on above:Performed By: #### BMP, CDP #### [address] [place] [address] Regulatory Affairs Strategy Specialist: SEBASTIÁN Mckeon with Diffon [id number]. Basophil0.06 k/uL Normal0.00-0.20MerA[facility] HospitalComment on above:Performed By: #### ELYSE, CDP #### [address] [place], [place] [id number] Regulatory Affairs Strategy Specialist: Sánchez Mckeon. Eosinophil<0.37Mezvus7.00-0.44MerA[facility] HospitalComment on above:Performed By: #### ELYSE, CDP #### [address] [place] [address] Regulatory Affairs Strategy Specialist: Sánchez Mckeon.Imm.Granulocyte0.04 k/uLNormal0.00-0.30[facility] HospitalComment on above:Performed By: #### BMP, CDP #### [address] [place] [address] Regulatory Affairs Strategy Specialist: Sánchez Mckeon.Neutrophil (Seg)4.52 k/uLNormal1.50-8.10[facility] HospitalComment on above:Performed By: #### BMP, CDP #### [address] [place] [address] Regulatory Affairs Strategy Specialist: Abdiel Nova MDBasophils/100 WBC (Bld)1 %Normal0-2[facility]ercK[facility] Hamilton HospitalComment on above:Performed By: #### BMP, CDP #### [address] [place], [place] [id number] Regulatory Affairs Strategy Specialist: Abdiel Nova MDEosinophils/100 WBC (Bld)0 %Low1-4[facility] HospitalComment on above:Performed By: #### BMP, CDP #### [address] [place] [address] Regulatory Affairs Strategy Specialist: Abdiel Nova MDErythrocyte distribution width (RBC) [Ratio]12.0 % Dsjsnk89.8-14.4MerA[facility] HospitalComment on above:Performed By: #### BMP, CDP #### [address] [place] [address] Regulatory Affairs Strategy Specialist: Abdiel Nova MDHematocrit (Bld) [Volume fraction]39.6 %Low 40.7-50.3[facility] HospitalComment on above:Performed By: #### ELYSE, CDP #### [address] [place], [place] [address] Regulatory Affairs Strategy Specialist: Abdiel Nova MDHemoglobin (Bld) [Mass/Vol]14.1 g/dLNormal 13.0-17.0[facility] HospitalComment on above:Performed By: #### ELYSE, CDP #### [address] [place], [place] [address] Regulatory Affairs Strategy Specialist: Abdiel Nova MDImmature granulocytes/100 WBC (Bld)1 %Qlbb0YozbqOhiohealth Shelby Hospital HospitalComment on above:Performed By: #### BMP, CDP #### [address] [place], [facility] Regulatory Affairs Strategy Specialist: Neda Mckeonmphocytes (Bld) [#/Vol]1.57 10*3/uLNormal 1.10-3.70MerAdena Pike Medical Center HospitalComment on above:Performed By: #### ELYSE, CDP #### [address] [place], [facility] Regulatory Affairs Strategy Specialist: Abdiel Sturtz, MDLymphocytes/100 WBC (Bld)21 %Kay25-49AinhbScci Hospital LimaComment on above:Performed By: #### BMP, CDP #### [address] [place] [address] Regulatory Affairs Strategy Specialist: YESSI MckeonCH (RBC) [Entitic mass]30.3 miXtbybw45.2-33.5 [facility] HospitalComment on above:Performed By: #### BMP, CDP #### [address] [place] [address] Regulatory Affairs Strategy Specialist: YESSI MckeonCHC (RBC) [Mass/Vol]35.6 g/kSTaop31.4-34.8Scci Hospital LimaComment on above:Performed By: #### BMP, CDP #### [address] [place] [address] Regulatory Affairs Strategy Specialist: YESSI MckeonCV (RBC) [Entitic vol]85.0 lJHyszxg52.6-102.9 [facility] HospitalComment on above:Performed By: #### ELYSE, CDP #### [address] [place] [address] Regulatory Affairs Strategy Specialist: YESSI Mckeononocytes (Bld) [#/Vol]1.18 10*3/uLNormal0.10-1.20 [facility] Hospital LimaComment on above:Performed By: #### BMP, CDP #### [address] [place] [address] Regulatory Affairs Strategy Specialist: YESSI Mckeononocytes/100 WBC (Bld)16 %High3-12Scci Hospital LimaComment on above:Performed By: #### BMP, CDP #### [address] [place] [address] Regulatory Affairs Strategy Specialist: Abdiel Nova MDNeutrophil (Seg)61 %Dligwf66-99QjnvzScci Hospital LimaComment on above:Performed By: #### BMP, CDP #### [facility] [address] [place] [address] [place] [address] Regulatory Affairs Strategy Specialist: MICHAEL Mckeon Automated0.0 per 100 WBCNormal0.0Scci Hospital LimaComment on above:Performed By: #### BMP, CDP #### [address] [place] [address] Regulatory Affairs Strategy Specialist: Herve Mckeon mean volume (Bld) [Entitic vol]8.9 fL Normal8.1-13.5Scci Hospital LimaComment on above:Performed By: #### BMP, CDP #### [address] [place] [address] Regulatory Affairs Strategy Specialist: Neida Mckeon (Bld) [#/Vol]217 10*3/bOUkmkdi089-545 [facility] Hospital LimaComment on above:Performed By: #### BMP, CDP #### [address] [place] [address] Regulatory Affairs Strategy Specialist: SARA Mckeon (Bld) [#/Vol]4.66 10*6/uLNormal4.21-5.77[facility] Generalment on above:Performed By: #### BMP, CDP #### [address] [place] [address] Regulatory Affairs Strategy Specialist: ISAIAH Mckeon (Bld) [#/Vol]7.4 10*3/uLNormal3.5-11.3MFirelands Regional Medical CenterComascension river district hospital on above:Performed By: #### BMP, CDP #### [address] [place] [address] Regulatory Affairs Strategy Specialist: JOSE ANTONIO Mckeon, DNA, Nasalon [phone] Description .NASAL SWABNormalScci Hospital LimaComment on above:Performed By: #### MRSANO #### [facility] [address] [place] [address] Regulatory Affairs Strategy Specialist: Eddie Valdivia MD [facility] [address] [place] [address] Regulatory Affairs Strategy Specialist: Abdiel Nova MDType + Screenon [id number] + ScreenSample Expiration 06/22/2023,2359 Arm Band Number [id number] ABO/Rh(D) A POSITIVE Antibody Screen NEGATIVENoChillicothe HospitalComment on above:Performed By: #### TYS #### [facility] [address] [place] [address] Regulatory Affairs Strategy Specialist: Abdiel Nova MDBNPon [id number] peptide B (Bld) [Mass/Vol]14.0 pg/mLNormal<=900.0The [facility] Medical CenterComment on above:Performed By: #### IRON #### [facility] [address] [place], [place] [address] Dr. Veronica Delacruz M/2D COMPLETEon [id number] M/2D COMPLETE Patient: CHIDI MYLES Exam Date: 03/22/2022 : 1970 Gender:M Ordering : DR ALLI EVANS . Admission #: [id number] Family : [facility] Order #: [id number] CLICK HERE TO VIEW EXAM ECHOCARDIOGRAM REPORT [...] by: Fernie Dumont M.D. on 03/22/2022 at 18:03Tuscarawas HospitalGLYCOHEMOGLOBIN A1Con [id number] RECOMMENDATIONSEE BELOWSt. Francis Hospital on above:Result Comment: ADA RECOMMENDED LIMIT 4.0 - 6.0 ADA THERAPEUTIC TARGET < 7.0 ACTION SUGGESTED > 7.0Performed By: #### A1C #### [facility] [address] [place] [address] Dr. Veronica AcevedoGlucose [Mass/Vol]206 mg/dLNormalThe Kramer HospitalComment on above:Performed By: #### A1C #### [facility] [address] [place] [address] Dr. Veronica AcevedoHbA1c (Bld) [Mass fraction]8.8 %Critically high4.5-6.2The [facility]S Medical CenterComment on above:Performed By: #### A1C #### [facility] [address] [place] [address] Dr. Veronica AcevedoTESTOSTERONE, TOTALon 53-15-0730Owzyyrxorhwq [Mass/Vol]342 ng/dL Zvfnhu291-047Htc [facility] Medical CenterComment on above:Result Comment: Adult male reference interval is based on a population of healthy nonobese males (BMI <30) between 19 and 39 years old. neo Denney.al. JCEM 2017,102;9201-7486. PMID: [id number].Performed By: #### TESTTOT #### [facility] [address] [place] [address] Dr. Veronica TrevinoC AUTO DIFFon 58-59-1704CUSJ #0.1 103/ulNormal0.0-0.1[facility] County HospitalComment on above:Performed By: #### IRON #### [facility] [address] [place] [address] Dr. Veronica AcevedoBasophils/100 WBC (Bld)1.2 %Normal0.2-2.0[facility] Comment on above:Performed By: #### IRON #### [facility] [address] [place] [address] Dr. Veronica Avelar #0.3 103/ulNormal0.0-0.7The [facility]S Medical CenterComment on above: Performed By: #### IRON #### [facility] [address] [place] [address] Dr. Veronica Germainosinophils/100 WBC (Bld)3.2 %Normal0.9-7.0The [facility] Comment on above:Performed By: #### IRON #### [facility] [address] [place] [address] Dr. Veronica Germainrythrocyte distribution width (RBC) [Ratio]12.1 %Bpawiw47.0-15.0 The [facility]S Medical CenterComment on above:Performed By: #### IRON #### [facility] [address] [place] [address] Dr. Veronica AcevedoHematocrit (Bld) [Volume fraction]45.8 %Ijqloz97.0-54.0The [facility]S Medical CenterComment on above:Performed By: #### IRON #### [facility] [address] [place] [address] Dr. Veronica AcevedoHemoglobin (Bld) [Mass/Vol]16.1 g/wAIpqgjj68.0-18.0The [facility]S Medical CenterComment on above:Performed By: #### IRON #### [facility] [address] [place] [address] Dr. Veronica Prescott #0.02 10e3/ulNormal0.00-0.03The [facility]S Medical CenterComment on above:Performed By: #### IRON #### [facility] [address] [place] [address] Dr. Veronica Prescott %0.2 %Normal0.0-0.5The [facility]S Medical CenterComment on above: Performed By: #### IRON #### [facility] [address] [place] [address] Dr. Veronica Grewal #3.4 103/ulNormal1.2-3.8The [facility]S Medical CenterComment on above:Performed By: #### IRON #### [facility] [address] [place] [address] Dr. Veronica Florezhocytes/100 WBC (Bld)37.6 %Ahdyql89.5-60.0The [facility]S Medical CenterComment on above:Performed By: #### IRON #### [facility] [address] [place] [address] Dr. Veronica AmadoUAL DIFF REQNONormalThe [facility]'S Medical CenterComment on above: Performed By: #### IRON #### [facility] [address] [place] [address] Dr. Veronica Rodriguez (RBC) [Entitic mass]30.6 mfRosfhw55.9-34.0The [facility] Medical CenterComment on above:Performed By: #### IRON #### [facility] [address] [place] [address] Dr. Veronica Ibarra (RBC) [Mass/Vol]35.2 g/bUAmilnm59.9-35.2The [facility] Medical CenterComment on above:Performed By: #### IRON #### [facility] [address] [place] [address] Dr. Veronica Ibarra (RBC) [Entitic vol]86.9 yHUchdgs29.0-94.0The [facility] Medical CenterComment on above:Performed By: #### IRON #### [facility] [address] [place] [address] Dr. Veronica Chapin #0.7 103/ulNormal0.3-0.8The [facility]S Medical CenterComment on above:Performed By: #### IRON #### [facility] [address] [place] [address] Dr. Veronica Rocheocytes/100 WBC (Bld)7.4 %Normal1.7-12.0The [facility] Comment on above:Performed By: #### IRON #### [facility] [address] [place] [address] Dr. Veronica Rush #4.6 103/ulNormal1.4-6.5The [facility]S Medical CenterComment on above:Performed By: #### IRON #### [facility] [address] [place] [address] Dr. Veronica Garzautrophils/100 WBC (Bld)50.4 %Zkihfp04.0-75.0The [facility]S Medical CenterComment on above:Performed By: #### IRON #### [facility] [address] [place] [address] Dr. Veronica Shabazz mean volume (Bld) [Entitic vol]9.3 fLCritically low 9.5-13.5The [facility] Medical CenterComment on above:Performed By: #### IRON #### [facility] [address] [place] [address] [address] Veronica AcevedoPLT233 103/hsYgwxmh559-415Hqq [facility] Medical CenterComment on above: Performed By: #### IRON #### [facility] [address] [place] [address] [address] Veronica AcevedoRBC5.27 106/ulNormal4.70-6.10The [facility]S Medical CenterComment on above:Performed By: #### IRON #### [facility] [address] [place] [address] [address] Veronica AcevedoWBC9.1 103/ulNormal4.0-11.0The [facility]S Medical CenterComment on above: Performed By: #### IRON #### [facility] [address] [place] [address] Dr. Veronica AcevedoGLYCOHEMOGLOBIN A1Con 84-16-9105ONN RECOMMENDATIONADA THERAPEUTIC TARGET 6.0 - 7.0 ACTION SUGGESTED > 7.0NoSelect Medical Specialty Hospital - TrumbullComment on above:Performed By: #### IRON #### [facility] [address] [place] [address] [address] Veronica AceevdoGlucose [Mass/Vol]197 mg/dLNoSelect Medical Specialty Hospital - TrumbullComascension river district hospital on above:Performed By: #### IRON #### [facility] [address] [place] [address] Dr. Veronica AcevedoHbA1c (Bld) [Mass fraction]8.5 %Critically high<=6.0The [facility]S Medical CenterComment on above:Performed By: #### IRON #### [facility] [address] [place] [address] Dr. Veronica De Leon 75-36-6963Gtzz [Mass/Vol]80.0 ug/cUKmdatd76.0-181.0The [facility] Medical CenterComascension river district hospital on above:Performed By: #### IRON #### [facility] [address] [place] [address] Dr. Veronica AcevedoINSULINon 58-31-4970Eitbdhk39.0 uIU/mLNormal2.6-24.9The [facility]S Medical CenterComment on above:Performed By: #### IRON #### [facility] [address] [place] [address] Dr. Veronica Mcbride AUTO DIFFon 82-70-8628TIKP #0.1 103/ulNormal0.0-0.1The [facility]S Medical CenterComment on above:Performed By: #### CBC #### [facility] [address] [place] [address] Dr. Veronica AcevedoBasophils/100 WBC (Bld)1.1 %Normal0.2-2.0The [facility] Comment on above:Performed By: #### CBC #### [facility] [address] [place] [address] Dr. Veronica Avelar #0.2 103/ulNormal0.0-0.7The [facility]S Medical CenterComment on above: Performed By: #### CBC #### [facility] [address] [place] [address] Dr. Veronica Germainosinophils/100 WBC (Bld)2.4 %Normal0.9-7.0The [facility] Comment on above:Performed By: #### CBC #### [facility] [address] [place] [address] Dr. Veronica Germainrythrocyte distribution width (RBC) [Ratio]12.1 %Aulzsk95.0-15.0 [facility] HospitalComment on above:Performed By: #### CBC #### [facility] [address] [place] [address] Dr. Veronica AcevedoHematocrit (Bld) [Volume fraction]35.7 %Critically low42.0-54.0 [facility] HospitalComment on above:Performed By: #### CBC #### [facility] [address] [place] [address] Dr. Veronica AcevedoHemoglobin (Bld) [Mass/Vol]12.6 g/dLCritically low14.0-18.0The [facility]S Medical CenterComment on above:Performed By: #### CBC #### [facility] [address] [place] [address] Dr. Veronica Prescott #0.02 10e3/ulNormal0.00-0.03The [facility]S Medical CenterComment on above:Performed By: #### CBC #### [facility] [address] [place] [address] Dr. Veronica Prescott %0.3 %Normal0.0-0.5The [facility]S Medical CenterComment on above: Performed By: #### CBC #### [facility] [address] [place] [address] Dr. Veronica Grewal #2.8 103/ulNormal1.2-3.8The [facility]S Medical CenterComment on above:Performed By: #### CBC #### [facility] [address] [place] [address] Dr. Veronica Florezhocytes/100 WBC (Bld)45.9 %Hrtpsd76.5-60.0The [facility]S Medical CenterComment on above:Performed By: #### CBC #### [facility] [address] [place] [address] Dr. Veronica AmadoUAL DIFF REQNONormalThe [facility]S Medical CenterComment on above: Performed By: #### CBC #### [facility] [address] [place] [address] Dr. Veronica Ibarra (RBC) [Entitic mass]30.2 qxMvclaq11.9-34.0The [facility] Medical CenterComment on above:Performed By: #### CBC #### [facility] [address] [place] [address] Dr. Veronica Ibarra (RBC) [Mass/Vol]35.3 g/dLCritically high29.9-35.2The [facility]S Medical CenterComment on above:Performed By: #### CBC #### [facility] [address] [place] [address] Dr. Veronica Ibarra (RBC) [Entitic vol]85.6 dRIjeoga81.0-94.0The [facility]S Medical CenterComment on above:Performed By: #### CBC #### [facility] [address] [place] [address] Dr. Veronica Chapin #0.6 103/ulNormal0.3-0.8The [facility] Medical CenterComment on above:Performed By: #### CBC #### [facility] [address] [place] [address] Dr. Veronica Rocheocytes/100 WBC (Bld)9.1 %Normal1.7-12.0The [facility] Comment on above:Performed By: #### CBC #### [facility] [address] [place] [address] Dr. Veronica Rush #2.5 103/ulNormal1.4-6.5The [facility]S Medical CenterComment on above:Performed By: #### CBC #### [facility] [address] [place] [address] Dr. Veronica Garzautrophils/100 WBC (Bld)41.2 %Critically low43.0-75.0The [facility]S Medical CenterComment on above:Performed By: #### CBC #### [facility] [address] [place] [address] Dr. Veronica Bestlet mean volume (Bld) [Entitic vol]10.0 fLNormal9.5-13.5The [facility] Medical CenterComment on above:Performed By: #### CBC #### [facility] [address] [place] [address] Dr. Veronica AcevedoPLT204 103/zcEepgsr679-774Nst [facility] Medical CenterComment on above: Performed By: #### CBC #### [facility] [address] [place] [address] Dr. Veronica AcevedoRBC4.17 106/ulCritically low4.70-6.10The [facility]S Medical CenterComment on above:Performed By: #### CBC #### [facility] [address] [place] [address] Dr. Veronica AcevedoWBC6.1 103/ulNormal4.0-11.0The [facility]S Medical CenterComment on above: Performed By: #### CBC #### [facility] [address] [place] [address] Dr. Veronica McdanielsCOHEMOGLOBIN A1Con 25-34-1041FQZ RECOMMENDATIONADA THERAPEUTIC TARGET 6.0 - 7.0 ACTION SUGGESTED > 7.0T[facility]carawas HospitalComment on above:Performed By: #### A1C #### [facility] [address] [place] [address] [address] Veronica AcevedoGlucose [Mass/Vol]237 mg/dLTuscarawas HospitalComment on above:Performed By: #### A1C #### [facility] [address] [place] [address] [address] Veronica AcevedoHbA1c (Bld) [Mass fraction]9.9 %Critically high<=6.0The [facility]S Medical CenterComment on above:Performed By: #### A1C #### [facility] [address] [place] [address] Dr. Veronica AcevedoLIPID PROFILEon [id number]-HDL RATIO NORMSEE [facility] Health DaytonComment on above:Result Comment: 3.3 - 4.4 LOW RISK 4.4 - 7.1 AVERAGE RISK 7.1 - 11.0 MODERATE RISK >11.0 HIGH RISKPerformed By: #### LIPID, URIC, CMP #### [facility] [address] [place] [address] Dr. Veronica Leggettesterol [Mass/Vol]161 mg/dLPike County Memorial Hospitalal<=200[facility] Comment on above:Performed By: #### LIPID, URIC, CMP #### [facility] [address] [place] [address] [address] Veronica AcevedoCholesterol in HDL [Mass/Vol]22 mg/dLTuscarawas Hospital Comment on above:Performed By: #### LIPID, URIC, CMP #### [facility] [address] [place] [address] [address] Veronica Leggettesterol in LDL [Mass/Vol]96.0 mg/dLTuscarawas HospitalComment on above:Performed By: #### LIPID, URIC, CMP #### [facility] [address] [place] [address] Dr. Yilan ChangCholesterol.total/Cholesterol in HDL [Mass ratio]7.3 {ratio} NormalThe [facility]S Medical CenterComment on above:Performed By: #### LIPID, URIC, CMP #### [facility] [address] [place] [address] Dr. Veronica Witt NORMAL> or = 60 mg/dl - LOW CARDIOVASCULAR RISK <40 mg/dl - HIGH CARDIOVASCULAR RISKTuscarawas HospitalComascension river district hospital on above:Performed By: #### LIPID, URIC, CMP #### [facility] [address] [place] [address] Dr. Veronica AcevedoLDL CALC NORMALSEE BELOWTuscarawas HospitalComment on above:Result Comment: <100 mg/dl OPTIMAL 100 - 129 mg/dl NEAR OR ABOVE OPTIMAL 130 - 159 mg/dl BORDERLINE HIGH 160 - 189 mg/dl HIGH >190 mg/dl VERY HIGH Performed By: #### LIPID, URIC, CMP #### [facility] [address] [place] [address] Dr. Veronica AcevedoTriglyceride [Mass/Vol]215 mg/dLCritically high<=150[facility] HospitalComascension river [facility] hospital on above:Performed By: #### LIPID, URIC, CMP #### [facility] [address] [place] [address] Dr. Veronica CollierLDL CALC43.0 mg/dLNoSelect Medical Specialty Hospital - TrumbullComascension river district hospital on above: Performed By: #### LIPID, URIC, CMP #### [facility] [address] [place] [address] Dr. Veronica Acevedo 14(COMP METB)on 32-22-0277Vbpwgtg [Mass/Vol]3.6 g/dLNormal 3.5-5.0[facility] HospitalComment on above:Performed By: #### LIPID, URIC, CMP #### [facility] [address] [place] [address] Dr. Veronica AcevedoAlbumin/Globulin [Mass ratio]1.1 {ratio}NormalThe [facility]S Medical CenterComment on above:Performed By: #### LIPID, URIC, CMP #### [facility] [address] [place] [address] Dr. Veronica Arguelles [Catalytic activity/Vol]51 U/DVfuqbn94-986Dra [facility] Medical CenterComment on above:Performed By: #### LIPID, URIC, CMP #### [facility] [address] [place] [address] [address] Veronica VuongT [Catalytic activity/Vol]48 U/DFvzvqy39-37Yid [facility] Medical CenterComment on above:Performed By: #### LIPID, URIC, CMP #### [facility] [address] [place] [address] [address] Veronica Saldanaon gap [Moles/Vol]9.5 mmol/LNormalThe [facility] Medical CenterComment on above:Performed By: #### LIPID, URIC, CMP #### [facility] [address] [place] [address] Dr. Veronica Miller [Catalytic activity/Vol]39 U/SRaeohc18-86Ftz [facility] Medical CenterComment on above:Performed By: #### LIPID, URIC, CMP #### [facility] [address] [place] [address] Dr. Veronica AcevedoBilirubin [Mass/Vol]0.6 mg/dLNormal0.2-1.3The [facility] Comment on above:Performed By: #### LIPID, URIC, CMP #### [facility] [address] [place] [address] Dr. Veronica AcevedoCalcium [Mass/Vol]8.7 mg/dLNormal8.4-10.2[facility] Comment on above:Performed By: #### LIPID, URIC, CMP #### [facility] [address] [place] [address] Dr. Veronica AcevedoChloride [Moles/Vol]101 mmol/HIapoqt44-870Zyt [facility] Comment on above:Performed By: #### LIPID, URIC, CMP #### [facility] [address] [place] [address] Dr. Veronica AcevedoCO2 [Moles/Vol]29.1 mmol/JNzptoc76.0-30.0The [facility] Comment on above:Performed By: #### LIPID, URIC, CMP #### [facility] [address] [place] [address] [address] Veronica AcevedoCreatinine [Mass/Vol]1.24 mg/dLNormal0.66-1.25The [facility] Hospitalment on above:Performed By: #### LIPID, URIC, CMP #### [facility] [address] [place] [address] [address] Martin ChangEGFR-AF MALIAN>60Normal>=60The [facility] Hospitalment on above:Performed By: #### LIPID, URIC, CMP #### [facility] [address] [place] [address] [address] Veronica GermainGFR-NON AF MALIAN>60Normal>=60The [facility] Hospitalment on above:Performed By: #### LIPID, URIC, CMP #### [facility] [address] [place] [address] Dr. Veronica AcevedoGlobulin (S) [Mass/Vol]3.2 g/dLNormalThe [facility] Medical CenterComment on above:Performed By: #### LIPID, URIC, CMP #### [facility] [address] [place] [address] [address] Veronica AcevedoGlucose [Mass/Vol]224 mg/dLCritically xvkx65-532Ljv [facility] on above:Performed By: #### LIPID, URIC, CMP #### [facility] [address] [place] [address] [address] Veronica AcevedoPotassium [Moles/Vol]3.6 mmol/LNormal3.4-5.0The [facility] Comment on above:Performed By: #### LIPID, URIC, CMP #### [facility] [address] [place] [address] Dr[address] Veronica AcevedoProtein [Mass/Vol]6.8 g/dLNormal6.1-8.2The [facility] Comment on above:Performed By: #### LIPID, URIC, CMP #### [facility] [address] [place] [address] [address] Veronica AcevedoSodium [Moles/Vol]136 mmol/LCritically qem265-189Vaf Kramer HospitalComment on above:Performed By: #### LIPID, URIC, CMP #### [facility] [address] [place] [address] [address] Veronica AcevedoUrea nitrogen [Mass/Vol]17.0 mg/dLNormal9.0-20.0[facility]Com[facility] on above:Performed By: #### LIPID, URIC, CMP #### [facility] [address] [place] [address] [address] Veronica AcevedoUrea nitrogen/Creatinine [Mass ratio]13.7 mg/mgNormalThe [facility] CenterComment on above:Performed By: #### LIPID, URIC, CMP #### [facility] [address] [place] [address] Dr. Veronica AcevedoURIC ACID SERUMon 86-46-6556Whubw [Mass/Vol]7.0 mg/dLNormal 3.5-8.5The [facility] CenterComment on above:Performed By: #### LIPID, URIC, CMP #### [facility] [address] [place] [address] Dr. Veronica AcevedoGlucose Poct Glucometerson 77-78-6817Ahfrjcs9Sfw2: Cleaned Meter [facility] SpringfieldComment on above:Result Comment: PERFORMED BY: [facility] [address] [facility] [place] [address] PATHOLOGIST CHEF HEAD EDMUND ECHEVARRIA M.D.Performed By: #### GLULS #### Point of Care testing ,Glucose [Mass/Vol]155 mg/dLNoAdena Health SystemComment on above:Result Comment: Random Glucose Reference Range is dependent on time and content of last meal. Glucose of more than 200 mg/dL in a nonstressed, ambulatory subject supports the diagnosis of Diabetes Mellitus.Performed By: #### GLULS #### Point of Care testing ,Amor 11-13-2020 Specimen: [id number] Received: 11/13/20 Status: MILLER Peresboogie Num: [id number] Spec Type: Surgical Subm Dr: Hudson Sharif MD Tissues: A Colon - Polyp (SIGMOID POLYP) Procedures: HE Stain/2, Gross/Micro L4 Patient Age/Sex Location Account Attending Physician Chidi Myles/Andra [id number] Hudson Sharif MD SPEC NUM: [id number] RECD: 11/13/20 STATUS: MILLER PERESBoogie NUM: [id number] REJI: 11/13/20 [facility] DR: Hudson Sharif MD ENTERED: 11/13/20 VICKIE [...] support the above pathologic diagnosis. CPT Codes 30502 Specimen: [id number] Received: 11/13/20 Status: MILLER Tracey Num: [id number] Spec Type: Surgical Subm Dr: Hudson Sharif MD Tissues: A Colon - Polyp (SIGMOID POLYP) Procedures: HE Stain/2, Gross/Micro L4 Patient: Chidi Myles [id number] (Continued) Signed (signature on file) Carmen Pack MD 11/16/20 [address] [facility] liver [id number] [facility] [place] [address] Ultrasound Report Signed Patient: Chidi Myles MR#: [id number] : 1970 Acct:[id number] Age/Sex: 50 / M ADM Date: 11/11/20 Loc: Room: Type: [facility] Attending Dr: Hudson Sharif MD Ordering Provider: [...] Keira Portillo M.D.11/12/2020 9:28 AM Dictation Location: [place] [address] Tech: Payton Xiong Transcribed By: [facility] 11/12/2028 Dictated By: Keira Portillo MD 11/12/20 0926 Signed By: 11/12/20 0928NoAdena Health SystemCOVID-19 Antigenon 14-26-1914VTMIE-19 AntigenHealthcare Worker?: N Estuardo Reference Estuardo Reference [...] its performance Estuardo Disclaimer characteristic determined by [employer] and Estuardo Disclaimer validated at . This Estuardo Disclaimer test has not been [...] is terminated or revoked sooner. PERFORMED BY: [place] [address] PATHOLOGIST CHEF HEAD EDMUND ECHEVARRIA M.D.[facility] SpringfieldComment on above: Performed By: #### LYDIA, COVID-19 ESTUARDO #### [facility] [address] [place] [address] USASofia Ag Negativeon 09-84-7459Rtcny Ag NegativeNegative NormalNegativeComment on above:Result Comment: This is a duplicate Estuardo SARS Antigen (MENDY) result to be used for statistical tracking purpose only. PERFORMED BY: [place] [address] PATHOLOGIST CHEF HEAD EDMUND ECHEVARRIA M.D.Performed By: #### CHELIIANEG, COVID-19 ESTUARDO #### [facility] [address] [place] [address] USAHep C Ab w Verificationon 98-62-4327SDV AB<0.1Normal 0.0-0.9Comment on above:Order Comment: Reason for Exam Fatty liverPerformed By: #### HBSAB, HBSAG, HBCAB, HEP C #### [facility] ,HCV Ab CommentNormal.Comment on above:Order Comment: Reason for Exam Fatty liverResult Comment: Non reactive HCV antibody screen is consistent with no HCV infection, unless recent infection is suspected or other evidence exists to indicate HCV infection.Performed By: #### HBSAB, HBSAG, HBCAB, HEP C #### [facility] ,Hepatitis B Core Antibodyon 28-05-5006Mcrdkqsii B Core AntibodyNegativeNormal NegativeComment on above:Order Comment: Reason for Exam Fatty liverResult Comment: Performed at: - [facility] [id number] Regulatory Affairs Strategy Specialist: Familia Monsalve PhD, Phone: [phone] PERFORMED BY: [facility] [address] [place] [address] PATHOLOGIST CHEF HEAD EDMUND ECHEVARRIA M.D.Performed By: #### HBSAB, HBSAG, HBCAB, HEP C #### [facility] ,Hepatitis B Surface Antibodyon 59-68-6788Aywjrzsea B Surface AntibodyReactive Normal.Comment on above:Order Comment: Reason for Exam Fatty liverResult Comment: Non Reactive: Inconsistent with immunity, less than 10 mIU/mL Reactive: Consistent with immunity, greater than 9.9 mIU/mLPerformed By: #### HBSAB, HBSAG, HBCAB, HEP C #### [facility] ,Hepatitis B Surface Antigenon 57-40-4482VSkNw ScreenNegativeNormalNegative Comment on above:Order Comment: Reason for Exam Fatty liverPerformed By: #### HBSAB, HBSAG, HBCAB, HEP C #### [facility] ,CBC W/DIFFon 43-10-9070UJD BASOPHILS0.1 10*3/uLNormal0.0-0.2The [facility] CenterComment on above:Performed By: #### 64820 #### [facility] [address] [place] [address], USAABS IMM GRANS0.0 10*3/uLNormal0.0-0.2The [facility] Medical CenterComment on above:Performed By: #### 46269 #### [facility] [address] [place] [address], DR[facility] HOSPITALABS NEUTROPHILS3.3 10*3/uLNormal1.6-7.6The [facility] Medical CenterComment on above:Performed By: #### 67756 #### [facility] [address] [place] [address], DR. [facility] HOSPITALBasophils/100 WBC (Bld)1.2 %High0.0-1.0The [facility] CenterComment on above:Performed By: #### 29097 #### [facility] [address] [place] [address], DR. [facility] MEMORIAL HOSPITALEosinophils (Bld) [#/Vol]0.2 10*3/uLNormal0.0-0.5The [facility] Medical CenterComment on above:Performed By: #### 85359 #### [facility] [address] [place] [address], DR. [facility] MEMORIAL HOSPITALEosinophils/100 WBC (Bld)3.7 %Normal0.0-6.0The [facility] CenterComment on above:Performed By: #### 47095 #### [facility] [address] [place] [address], USAErythrocyte distribution width (RBC) [Ratio]12.3 %Normal 11.5-15.0The [facility] CenterComment on above:Performed By: #### 70218 #### [facility] [address] [place] [address], USAHematocrit (Bld) [Volume fraction]40.8 %Rdvqbv91.0-50.0The [facility] CenterComment on above:Performed By: #### 87746 #### [facility] [address] [place] [address], USAHemoglobin (Bld) [Mass/Vol]13.7 g/eDMksttu04.0-17.0The [facility] CenterComment on above:Performed By: #### 98753 #### [facility] [address] [place] [address], USAIMMATURE GRANS0.3 %Normal0.0-1.0The [facility] CenterComment on above:Performed By: #### 35854 #### [facility] [address] [place] [address], USALymphocytes (Bld) [#/Vol]2.4 10*3/uLNormal1.2-4.0The [facility] Medical CenterComment on above:Performed By: #### 38784 #### [facility] [address] [place] [address], USALymphocytes/100 WBC (Bld)36.3 %Tbemel88.0-45.0The [facility] Medical CenterComment on above:Performed By: #### 11348 #### [facility] [address] [place] [address], DR. D[facility] TRIGG MEMORIAL HOSPITALMCH (RBC) [Entitic mass]29.9 alRuetnp93.0-33.0The [facility] CenterComment on above:Performed By: #### 16006 #### [facility] [address] [place] [address], USAMCHC (RBC) [Mass/Vol]33.6 g/qKNdmzcn08.0-35.0The [facility] CenterComment on above:Performed By: #### 30814 #### [facility] [address] [place] [address], USAMCV (RBC) [Entitic vol]89.1 lUYzojtv16.0-98.0The [facility] CenterComment on above:Performed By: #### 46641 #### [facility] [address] [place] [address], USAMonocytes (Bld) [#/Vol]0.5 10*3/uLNormal0.1-1.0The [facility] CenterComment on above:Performed By: #### 55264 #### [facility] [address] [address], USAMONOS7.8 %Normal5.0-12.0The [facility] Medical CenterComment on above:Performed By: #### 74822 #### [facility] [address] [place] [address], USANeutrophils/100 WBC (Bld)50.7 %Rdaskj59.0-72.0The [facility] CenterComment on above:Performed By: #### 29709 #### [facility] [address] [place] [address], USANucleated RBC/100 WBC (Bld) [Ratio]0 %Normal0-0The [facility] CenterComment on above:Performed By: #### 57238 #### [facility] [address] [address], USAPLAT ZGZ631 10*3/oKZxsfka472-475Wnw [facility] CenterComment on above:Performed By: #### 67974 #### [facility] [address] [place] [address], USARBC (Bld) [#/Vol]4.58 10*6/uLNormal4.20-5.70The [facility] CenterComment on above:Performed By: #### 05793 #### [facility] [address] [place] [address], USAWBC (Bld) [#/Vol]6.51 10*3/uLNormal4.00-10.60The [facility] CenterComment on above:Performed By: #### 75946 #### [facility] [address] [place] [address], USAHEPATITIS B SURFACE ANTIGEN QUALon 52-65-9232PTB B SURF AG QUALNONREACTIVENormalNONREACTIVEThe [facility] CenterComment on above:Performed By: #### 95581, 59379 #### [facility] [address] [place] [address], USAHEPATITIS C ANTIBODYon 48-59-4734ZPNV-HCVNONREACTIVENormal NONREACTIVEThe [facility] CenterComment on above:Performed By: #### 81904, 40118 #### [facility] [address] [place] [address], USALIVER BATTERYon 88-68-6461Cpenwgu [Mass/Vol]4.2 g/dLNormal 3.5-5.7The [facility] CenterComment on above:Performed By: #### 08111 #### [facility] [address] [place] [address], USAALKALINE QOHTZD09 IU/XZgzljk62-765Ttf [facility] CenterComment on above:Performed By: #### 17766 #### [facility] [address] [place] [address], USAALT [Catalytic activity/Vol]18 U/LNormal7-52The [facility] CenterComment on above:Performed By: #### 70511 #### [facility] [address] [place] [address], USAAST [Catalytic activity/Vol]18 U/GQmpjhk34-39Hlg [facility] CenterComment on above:Performed By: #### 05913 #### [facility] [address] [place] [address], USABilirubin [Mass/Vol]0.5 mg/dLNormal0.3-1.0The [facility] CenterComment on above:Performed By: #### 73919 #### [facility] [address] [place] [address], USABilirubin.direct [Mass/Vol]0.2 mg/dLNormal0.0-0.2The [facility] CenterComment on above:Performed By: #### 97587 #### [facility] [address] [place] [address], USAProtein [Mass/Vol]7.3 g/dLNormal6.0-8.3The [facility] CenterComment on above:Performed By: #### 60278 #### [facility] [address] [place] [address], DR[facility] HOSPITALCBC W/DIFFon 39-40-5722IGJ BASOPHILS0.1 10*3/uLNormal 0.0-0.2The [facility] CenterComment on above:Performed By: #### 65098 #### [facility] [address] [place] [address], USAABS IMM GRANS0.0 10*3/uLNormal0.0-0.2The [facility] CenterComment on above:Performed By: #### 22137 #### [facility] [address] [place] [address], DR[facility] MEMOR[facility] HOSPITALABS NEUTROPHILS3.5 10*3/uLNormal1.6-7.6The [facility] CenterComment on above:Performed By: #### 99732 #### [facility] [address] [place] [address], DR[facility] HOSPITALBasophils/100 WBC (Bld)1.4 %High0.0-1.0The [facility] CenterComment on above:Performed By: #### 46540 #### [facility] [address] [place] [address], DR[facility] MEMORIAL HOSPITALEosinophils (Bld) [#/Vol]0.4 10*3/uLNormal0.0-0.5The [facility] CenterComment on above:Performed By: #### 59415 #### [facility] [address] [place] [address], USAEosinophils/100 WBC (Bld)5.8 %Normal0.0-6.0The [facility] CenterComment on above:Performed By: #### 47673 #### [facility] [address] [place] [address], USAErythrocyte distribution width (RBC) [Ratio]12.6 %Normal 11.5-15.0The [facility] CenterComment on above:Performed By: #### 37726 #### [facility] [address] [address], USAHematocrit (Bld) [Volume fraction]41.0 %Giwkqr49.0-50.0The [facility] CenterComment on above:Performed By: #### 40544 #### [facility] [address] [place] [address], USAHemoglobin (Bld) [Mass/Vol]14.0 g/dNBxvtry00.0-17.0The [facility] CenterComment on above:Performed By: #### 72446 #### [facility] [address] [address], USAIMMATURE GRANS0.6 %Normal0.0-1.0The [facility] CenterComment on above:Performed By: #### 82412 #### [facility] [address] [address], USALymphocytes (Bld) [#/Vol]2.4 10*3/uLNormal1.2-4.0The [facility] CenterComment on above:Performed By: #### 18364 #### [facility] [address] [place] [address], USALymphocytes/100 WBC (Bld)33.1 %Dfgmqb98.0-45.0The [facility] CenterComment on above:Performed By: #### 06776 #### [facility] [address] [place] [address], [facility] (RBC) [Entitic mass]29.5 isQmsjod33.0-33.0The [facility] CenterComment on above:Performed By: #### 58495 #### [facility] [address] [place] [address], [facility]ONHC (RBC) [Mass/Vol]34.1 g/bPDurhpj35.0-35.0The [facility] CenterComment on above:Performed By: #### 77695 #### [facility] [address] [place] [address], DR[facility] HOSPITALMCV (RBC) [Entitic vol]86.3 pPBwcqql28.0-98.0The [facility] CenterComment on above:Performed By: #### 02053 #### [facility] [address] [place] [address], USAMonocytes (Bld) [#/Vol]0.7 10*3/uLNormal0.1-1.0The [facility] CenterComment on above:Performed By: #### 03281 #### [facility] [address] [place] [address], USAMONOS9.2 %Normal5.0-12.0The [facility] CenterComment on above:Performed By: #### 78673 #### [facility] [address] [address], USANeutrophils/100 WBC (Bld)49.9 %Mlnmzy17.0-72.0The [facility] CenterComment on above:Performed By: #### 43765 #### [facility] [address] [place] [address], USANucleated RBC/100 WBC (Bld) [Ratio]0 %Normal0-0The [facility] CenterComment on above:Performed By: #### 49779 #### [facility] [address] [place] [address], USAPLAT RIH560 10*3/kTOzdslx252-844Rtd [facility] CenterComment on above:Performed By: #### 61555 #### [facility] [address] [place] [address], USARBC (Bld) [#/Vol]4.75 10*6/uLNormal4.20-5.70The [facility] CenterComment on above:Performed By: #### 53972 #### [facility] [address] [place] [address], USAWBC (Bld) [#/Vol]7.09 10*3/uLNormal4.00-10.60The [facility] CenterComment on above:Performed By: #### 00378 #### [facility] [address] [place] [address], USALIVER BATTERYon 54-03-4224Tlewwpx [Mass/Vol]4.2 g/dLNormal 3.5-5.7The [facility] CenterComment on above:Performed By: #### 78886 #### [facility] [address] [place] [address], USAALKALINE GXNSQB83 IU/PAhkhxl22-170Gha [facility] CenterComment on above:Performed By: #### 72012 #### [facility] [address] [place] [address], USAALT [Catalytic activity/Vol]16 U/LNormal7-52The [facility] CenterComment on above:Performed By: #### 17507 #### [facility] [address] [place] [address], USAAST [Catalytic activity/Vol]16 U/CJqeqvl60-51Fpq [facility] CenterComment on above:Performed By: #### 80523 #### [facility] [address] [place] [address], USABilirubin [Mass/Vol]0.4 mg/dLNormal0.3-1.0The [facility] CenterComment on above:Performed By: #### 65890 #### [facility] [address] [place] [address], USABilirubin.direct [Mass/Vol]0.1 mg/dLNormal0.0-0.2The [facility] CenterComment on above:Performed By: #### 91547 #### [facility] [address] [place] [address], USAProtein [Mass/Vol]7.4 g/dLNormal6.0-8.3The [facility] CenterComment on above:Performed By: #### 59605 #### [facility] [address] [place] [address], [facility] HOSPITALCBC W/DIFFon 31-73-7427GBY BASOPHILS0.1 10*3/uLNormal 0.0-0.2The [facility] CenterComment on above:Performed By: #### 63616 #### [facility] [address] [place] [address], USAABS IMM GRANS0.1 10*3/uLNormal0.0-0.2The [facility] CenterComment on above:Performed By: #### 14290 #### [facility] [address] [place] [address], USAABS NEUTROPHILS3.8 10*3/uLNormal1.6-7.6The [facility] CenterComment on above:Performed By: #### 10079 #### [facility] [address] [place] [address], USABasophils/100 WBC (Bld)1.6 %High0.0-1.0The [facility] CenterComment on above:Performed By: #### 20248 #### [facility] [address] [place] [address], USAEosinophils (Bld) [#/Vol]0.7 10*3/uLHigh0.0-0.5The [facility] CenterComment on above:Performed By: #### 11006 #### [facility] [address] [place] [address], USAEosinophils/100 WBC (Bld)8.8 %High0.0-6.0The [facility] CenterComment on above:Performed By: #### 66843 #### [facility] [address] [address], USAErythrocyte distribution width (RBC) [Ratio]12.4 %Normal 11.5-15.0The [facility] CenterComment on above:Performed By: #### 05473 #### [facility] [address] [address], USAHematocrit (Bld) [Volume fraction]39.2 %Nijjgs04.0-50.0The [facility] CenterComment on above:Performed By: #### 48683 #### [facility] [address] [address], USAHemoglobin (Bld) [Mass/Vol]13.8 g/fXUxsqie00.0-17.0The [facility] CenterComment on above:Performed By: #### 92713 #### [facility] [address] [place] [address], USAIMMATURE GRANS0.6 %Normal0.0-1.0The [facility] CenterComment on above:Performed By: #### 64966 #### [facility] [address] [address], USALymphocytes (Bld) [#/Vol]2.4 10*3/uLNormal1.2-4.0The [facility] CenterComment on above:Performed By: #### 88314 #### [facility] [address] [place] [address], [facility] HOSPITALLymphocytes/100 WBC (Bld)31.4 %Hpkrue11.0-45.0The [facility] CenterComment on above:Performed By: #### 87324 #### [facility] [address] [place] [address], DR. [facility] HOSPITALMCH (RBC) [Entitic mass]29.7 eiTzlmek55.0-33.0The [facility] CenterComment on above:Performed By: #### 45508 #### [facility] [address] [place] [address], DR. [facility] HOSPITALMCHC (RBC) [Mass/Vol]35.2 g/qASqxa55.0-35.0The [facility] CenterComment on above:Performed By: #### 20127 #### [facility] [address] [place] [address], DR[facility] HOSPITALMCV (RBC) [Entitic vol]84.3 cGElvpzg89.0-98.0The [facility] CenterComment on above:Performed By: #### 51153 #### [facility] [address] [place] [address], USAMonocytes (Bld) [#/Vol]0.7 10*3/uLNormal0.1-1.0The [facility] CenterComment on above:Performed By: #### 81558 #### [facility] [address] [place] [address], USAMONOS9.0 %Normal5.0-12.0The [facility] CenterComment on above:Performed By: #### 70134 #### [facility] [address] [place] [address], USANeutrophils/100 WBC (Bld)48.6 %Ycpsww64.0-72.0The [facility] CenterComment on above:Performed By: #### 08402 #### [facility] [address] [place] [address], USANucleated RBC/100 WBC (Bld) [Ratio]0 %Normal0-0The [facility] CenterComment on above:Performed By: #### 53774 #### [facility] [address] [place] [address], USAPLAT [id number] 10*3/xVKwsjdn204-387Ody [facility] CenterComment on above:Performed By: #### 34666 #### [facility] [address] [place] [address], USARBC (Bld) [#/Vol]4.65 10*6/uLNormal4.20-5.70The [facility] CenterComment on above:Performed By: #### 55020 #### [facility] [address] [place] [address], USAWBC (Bld) [#/Vol]7.74 10*3/uLNormal4.00-10.60The [facility] CenterComment on above:Performed By: #### 85804 #### [facility] [address] [place] [address], USALIVER BATTERYon 09-73-2077Quspeni [Mass/Vol]4.2 g/dLNormal 3.5-5.7The [facility] CenterComment on above:Performed By: #### 71445 #### [facility] [address] [place] [address], DR. D[facility] HOSPITALALKALINE [id number] IU/HNtdzsm95-672Qag [facility] CenterComment on above:Performed By: #### 97958 #### [facility] [address] [address], USAALT [Catalytic activity/Vol]16 U/LNormal7-52The [facility] CenterComment on above:Performed By: #### 12764 #### [facility] [address] [place] [address], USAAST [Catalytic activity/Vol]17 U/QVpbkkv62-16Bct [facility] CenterComment on above:Performed By: #### 50194 #### [facility] [address] [place] [address], USABilirubin [Mass/Vol]0.5 mg/dLNormal0.3-1.0The [facility] Medical CenterComment on above:Performed By: #### [id number] #### [facility] [address] [place] [address], [place]ABilirubin.direct [Mass/Vol]0.1 mg/dLNormal0.0-0.2The [facility] Medical CenterComment on above:Performed By: #### [id number] #### [facility] [address] [place] [address], [place]Protein [Mass/Vol]6.9 g/dLNormal6.0-8.3The [facility] Medical CenterComment on above:Performed By: #### [id number] #### [facility] [address] [place] [address], [place] Encounters Encounter DateEncounter TypeCare ProviderFacilityStart: 04-06-2025 End: [id number] department patient visitPAGOWAN[facility]ITALRosa [facility] Hospitaltart: 03-20-2025 End: 07-50-7641NhhepvUgquujGabriele JONES Work Phone: [facility]monary/Sleep MedicineStart: 02-10-2025 End: 19-01-6461Xjkclrtbf department patient visitPAGOWANDA STATE HOSPITALRosa Doshi [facility] Hospitaltart: 10-23-2024 End: 12-10-9335Tycxrrhzq department patient visitPAMARY ALICE Doshi [facility] HospitalStart: 04-29-2024 End: 81-45-8237btgbknusrhIHYNVH S [facility] HospitalStart: 79-94-0538Uisazatqx for general adult medical examination without abnormal findingsPAMELA VIANCAFranklin County Memorial Hospital HospitalStart: 09-26-2023 End: 94-09-3083rqcwnhcurfRkdtmyo HARWOODFacility:Occupational Health and WellnessStart: 06-19-2023 End: 38-39-6860pmmbzppnmiGYWQLM [facility]ole Camacho HospitalStart: 06-16-2023 End: 06-93-6745hkbkirfehcKQVCOM [facility]ole Camacho HospitalStart: 06-16-2023 End: 96-14-3028Hqgvehckb for other preprocedural examinationPHILIP E Errol Camacho HospitalStart: 06-06-2023 End: 70-87-2477dkfbgflskyXVSSMZ [facility]ole Camacho HospitalStart: 03-28-2022 End: 11-70-1345bcbmnqskkjTX ALLI KUMARYFacility:E9Shbrp: 03-22-2022 End: 26-26-4788irgyokkmpqWPOBVY CRAMERFacility:R0Ntldk: 12-17-2021 End: 30-29-1847yfeningvzfNCGBTU CRAMERFacility:O0Hvhyr: 07-31-2021 End: 32-80-3503tduiesqjoxNSUDJB CRAMERFacility:O9Mbfgw: 22-42-1149Tjanziuht for general adult medical examination without abnormal findingsPAMELA Marisa Kramer HospitalStart: 03-15-5002awratvrvpjEDEEJI CRAMERFacility:K3Lyvtb: 04-17-2021 End: 08-73-0893epjgbxhkrnUKRPKN CRAMERFacility:X6Lzvsb: 04-17-2021 End: 32-86-3022Ngbgkgcub for general adult medical examination without abnormal findingsPAMELA CRAMERFacility:H1 Procedures DateProcedureProcedure DetailPerforming ClinicianStart: 62-52-6327GRO screening KERRIE Roland on above:Performed By: #### PSASC #### [facility] [address] [place] [address] Dr. Veronica Acevedo Plan of Treatment DateCare ActivityDetailAuthorStart: 15-98-6656BIoH,Tdap and Td Vaccines (2 - Td or Tdap)DTaP,Tdap and Td Vaccines (2 - Td or Tdap)[facility] SystemStart: 16-28-5622Fujus BMI ScreeningAdult BMI ScreeningHolzer Hospital Health SystemStart: 20-23-0755Ehmvdgj ScreeningTobacco ScreeningProThe Jewish Hospital SystemStart: 03-85-1122Lmkievatu vaccinationInfluenza VaccineProThe Jewish Hospital SystemStart: 88-68-6343Wikjaxqumbkvem of varicella zoster vaccineZoster (Shingles) Vaccine (1 of 2)[facility] SystemStart: 74-38-4160Abqto BMI Follow Up PlanAdult BMI Follow Up PlanProThe Jewish Hospital SystemStart: 56-82-0314Pplmwhnabj Screening Depression ScreeningCleveland Clinic SystemStart: 61-79-6440Nlrqsyt Counseling Tobacco CounselingCleveland Clinic System Payers DatePayer CategoryPayerPolicy [id number] [facility] Member Subscriber Plan / Payer (Effective 2024-Present) Name: Chidi Myles Relation to Subscriber: Self Name: Shameka Chidi Nogueira Payer ID: [id number] (NAIC) Type: Not on file Address: [facility] [address] [place] [id number] [id number]-2421OrhjmzlT5U336W6022970-38-4228Inxkimk [id number] 2.16.840.1.060702.3.57[id number] 2.16.840.1.936602.3.57[id number] 2.16.840.1.890074.3.57[id number] 2.16.840.1.167730.3.57[id number] 2.16.840.1.542533.3.57[id number] 2.16840.1.964359.3.57[id number] 2.840.1.973306.3.57[id number] 2.0.1.706898.3.57[id number] 2.840.1.647097.3.57[id number] 2.840.1.218703.3.579.[id number] 2.840.1.430260.3.579.[id number] 2.0.1.834240.3.57[id number] 2.840.1.720548.3.57[id number] 2.0.1.388796.3.579.2.583619-65-4550Oisk-[id number] Social History DateTypeDetailFacilityStart: 26-24-6020Bprpvlo smoking status [facility] tobacco dailyC[facility] Clinic System Work Phone: History of tobacco useCigarette SmokerHolzer Hospital Slate Sciencetart: 08-27-2020 End: 86-25-1912Ocgohfiwan smoked current (pack per day) - Jcsglelj4VsbIbathm Slate Sciencetart: 21-55-7688Lenxnek use and exposureSmokeless tobacco non-user [facility] Slate Sciencetart: 07-19-0523Niduwqdws beverage intakeCurrent drinker of alcohol (finding)[facility] Slate Sciencetart: 08-27-2020 End: 42-62-3682Xhkroni use panelHolzer Hospital [employer] [facility] HospitalChildcareUnknownPWoman's Hospital Slate Sciencetart: 77-84-1430Nocspes CommentoccasionalCleveland Clinic System Start: 39-07-6728Gqj assigned at birthNot on fileHolzer Hospital Slate Sciencetart: 03-56-4054WxgAoui (finding)[facility] HospitalTiggly Instructions Note Date & TypeNoteFacilityInstructionsNot on filedocumented in this encounter [facility] [employer] Summary Purpose Family History No Family History [...] and content) DATE CREATED AUTHOR 03/22/2019 [facility] DATE CREATED AUTHOR AUTHOR'S ORGANIZ ATION 07/05/2021 DATE CREATED AUTHOR AUTHOR'S ORGANIZ ATION 04/16/2022 [facility] DATE CREATED AUTHOR AUTHOR'S ORGANIZ ATION 06/23/2023 [facility] DATE CREATED AUTHOR AUTHOR'S ORGANIZ ATION 09/27/2023 [facility] DATE CREATED AUTHOR AUTHOR'S ORGANIZ ATION 04/06/2025 [facility] Reason for Visit (unrecogniz ed section and content) ReasonCommentsMed Refill Care Teams (unrecognized sec tion and content) Team MemberRelationshipSpecialtyStart DateEnd Date Sara Buckleygerardo Doshi, ELECTRICAL ENGINEERING INTERN-AUTOMATION QA ANALYST [address] [facility] [place] [address] PCP - GeneralFanmly Medicine03/16/19 FOR RECORDS PERTAINING TO PATIENTS WHO [...] BE BASED ON THE PRIMARY CLINICAL RECORDS. [facility] [address]. provides no warranty or guarantee of the accuracy or completeness of information in this document.
--- OUTSIDE RECORDS SUMMARY | 2025-05-15 07:29 | XMS_ITS | Patient Health Record ---
Author Organization [facility] Address [address] [place] [address] Care Team Providers Care Lambskin Trimmer Name Role Phone Kerrie Aguillon Primary Care Provider UnavailEdvin Mata Unavailable [phone] Nakul Grayson Unavailable Unavailable Allergies Allergen (clinical [...] Problem Status W/U Status Risk Notes Problem [id number] Aftercare following joint re placement surgery (Z47.1) JsljijlicacgylrOvhfmps4286215053Tlxz in right knee (M25.561)Activeconfirmed Exqoxid290056730826295Ydascym osteoarthritis of left knee (M17.12)Active nrkdgcwioZnlljug363373802Vcpaluagm primary osteoarthritis of knee (M17.0)Active jdthgaiayOafitcq431752135566682Kroi in left knee (M25.562)ActiveconfirmedProblem [id number] of left artificial knee joint (Z96.652)Activeconfirmed Poipndq9459137168778624Hiwomyrhs of left knee (M17.12)ActiveconfirmedProblem 537273087Vfpfzhglapzd testing (Z01.818)Activeconfirmed Plan Of Treatment Pending Test Test Name Order Date MRI : Knee W/O Contrast Left - MRI : Knee W/O Contrast Right - PE Knee, Left 4v -98171 05/09/2023 [facility] Knee right, 4v -84895 05/09/2023 [facility] TOTAL - PREOP- CBC WITH DIFF, BMP, TYPE AND SCREEN, MRSA BY PCR BILATERAL NARES, EKG, TOTAL JOINT [facility]IN[facility], PT / OT EVALUATION , 05/26/2023 Insurance Providers Payer Name Payer Address Payer Phone Subscriber Number Group Number Insured Name Patient Relationship to Insured Coverage Start Date Coverage End Date Daryl DUPREE [address] [place] [address] [id number] MARTITA MYLES Self - patient is the insured Medical (General) History Medical History History ICD Code Diabetes: Yes High Blood Pressure: YesAnxiety: YesDrug Allergies: YesAre you a healthcare worker? YesSurgical History Surgery Date(Month/Year) Left total knee arthroplasty 06/2023 Cholecystectomy Ankle
--- OUTSIDE RECORDS SUMMARY | 2025-05-15 07:29 | XMS_ITS | Clinical Summary ---
Author Organization [facility] Address [address] [place] [address] Care Team Providers Care Pumper Hand Name Role Phone No, Physician Primary Care Provider Unavailabl e Allergies Active AllergyReactionsCriticalityNoted HkrxMtgqtmvdVnbufbo14/08/2017 Medications MedicationSigDispense QuantityRefillsLast FilledStart DateEnd DateStatus DULoxetine (CYMBALTA) 60 MG capsule Take 60 mg by mouth daily.Active olmesartan-hydrochlorothiazide (BENICAR HCT) 40-12.5 mg per tablet Take 1 tablet by mouth daily.Active NIFEdipine (ADALAT CC) 60 MG 24 hr tablet Take 60 mg by mouth daily.Active QUEtiapine (SEROQUEL) 50 MG tablet Take 50 mg by mouth nightly.Active Social History Tobacco UseTypesPacks/DayYears UsedDateSmoking Tobacco: Every BphUxcvcwthzp239 Smokeless Tobacco: NeverAlcohol UseStandard Drinks/WeekCommentsYes0 (1 standard drink = 0.6 oz pure alcohol)once a yearSex and Gender InformationValueDate RecordedSex Assigned at BirthNot on fileLegal JesQpzw5304/07/2015 10:26 AM EDT Gender IdentityNot on fileSexual OrientationNot on file Last Filed Vital Signs Vital SignReadingTime TakenCommentsBlood Zhqvnhlv927/72009/21/2016 4:40 AM EST Fhqge9521 4:40 AM OIZCpeaduhkxkg50.4 ??C (97.6 ??F)09/21/2016 12:51 AM ESTRespiratory Ivtc250209/21/2016 4:40 AM ESTOxygen Lvacztwdlp27%09/21/2016 4:40 AM ESTInhaled Oxygen Concentration--Etkeeg073 kg (280 lb)09/21/2016 12:51 AM EST Cqsyay971.4 cm (6' 1 )09/21/2016 12:51 AM ESTBody Mass Index36.9409/21/2016 12:51 AM EST Plan of Treatment Health MaintenanceDue DateLast DoneCommentsCT Bgniqaghaxnm09/02/1970Colonoscopy 1969Colorectal Cancer Screening/Ichmoxysgc64/02/1970Fecal DNA1969 Fecal occult blood test (FOBT,FIT)1969PSA Level1969MMR Vaccines (1 of 1 - Standard series)1970Wellness Visit1972Depression Screening/Follow-Up (PHQ-2/9)1981HIV Ijtreezfu25/02/1985Hepatitis C Yatdkixlu10/02/1988Hepatitis B Vaccines (1 of 3 - 19+ 3-dose series)1988 Tetanus/Diphtheria/Pertussis (1 - Tdap)1988Pneumococcal Vaccine: 50+ Years (1 of 1 - PCV)2019Zoster Vaccines (1 of 2)2019COVID-19 Vaccine (1 - season)2025Influenza Vaccine (#1)2025RSV Vaccines (1 - 1- dose 75+ series)2044HIB VaccinesAged OutNo longer eligible based on patient's age to complete this topicHPV VaccinesAged OutNo longer eligible based on patient's age to complete this topicHepatitis A VaccinesAged OutNo longer eligible based on patient's age to complete this topicIPV VaccinesAged OutNo longer eligible based on patient's age to complete this topicMeningococcal ACWY VaccineAged OutNo longer eligible based on patient's age to complete this topic Meningococcal B VaccineAged OutNo longer eligible based on patient's age to complete this topicRotavirus VaccinesAged OutNo longer eligible based on patient's age to complete this topic Insurance * Guarantor: Chidi ValenciaAccount TypeRelation to PatientDate of BirthPhone Billing AddressPersonal/VpivnuUyte84/[birth year][address] [address] Care Teams Team MemberRelationshipSpecialtyStart DateEnd Date No, [facility] - General09/21/16
--- OUTSIDE RECORDS SUMMARY | 2025-05-15 07:29 | XMS_ITS | Patient Health Record ---
Author Organization [facility] in [place] Address [address] [place] [address] Care Team Providers Care Shellfish Grower Name Role Phone Pal Kerrie Primary Care Provider Jose Maria Grayson [phone] Allergies Allergen (clinical drug ingredient) Drug/Non Drug Allergy documented on EMR Reaction Allergy Type Onset Date Status codeine Codeine nausea/vomiting Drug Allergy Active Results Component Value Reference Range Notes CBC AUTO DIFF Reviewed date:05/09/2025 02:34:16 PM Interpretation: Performing Lab: Notes/Report: [facility] , White Blood Count 14.1 4.0-11.0 10 3/uL Red Blood Count4.134.70-6.10 10 6/vEIwywheabyc04.514.0-18.0 g/zXMnsujheefd83.1 42.0-54.0 %Mean Corpuscular Mdqdvi12.080.0-94.0 fLMean Corpuscular Hemoglobin 30.325.9-34.0 pgMean Corpuscular HGB Conc35.629.9-35.2 g/dLRed Cell Distribution Width12.311.0-15.0 %Platelet Kvrkt139148-288 10 3/uLMean Platelet Volume9.49.5- 13.5 fLNeutrophils Percent Auto88.843.0-75.0 %Lymphocytes Percent Auto8.020.5- 60.0 %Monocytes Percent Auto2.41.7-12.0 %Eosinophils Percent Auto0.10.9-7.0 % Basophils Percent Auto0.10.2-2.0 %Immature Granulocytes Pct Auto0.60.0-0.5 % Neutrophils Absolute Auto12.51.4-6.5 10 3/uLLymphocytes Absolute Auto1.11.2-3.8 10 3/uLMonocytes Absolute Auto0.30.3-0.8 10 3/uLEosinophils Absolute Auto0.00.0- 0.7 10 3/uLBasophils Absolute Auto0.00.0-0.1 10 3/uLImmature Granulocytes Abs Auto0.080.00-0.03 10 3/uLPerforming Lab:see note - [facility] LB INSULIN Reviewed date:05/12/2025 08:22:01 AM Interpretation: Performing Lab: Notes/Report: [facility] ,Xghitcb78.42.6-24.9 uIU/mL Performed at: [facility] Detail Drafter: Familia Monsalve PhD, Phone: [phone] [address] [place], [place] [id number] Performing Lab:see [facility] LBGLYCOHEMOGLOBIN A1C Reviewed date:05/09/2025 02:34:16 PM Interpretation: Performing Lab: Notes/Report: [facility] ,Glycohemoglobin A1C10.64.5-6.2 % ADA RECOMMENDED LIMIT 4.0 - 6.0 ADA THERAPEUTIC TARGET < 7.0 ACTION SUGGESTED > 7.0 Estimated Average Zythrvf325Vadglwctei Lab:see [facility] MR lumbar spine wo con Reviewed date:04/22/2025 08:39:32 AM Interpretation: Performing Lab: Notes/Report: Source Facility: [place] [address] Magnetic Resonance Report Signed Patient: CHIDI VALENCIA MR#: [id number] : 1970 Acct:[id number] Age/Sex: 54 / M ADM Date: 04/21/25 Loc: MRI Attending Dr: KERRIE AGUILLON Ordering Physician: KERRIE AGUILLON Date of Service: 04/21/25 Procedure(s): MR lumbar spine wo con Accession Number(s): [id number] cc: KERRIE AGUILLON The [address] [address] Patient Name: CHIDI VALENCIA MRN: [id number] date: 1970 Sex: M Assigned Patient Location: MRI Current Patient Location: MRI Accession/Order Number: [id number] Exam Date: 04/21/2025 11:45 Report Date: 04/21/2025 [...] zone, correlate with left L4 radiculopathy. Otherwise hrit-yo-pvsycgtl right-sided moderate left-sided neural foraminal narrowing. There is moderate to severe central canal stenosis. Mild crowding right subarticular zone. L4-5: Broad-based disc bulge with endplate osteophytosis and facet arthropathy. There is rdtz-tr-szmfvatk right moderate left neural from narrowing. Mild central canal stenosis. L5-S1:: Circumferential disc bulge with moderate facet arthropathy. Endplate osteophytosis and spurring extending both foramina regions causing aotk-mb-nvqvsklp right moderate left neural foraminal narrowing. Canal is patent. There is mild crowding right subcuticular zone due to endplate ossific spurring MR/MR lumbar spine wo con IMPRESSION: Left subarticular zone extrusion at L3-4, correlate with possible left L4 radiculopathy. Otherwise gdae-af-ozoczkps degenerative changes elsewhere. Impression dictated by: Mg Greene M.D. 04/21/2025 4:29 PM Dictation Location: [place] [address] Electronically authenticated by: [id number] Y Date: 04/21/2025 16:29 Dictated By: Mg Greene M.D. Signed By: 04/21/25 1631 DD/ 1629 TD/TT: Building Construction Teacher:URIC ACID SERUM Reviewed date:05/09/2025 02:34:16 PM Interpretation: Performing Lab: Notes/Report: [facility] ,Uric Acid7.33.5-7.2 mg/dLPerforming Lab:see noteML - [facility] LB TSH Reviewed date:05/09/2025 02:34:16 PM Interpretation: Performing Lab: Notes/Report: [facility] ,Thyroid Stimulating Hormone0.3090.358-3.740 uIU/mLPerforming Lab:see noteML - [facility] LBT4 Reviewed date:05/09/2025 02:34:16 PM Interpretation: Performing Lab: Notes/Report: [facility] ,T4 Thyroxine5.904.50-12.10 ug/dLPerforming Lab:see noteML - [facility] LBPSA SCREENING Reviewed date:05/09/2025 02:34:16 PM Interpretation: Performing Lab: Notes/Report: [facility] ,Prostate Specific Antigen Scrn1.19<=4.00 ng/mLPerforming Lab:see noteML - [facility] LBPROF 14(COMP METB) Reviewed date:05/09/2025 02:34:16 PM Interpretation: Performing Lab: Notes/Report: [facility] ,Ajhmty943539-906 mmol/LPotassium4.83.5-5.1 mmol/NSuobbbdb7556-307 mmol/LCarbon Vyrnxbs25.021.0-32.0 mmol/LAnion Gap16.2Oflbhzv90819-812 mg/dLRESULTS CALLED TO [facility] Urea Tuhrsmyt48.07.0-18.0 mg/dL Creatinine1.670.70-1.30 mg/dLEstimated GFR ( Ehkfbmy14>=60 mL/min/1.73m 2 Estimated GFR (Non- Ame43>=60 mL/min/1.73m 2BUN Creatinine Ratio23.4 Calcium8.68.5-10.1 mg/dLBilirubin Total0.50.2-1.0 mg/dLAspartate Amino Sqhkjkciihx0022-44 U/LAlanine Xvayameatlwaenws1308-24 U/LAlkaline Qiimqyjtzvp14 46-116 U/LTotal Protein6.96.4-8.2 g/dLAlbumin Level3.73.4-5.0 g/dLGlobulin3.2 Albumin Globulin Ratio1.2Performing Lab:see note - [facility] LIPID PROFILE Reviewed date:05/09/2025 02:34:16 PM Interpretation: Performing Lab: Notes/Report: [facility] ,Spngosbxpzosb728<=150 mg/lTCfqsordhvzp015<=200 mg/dLHDL Omaymbrklhi7137-15 mg/dL <40 mg/dl - HIGH CARDIOVASCULAR RISK > or =60 mg/dl - LOW CARDIOVASCULAR RISK LDL Cholesterol Tbprcebtnn96.0 130-159 mg/dl BORDERLINE HIGH <100 mg/dl OPTIMAL >190 mg/dl VERY HIGH 160-189 mg/dl HIGH 100-129 mg/dl NEAR OR ABOVE OPTIMAL VLDL VDCORFJXEBG64.6Chol HDL Ratio4.0 7.1 - 11.0 MODERATE RISK 4.4 - 7.1 AVERAGE RISK >11.0 HIGH RISK 3.3 - 4.4 LOW RISK Performing Lab:see note - [facility] LBFREE T3 Reviewed date:05/09/2025 02:34:16 PM Interpretation: Performing Lab: Notes/Report: [facility] ,Free T31.502.18-3.98 pg/mLPerforming Lab:see note - [facility] LB Reason For Referral Reason left sciatica Diagnosis 1 Sciatica, left (M54. 32) Referral Organization [facility] Medicine Referring Provider First Name Kerrie Referring Provider Last Name Pal Referring Provider Speciality Family Med icine Referred Provider [facility], Physical Therap y Referred Provider Specialty Physical The rapist Referral Priority Routine Medications Medication SIG (Take, Route, Frequency, Duration) Notes Start Date End Date Status Omeprazole 40 MG TAKE 1 CAPSULE BY MOUTH TWICE A DAY; Duration: 90 UnknownGlucose LancetsTest blood sugar once daily DX: E11.9; Duration: 90 days 5ActiveOlmesartan Medoxomil-HCTZ 20-12.5 MGTAKE 1 TABLET BY MOUTH EVERY DAY FOR 90 DAYS daily; Duration: 30 daysUnknownSimvastatin 20 MG1 tablet in the evening Orally Once a day; Duration: 30 daysUnknownQUEtiapine Fumarate 100 MG1 tablet Orally daily; Duration: 90 daysUnknownZanaflex 4 MG1 tablet BID prn Orally Once a day; Duration: 10 daysUnknownTrulicity 3 MG/0.5MLINJECT 1 PEN UNDER THE SKIN ONCE WEEKLY; Duration: 28UnknownGlucose Test Stripstest blood sugar once daily DX: E11.9; Duration: 90 days5ActiveDiclofenac Sodium 75 MGTAKE 1 TABLET BY MOUTH TWICE A DAY FOR 14 DAYS NEEDED; Duration: 30 days UnknownNystatin 934295 UNIT/ML4 mL Mouth/Throat Four times a day- swish and swallow; Duration: 14 days5ActivebuPROPion HCl ER (XL) 150 MGTAKE 1 TABLET BY MOUTH EVERY DAY; Duration: 90 daysUnknownglipiZIDE ER 2.5 MG1 tablet with breakfast Orally twice a day; Duration: 30 days3ActiveDULoxetine HCl 60 MGTAKE 1 CAPSULE BY MOUTH EVERY DAY FOR 30 DAYS; Duration: 90 daysUnknown Glucose Metertest blood sugar once daily DX: E11.9; Duration: 90 days05/09/2025 ActiveIbuprofen 800 MGTAKE 1 TABLET BY MOUTH EVERY 6 TO 8 HOURS NEEDED; Duration: 30UnknownGabapentin 300 MG1 capsule Orally twice a day; Duration: 30 dayscall for wblqtp1804/17/2025Unknown Social History Tobacco Use: Social History Observation Description Date Details (start date - stop date) Current Smoker 07/17/1992 - NA Tobacco Use/Smoking Question Answer Notes Patient is a current smoker When did you start smoking?07/17/1992How often do you smoke cigarettes?every day How many cigarettes a day do you smoke?1120Alcohol Screen (Audit-C) Question Answer Notes Did you have a drink containing alcohol in the p ast year? Yes How many drinks did you have on a typical day when you were drinking in the past year?1 or 2 drinks (0 point)How often did you have a drink containing alcohol in the past year?Daily or almost daily (4 points)Ksxpvf6BnfthqmepyjjvmAaqqhohx AUDIT-C (Standard) Question Answer Notes Did you [...] W/U Status Risk Notes Problem Essential hypertension (75407701 ) Essential (primary) hypertension (I10) ActiveconfirmedProblemType 2 diabetes mellitus with other specified complication (E11.69)ActiveconfirmedProblemObesity (033488926)Obesity, unspecified (E66.9) ActiveconfirmedProblemOsteoarthritis (902163664)Unspecified osteoarthritis, unspecified site (M19.90)ActiveconfirmedProblemSynovial popliteal cyst of left knee (disorder) (9645863560)Synovial cyst of popliteal space [Carroll], left knee (M71.22)ActiveconfirmedProblemChondromalacia (72405353)Chondromalacia, unspecified site (M94.20)ActiveconfirmedProblemAcute tear of medial meniscus of left knee (disorder) (08449740995104614)Other tear of medial meniscus, current injury, left knee, initial encounter (S83.242A)ActiveconfirmedProblemFatigue (61937593)Fatigue (R53.83)ActiveconfirmedProblemAnemia (627035829)Anemia (D64.9) ActiveconfirmedProblemDepression (771978037)Depression (F32.9)Activeconfirmed ProblemObstructive sleep apnea syndrome (41597834)ANNALISA (obstructive sleep apnea) (G47.33)ActiveconfirmedProblemSyncope (165657350)Syncope (R55)Activeconfirmed ProblemHypertriglyceridemia (879907585)Hypertriglyceridemia (E78.1)Active confirmedProblemConstipation (42611721)Constipation (K59.00)Activeconfirmed ProblemFatty liver (858304988)Fatty liver (K76.0)ActiveconfirmedProblemColonic polyp (76411200)Colonic polyp (K63.5)ActiveconfirmedProblemOverweight (986671483)Over weight (E66.3)ActiveconfirmedProblemSciatica (99570433)Sciatica, left (M54.32)ActiveconfirmedProblemGout attack (294572531)Gout attack (M10.9) Activeconfirmed Vital Signs Blood pressure diastolic 60 mm Hg 05/08/2025 Fthkqy51 in05/08/2025lood pressure ezjcrmjt485 mm Hg05/08/20256182Bwbzdc262 lbs 05/08/2025BMI32.98 kg/m205/08/2025 Encounters Encounter Location Date Provider Diagnosis [facility] [address] [place] [address] 05/07/2025 [facility] [place] [address] 05/08/2025Pamela CramerDepression F32.9 ; Hypertriglyceridemia E78.1 and Type 2 diabetes mellitus with other specified complication E11.69[facility] [facility] [address]/24/2025[facility] [place] [address]/24/2025 [facility] [place] [address]/27/2025Paraven CramerType 2 diabetes mellitus with other specified complication E11.69 and Essential (primary) hypertension D74FwesobvEstes Park Medical Center[address] [place] [address]/Pamela CramerThrush B37.0[facility] [place] [address]/Pamela [facility] [place] [address]/Pamela CramerSciatica, left M54.32[facility] [place] [address]/12/2024 Kerrie [facility] [place] [address]/01/2025Paemiliaa [facility] [place] [address]/Pamela [facility] [place] [address]/Pamela Pal Essential (primary) hypertension E20GfsmyfrEstes Park Medical Center[address] [place] [address]/4Pamela [facility] [place] [address]/4Pamela CramerType 2 diabetes mellitus with other specified complication E11.69[facility] [place] [address]/4Pamela [facility] [place] [address]/01/2025Pamela [facility] [place] [address]/4Pamela CramerRight ankle pain M25.571 and Wellness examination Z00.00[facility] [place] [address]/Pamela CramerSciatica, left M54.32[facility] [place] [address]/08/2024 Kerrie CramerBack pain M54.9 and Essential (primary) hypertension B59QhherfkEstes Park Medical Center[address] [place] [address]/ Kerrie CramerType 2 diabetes mellitus with other specified complication [...] last colonoscopy date r011/05/2024Sciatica, left (ICD-10 - M54.32)04/17/2025ack pain (ICD-10 - M54.9) toradol 60 kenlog 80 IM has upcoming MRI Monday discussed pain man referral check on FMLA paperwork CSA signed, OARRS reviewed 05/08/2025Type 2 diabetes mellitus with other specified complication (ICD-10 - E11.69)Patient educated on Diabetic diet... Reviewed Hypoglycemia / Hyperglycemia action plan: Instructed to call office if blood sugar above 350 or below 65 consecutively. 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 effects of Diabetes Mellitus on the body [...] (primary) hypertension (ICD-10 - I10)05/08/2025Depression (ICD-10 - F32.9)05/12/2025Type 2 diabetes mellitus with other specified complication (ICD-10 - E11.69)05/12/2025 Essential (primary) hypertension (ICD-10 - I10)05/12/2025Thrush (ICD-10 - B37.0) 05/08/2025Hypertriglyceridemia (ICD-10 - E78.1)05/08/2025Wellness examination (ICD-10 - Z00.00)04/17/2025Essential [...] PANEL (CHOL/TRIG/HDL/LDL) 04/23/20 24 LIPID PANEL (CHOL/TRIG/HDL/LDL) 04/14/20 23 LIPID PANEL (CHOL/TRIG/HDL/LDL) 05/08/20 25 CBC WITH DIFF 04/14/2023 CBC WITH DIFF 04/23/2024 PSA, PROSTATE-SPECIFIC ANTIGEN 3 URIC ACID 04/14/2023 URIC ACID 05/08/2025 URIC ACID 04/23/2024 XR Abdomen AP (1 view) (KUB) * 4 COMPREHENSIVE METABOLIC PROFILE WITH GFR 05/12/2025 CBC W/AUTO DIFF 05/12/2025 PSA, TOTAL 04/23/2024 STOOL OCCULT BLOOD 04/14/2023 GLYCOHEMOGLOBIN A1C 07/21/2023 MRI LSPINE WO CON 11/11/2024 THYROID PANEL (T4/TSH/FREE T3) 4 THYROID PANEL (T4/TSH/FREE T3) 5 THYROID PANEL (T4/TSH/FREE T3) 3 THYROID PANEL (T4/TSH/FREE T3) 5 XR lumbar spine 2-3V 11/05/2024 PSA, SCREENING 05/08/2025 CMP (COMP MET NICK) w/eGFR CKD-EPI 2024 CBC WITH DIFF 05/08/2025 Insurance Providers Payer Name Payer Address Payer Phone Subscriber Number Group Number Insured Name Patient Relationship to Insured Coverage Start Date Coverage End Date ANTHEM ACCESS PPO PLUS LOCAL PLAN [address] [place] [phone] [id number] Layla Valenciaelf - patient is the insured Medications Administered Medication Instructions Date of Administration Dosage Notes Kenalog-40 3160 mg80 mg and 1 cc lidocaine - X2 Medical (General) History Medical History History ICD Code syncope depressionover weightanemiafatiguecolonic polyphypertriglyceridemiafatty infiltration of the mevqwDdihabvR51.9Essential YvdcwksczvafN43Bfknshht xfoaqdmkkrwL32.9YyjeH37.9GERD (gastroesophageal reflux disease)K21.9IBS (irritable bowel syndrome)K58.6GvxtouuqB31.00Obstructive sleep enrzhS31.33 Tobacco useZ72.0Surgical History Surgery Date(Month/Year) CHOLECYSTECTOMY Achilles Tendon Repairleft knee replacement
--- OUTSIDE RECORDS SUMMARY | 2025-05-15 07:29 | XMS_ITS | Clinical Summary ---
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 Name Role Phone Kerrie Aguillon APRN - DRY PLASTERER Primary Care Provide r Allergies Active AllergyReactionsCriticalityNoted [...] with hyperglycemia, without long-term current use of envfvcv7706/20/2023HTN (hypertension)06/20/2023 Status post total knee replacement using cement, left12/10/2022 Family History Medical HistoryRelationNameCommentsHeart DiseaseMotherRelationNameStatusComments FatherDeceasedMotherDeceasedSisterDeceased Social History Tobacco UseTypesPacks/DayYears UsedDateSmoking Tobacco: Every DayCigarettes Smokeless Tobacco: Never Tobacco Cessation:Ready to Q uit: Not Asked; Counseling Given: Not Answered Alcohol UseStandard Drinks/WeekCommentsNot Currently0 (1 standard drink = 0.6 oz pure alcohol)occasionallyC UtilitiesAnswerDate RecordedIn the past 12 months has the [employer], gas, oil, or water [employer] threatened to shut off services in your [...] or slept in ashelter (including now)?No06/19/2023Interpersonal Safety ([facility] HRSN)Answer Date RecordedHow often does anyone, [...] IP Abuse Screening AnswerDate RecordedRead-Only, Retired: Physical XwbkhFwiffc13/04/2023Read-Only, Retired: Verbal XxzqbAkblkk85/04/2023Read-Only, Retired: Emotional abuseDenies 06/19/2023Read-Only, Retired: Financial KqrqkZzhdlo20/04/2023Read-Only, Retired: Sexual bxcfmFruyly75/04/2023Sex and Gender InformationValueDate RecordedSex Assigned at BirthNot on fileLegal FwtLyxc21/15/2023 11:27 AM ESTGender Identity Not on fileSexual OrientationNot on file Last Filed Vital Signs Vital SignReadingTime TakenCommentsBlood Rmqaatjp989/6106/20/2023 7:45 AM EST Fvxgo855206/20/2023 7:45 AM SCGKlwvgngxvwq60.5 ??C (97.7 ??F)06/20/2023 7:45 AM ESTRespiratory Qkpq379508/21/2022 2:38 PM ESTOxygen Riqoiroizd36%06/20/2023 7:45 AM ESTInhaled Oxygen Concentration--Dqzjew594.9 kg (260 lb)06/19/2023 10:53 AM XYZGwwxlu673.4 cm (6' 1 )06/19/2023 10:53 AM ESTBody Mass Index34. 10:53 AM EST Plan of Treatment DateTypeDepartmentCare Team (Latest Contact Info)Yxpwpakjyvx59/03/2025 11:50 AM ESTOffice Visit [facility] [address] [place] [address] Abdiel Hughes MD [address] [phone] 05/13/25 CP DONE LGHealth MaintenanceDue DateLast RjthPydebtnxF0T test (Diabetic or Prediabetic)1979Diabetic foot exam07/18/19797409Mdqxbd93/02/1980Depression Bkjbnv3807/18/1981HIV iprlgc4107/18/1984Diabetic Alb to Cr ratio (uACR) test 1987Diabetic retinal exam1987Hepatitis C wupwbc4907/18/1987Hepatitis B vaccine (1 of 3 - 19+ 3-dose series)1988Pneumococcal 50+ years Vaccine (1 of 2 - PCV)07/18/19881612Bzwqnxjggwr24/02/2015Colorectal Cancer Wftvty8507/18/2014 FIT/FOBT: Average risk2014Fecal-DNA (Cologuard): Average risk2014 Sigmoidoscopy/CT lhyhspjfpfbh18/02/2015Shingles vaccine (1 of 2)2019GFR test (Diabetes, CKD 3-4, OR last GFR 15-59)/Flu vaccine (#1) 02/14/2025OVID-19 Vaccine (1 - season)2025DTaP/Tdap/Td vaccine (2 - Td or Tdap)Hepatitis A vaccineAged OutNo longer eligible based on patient's age to complete this topicHib vaccineAged OutNo longer eligible based on patient's age to complete this topicMeningococcal (ACWY) vaccineAged OutNo longer eligible based on patient's age to complete this topic Meningococcal B vaccineAged OutNo longer eligible based on patient's age to complete this topicPolio vaccineAged OutNo longer eligible based on patient's age to complete this topic Medical Devices ImplantedTypeAreaManufacturerDevice IdentifierShelf Expiration DateModel / Serial / LotDup Use [id number] Impl Knee Psn Tib Stm 5 Deg Sz G L - [id number] Implanted:Qty: 1 on 06/19/2023 [facility] [employer]-PMM10/18/[id number] / / [id number] Knee Psn Fem Cr Cmt Ccr Std Sz9 L - [id number] Implanted:Qty: 1 on 06/19/2023 [facility]: [employer]-[id number] / / [id number] Bne 40gm Hi Visc Radpq For Rev Surg - [id number] Implanted:Qty: 1 on 06/19/2023 [facility]: [employer]-[id number] / / [id number] Bne 40gm Hi Visc Radpq For Rev Surg - [id number] Implanted:Qty: 1 on [facility]19/[facility] [employer]-[id number] / / [id number] Pat Rgb62ai Thk8.5mm Std Knee Vivacit-E [place] - [id number] Implanted:Qty: 1 on 06/19/2023 by Ender Lu MD at [facility]: [employer]-[id number] / / [id number] Mc Ve Asf L 10mm 8-11 Gh - [id number] Implanted:Qty: 1 on 06/19/2023 by Ender Lu MD at [facility]: [employer]-[id number] / / [id number]blgqeAtzqzt IdentifierShelf Expiration DateModel / Serial / LotScrew Bne L48mm Constrn Cndyl Knee Hex Hd Stem For Leg Nxgn - [id number] Explanted:Qty: 2 on 06/19/2023 [facility] [employer]-[id number] / / [id number] Procedures Procedure NamePriorityDate/TimeAssociated DiagnosisCommentsBASIC METABOLIC PANEL Bvbipuu0506/06/2023 9:58 AM EST from Last 3 Months or Most Recently Relevant to Health Maintenance Results * (ABNORMAL) Basic Metabolic Panel (06/06/2023 9:58 AM EST)ComponentValueRef RangeTest MethodAnalysis TimePerformed AtPathologist PgegnyyccDgoamb682(L)135 - 144 mmol/L108/06/2022 9:58 AM [facility] LABPotassium3.7 3.7 - 5.3 mmol/L108/06/2022 9:58 AM [facility] LABChloride 93(L)98 - 107 mmol/L108/06/2022 9:58 AM [facility] LABCO2 2420 - 31 mmol/L108/06/2022 9:58 AM [facility] LABAnion Rim029 - 17 mmol/L108/06/2022 9:58 AM [facility] Lnpoumu905(H)70 - 99 mg/dL06/06/2023 9:58 AM [facility] TZJILU754 - 20 mg/dL06/06/2023 9:58 AM [facility] Creatinine1.10.7 - 1.2 mg/dL06/06/2023 9:58 AM [facility] LABEst, Glom Filt Rate>60>60 mL/min/1.37e67706/06/2023 9:58 AM [facility] LABComment: ? These results are not [...] therapy that affects renal tubular secretion. BUN/Creatinine Gbpeu175 - 9:58 AM [facility] LABCalcium9.48.6 - 10.4 mg/dL06/06/2023 9:58 AM [facility] LABSpecimen (Source)Anatomical Location / LateralityCollection Method / Volume Collection TimeReceived TimeBloodBLOOD SPECIMEN / Lfzuqax7206/06/2023 9:58 AM EST 06/06/2023 9:59 AM EST Narrative Authorizing ProviderResult TypeResult StatusPhilip E Aly MDCHEMISTRY ORDERABLESFinal ResultPerforming OrganizationAddressCity/State/ZIP CodePhone Number [facility] [address] [place] [address], [facility] [phone] from Last 3 Months or Most Recently Relevant to Health Maintenance Insurance Advance Directives * Full Code (Latest Code Status on File) Date ActivatedDate LvtlnlhpuqrMsspdtab30/4/2023 4:18 PM06/20/2023 5:02 PM NameRelationshipHealthcare Agent RelationshipCommunicationBobby Anssumma health wadsworth - rittman medical centerSpouse Primary Decision Maker* Care Teams Team MemberRelationshipSpecialtyStart DateEnd Date Kerrie Aguillon, INSTRUMENT SHOP SUPERVISOR - DRY PLASTERER [facility] [place] [address] PCP - Nzjyzby37/21/23
--- OUTSIDE RECORDS SUMMARY | 2025-05-15 07:30 | XMS_ITS | Clinical Summary ---
Author Organization [employer] [facility] tem Address [id number] [address] 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 10 tablet 5Active Encounters DateTypeDepartmentCare YnqmXmcstonvtqx62/21/2025 2:21 PM EDT - 04/06/2025 3:13 PM EDTEmergency [facility] [address] [place] [address] Acute on chronic back pain (Primary Dx) Discharge Disposition: Home04/06/20257194Hjvucv98/04/2025Refill [facility] [address] [place] [id number] Mary Segura, INSTITUTIONAL RESEARCH COORDINATOR-DIESEL BUS MECHANIC from Last 3 Months Social History Tobacco UseTypesPacks/DayYears UsedDateSmoking Tobacco: Every BclXnooysxqnx078 Smokeless Tobacco: NeverAlcohol UseStandard Drinks/WeekCommentsYes0 (1 standard drink = 0.6 oz pure alcohol)occasionalChildcareAnswerDate RecordedChildcare Ugobcyv1112/26/2018EmploymentAnswerDate LcbccgbxNaalqkjfppKljjups02/12/2019Hunger ScreeningAnswerDate RecordedWithin the past 12 months we worried whether our food would run out before we got money to buy more.Never True02/10/2025Within the past 12 months the food we bought just didn't last and we didn't have money to get more.Never True02/10/2025Purpose - LifeAnswerDate RecordedPurpose and direction in cuskPymlbsv58/11/2021ex and Gender InformationValueDate Recorded Sex Assigned at BirthNot on fileLegal RysNrkq0602/19/2015 11:22 AM EDTGender IdentityNot on fileSexual OrientationNot on file Last Filed Vital Signs Vital SignReadingTime TakenCommentsBlood Ozayovxd822/7109 2:24 PM EDT Kaocc1994 3:13 PM SLDYqocghqoxuy76.6 ??C (97.9 ??F)04/06/2025 2:24 PM EDTRespiratory Pizw9393 3:13 PM EDTOxygen Wbrtqshajf06%04/06/2025 3:13 PM EDTInhaled Oxygen Concentration--Yaaurs976.9 kg (260 lb)04/06/2025 2:24 PM TAHTgmyqv070.4 cm (6' 1 )04/06/2025 2:24 PM EDTBody Mass Index34.309 2:24 PM EDT Plan of Treatment Health MaintenanceDue DateLast DoneCommentsTobacco Xbxqclzeqh82/02/1970 Depression Mvbeqpfdt61/02/1982Adult BMI Follow Up Plan1987Zoster (Shingles) Vaccine (1 of 2)2019Influenza Qpuxquh2303/17/2025Tobacco Ajdjikyxz82/09/433217/dult BMI Pimeuksqj28/DTaP,Tdap and Td Vaccines (2 - Td or Tdap) Medical Devices Not on file Insurance Care Teams Team MemberRelationshipSpecialtyStart DateEnd Date Kerrie Aguillon, INSTITUTIONAL RESEARCH COORDINATOR-DIESEL BUS MECHANIC [address] [facility] [place] [address] PCP - GeneralFamily Medicine03/16/19
--- OUTSIDE RECORDS SUMMARY | 2025-05-15 07:30 | XMS_ITS | Clinical Summary ---
Author Organization [facility] Address [address] [place] [address] Care Team Providers Care Recovery Assistant Name Role Phone Unavailable Primary Care Provider Unavailabl e Social History Tobacco UseTypesPacks/DayYears UsedDateSmoking Tobacco: Never AssessedSex and Gender InformationValueDate RecordedSex Assigned at BirthNot on fileLegal Sex Male09/28/2022 7:04 PM EDTGender IdentityNot on fileSexual OrientationNot on file Last Filed Vital Signs Vital SignReadingTime TakenCommentsBlood Waixbybq168/9902/07/2018 12:00 PM EDT Pulse--Temperature--Respiratory Rate--Oxygen Saturation--Inhaled Oxygen Concentration--Ylldpu571 kg (281 lb)02/07/2018 12:00 PM DKCMyzizr807.4 cm (6' 1 )02/07/2018 12:00 PM EDTBody Mass Index37. 12:00 PM EDT Plan of Treatment Not on file
[2025-05-15 07:41] LABS: Hematocrit 35.8 % (42.0-54.0); Hemoglobin 12.7 g/dL (14.0-18.0); Immature Granulocytes Abs Auto 0.09 10^3/uL (0.00-0.03); Immature Granulocytes Pct Auto 0.7 % (0.0-0.5); Lymphocytes Absolute Auto 1.5 10^3/uL (1.2-3.8); Mean Corpuscular HGB Conc 35.5 g/dL (29.9-35.2); Mean Corpuscular Hemoglobin 30.5 pg (25.9-34.0); Mean Corpuscular Volume 85.9 fL (80.0-94.0); Platelet Count 241 10^3/uL (150-450); Red Blood Count 4.17 10^6/uL (4.70-6.10); White Blood Count 13.2 10^3/uL (4.0-11.0)
[2025-05-15 08:03] LABS: Alanine Aminotransferase 27 U/L (16-63); Albumin Globulin Ratio 1.1; Albumin Level 3.9 g/dL (3.4-5.0); Alkaline Phosphatase 60 U/L (46-116); Anion Gap 17.3; Aspartate Amino Transferase 19 U/L (15-37); Blood Urea Nitrogen 21.0 mg/dL (7.0-18.0); Calcium 9.2 mg/dL (8.5-10.1); Carbon Dioxide 24.0 mmol/L (21.0-32.0); Chloride 102 mmol/L (98-107); Estimated GFR (African America >60 (>=60 mL/min/1.73m^2); Estimated GFR (Non-African Ame >60 (>=60 mL/min/1.73m^2); Globulin 3.4 g/dL; Glucose 210 mg/dL (74-106); Potassium 4.3 mmol/L (3.5-5.1); Sodium 139 mmol/L (136-145); Total Protein 7.3 g/dL (6.4-8.2)
== END 2025-05-15 07:24 | disposition home or self-care (01) ==
PROVIDERS: PCP Nurse Practitioner Family; Visit Provider Nurse Practitioner Family
DX: E11.69 Type 2 diabetes mellitus with other specified complication (principal); I10 Essential (primary) hypertension
CPT/HCPCS: 36415; 80053; 84436; 84443; 84481; 85025